=== PATIENT | male | born 1945 | race Caucasian/White ===

== ENCOUNTER 2017-01-17 09:08 | Emergency (ER) | payer BC ==
[~2017-01-17] VITALS: Ht 175.3 cm; Wt 102.6 kg
[~2017-01-17 09:08] MED LIST: ADVIN25050 INH; ATOR-22 PO; HYDR5SYP11 PO; IPRASOL4 INH; KETO2CRE14 TOP; OMEG-112 PO; OMEP20CA9 PO; TADA20TA PO; TAMS0.4C38 PO; TIOTCAP INH; levaquin PO
[2017-01-17 09:14] VITALS: TEMP 36.7; Ht 175.3 cm; Wt 102.6 kg
[2017-01-17 10:10] LABS: BASO % 0.2 %; BASO ABS # 0.03 K/uL (0-0.2); COMPLETE YES; EOS % 3.1 %; HEMATOCRIT 45.4 % (42-52); IG% 0.5 %; LYMPH % 23.9 %; LYMPH ABS # 3.14 K/uL (1.2-3.4); MEAN CELL VOLUME 85.7 fL (80-100); MEAN CORPUSCULAR HEMOGLOBIN 30.6 pg (25-34); MEAN CORPUSCULAR HGB CONC 35.7 g/dl (32-36); MEAN PLATELET VOLUME 9.8 fL (7.4-10.4); MONO % 9.4 %; NEUT % 62.9 %; PLATELET COUNT 206 K/uL (130-400); WHITE BLOOD COUNT 13.15 K/uL (4.8-10.8)
[2017-01-17 10:12] LABS: MANUAL MICROSCOPIC REQUIRED? NO; REVIEW REQ? NO; URINE APPEARANCE CLEAR (CLEAR); URINE BILIRUBIN NEG (NEG); URINE COLOR DK YELLOW; URINE EPITHELIAL CELL AUTO 0-5 /lpf (0-5); URINE NITRITE NEG (NEG); URINE SPECIFIC GRAVITY 1.018 (1.000-1.030); UROBILINOGEN NEG (NEG); ZZUR CULT IF INDIC CLEAN CATCH NO
[2017-01-17 10:28] LABS: ALT/SGPT 39 U/L (12-78); BLOOD UREA NITROGEN 17 mg/dl (7-18); CALCIUM 9.6 mg/dl (8.5-10.1); CARBON DIOXIDE 27 mmol/L (21-32); CHLORIDE 104 mmol/L (98-107); GLUCOSE 110 mg/dl (70-99); POTASSIUM 4.1 mmol/L (3.5-5.1); SODIUM 139 mmol/L (136-145)
[2017-01-17 10:33] LABS: ALKALINE PHOSPHATASE 64 U/L (45-117); AST/SGOT 19 U/L (15-37)
--- NOTE | 2017-01-17 10:34 | DIAGNOSTIC IMAGING REPORT ---
SINGLE VIEW CHEST CLINICAL HISTORY: Anxiety. Recent fall FINDINGS: An AP, portable, upright chest radiograph is compared to study dated 05/18/2015 and correlated with chest CT dated 01/30/2015. The examination is degraded by portable technique and patient rotation. The heart is mildly enlarged and there is atherosclerotic calcification of the thoracic aorta. The pulmonary vasculature is noncongested. Emphysema and chronic interstitial thickening is similar to previous. Left basilar airspace opacities likely represent atelectasis. No large pleural effusion or pneumothorax is seen. The skeletal structures are osteopenic. The bony thorax is grossly intact. IMPRESSION: 1. Cardiomegaly and emphysema. 2. Left basilar airspace opacities at the represent atelectasis. Clinical correlation will be required Electronically signed by: Washington Abebe M.D. 01/17/2017 10:33 AM Dictated Date/Time: 01/17/2017 10:31 AM
[2017-01-17] MEDS ORDERED: ATOR-24 PO (11:08)
[2017-01-17] MEDS ORDERED: CETI10TA84 PO (11:08)
[2017-01-17] MEDS ORDERED: SPRIN/30 INH (11:08)
[2017-01-17] MEDS ORDERED: NIFE30TA83 PO (11:08)
[2017-01-17] MEDS ORDERED: ROFL1TAB5 PO (11:08)
[2017-01-17] MEDS ORDERED: NXM/40 PO (11:08)
[2017-01-17] MEDS ORDERED: OPTIRAY 320 IV PRN (11:30)
--- NOTE | 2017-01-17 12:00 | DIAGNOSTIC IMAGING REPORT ---
CT ANGIOGRAM OF THE CHEST CLINICAL HISTORY: Atypical chest pain. COMPARISON STUDY: Chest x-ray dated 01/15/2017. Chest CT scans dated 01/30/2015 and 03/17/2007. TECHNIQUE: Following the IV administration of 107 cc of Optiray 320, CT angiogram of the chest was performed from the upper abdomen to the thoracic inlet utilizing the pulmonary embolus protocol. Images are reviewed in the axial, sagittal, and coronal planes. 3-D MIPS images are created and assessed. IV contrast was administered without complication. A dose lowering technique was utilized adhering to the principles of ALARA. CT DOSE: 464.96 mGy.cm FINDINGS: Thyroid: Imaged portions of the thyroid gland are normal in size and attenuation. Thoracic aorta: There is mild atherosclerotic calcification of the thoracic aorta, which is normal in caliber and demonstrates standard 3-vessel arch anatomy. No dissection is seen. Pulmonary vasculature: The pulmonary trunk is normal in caliber. There are no filling defects identified in main, lobar, or segmental pulmonary branches to suggest pulmonary embolus. Heart: The heart is enlarged and there is trace pericardial effusion. The coronary arteries are densely calcified. Lungs and pleural spaces: Emphysema is similar to previous. There is no airspace consolidation typical for pneumonia or pleural effusion. Atelectasis versus scarring is noted in the right middle lobe. There are scattered calcified granulomas. Mild mucous plugging is present in the left lower lobe airways. Mild diffuse peribronchial thickening suggests reactive airway disease. The trachea and central airways are clear. Mediastinum: There is no mediastinal lymphadenopathy. July: Clear. Axillae: There is no axillary lymphadenopathy. Upper abdomen: There is a tiny hiatal hernia. A 5.2 cm left renal cyst is partially imaged. There are numerous (greater than 10) hepatic cysts and too small to Hypodensities which measure up to 2.7 cm. These were also seen on prior studies. Skeletal structures: The skeletal structures are osteopenic. Degenerative change is seen throughout the thoracic spine. No lytic or blastic bony lesions are seen. IMPRESSION: 1. There is no evidence of pulmonary embolus in the main, lobar, or segmental pulmonary arteries. 2. Cardiomegaly and emphysema. 3. There is no airspace consolidation or pleural effusion. 4. Additional findings as above. Electronically signed by: Washington Abebe M.D. 01/17/2017 11:59 AM Dictated Date/Time: 01/17/2017 11:41 AM
[2017-01-17] MEDS ORDERED: AZITHROMYCIN 250 MG TAB PO STA (12:14)
[2017-01-17] MEDS ORDERED: DIPHTHERIA/TETANUS/PERTUSSIS 0.5 ML SYR/VIAL IM. ONE (12:15)
[2017-01-17] MEDS ORDERED: ZTHM250 PO (12:16)
[2017-01-17 12:20] VITALS: BP 126/99; PULSE 66; O2SAT 94
--- NOTE | 2017-01-17 15:29 | EMERGENCY ROOM VISIT NOTE ---
History Report prepared by Barbara: Lisa Marks Under the Supervision of: Dr. Kashif Katz D.O. First contact with patient: 09:19 Chief Complaint: ANXIETY Stated Complaint: ANXIETY FROM FALL YESTERDAY History of Present Illness The patient is a 71 year old male who presents to the Emergency Room with complaints of persistent anxiety that began yesterday. The patient states that he fell down a 9 inch step yesterday and states that since then he has been feeling anxious. He states that he has been short of breath since the fall. The patient reports that he has noticed right shoulder and right hip shoulder. He states that he is feeling fluttery inside today. The patient reports a history of asthma, COPD, and chronic bronchitis, noting that he is on multiple medications daily. 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 The patient states that this weekend he has a busy weekend, noting a reunion weekend. He states that he is typically very calm and cool, but states that he keeps feeling anxious. The patient denies any head injury or being on any blood thinners. Pt denies headache, change in vision, fevers, chest pain, nausea, vomiting, diarrhea, pain with urination, weakness in arms and legs, and melena. Source of History: patient Onset: yesterday Position: other (global) Quality: other (anxiety) Timing: other (persistent) Associated Symptoms: + SOB Note: Associated Symptoms: feeling fluttery inside. Review of Systems See HPI for pertinent positives & negatives. A total of 10 systems reviewed and were otherwise negative. Past Medical & Surgical Medical Problems: (1) Asthma (2) Bronchitis (3) Emphysema/COPD Surgical Problems: (1) History of colon resection Family History Cancer FH: asthma Heart disease Social History Smoking Status: Former Smoker Alcohol Use: occasionally Drug Use: none Marital Status: Housing Status: lives with family Occupation Status: employed Current/Historical Medications Scheduled Atorvastatin (Lipitor), 40 MG PO QPM Azithromycin (Azithromycin), 250 MG PO DAILY Cetirizine (Zyrtec), 10 MG PO DAILY Esomeprazole Magnesium (Nexium), 40 MG PO DAILY Fluticasone Prop/Salmeterol (Advair Diskus 250-50 Mcg/Dose), 1 PUFF INH BID Nifedipine Ext Rel (Procardia Xl Ext Rel), 30 MG PO QPM Roflumilast (Daliresp), 500 MCG PO DAILY Tadalafil (Cialis), 20 MG PO UD Tamsulosin Hcl (Flomax), 0.4 MG PO QPM Tiotropium [place] (Spiriva Handihaler), 1 CAP INH DAILY Allergies Coded Allergies: Amoxicillin (Verified Allergy, Intermediate, RASH, 01/14/15) Clavulanic Acid (Verified Allergy, Intermediate, RASH, 01/14/15) Moxifloxacin (Verified Allergy, Unknown, hives, TOLERATES LEVAQUIN, ) Sulfa Antibiotics (Verified Allergy, Unknown, ., 01/17/17) Physical Exam Vital Signs Date Time Temp Pulse Resp B/P (MAP) Pulse Ox O2 Delivery O2 Flow Rate FiO2 01/17/17 12:20 66 13 126/99 94 Room Air 01/17/17 11:11 66 20 175/78 93 Room Air 01/17/17 09:47 67 01/17/17 09:14 36.7 83 20 164/71 92 Room Air Physical Exam GENERAL: alert, well appearing, well nourished, no distress, non-toxic HEAD: normal cephalic, atraumatic EYE EXAM: normal conjunctiva, PERRL and EOM's grossly intact OROPHARYNX: no exudate, no erythema, lips, buccal mucosa, and tongue normal and mucous membranes are moist EARS: TMs clear b/l NECK: supple, no nuchal rigidity, no adenopathy, non-tender CHEST: stable to compression anteriorly and posteriorly LUNGS: clear to auscultation. Normal chest wall mechanics HEART: no murmurs, S1 normal and S2 normal ABDOMEN: abdomen soft, non-tender, normo-active bowel sounds, no masses, no rebound or guarding. PELVIS: stable to compression anteriorly and posteriorly BACK: Back is symmetrical on inspection and there is no deformity, no midline tenderness, no CVA tenderness. UPPER EXTREMITIES: full active and passive range of motion of all joints without tenderness to palpation LOWER EXTREMITIES: Abrasion noted over the right elbow, minimal tenderness on the posterior aspect of the right humerus. NEURO EXAM: Normal sensorium, cranial nerves II-XII grossly intact, normal speech, no gross weakness of arms, no gross weakness of legs. GCS: 15. Medical Decision & Procedures ER Provider Diagnostic Interpretation: Radiology results as stated below per my review and the radiologist's interpretation: SINGLE VIEW CHEST CLINICAL HISTORY: Anxiety. Recent fall FINDINGS: An AP, portable, upright chest radiograph is compared to study dated 05/18/2015 and correlated with chest CT dated 01/30/2015. The examination is degraded by portable technique and patient rotation. The heart is mildly enlarged and there is atherosclerotic calcification of the thoracic aorta. The pulmonary vasculature is noncongested. Emphysema and chronic interstitial thickening is similar to previous. Left basilar airspace opacities likely represent atelectasis. No large pleural effusion or pneumothorax is seen. The skeletal structures are osteopenic. The bony thorax is grossly intact. IMPRESSION: 1. Cardiomegaly and emphysema. 2. Left basilar airspace opacities at the represent atelectasis. Clinical correlation will be required Electronically signed by: Washington Abebe M.D. 01/17/2017 10:33 AM Dictated Date/Time: 01/17/2017 10:[address] ANGIOGRAM OF THE CHEST CLINICAL HISTORY: Atypical chest pain. COMPARISON STUDY: Chest x-ray dated 01/15/2017. Chest CT scans dated 01/30/2015 and 03/17/2007. TECHNIQUE: Following the IV administration of 107 cc of Optiray 320, CT angiogram of the chest was performed from the upper abdomen to the thoracic inlet utilizing the pulmonary embolus protocol. Images are reviewed in the axial, sagittal, and coronal planes. 3-D MIPS images are created and assessed. IV contrast was administered without complication. A dose lowering technique was utilized adhering to the principles of ALARA. CT DOSE: 464.96 mGy.cm FINDINGS: Thyroid: Imaged portions of the thyroid gland are normal in size and attenuation. Thoracic aorta: There is mild atherosclerotic calcification of the thoracic aorta, which is normal in caliber and demonstrates standard 3-vessel arch anatomy. No dissection is seen. Pulmonary vasculature: The pulmonary trunk is normal in caliber. There are no filling defects identified in main, lobar, or segmental pulmonary branches to suggest pulmonary embolus. Heart: The heart is enlarged and there is trace pericardial effusion. The coronary arteries are densely calcified. Lungs and pleural spaces: Emphysema is similar to previous. There is no airspace consolidation typical for pneumonia or pleural effusion. Atelectasis versus scarring is noted in the right middle lobe. There are scattered calcified granulomas. Mild mucous plugging is present in the left lower lobe airways. Mild diffuse peribronchial thickening suggests reactive airway disease. The trachea and central airways are clear. Mediastinum: There is no mediastinal lymphadenopathy. July: Clear. Axillae: There is no axillary lymphadenopathy. Upper abdomen: There is a tiny hiatal hernia. A 5.2 cm left renal cyst is partially imaged. There are numerous (greater than 10) hepatic cysts and too small to Hypodensities which measure up to 2.7 cm. These were also seen on prior studies. Skeletal structures: The skeletal structures are osteopenic. Degenerative change is seen throughout the thoracic spine. No lytic or blastic bony lesions are seen. IMPRESSION: 1. There is no evidence of pulmonary embolus in the main, lobar, or segmental pulmonary arteries. 2. Cardiomegaly and emphysema. 3. There is no airspace consolidation or pleural effusion. 4. Additional findings as above. Electronically signed by: Washington Abebe M.D. 01/17/2017 11:59 AM Dictated Date/Time: 01/17/2017 11:41 AM Laboratory Results 01/17/17 10:00 Red Blood Count 5.30, Mean Corpuscular Volume 85.7, Mean Corpuscular Hemoglobin 30.6, Mean Corpuscular Hemoglobin Concent 35.7, Mean Platelet Volume 9.8, Neutrophils (%) (Auto) 62.9, Lymphocytes (%) (Auto) 23.9, Monocytes (%) (Auto) 9.4, Eosinophils (%) (Auto) 3.1, Basophils (%) (Auto) 0.2, Neutrophils # (Auto) 8.28, Lymphocytes # (Auto) 3.14, Monocytes # (Auto) 1.23, Eosinophils # (Auto) 0.41, Basophils # (Auto) 0.03 01/17/17 10:00 Test 01/17/17 09:50 01/17/17 10:00 01/17/17 12:05 Urine Color DK YELLOW Urine Appearance CLEAR (CLEAR) Urine pH 6.0 (4.5-7.5) Urine Specific [place] 1.018 (1.000-1.030) Urine Protein NEG (NEG) Urine Glucose (UA) NEG (NEG) Urine Ketones NEG (NEG) Urine Occult Blood NEG (NEG) Urine Nitrite NEG (NEG) Urine Bilirubin NEG (NEG) Urine Urobilinogen NEG (NEG) Urine Leukocyte Esterase NEG (NEG) Urine WBC (Auto) 0 /hpf (0-5) Urine RBC (Auto) 0-4 /hpf (0-4) Urine Hyaline Casts (Auto) 0 /lpf (0-5) Urine Epithelial Cells (Auto) 0-5 /lpf (0-5) Urine Bacteria (Auto) NEG (NEG) White Blood Count 13.15 K/uL (4.8-10.8) Red Blood Count 5.30 M/uL (4.7-6.1) Hemoglobin 16.2 g/dL (14.0-18.0) Hematocrit 45.4 % (42-52) Mean Corpuscular Volume 85.7 fL (80-100) Mean Corpuscular Hemoglobin 30.6 pg (25-34) Mean Corpuscular Hemoglobin Concent 35.7 g/dl (32-36) Platelet Count 206 K/uL (130-400) Mean Platelet Volume 9.8 fL (7.4-10.4) Neutrophils (%) (Auto) 62.9 % Lymphocytes (%) (Auto) 23.9 % Monocytes (%) (Auto) 9.4 % Eosinophils (%) (Auto) 3.1 % Basophils (%) (Auto) 0.2 % Neutrophils # (Auto) 8.28 K/uL (1.4-6.5) Lymphocytes # (Auto) 3.14 K/uL (1.2-3.4) Monocytes # (Auto) 1.23 K/uL (0.11-0.59) Eosinophils # (Auto) 0.41 K/uL (0-0.5) Basophils # (Auto) 0.03 K/uL (0-0.2) RDW Standard Deviation 42.2 fL (36.4-46.3) RDW Coefficient of Variation 13.5 % (11.5-14.5) Immature Granulocyte % (Auto) 0.5 % Immature Granulocyte # (Auto) 0.06 K/uL (0.00-0.02) D-Dimer 590 ug/L FEU (0-500) Anion Gap 8.0 mmol/L (3-11) Est Creatinine Clear Calc Drug Dose 72.7 ml/min Estimated GFR () 77.9 Estimated GFR (Non- 67.2 BUN/Creatinine Ratio 15.0 (10-20) Calcium Level 9.6 mg/dl (8.5-10.1) Total Bilirubin 0.5 mg/dl (0.2-1) Direct Bilirubin 0.2 mg/dl (0-0.2) Aspartate Amino Transf (AST/SGOT) 19 U/L (15-37) Alanine Aminotransferase (ALT/SGPT) 39 U/L (12-78) Alkaline Phosphatase 64 U/L (45-117) Total Protein 8.1 gm/dl (6.4-8.2) Albumin 4.2 gm/dl (3.4-5.0) Lipase 163 U/L (73-393) Troponin I < 0.015 ng/ml (0-0.045) Laboratory results per my review. Medications Administered Medications (Trade) Dose Ordered Sig/Kinsey Route Start Time Stop Time Status Last Admin Dose Admin Diphtheria/ Pertussis/Tetanus Vacc (Adacel Inj) 0.5 ml ONCE ONCE IM. 01/17/17 12:15 01/17/17 12:16 DC 01/17/17 12:26 0.5 ML Azithromycin (Zithromax Tab) 500 mg NOW STAT PO 01/17/17 12:14 01/17/17 12:15 DC 01/17/17 12:25 500 MG ECG Indication: other (anxiety) Rate (beats per minute): 72 Rhythm: sinus rhythm Findings: 1st degree AV block, PVC, RBBB Comparison ECG Date: 01/14/15 Change: no significant change ED Course ED COURSE: Vital signs were reviewed and showed hypertension The patients medical record was reviewed The above diagnostic studies were performed and reviewed. ED treatments and interventions as stated above. 0921: The patient was evaluated in room B7. A complete history and physical examination was performed. 1113: I reevaluated the patient and his symptoms have resolved and he is feeling better. 1125: I reevaluated the patient and he is in need of a chest CT and further work up. 1212: Upon reevaluation, the patient is resting comfortably. I updated him on the findings of his chest CT. He has decided to go home and not wait for his troponin results. I discussed the risks and benefits with him at this time.I discussed my findings with the patient and he understands and agrees with the treatment plan. Based on the patients age, coexisting illnesses, exam and lab findings the decision to treat as an outpatient was made. The patient remained stable while under my care. The patient appeared well at the time of discharge. 1214: Ordered Zithromax Tab 500 mg PO, Adacel Inj 0.5 ml IM. Medical Decision Differential diagnoses include major intracranial, cervical, spinal, thoracic, abdominal, pelvic and neurologic injury. Fracture, contusion, sprain, strain, laceration, abrasions included as well. Patient is a 71-year-old male that presents the ER fluttering she has throughout his whole body. He notes he's been very anxious since he fell yesterday. He has scheduled a reunion for [employer] today. He notes he has multiple plans including the dizziness that is running. Patient complains of mild shoulder pain and right hip pain. He declined x-rays. CBC shows a mild leukocytosis of 13,000. BMP along with LFTs, bilirubin lipase unremarkable. Troponins are negative 2. EKG is unchanged. UA is negative. D-dimer was slightly elevated at 590. CT PE was performed and showed a mild bronchitis in the body of the CT for the lungs. Patient was placed on azithromycin. Symptoms completely resolved throughout his stay in the ER without intervention. Patient requested to leave prior to the results of his last troponin has had multiple things going on today. UA was negative. Do favor there is a large component of anxiety. He was given a bostrix shot. Patient was updated and discharged prior to the results of his troponin. Discussed with Pt concerning signs and symptoms to watch out for. Pt was instructed to follow up with their PCP and discussed with the patient their option to return to the ED at anytime for persistent or worsening symptoms. The appropriate anticipatory guidance and out-patient management, including indications for return to the emergency department, were explained at length to the patient and understood. Medication Reconcilliation Current Medication List: was personally reviewed by me Blood Pressure Screening Patient's blood pressure: Elevated blood pressure Blood pressure disposition: Elevated BP felt to be situational, Did not require urgent referral Impression Primary Impression: Bronchitis Additional Impression: Shoulder contusion Scribe Attestation The scribe's documentation has been prepared under my direction and personally reviewed by me in its entirety. I confirm that the note above accurately reflects all work, treatment, procedures, and medical decision making performed by me. Departure Information Dispostion Home / Self-Care Prescriptions Azithromycin (Azithromycin) 250 Mg Tab 250 MG PO DAILY for 4 Days Prov: Kashif Katz, DO 01/17/17 Referrals Bhavin Lopez M.D. (PCP) Forms HOME CARE DOCUMENTATION FORM, IMPORTANT VISIT INFORMATION Patient Instructions Bronchitis Acute, My [facility] Additional Instructions Please follow up with your primary care doctor or if you are a student, [facility] with in the next 24 hours. Any worsening of your symptoms, please return to the ED immediately. This includes any fevers greater than 100.4, worsening pain, chest pain, shortness breath, persistent nausea, vomiting, unable to eat or drink, or any other concerning signs or symptoms from your standpoint. Your boostrix was updated. Your CT of the chest shows bronchial thickening suggesting a possible bronchitis. Please take the antibiotic as prescribed. You will receive a phone call from us if you're troponin is elevated. Please keep your phone available for the next hour. You were found to have a blood pressure greater than 120 systolic over 90 diastolic. Due to the new Medicare guidelines, we are now recommending that you follow up with your primary care doctor in regards to this elevated blood pressure. Problem Qualifiers Additional Impression: Shoulder contusion Encounter type: initial encounter Laterality: right Qualified Codes: S40.011A - Contusion of right shoulder, initial encounter
== END 2017-01-17 12:38 | disposition home or self-care (01) ==
LOC: C.EDB 09:09
DX: J45.909 Unspecified asthma, uncomplicated (principal); S40.011A Contusion of right shoulder, initial encounter; W10.9XXA Fall (on) (from) unspecified stairs and steps, initial encounter; J44.9 Chronic obstructive pulmonary disease, unspecified; Z87.891 Personal history of nicotine dependence; Z23 Encounter for immunization; Z90.49 Acquired absence of other specified parts of digestive tract; Z82.5 Family history of asthma and other chronic lower respiratory diseases

== ENCOUNTER 2019-04-17 09:52 | Inpatient (IN) ==
[2019-04-17] MEDS ORDERED: methylPREDNISolone 125 MG/2 ML VIAL IV STA (10:17)
[2019-04-17] MEDS ORDERED: ALBUT/IPRATROP 3MG/0.5MG NEB 3 ML VIAL NEB ONE (10:17)
[2019-04-17 10:44] LABS: Base Excess VBG 3.9 mEq/L; Basophils # (auto) 0.02 K/uL (0-0.2); Basophils % (auto) 0.1 %; Eosinophils # (auto) 0.07 K/uL (0-0.5); Eosinophils % (auto) 0.3 %; HCO3 VBG 29 mmol/L; Hematocrit (blood only) 43.7 % (42-52); Hemoglobin 14.9 g/dL (14.0-18.0); Immature Granulocytes # (auto) 0.12 K/uL (0.00-0.02); Immature Granulocytes % (auto) 0.5 %; Lymphocytes # (auto) 2.46 K/uL (1.2-3.4); Lymphocytes % (auto) 10.3 %; Mean Corpuscular Hemoglobin 29.6 pg (25-34); Mean Corpuscular Hgb Conc 34.1 g/dL (32-36); Mean Corpuscular Volume 86.7 fL (80-100); Mean Platelet Volume 9.8 fL (7.4-10.4); Monocytes # (auto) 1.97 K/uL (0.11-0.59); Monocytes % (auto) 8.3 %; Neutrophils # (auto) 19.21 K/uL (1.4-6.5); Neutrophils % (auto) 80.5 %; Oxygen Saturation VBG < 60.0 %; PCO2 VBG 46 mmHg (38-50); PO2 VBG 29 mmHg; Platelet Count 182 K/uL (130-400); RDW Standard Deviation 43.9 fL (36.4-46.3); Red Blood Count 5.04 M/uL (4.7-6.1); White Blood Count 23.85 K/uL (4.8-10.8); pH VBG 7.42 (7.36-7.41)
[2019-04-17 11:00] LABS: BUN Creatinine Ratio 9.9 (10-20); Blood Urea Nitrogen 13 mg/dl (7-18); Calcium 9.2 mg/dl (8.5-10.1); Carbon Dioxide 29 mmol/L (21-32); Chloride 104 mmol/L (98-107); Creatinine Clr Calc Pharmacy 57.7 ml/min; Est GFR (Non-African American) 52.7; Glucose 115 mg/dl (70-99); Magnesium 1.9 mg/dl (1.8-2.4); Potassium 3.8 mmol/L (3.5-5.1); Sodium 137 mmol/L (136-145)
[2019-04-17 11:05] LABS: Troponin I < 0.015 ng/ml (0-0.045)
--- NOTE | 2019-04-17 11:34 | XRay Report ---
XR chest 1V portable CLINICAL HISTORY: 73 years-old Male presenting with Persistent cough. TECHNIQUE: Portable upright AP view of the chest was obtained. COMPARISON: 10/14/2018. FINDINGS: Atherosclerosis of the aortic arch. Cardiac silhouette borderline enlarged. Mildly coarsened lung mar kings. Irregular opacities at the lung bases. These are new from prior exam. There may be mild hyperi nflation. No large effusion or pneumothorax. Degenerative changes of the thoracic spine. Upper abdome n normal. IMPRESSION: 1. Bibasilar irregular infiltrates new from prior exam. These may represent atelectasis or aspiratio n. ACT 112: Negative or not required by law. Electronically signed by: Bhavin Fung M.D. 04/17/2019 11:33 AM
[2019-04-17] MEDS ORDERED: CEFEPIME 2,000 MG/20 ML VIAL IV STA (12:28)
[2019-04-17] MEDS ORDERED: SODIUM CHLORIDE 0.9% 1000ML 1,000 ML IV ONE ×2 (12:40)
--- NOTE | 2019-04-17 12:57 | Emergency Department Note ---
Entered by Sana Almodovar acting as a scribe for ED Provider Note Name: OSKAR ASENCIO Age: 73 Arrives Via: Walk-In Informant: Patient CC: Respiratory Problems HPI: [id number] arrives for evaluation of intermittent respiratory problems that began 3 weeks ago. The patient states that his oxygen has been dropping to the 70's when he exercises and that he has a history of COPD. The patient reports experiencing a cough and a slight fever but denies experiencing any chest or abdominal pain. The patient denies experiencing any melena, nausea/vomiting or loss of consciousness. The patient mentioned that he is on multiple lung medications including chronic azithromycin. ROS: See above HPI for pertinent positives & negatives. A total of 10 systems reviewed and were otherwise negative. Past Medical History:Hypertension, Hyperlipidemia, Asthma, COPD Past Surgical History:Colon resection Family History:See Below Social History:See Below Home Medications:See Below Allergies:Amoxicillin, Clavulanic acid, Moxifloxacin, Sulfa, Roflimilast Vitals:BP: 184/72 P: 72 R: 18 T: 37.4 O2 Sat: 90 on RA Physical Exam: GENERAL: Patient is uncomfortable appearing and in mild distress. EYES: No scleral icterus, unremarkable pupils. ENT: Mucous membranes moist, no nasal congestion. NECK: No masses appreciated, nomeningismus, trachea is midline. RESPIRATORY: Tachypneic. Dyspneic. Tight lung sounds throughout. Crackles right lower lobe. Wheezing throughout. No rhonchi. CARDIOVASCULAR: Regular rate and rhythm.No murmurs, rubs, gallops appreciated. GASTROINTESTINAL: Abdomen soft, non-tender, no peritonitis.Bowel sounds positive.No masses appreciated. BACK: No midline tenderness, no CVA tenderness EXTREMITIES: Normal motion all extremities, no cyanosis, mild edema left leg (patient states chronic) NEUROLOGIC: Alert and oriented, no acute motor or sensory deficits, no focal weakness, cranial nerves grossly intact. SKIN: No rash, no jaundice, no diaphoresis. ED Course: Prior Medical Record, Triage/Nursing Notes, Medications, Allergies reviewed by Me Vital Signs: reviewed and remarkable for no significant abnormalities Labs:Reviewed and remarkable for no significant abnormalities Interventions: Saline Lock, Duoneb x 1 hr, Solu-Medrol 125mg IV, Cefepime 2gm IV, NSS bolus 2 L IV Imaging: Radiology results as stated below per my review and the radiologist's interpretation: XR chest 1V portable CLINICAL HISTORY: 73 years-old Male presenting with Persistent cough. TECHNIQUE: Portable upright AP view of the chest was obtained. COMPARISON: 10/14/2018. FINDINGS: Atherosclerosis of the aortic arch. Cardiac silhouette borderline enlarged. Mildly coarsened lung markings. Irregular opacities at the lung bases. These are new from prior exam. There may be mild hyperinflation. No large effusion or pneumothorax. Degenerative changes of the thoracic spine. Upper abdomen normal. IMPRESSION: 1. Bibasilar irregular infiltrates new from prior exam. These may represent atelectasis or aspiration. ACT 112: Negative or not required by law. Electronically signed by: Bhavin Fung M.D. 04/17/2019 11:33 AM EKG:Per My Interpretation: Indication SHOB: NSR 66 bpm, qtc 463. RBBB. No Ectopy. No Ischemia. Compared to EKG 08/16/17, no significant changes Consults:1228: I spoke with Dr. Shoemaker- Hospitalist about the patient's case and she will accept the patient for further evaluation. Reassessments/Times: 1008: Past medical records reviewed. The patient was evaluated in room B07. A complete history and physical exam was performed. 1124: Breathing has improved. Oxygen 100% on nebulizer. 1240: The patient is feeling better. Lactic acid came back at 2.7. Further IV fluids were ordered. Blood pressure:Elevated - Referred to PCP - [place] to be Situational. Signed out to Hospitalist Disposition:Hospitalization Differentials: Differential diagnosis: Etiologies such as infections, reactive airway disease, COPD, pneumonia, pleural effusion, pulmonary edema, ARDS, pneumothorax, CHF, cardiac ischemia, cardiac tamponade, dysrhythmia, anemia, pulmonary embolism, musculoskeletal, gastrointestinal process, as well as others were entertained. Medical Decision Makin yr old male with severe COPD chronically on azithro and multiple breathing meds arrives for evaluation worsening shortness of breath. Becoming hypoxic as outpatient with exertion in to 70s. He admits fevers periodically. Worsening symptoms last few weeks, especially last few days. He has poor lungs on exam with crackles RLL. WBC 23. No fever here. Bilateral pneumonia, worse RLL consistent with exam. Sound modestly better with neb. With WBC and PNA cultures/lactate ordered followed by IV Cefepime. Cefepime as already on Azithro and no recent hospitalizations. Lactate returned elevated and in setting of infection fluids ordered for sepsis management though BP remained stable throughout. Patient comfortable and breathing stabilized at time of hospitalist evaluation. Impression: Bilateral lower lobe pneumonia COPD exacerbation Sepsis Critical Care Time: I have personally spent greater than 35 minutes of critical care time in the direct management of this patient. Bilateral pneumonia with sepsis and elevated WBC/Lactic acid. This was a life/limb threatening event. This includes time spent evaluating patient, direct bedside care, chart review, placing orders, interpretation of diagnostic studies, discussion with consultants, patient, and family members, as well as other required patient management activities. This 35 minutes is in excess of all separately billable procedures. The scribe's documentation has been prepared under my direction and personally reviewed by me in its entirety. I confirm that the note above accurately reflects all work, treatment, procedures, and medical decision making performed by me. Bentley Devine MD Impression & Plan Pneumonia of both lower lobes, COPD exacerbation, Sepsis Past Med/Surg History Medical History Asthma (Chronic) Bronchitis (Resolved) Bronchopneumonia (Acute) COPD with exacerbation (Chronic) Emphysema/COPD (Chronic) Hyperlipidemia (Chronic) Hypertension (Chronic) Hypoxemia (Acute) Pneumonia (Acute) Shoulder contusion (Acute) Surgical History History of colon resection (Resolved) Family History Other Family history non-contributory Social History Feels Safe at Home: Yes Smoking Status: Former smoker Results & Data Vital Signs Vital Signs - 24 hr 04/17/19 09:56 04/17/19 10:33 04/17/19 12:05 Temperature 37.4 C Temperature Source Oral Pulse Rate 72 Pulse Rate [Right Finger] 88 Pulse Rhythm [Right Finger] Regular Respiratory Rate 18 20 20 Respiratory Effort / Characteristics Non-Labored Spontaneous Non-Labored Spontaneous Respiratory Depth Normal Respiratory Pattern Regular Blood Pressure 184/72 H Blood Pressure Mean 109 Pulse Oximetry 90 99 91 Oxygen Delivery Method Room Air Room Air Room Air Sepsis Recent Fever Within 48 Hours Yes Sepsis New/Unexplained Change in Mental Status No Sepsis Action Taken by Nursing No Action Required Home Medications Current Medication List: was personally reviewed by me Laboratory Data Attestation: I reviewed the patient's lab results. Result diagrams: 04/17/19 10:25 04/17/19 10:25 Lab Results 04/17/19 04/17/19 04/17/19 Range/Units 10:25 10:25 10:25 WBC 23.85 H (4.8-10.8) K/uL RBC 5.04 (4.7-6.1) M/uL Hgb 14.9 (14.0-18.0) g/dL Hct 43.7 (42-52) % MCV 86.7 (80-100) fL MCH 29.6 (25-34) pg MCHC 34.1 (32-36) g/dL RDW Std Deviation 43.9 (36.4-46.3) fL RDW Coeff of Jim 14.0 (11.5-14.5) % Plt Count 182 (130-400) K/uL MPV 9.8 (7.4-10.4) fL Immature Gran % (Auto) 0.5 % Neut % (Auto) 80.5 % Lymph % (Auto) 10.3 % Bourbon % (Auto) 8.3 % Eos % (Auto) 0.3 % Baso % (Auto) 0.1 % Immature Gran # (Auto) 0.12 H (0.00-0.02) K/uL Neut # (Auto) 19.21 H (1.4-6.5) K/uL Lymph # (Auto) 2.46 (1.2-3.4) K/uL Bourbon # (Auto) 1.97 H (0.11-0.59) K/uL Eos # (Auto) 0.07 (0-0.5) K/uL Baso # (Auto) 0.02 (0-0.2) K/uL VBG pH 7.42 H (7.36-7.41) VBG pCO2 46 (38-50) mmHg VBG pO2 29 mmHg VBG HCO3 29 mmol/L VBG O2 Saturation < 60.0 % VBG Base Excess 3.9 mEq/L Barometric Pressure 744.9 mm/Hg Sodium 137 (136-145) mmol/L Potassium 3.8 (3.5-5.1) mmol/L Chloride 104 (98-107) mmol/L Carbon Dioxide 29 (21-32) mmol/L Anion Gap 4.0 (3-11) BUN 13 (7-18) mg/dl Creatinine 1.33 (0.6-1.4) mg/dl Est Cr Clr Drug Dosing 57.7 ml/min Est GFR ( Amer) 61.0 Est GFR (Non-Af Amer) 52.7 BUN/Creatinine Ratio 9.9 L (10-20) Glucose 115 H (70-99) mg/dl Lactate (0.4-2.0) mmol/L Calcium 9.2 (8.5-10.1) mg/dl Magnesium 1.9 (1.8-2.4) mg/dl Troponin I < 0.015 (0-0.045) ng/ml 04/17/19 Range/Units 12:00 WBC (4.8-10.8) K/uL RBC (4.7-6.1) M/uL Hgb (14.0-18.0) g/dL Hct (42-52) % MCV (80-100) fL MCH (25-34) pg MCHC (32-36) g/dL RDW Std Deviation (36.4-46.3) fL RDW Coeff of Jim (11.5-14.5) % Plt Count (130-400) K/uL MPV (7.4-10.4) fL Immature Gran % (Auto) % Neut % (Auto) % Lymph % (Auto) % Bourbon % (Auto) % Eos % (Auto) % Baso % (Auto) % Immature Gran # (Auto) (0.00-0.02) K/uL Neut # (Auto) (1.4-6.5) K/uL Lymph # (Auto) (1.2-3.4) K/uL Bourbon # (Auto) (0.11-0.59) K/uL Eos # (Auto) (0-0.5) K/uL Baso # (Auto) (0-0.2) K/uL VBG pH (7.36-7.41) VBG pCO2 (38-50) mmHg VBG pO2 mmHg VBG HCO3 mmol/L VBG O2 Saturation % VBG Base Excess mEq/L Barometric Pressure mm/Hg Sodium (136-145) mmol/L Potassium (3.5-5.1) mmol/L Chloride (98-107) mmol/L Carbon Dioxide (21-32) mmol/L Anion Gap (3-11) BUN (7-18) mg/dl Creatinine (0.6-1.4) mg/dl Est Cr Clr Drug Dosing ml/min Est GFR ( Amer) Est GFR (Non-Af Amer) BUN/Creatinine Ratio (10-20) Glucose (70-99) mg/dl Lactate 2.7 H* (0.4-2.0) mmol/L Calcium (8.5-10.1) mg/dl Magnesium (1.8-2.4) mg/dl Troponin I (0-0.045) ng/ml Administered Medications Discontinued Medications Albuterol (Duoneb) 12 ml NEB ONE ONE Stop: 04/17/19 10:18 Last Admin: 04/17/19 10:28 Dose: 12 ml Documented by: [id number] Methylprednisolone (Solumedrol) 125 mg IV NOW STA Stop: 04/17/19 10:18 Last Admin: 04/17/19 10:38 Dose: 125 mg Documented by: [id number] Blood Pressure Blood Pressure Findings: Elevated blood pressure Blood Pressure Disposition: further management by hospitalist Discharge Plan Visit Data Chief Complaint: Illness Stated Complaint: FEVER, CHRONIC BRONCHITIS, COLD ED Provider: Bentley Devine Discharge Problem: Pneumonia of both lower lobes, COPD exacerbation, Sepsis Forms Stand Alone Forms: [facility] Prescriptions Prescriptions: No Action (DME) CPAP Machine Misc See Dose Instructions .ROUTE .MEDSUPPLY Qty: 1 RF: 0 fluticasone propion-salmeterol [Advair Diskus] 250-50 mcg/dose blister with device 1 puffs INH BID Qty: 60 RF: 4 atorvastatin 20 mg tablet 20 mg PO QPM Qty: 90 RF: 0 Daliresp 500 mcg tablet 250 mcg PO QAM RF: 0 ipratropium-albuterol 0.5 mg-3 mg(2.5 mg base)/3 mL solution for nebulization 3 ml inhalation BID PRN (Reason: Shortness Of Breath Or Wheezing) Qty: 6 RF: 0 Spiriva with HandiHaler 18 mcg capsule, w/inhalation device 1 cap inhalation QAM Qty: 1 RF: 0 Zyrtec 10 mg capsule 10 mg PO QAM Qty: 30 RF: 0 azithromycin 250 mg tablet 250 mg PO QAM RF: 0 omeprazole 20 mg Capsule,Delayed Release(Dr/Ec) 20 mg PO QPM RF: 0 nifedipine 30 mg tablet extended release 30 mg PO QPM RF: 0 tamsulosin 0.4 mg capsule 0.4 mg PO QPM RF: 0 finasteride 5 mg tablet 5 mg PO QAM RF: 0 Discharge Problem: Pneumonia of both lower lobes Qualifiers: Pneumonia type: due to unspecified organism Qualified Code(s): J18.9 - Pneumo navin, unspecified organism Sepsis Qualifiers: Sepsis type: sepsis due to unspecified organism Sepsis acute organ dysfunction status: unspecified Qualified Code(s): A41.9 - Sepsis, unspecified organism The scribe's documentation has been prepared under my direction and personally reviewed by me in its entirety. I confirm that the note above accurately reflects all work, treatment, procedures, and medical decision making performed by me.
[2019-04-17] MEDS ORDERED: MAGNESIUM SULFATE / D5W 1 GM/100 ML BAG IV ONE (13:24)
--- NOTE | 2019-04-17 13:26 | History & Physical Report ---
Date of Service April 17, 2019 Assessment & Plan (1) Sepsis: Admit to PCU on telemetry Vital signs every 4 hours Duo nebs every 4 hours scheduled/every 2 hours as needed Continue home dose of azithromycin 250 mg p.o. every morning Started cefepime in the ER, continue 2 g every 12 hours. Blood cultures and sputum cultures pending Continue home inhalers continue troponin bromide every morning. Continue Roflumilast 250 MCG's p.o. every morning. Robitussin 10 mils every 6 hours as needed for cough. Solu-Medrol 125 mils IV given in the ER, will continue 30 mg IV 3 times daily for 2 days and then taper down. DVT prophylaxis: Lovenox 40 mg subcu daily Influenza A and B [id number] with the results Speech evaluation of swallowing for possible aspiration pneumonia. Trended down leukocytes and lactic acid. And asked if aspiration pneumonia setting at [facility] to cover for anaerobes. Full code Present on Admission?: Yes (2) Pneumonia of both lower lobes: As discussed above Present on Admission?: Yes (3) COPD exacerbation: As discussed above. Patient reports being seen by melter clerk at [facility] who also recommended cyclizine 10 mg p.o. every morning fluticasone 250 MCG's/salmeterol 50 MCG's 1 puff in inhalation twice daily. Patient said that he also has asthma and COPD. Present on Admission?: Yes (4) Hyperlipidemia: Lipid panel pending. Continue for the time being atorvastatin 80 mg p.o. every afternoon. Present on Admission?: Yes (5) Hypertension: Patient blood pressure was elevated in the emergency room. Hydralazine 10 mg p.o. 4 times daily as needed available if blood pressure is above 160s systolic and 90 diastolic. -Heart healthy diet with low-sodium. Continue nifedipine 30 mg p.o. every afternoon. Present on Admission?: Yes (6) BPH (benign prostatic hyperplasia): Continue home dose of finasteride 5 mg p.o. every morning. Continue tamsulosin 0.4 mg p.o. every afternoon Present on Admission?: Yes (7) GERD (gastroesophageal reflux disease): Continue omeprazole 20 mg p.o. every afternoon or equivalent. Present on Admission?: Yes History of Present Illness Chief Complaint: Shortness of breath and cough Primary Care Provider: Bhavin Lopez MD Patient is a 73 years old male with past medical history with COPD/asthma, hypertension, hyperlipidemia, emphysema, history of colon resection who came to the emergency room for evaluation of intermittent respiratory problems started 3 weeks ago. The patient states that his oxygen has been dropping to 70% when he exercises and that he has history of COPD/asthma. Patient reports experiencing a cough and slight fever but denies experiencing any chest or abdominal pain. Patient reports being chronically on azithromycin 1 p.o. daily for a month which was prescribed by his melter clerk at [facility]. Patient denies at the present time fever, chills, chest pain, abdominal pain, frequency, urgency, melena, hematuria, dysuria. Patient reports being very tired and having a hacking nonproductive cough. Labs are reviewed: WBC is 23.85, hemoglobin 14.9, hematocrit 43.7, platelets 182, VBG pH 7.42, PCO2 46 PO2 29, HCO3 29 O2 saturation less than 60, sodium 137, potassium 3.8, chloride 104, carbon dioxide 29, BUN 13, creatinine 1.33, GFR 52.7, lactate 2.7, calcium 9.2, magnesium 1.9, troponin 0.015. BNP pending, TSH pending, influenza AMB pending. Chest x-ray show bibasilar irregular infiltrates new from the prior exam. These may represent atelectasis or aspiration. Decision was made to admit patient to PCU on telemetry for further observation of possible aspiration pneumonia. Allergies Allergy/AdvReac Type Severity Reaction Status Date / Time amoxicillin Allergy Intermediate RASH Verified 04/17/19 12:02 clavulanic acid Allergy Intermediate RASH Verified 04/17/19 12:02 moxifloxacin Allergy Unknown hives, Verified 04/17/19 12:02 TOLERATES LEVAQUIN Sulfa (Sulfonamide Allergy Unknown . Verified 04/17/19 12:02 Antibiotics) roflumilast [From [facility]] Allergy Verified 04/17/19 12:02 Home Medications Home Medications Medication Instructions Recorded Confirmed Type CPAP Machine #1 ea 10/07/18 01/27/19 Rx atorvastatin 20 mg tablet 20 mg PO QPM #90 tab 01/27/19 04/17/19 History cetirizine 10 mg capsule 10 mg PO QAM #30 cap 01/27/19 04/17/19 History ipratropium-albuterol 0.5 mg-3 3 ml INHALATION BID PRN #6 ml 01/27/19 04/17/19 History mg(2.5 mg base)/3 mL nebulization soln roflumilast 500 mcg tablet 250 mcg PO QAM tab 01/27/19 04/17/19 History tiotropium bromide 18 mcg capsule 1 cap INHALATION QAM #1 puffs 01/27/19 04/17/19 History with inhalation device fluticasone 250 mcg-salmeterol 50 1 puffs INH BID #60 ea 02/25/19 04/17/19 Rx mcg/dose blistr powdr for inhalation azithromycin 250 mg PO QAM 04/17/19 04/17/19 History finasteride 5 mg PO QAM 04/17/19 04/17/19 History nifedipine 30 mg PO QPM 04/17/19 04/17/19 History omeprazole 20 mg PO QPM 04/17/19 04/17/19 History tamsulosin 0.4 mg PO QPM 04/17/19 04/17/19 History Past Med/Surg History Medical History Asthma (Chronic) Bronchitis (Resolved) Bronchopneumonia (Acute) COPD with exacerbation (Chronic) Emphysema/COPD (Chronic) Hyperlipidemia (Chronic) Hypertension (Chronic) Hypoxemia (Acute) Pneumonia (Acute) Shoulder contusion (Acute) Surgical History History of colon resection (Resolved) Family History Other Family history non-contributory Social History Feels Safe at Home: Yes Smoking Status: Former smoker Review of Systems Review of Systems: All systems reviewed & are unremarkable except as noted in HPI & below Physical Exam Constitutional: WD/WN, vitals as above well developed and + ill appearing Eyes: PERRL, conjunctivae normal, anicteric sclerae ENMT: external ear and nose normal, oropharynx normal Neck: trachea midline, no thyromegaly Respiratory: normal respiratory effort Auscultation: + crackles, + rales, + wheezes and + bronchovesicular breath sounds Dry cough Cardiovascular: RRR, no murmur, no edema Vessels: dorsalis pedis pulses present Gastrointestinal (Abdomen): normal bowel sounds, soft, nontender, no hepatosplenomegaly Musculoskeletal: no cyanosis or clubbing, extremities motor strength 5/5 Skin: no rashes, warm and dry Neurologic: patellar DTR's 2+ bilat, sensation intact Psychiatric: A+Ox3, euthymic affect Lymphatic: no cervical or axillary lymphadenopathy Results & Data Vital Signs (Past 12 Hours) Vital Signs Temp Pulse Pulse Resp BP BP Pulse Ox 04/17/19 13:06 88 20 162/88 H 89 L 04/17/19 12:05 88 20 91 04/17/19 10:33 20 99 04/17/19 09:56 37.4 C 72 18 184/72 H 90 Code Status & VTE Plan Code Status Full code VTE Prophylaxis Plan VTE Prophylaxis will be ordered: Yes PG Care Time/CCT Total # of Minutes Spent Total Time Spent with Patient: Total time spent is greater than 50% in coordination of care (as documented) at patient's floor/unit and/or counseling patient: (1) Pneumonia of both lower lobes Pneumonia type: due to unspecified organism Qualified Code(s): J18.9 - Pneumonia, unspecified organism (2) Sepsis Sepsis acute organ dysfunction status: unspecified Sepsis type: sepsis due to unspecified organism Qualified Code(s): A41.9 - Sepsis, unspecified organism
[2019-04-17] MEDS ORDERED: ALBUT/IPRATROP 3MG/0.5MG NEB 3 ML VIAL NEB PRN (14:30)
[2019-04-17] MEDS ORDERED: ACETAMINOPHEN 325 MG TAB PO PRN (14:30)
[2019-04-17] MEDS ORDERED: POLYETHYLENE (MIRALAX) 17 GM PACK PO PRN (14:30)
[2019-04-17] MEDS ORDERED: HydrALAZINE 10 MG TAB PO PRN (14:30)
[2019-04-17] MEDS ORDERED: SODIUM CHLORIDE 0.9% 1000ML 1,000 ML IV SCH (14:30)
[2019-04-17] MEDS ORDERED: ALUMINUM/MAGNESIUM SUSP 30 ML UDC PO PRN (14:30)
[2019-04-17] MEDS ORDERED: MAGNESIUM HYDROXIDE SUSP 30 ML UDC PO PRN (14:30)
[2019-04-17] MEDS ORDERED: GUAIFENESIN/DEXTROM SYRUP 200MG/20MG 10ML UDC PO PRN (14:30)
[2019-04-17 15:26] LABS: Influenza A virus by PCR Neg for Influ A (Neg); Influenza B virus by PCR Neg for Influ B (Neg)
[2019-04-17] MEDS: FLUTICASONE/SALMETEROL 250/50 (ADVAIR) 14 PUFF/1 INHALER INH SCH ×2 (16:49→19:26)
[2019-04-17] MEDS: FINASTERIDE 5 MG TAB PO SCH (16:50)
[2019-04-17] MEDS: AZITHROMYCIN 250 MG TAB PO SCH (16:50)
[2019-04-17] MEDS: ROFLUMILAST 500 MCG TAB PO SCH (16:50)
[2019-04-17] MEDS: TIOTROPIUM BROMIDE 5 PUFF/90 MCG INH INH SCH (16:50)
[2019-04-17] MEDS: methylPREDNISolone 30 MG in SYRINGE 0 ML IV SCH (17:29)
[2019-04-17] MEDS: ENOXAPARIN INJ 40 MG/0.4 ML SYR SQ SCH (17:30)
[2019-04-17] MEDS: NIFEdipine EXTENDED REL 30 MG TABCR PO SCH (21:17)
[2019-04-17] MEDS: ATORVASTATIN 20 MG TAB PO SCH (21:18)
[2019-04-17] MEDS: TAMSULOSIN HCL 0.4 MG CAP PO SCH (21:18)
[2019-04-17] MEDS: PANTOprazole 40 MG TAB PO SCH (21:18)
[2019-04-17] MEDS: CEFEPIME 2,000 MG in SYRINGE 7.5 ML IV SCH (21:20)
[2019-04-18] MEDS: methylPREDNISolone 30 MG in SYRINGE 0 ML IV SCH (02:35)
[2019-04-18 05:48] LABS: Hemoglobin 14.1 g/dL (14.0-18.0); Mean Corpuscular Hemoglobin 29.3 pg (25-34); Mean Corpuscular Hgb Conc 33.6 g/dL (32-36); Mean Corpuscular Volume 87.1 fL (80-100); Mean Platelet Volume 9.9 fL (7.4-10.4); Platelet Count 185 K/uL (130-400); RDW Coefficient of Variation 13.5 % (11.5-14.5); Red Blood Count 4.82 M/uL (4.7-6.1); White Blood Count 22.47 K/uL (4.8-10.8)
[2019-04-18 06:21] LABS: Basophils # (auto) 0.01 K/uL (0-0.2); Immature Granulocytes # (auto) 0.08 K/uL (0.00-0.02); Immature Granulocytes % (auto) 0.4 %; Lymphocytes # (auto) 1.51 K/uL (1.2-3.4); Lymphocytes % (auto) 6.7 %; Monocytes # (auto) 0.71 K/uL (0.11-0.59); Monocytes % (auto) 3.2 %; Neutrophils # (auto) 20.16 K/uL (1.4-6.5); Neutrophils % (auto) 89.7 %; RBC Morphology Unremarkable
[2019-04-18 06:25] LABS: BUN Creatinine Ratio 15.6 (10-20); Calcium 8.3 mg/dl (8.5-10.1); Creatinine Clr Calc Pharmacy 90.4 ml/min; Est GFR (African American) 99.7
[2019-04-18 06:37] LABS: Albumin Globulin Ratio 0.8 (0.9-2); Bilirubin,Total 0.5 mg/dl (0.2-1); Globulin 3.9 gm/dl (2.5-4.0); Thyroid Stimulating Hormone 0.297 uIu/ml (0.300-4.500); Total Protein 6.9 gm/dl (6.4-8.2)
[2019-04-18] MEDS: FLUTICASONE/SALMETEROL 250/50 (ADVAIR) 14 PUFF/1 INHALER INH SCH ×2 (08:11→21:31)
[2019-04-18] MEDS: ROFLUMILAST 500 MCG TAB PO SCH (08:13)
[2019-04-18] MEDS: FINASTERIDE 5 MG TAB PO SCH (08:14)
[2019-04-18] MEDS: TIOTROPIUM BROMIDE 5 PUFF/90 MCG INH INH SCH (08:14)
[2019-04-18] MEDS: CETIRIZINE HCL 10 MG TABLET PO SCH (08:15)
[2019-04-18] MEDS: AZITHROMYCIN 250 MG TAB PO SCH (08:15)
[2019-04-18] MEDS: CEFEPIME 2,000 MG in SYRINGE 7.5 ML IV SCH ×2 (08:20→17:08)
[2019-04-18] MEDS: methylPREDNISolone 40 MG in SYRINGE 0 ML IV SCH ×2 (10:16→17:02)
--- NOTE | 2019-04-18 10:49 | Hospitalist Progress Note ---
Date of Service April 18, 2019 Assessment & Plan (1) Sepsis: Admitted with bibasilar pneumonia on chest x-ray, leukocytosis, fever at home but not documented here, and elevated lactate. Flu swab negative, no growth in blood cultures so far Lactate did trend downward and then back up slightly Blood pressures are significantly elevated No evidence of severe sepsis Leukocytosis is slightly improved today down to 22 from 23.8 upon admission, but he is also now received corticosteroids -Improving with IV fluids, antibiotics, pulmonary toilet as below -Follow blood cultures -Continue antibiotics as below -Follow CBC, BMP (2) Pneumonia of both lower lobes: Patient presented with cough x3 weeks that worsened the 2 days prior to admission, productive of copious clear sputum With underlying COPD with acute exacerbation There is a question of aspiration pneumonia-seen by speech therapy today and was noted to aspirate while drinking and was thought to be due to ongoing talking at times while eating and drinking and being easily distracted while eating. Safe swallow studies were discussed/counseled by speech therapy Could also be community-acquired pneumonia and does have compromised lungs with his severe COPD Procalcitonin only minimally elevated at 0.05 -Is already on chronic daily azithromycin-continue this here-of note, QT on ECG is acceptable -Continue cefepime and increase to dosing to cover Pseudomonas/gram-negative pneumonia at 2000 mg IV every 8 hours -Follow blood cultures-no growth to date -Follow chest x-ray to resolution -No need to treat with anaerobic coverage as there is no evidence of empyema or lung abscess -Pulmonary toilet to be continued (3) COPD exacerbation: Patient with a history of COPD and asthma, noted to be severe as per but is not on chronic O2 at home. However, he does qualify for home O2 as he drops to 77% frequently with exertion on his treadmill. He declines O2 because he recovers quickly from his hypoxia with rest. Follows with pulmonary in [place] but does wish to transition care to pulmonology here at [facility] instead. With acute exacerbation here with wheezing and cough with increased production of sputum -Continuing cefepime and azithromycin as above for pneumonia -Continue IV steroids and increased dose to 40 mg IV every 8 hours-eventual taper to prednisone in the next day or so -Continue scheduled albuterol nebulizers -Continue Advair 1 puff twice daily -Continue Spiriva 1 puff daily -Supplemental O2 as needed to keep pulse ox greater than 88% -Consider two-step walking test although patient has declined O2 in the past -Continue Daliresp -Follow-up with pulmonology after discharge (4) Hyperlipidemia: Continue atorvastatin Lipid panel checked here on admission is excellent (5) Hypertension: Blood pressures are significantly elevated at times here, was given a as needed hydralazine dose last evening -Give IV hydralazine 10 mg every 6 hours as needed SBP greater than 180 or DBP greater than 110 -Continue nifedipine 30 mg p.o. daily at bedtime -Consider adding on a second blood pressure agent as review of outpatient chart shows that he frequently has elevated blood pressures-consider lisinopril or losartan -Heart healthy diet with low-sodium (6) BPH (benign prostatic hyperplasia): No acute issues Continue home dose of finasteride 5 mg p.o. every morning. Continue tamsulosin 0.4 mg p.o. every afternoon (7) GERD (gastroesophageal reflux disease): Continue omeprazole 20 mg p.o. every afternoon or equivalent. (8) Diabetes mellitus: Hemoglobin A1c was 6.6% in September 2018. Diabetes was not listed in his past medical history previously and he is not on medication at home Has some hyperglycemia now likely secondary to corticosteroids -Repeat hemoglobin A1c here is pending -Start q. before meals and at bedtime Accu-Cheks and supply supplemental NovoLog for now-consider adding Lantus -Should start on metformin upon discharge if willing -Needs follow-up with PCP -Changed to ADA diet -Would benefit from diabetic education (9) DYLAN on CPAP: -He has brought in his CPAP from home for nightly use (10) Abnormal TSH: TSH is mildly low at 0.297, free T4 was not drawn -Recommend repeat TFTs in 3 to 4 weeks when no longer acutely ill (11) Chronic respiratory failure with hypoxia: Patient reports his normal pulse ox is 88 to 92% at home but drops down to the 70s with exertion with quick recovery with cessation of exercise -He has declined supplemental O2 in the past -Consider two-step walking test prior to discharge if he is willing to accept supplemental oxygen for home use VBG here without evidence of CO2 retention with pH 7.42 and CO2 46 (12) DVT prophylaxis: SQ Lovenox Disposition-continued stay on PCU, following blood cultures and if negative at 48-hour lamonte in improved condition, can discharge to home tomorrow. Patient is fairly adamant that he will be out of the hospital on Friday. He also would like his former [employer] party, Dr. Zuleta, informed of his stay here-I will CC today's progress note to him Subjective Patient feeling better than when he came in. Cough is less severe. It is still quite productive and has been clear, no hemoptysis. He finally feels like he is able to get his sputum up and out though. Denies chest pain. Feels dyspneic with exertion and reports prior to admission he was barely able to walk 10 feet and normally he walks 30 minutes daily on a treadmill but has to stop every 7 to 8 minutes. He did have a fever the day prior to admission but the cough started about 3 weeks prior. Denies sore throat or rhinorrhea, denies headache or lightheadedness. No abdominal pain or nausea, no diarrhea constipation. No issues with his urine. He reports that when he walks on his treadmill, his oxygen levels are dropped down to 77%, but always quickly recover when he rests. He does also report that cold weather usually brings on his bronchitis. He generally has to take courses of prednisone about 2 or 3 times per year. He did take a 5-day burst of prednisone which completed about 2 weeks ago. Telemetry with normal sinus rhythm and PVCs with rates in the 60s to 90s Review of Systems Review of Systems: All systems reviewed & are unremarkable except as noted in HPI & below Physical Exam Constitutional: WD/WN, vitals as above Eyes: + anicteric sclerae; no conjunctival abnormality ENMT: external ear and nose normal, oropharynx normal (No thrush) Neck: trachea midline, no thyromegaly Respiratory: normal respiratory effort and + cough (Frequent, productive) Auscultation: + diminished lung sounds (Diminished throughout), + rhonchi (Bases bilaterally) and + wheezes (Diffusely) Cardiovascular: RRR, no murmur, no edema Chest (Breasts): Chest: normal inspection of chest Gastrointestinal (Abdomen): normal bowel sounds, soft, nontender, no hepatosplenomegaly Musculoskeletal: Extremities: + extremities abnormal to inspection (Left ankle with chronic edema), no cyanosis and no clubbing Skin: no rashes, warm and dry (Bayron complexion of the face) Neurologic: moves all extremities and awake; no focal motor deficits Psychiatric: A+Ox3, euthymic affect Lymphatic: no lymphedema Results & Data Vital Signs (Past 12 Hours) Vital Signs Temp Pulse Resp BP BP Pulse Ox 04/18/19 07:50 36.5 C 79 20 178/92 H 90 04/18/19 04:39 75 162/75 H 04/18/19 04:09 75 159/62 H 04/18/19 03:41 76 186/80 H 04/18/19 03:17 37.0 C 81 16 202/80 H 90 04/18/19 00:25 64 166/73 H 04/17/19 23:40 66 171/77 H 04/17/19 23:20 36.4 C L 74 16 181/81 H 90 Laboratory Results 04/18/19 04/18/19 04/18/19 Range/Units 05:21 05:21 05:21 WBC 22.47 H (4.8-10.8) K/uL RBC 4.82 (4.7-6.1) M/uL Hgb 14.1 (14.0-18.0) g/dL Hct 42.0 (42-52) % MCV 87.1 (80-100) fL MCH 29.3 (25-34) pg MCHC 33.6 (32-36) g/dL RDW Std Deviation 43.0 (36.4-46.3) fL RDW Coeff of Jim 13.5 (11.5-14.5) % Plt Count 185 (130-400) K/uL MPV 9.9 (7.4-10.4) fL Immature Gran % (Auto) 0.4 % Neut % (Auto) 89.7 % Lymph % (Auto) 6.7 % Bartholomew % (Auto) 3.2 % Eos % (Auto) 0.0 % Baso % (Auto) 0.0 % Immature Gran # (Auto) 0.08 H (0.00-0.02) K/uL Neut # (Auto) 20.16 H (1.4-6.5) K/uL Lymph # (Auto) 1.51 (1.2-3.4) K/uL Bartholomew # (Auto) 0.71 H (0.11-0.59) K/uL Eos # (Auto) 0.00 (0-0.5) K/uL Baso # (Auto) 0.01 (0-0.2) K/uL RBC Morphology Unremarkable Sodium 139 (136-145) mmol/L Potassium 4.0 (3.5-5.1) mmol/L Chloride 112 H (98-107) mmol/L Carbon Dioxide 24 (21-32) mmol/L Anion Gap 3.0 (3-11) BUN 13 (7-18) mg/dl Creatinine 0.86 D (0.6-1.4) mg/dl Est Cr Clr Drug Dosing 90.4 ml/min Est GFR ( Amer) 99.7 Est GFR (Non-Af Amer) 86.0 BUN/Creatinine Ratio 15.6 (10-20) Glucose 161 H (70-99) mg/dl Estimat Average Glucose Pending Hemoglobin A1c Pending Calcium 8.3 L (8.5-10.1) mg/dl Total Bilirubin 0.5 (0.2-1) mg/dl AST 14 L (15-37) U/L ALT 35 (12-78) U/L Alkaline Phosphatase 49 (45-117) U/L Total Protein 6.9 (6.4-8.2) gm/dl Albumin 3.0 L (3.4-5.0) gm/dl Globulin 3.9 (2.5-4.0) gm/dl Albumin/Globulin Ratio 0.8 L (0.9-2) Triglycerides 60 (0-150) mg/dl Cholesterol 114 (0-200) mg/dl LDL Cholesterol, Calc 40 mg/dl VLDL Cholesterol, Calc 12 mg/dl HDL Cholesterol 62 mg/dl Cholesterol/HDL Ratio 2 TSH 0.297 L (0.300-4.500) uIu/ml PG Care Time/CCT Total # of Minutes Spent Total Time Spent with Patient: Total time spent is greater than 50% in coordination of care (as documented) at patient's floor/unit and/or counseling patient: (1) Pneumonia of both lower lobes Pneumonia type: due to unspecified organism Qualified Code(s): J18.9 - Pneumonia, unspecified organism (2) Sepsis Sepsis acute organ dysfunction status: unspecified Sepsis type: sepsis due to unspecified organism Qualified Code(s): A41.9 - Sepsis, unspecified organism
[2019-04-18] MEDS: ALBUT/IPRATROP 3MG/0.5MG NEB 3 ML VIAL NEB SCH ×2 (12:57→19:13)
[2019-04-18] MEDS: ENOXAPARIN INJ 40 MG/0.4 ML SYR SQ SCH (17:01)
[2019-04-18] MEDS ORDERED: HydrALAZINE HCL 20 MG/ML VIAL IV PRN (19:54)
[2019-04-18] MEDS ORDERED: GLUCOSE 40% GEL 15 GM TUBE PO PRN (20:00)
[2019-04-18] MEDS ORDERED: GLUCAGON FOR INJ 1 MG VIAL SQ PRN (20:00)
[2019-04-18] MEDS ORDERED: DEXTROSE 50% 50 ML SYRINGE IV PRN (20:00)
[2019-04-18] MEDS ORDERED: CARBOHYDRATES FOR HYPOGLYCEMIA PO PRN (20:00)
[2019-04-18] MEDS ORDERED: GLUCOSE 10 TABS/TUBE PO PRN (20:00)
[2019-04-18] MEDS: TAMSULOSIN HCL 0.4 MG CAP PO SCH (21:31)
[2019-04-18] MEDS: ATORVASTATIN 20 MG TAB PO SCH (21:32)
[2019-04-18] MEDS: NIFEdipine EXTENDED REL 30 MG TABCR PO SCH (21:32)
[2019-04-18] MEDS: INSULIN ASPART 100 UNITS/ML 3 ML PEN SC SCH (21:34)
[2019-04-18] MEDS: PANTOprazole 40 MG TAB PO SCH (21:34)
[2019-04-19] MEDS: ALBUT/IPRATROP 3MG/0.5MG NEB 3 ML VIAL NEB SCH ×4 (01:17→18:59)
[2019-04-19] MEDS: CEFEPIME 2,000 MG in SYRINGE 7.5 ML IV SCH ×3 (02:25→17:14)
[2019-04-19] MEDS: methylPREDNISolone 40 MG in SYRINGE 0 ML IV SCH ×3 (02:25→17:14)
[2019-04-19 05:43] LABS: Hematocrit (blood only) 41.9 % (42-52); Hemoglobin 14.2 g/dL (14.0-18.0); Mean Corpuscular Hemoglobin 29.7 pg (25-34); Mean Corpuscular Hgb Conc 33.9 g/dL (32-36); Mean Corpuscular Volume 87.7 fL (80-100); Mean Platelet Volume 9.9 fL (7.4-10.4); Platelet Count 211 K/uL (130-400); RDW Coefficient of Variation 13.9 % (11.5-14.5); RDW Standard Deviation 44.6 fL (36.4-46.3); Red Blood Count 4.78 M/uL (4.7-6.1); White Blood Count 31.09 K/uL (4.8-10.8)
[2019-04-19 05:58] LABS: Basophils # (auto) 0.02 K/uL (0-0.2); Basophils % (auto) 0.1 %; Echinocytes 1+; Immature Granulocytes # (auto) 0.16 K/uL (0.00-0.02); Immature Granulocytes % (auto) 0.5 %; Lymphocytes # (auto) 1.68 K/uL (1.2-3.4); Lymphocytes % (auto) 5.4 %; Monocytes # (auto) 1.21 K/uL (0.11-0.59); Monocytes % (auto) 3.9 %; Neutrophils # (auto) 28.02 K/uL (1.4-6.5); Neutrophils % (auto) 90.1 %
[2019-04-19 06:04] LABS: Albumin Level 3.1 gm/dl (3.4-5.0); BUN Creatinine Ratio 18.5 (10-20); Bilirubin,Total 0.3 mg/dl (0.2-1); Calcium 8.6 mg/dl (8.5-10.1); Creatinine Clr Calc Pharmacy 82.7 ml/min; Est GFR (African American) 92.9; Est GFR (Non-African American) 80.1; Potassium 4.5 mmol/L (3.5-5.1)
[2019-04-19 06:06] LABS: Albumin Globulin Ratio 0.8 (0.9-2); Globulin 3.8 gm/dl (2.5-4.0); Total Protein 6.9 gm/dl (6.4-8.2)
[2019-04-19 07:17] LABS: Estimated Average Glucose 137 mg/dl; Hemoglobin A1C 6.4 % (4.5-5.6)
[2019-04-19] MEDS: INSULIN ASPART 100 UNITS/ML 3 ML PEN SC SCH ×4 (07:38→21:16)
[2019-04-19] MEDS: FLUTICASONE/SALMETEROL 250/50 (ADVAIR) 14 PUFF/1 INHALER INH SCH ×2 (07:42→21:16)
[2019-04-19] MEDS: AZITHROMYCIN 250 MG TAB PO SCH (07:42)
[2019-04-19] MEDS: ROFLUMILAST 500 MCG TAB PO SCH (07:43)
[2019-04-19] MEDS: FINASTERIDE 5 MG TAB PO SCH (07:44)
[2019-04-19] MEDS: TIOTROPIUM BROMIDE 5 PUFF/90 MCG INH INH SCH (07:44)
[2019-04-19] MEDS: CETIRIZINE HCL 10 MG TABLET PO SCH (07:44)
[2019-04-19 13:30] LABS: Hematocrit (blood only) 43.8 % (42-52); Mean Corpuscular Hemoglobin 29.7 pg (25-34); Mean Corpuscular Hgb Conc 34.2 g/dL (32-36); Mean Corpuscular Volume 86.7 fL (80-100); Mean Platelet Volume 10.2 fL (7.4-10.4); Platelet Count 215 K/uL (130-400); RDW Coefficient of Variation 14.1 % (11.5-14.5); RDW Standard Deviation 44.4 fL (36.4-46.3); Red Blood Count 5.05 M/uL (4.7-6.1); White Blood Count 30.73 K/uL (4.8-10.8)
[2019-04-19 13:40] LABS: Basophils # (auto) 0.01 K/uL (0-0.2); Immature Granulocytes # (auto) 0.22 K/uL (0.00-0.02); Immature Granulocytes % (auto) 0.7 %; Lymphocytes % (auto) 3.9 %; Monocytes # (auto) 1.37 K/uL (0.11-0.59); Monocytes % (auto) 4.5 %; Neutrophils # (auto) 27.93 K/uL (1.4-6.5); Neutrophils % (auto) 90.9 %
[2019-04-19 14:39] LABS: Appearance Urine Clear (Clear); Bacteria Urine Automated Negative (Negative); Bilirubin Urine Negative (Negative); Blood Urine Negative (Negative); Color Urine Yellow; Glucose Urine UA Negative (Negative); Ketones Urine Negative (Negative); Leukocyte Esterase Urine Negative (Negative); Nitrite Urine Negative (Negative); Protein Urine 1+ (Negative); RBC Urine Automated 0-4 /hpf (0-4); Specific Gravity Urine 1.019 (1.000-1.030); Urobilinogen Urine Negative (Negative); pH Urine 5.5 (4.5-7.5)
[2019-04-19] MEDS ORDERED: IOVERSOL 100ml IV PRN (15:24)
--- NOTE | 2019-04-19 15:40 | CT Scan Report ---
CT OF THE CHEST WITH IV CONTRAST CLINICAL HISTORY: Leukocytosis, lactic acidosis. COMPARISON STUDY: Chest CT January 17, 2017. Chest radiograph April 17, 2019. TECHNIQUE: Following IV administration of 94 mL of Optiray-320, helical axial images of the chest we re obtained. Sagittal and coronal reconstructions were viewed as well as maximal intensity projectio ns on an independent 3-D workstation. Automated exposure control was utilized for the study. A dose lowering technique was utilized adhering to the principles of ALARA. CT DOSE: 1775.02 mGy.cm FINDINGS: The heart is moderately enlarged. Extensive coronary artery calcification is present. Ther e is no pericardial effusion. A trace right pleural effusion is noted. There is no pneumothorax. Mild bilateral lower lobe and right middle lobe opacities favor atelectasis. There is no consolidation to suggest pneumonia. There are mild secretions within the right mainstem bronchus. Several calcified g ranulomas are noted. Subtle interstitial thickening is noted. No suspicious osseous lesions are noted . There are no enlarged thoracic lymph node. The abdomen and pelvis will be reported separately. No c entral pulmonary embolus is identified. There is no thoracic aortic dissection. IMPRESSION: 1. Trace right pleural effusion. No consolidation to suggest pneumonia. 2. Suspected mild pulmonary edema. 3. Moderate cardiomegaly. Extensive coronary artery calcification. ACT 112: Negative or not required by law. Electronically signed by: Herman Thompson M.D. 04/19/2019 3:39 PM
--- NOTE | 2019-04-19 15:46 | CT Scan Report ---
ABDOMEN AND PELVIS CT WITH IV CONTRAST HISTORY: Acute leukocytosis leukocytosis, lactic acidosis TECHNIQUE: Multiaxial CT images of the abdomen and pelvis were performed following the IV administrat ion of 94 cc of Optiray 320, A dose lowering technique was utilized adhering to the principles of AL MAYNOR. COMPARISON STUDY: Chest CT of same day FINDINGS: Trace right pleural effusion. Dependent subsegmental bibasilar consolidation. No pneumatosis or pneum operitoneum. The imaged inferior cardiac chambers are unremarkable. Trace pericardial effusion. Multi ple hepatic cysts are noted measuring up to 3.0 cm within the caudate lobe. The liver is otherwise un remarkable. Patency of the hepatic and portal veins. Spleen, pancreas and adrenal glands are unremark able. There is nonspecific pericholecystic inflammation with equivocal gallbladder wall thickening an d possible cholelithiasis. There is no choledocholithiasis or biliary ductal dilation. Mild nonspecific bilateral perinephric stranding. Vascular calcifications noted involving the kidneys bilaterally. Superimposed nephrolithiasis would be difficult to exclude. Lateral renal cysts includi ng exophytic 6.57 m cyst of the left kidney. There is a large cystic lesion of the retroperitoneum in ferior to the right kidney measuring up to 11.1 x 8.0 x 9.4 cm in transverse, AP and craniocaudal dim ensions. Partially decompressed bladder with mild wall thickening and perivesicular stranding. Prosta megaly with coarse central prostatic calcifications. Small fat filled bilateral inguinal hernias. Ext ensive mixed plaque of the abdominal aorta without aneurysm. No adenopathy. No bowel obstruction or bowel wall thickening. Postoperative changes of prior partial sigmoid colon r esection with colocolonic anastomosis. Colonic diverticulosis without acute diverticulitis. Normal ap pendix. Tiny fat filled periumbilical hernia. Mild nonspecific body wall edema. Degenerative changes of the spine, pelvis and hips. 12 mm lucent focus of the right iliac bone with probable bone island o f the left iliac wing, 7 mm. IMPRESSION: 1. Prostamegaly with urinary bladder wall thickening suggestive of chronic bladder outlet obstruction . Correlate with urinalysis to exclude cystitis. 2. Pericholecystic edema with equivocal gallbladder wall thickening and cholelithiasis. Findings coul d be correlated with right upper quadrant abdominal ultrasound, clinical exam and laboratory analysis to exclude acute cholecystitis. 3. Postoperative changes of prior partial sigmoid colon resection with colocolonic anastomosis. 4. No bowel obstruction or bowel wall thickening. 5. Colonic diverticulosis without acute diverticulitis. 6. Hepatic and renal cysts. 7. Trace right pleural effusion with mild dependent right basilar consolidation. 8. Additional findings as above. ACT 112: Negative or not required by law. The above report was generated using voice recognition software. It may contain grammatical, syntax o r spelling errors. Electronically signed by: Niles العلي M.D. 04/19/2019 3:45 PM
[2019-04-19] MEDS: ENOXAPARIN INJ 40 MG/0.4 ML SYR SQ SCH (15:51)
--- NOTE | 2019-04-19 16:14 | Hospitalist Progress Note ---
Date of Service April 19, 2019 Assessment & Plan (1) Sepsis: Admitted with bibasilar pneumonia on chest x-ray, leukocytosis, fever at home but not documented here, and elevated lactate. treated with Cefepime IV in addition to his Azithromcyin no fever, but WBC up to 30k with 90% PMN clinically patient feeling better but lactic acid still slightly high at 2.7 CT chest shows NO PNEUMONIA CT abdomen pelvis shows thickened bladder but UA is clean and PSA normal shows fluid around gall bladder, stones but LFT normal, no RUQ pain on exam and no pain after eating, no nausea will continue Cefepime for now, plan to change to Cipro/Flagyl tomorrow for 7-10 day course can be discharged tomorrow as long as he is stable will repeat CBC in the AM Flu swab negative, no growth in blood cultures (2) Pneumonia of both lower lobes: initially diagnosed with pneumonia based on CXR findings, in reality this was atelectasis no pneumonia on CT chest today stop Cefepime, no need for pneumonia treatment (3) COPD exacerbation: Patient with a history of COPD and asthma, noted to be severe as per but is not on chronic O2 at home. However, he does qualify for home O2 as he drops to 77% frequently with exertion on his treadmill. He declines O2 because he recovers quickly from his hypoxia with rest. Follows with pulmonary in [place], will plan for close follow up with Dr. Rios, he requests d/c summary be sent to Dr. Rios With acute exacerbation here with wheezing and cough with increased production of sputum -azithromycin 250mg daily - responded well to Solu Medrol, change to Prednisone 50mg daily tomorrow AM would taper slowly over next few two weeks, make sure he can follow up with Dr. Rios prior to finishing Prednisone taper -Continue scheduled albuterol nebulizers -Continue Advair 1 puff twice daily -Continue Spiriva 1 puff daily -Supplemental O2 as needed to keep pulse ox greater than 88% - patient on room air today, refused two step -Continue Daliresp (4) Hypertension: Blood pressures are significantly elevated at times here, was given a as needed hydralazine dose last evening -Give IV hydralazine 10 mg every 6 hours as needed SBP greater than 180 or DBP greater than 110 -Continue nifedipine 30 mg p.o. daily at bedtime - will start on Losartan 50mg tomorrow AM, follow pressures -Heart healthy diet with low-sodium (5) Hyperlipidemia: Continue atorvastatin Lipid panel checked here on admission is excellent (6) BPH (benign prostatic hyperplasia): No acute issues Continue home dose of finasteride 5 mg p.o. every morning. Continue tamsulosin 0.4 mg p.o. every afternoon PSA checked because states he has history of prostatitis PSA normal today, UA is also clean (7) GERD (gastroesophageal reflux disease): Continue omeprazole 20 mg p.o. every afternoon or equivalent. (8) Diabetes mellitus: Hemoglobin A1c was 6.6% in September 2018. Diabetes was not listed in his past medical history previously and he is not on medication at home Has some hyperglycemia now likely secondary to corticosteroids -Start q. before meals and at bedtime Accu-Cheks and supply supplemental NovoLog for now-consider adding Lantus -Needs follow-up with PCP -Changed to ADA diet -Would benefit from diabetic education (9) DYLAN on CPAP: -He has brought in his CPAP from home for nightly use (10) Abnormal TSH: TSH is mildly low at 0.297, free T4 was not drawn -Recommend repeat TFTs in 3 to 4 weeks when no longer acutely ill (11) Chronic respiratory failure with hypoxia: Patient reports his normal pulse ox is 88 to 92% at home but drops down to the 70s with exertion with quick recovery with cessation of exercise -He has declined supplemental O2 in the past VBG here without evidence of CO2 retention with pH 7.42 and CO2 46 (12) DVT prophylaxis: SQ Lovenox Disposition- despite lab abnormalities and severe COPD at baseline, patient feels quite well, so well that he may have been okay for discharge today plan for d/c tomorrow if he continues to feel well as above, would d/c home on Cipro/Flagyl 7-10 days (would have used Augmentin but he has an allergy) would hold Azithromycin while on Cipro as both can cause QT prolongation, but resume Azithromcyin as soon as he finishes Cipro Prednisone 50mg daily with slow taper over at least 2 weeks Losartan 50mg daily, new BP medication on discharge, will plans for follow up with Dr. Lopez in a week for BP check again, he does not feel like he would want/need home oxygen, he checks his saturations 6 times a day at home Subjective patient says he feels a lot better, breathing is stable he admits to having dyspnea on exertion but that is normal for him still with cough, productive intermittently of some clear sputum no hemoptysis, no dyspnea at rest, no chest pain discussed past few months, has been experiencing more dyspnea that he used to he was on Deliresp, prescribed by florist helper at [place], did really well up until 6 months ago, felt like it stopped working he was placed on Zithromax 250mg daily to combat inflammation, prevent ex acerbation was doing well up until about a month ago, had URI symptoms, increased cough and dyspnea took Prednisone 40mg x 5 days, had some relief but then go worse and after a week of not feeling well came to hospital discussed lab abnormalities, WBC up to 31k with 90% neutrophils, certainly possible that it is due to steroids lactic acid still mildly elevated at 2.7, unclear reason procalcitonin normal, UA without signs of infection he agreed to get CT chest, abd/pelvis to look for abscess, some underlaying source of infection no pneumonia seen on CT chest, trace right pleural effusion CT abd/pelvis shows some fluid around gall bladder, equivocal wall thickening and stones patient has absolutely no abdominal pain, never gets RUQ pain after eating, no nausea so no signs of cholecystitis no pain on exam, LFT completely normal he would like to go home but he agrees to stay one more night to repeat labs in the AM Review of Systems Review of Systems: All systems reviewed & are unremarkable except as noted in HPI & below Constitutional: no fever, no chills, no sweats, no fatigue and no weakness Respiratory: + cough, + dyspnea, + dyspnea on exertion and + sputum production; no hemoptysis Cardiovascular: + dyspnea on exertion; no chest pain Gastrointestinal: no abdominal pain, no nausea, no vomiting, no constipation and no diarrhea/loose stools Genitourinary: + urinary hesitancy; no dysuria, no difficulty urinating, no urinary frequency and no urinary incontinence Physical Exam Constitutional: WD/WN, vitals as above Eyes: PERRL, conjunctivae normal, anicteric sclerae ENMT: external ear and nose normal, oropharynx normal Neck: trachea midline, no thyromegaly Respiratory: normal respiratory effort and + cough; no respiratory distress Auscultation: lungs clear to auscultation bilaterally and + diminished lung sounds (diffusely); no crackles, no rales and no wheezes Cardiovascular: RRR, no murmur, no edema Gastrointestinal (Abdomen): normal bowel sounds, soft, nontender, no hepatosplenomegaly Musculoskeletal: no cyanosis or clubbing, extremities motor strength 5/5 Skin: no rashes, warm and dry Neurologic: patellar DTR's 2+ bilat, sensation intact and PERRL, EOMI, accommodation nl, no face palsy, no dysarthria Psychiatric: A+Ox3, euthymic affect Lymphatic: no cervical or axillary lymphadenopathy Results & Data Vital Signs (Past 12 Hours) Vital Signs Temp Pulse Pulse Resp BP BP Pulse Ox 04/19/19 15:52 36.9 C 70 18 186/82 H 93 04/19/19 15:08 89 04/19/19 13:35 92 H 20 92 04/19/19 11:26 36.7 C 71 18 171/73 H 176/72 H 92 04/19/19 08:00 79 04/19/19 07:01 36.3 C L 75 95 H 179/73 H 97 04/19/19 06:58 76 16 93 04/19/19 06:00 79 185/83 H 04/19/19 05:15 81 201/86 H 04/19/19 04:27 36.7 C 78 16 189/93 H 92 Laboratory Results Laboratory Results - last 24 hr 04/18/19 04/18/19 04/19/19 05:21 20:59 05:16 WBC 31.09 H* RBC 4.78 Hgb 14.2 Hct 41.9 L MCV 87.7 MCH 29.7 MCHC 33.9 RDW Std Deviation 44.6 RDW Coeff of Jim 13.9 Plt Count 211 MPV 9.9 Immature Gran % (Auto) 0.5 Neut % (Auto) 90.1 Lymph % (Auto) 5.4 Carter % (Auto) 3.9 Eos % (Auto) 0.0 Baso % (Auto) 0.1 Immature Gran # (Auto) 0.16 H Neut # (Auto) 28.02 H Lymph # (Auto) 1.68 Carter # (Auto) 1.21 H Eos # (Auto) 0.00 Baso # (Auto) 0.02 Echinocytes 1+ Sodium Potassium Chloride Carbon Dioxide Anion Gap BUN Creatinine Est Cr Clr Drug Dosing Est GFR ( Amer) Est GFR (Non-Af Amer) BUN/Creatinine Ratio Glucose POC Glucose 213 H Estimat Average Glucose 137 Hemoglobin A1c 6.4 H Lactate Calcium Total Bilirubin AST ALT Alkaline Phosphatase Total Protein Albumin Globulin Albumin/Globulin Ratio Prostate Specific Ag Procalcitonin Urine Color Urine Appearance Urine pH Ur Specific [place] Urine Protein Urine Glucose (UA) Urine Ketones Urine Blood Urine Nitrite Urine Bilirubin Urine Urobilinogen Ur Leukocyte Esterase Urine WBC (Auto) Urine RBC (Auto) U Hyaline Cast (Auto) U Epithel Cells (Auto) Urine Bacteria (Auto) 04/19/19 04/19/19 04/19/19 05:16 07:25 11:07 WBC RBC Hgb Hct MCV MCH MCHC RDW Std Deviation RDW Coeff of Jim Plt Count MPV Immature Gran % (Auto) Neut % (Auto) Lymph % (Auto) Carter % (Auto) Eos % (Auto) Baso % (Auto) Immature Gran # (Auto) Neut # (Auto) Lymph # (Auto) Carter # (Auto) Eos # (Auto) Baso # (Auto) Echinocytes Sodium 142 Potassium 4.5 Chloride 113 H Carbon Dioxide 24 Anion Gap 5.0 BUN 17 Creatinine 0.94 Est Cr Clr Drug Dosing 82.7 Est GFR ( Amer) 92.9 Est GFR (Non-Af Amer) 80.1 BUN/Creatinine Ratio 18.5 Glucose 149 H POC Glucose 158 H 175 H Estimat Average Glucose Hemoglobin A1c Lactate Calcium 8.6 Total Bilirubin 0.3 AST 13 L ALT 38 Alkaline Phosphatase 52 Total Protein 6.9 Albumin 3.1 L Globulin 3.8 Albumin/Globulin Ratio 0.8 L Prostate Specific Ag Procalcitonin Urine Color Urine Appearance Urine pH Ur Specific [place] Urine Protein Urine Glucose (UA) Urine Ketones Urine Blood Urine Nitrite Urine Bilirubin Urine Urobilinogen Ur Leukocyte Esterase Urine WBC (Auto) Urine RBC (Auto) U Hyaline Cast (Auto) U Epithel Cells (Auto) Urine Bacteria (Auto) 04/19/19 04/19/19 04/19/19 13:10 13:10 13:10 WBC 30.73 H* RBC 5.05 Hgb 15.0 Hct 43.8 MCV 86.7 MCH 29.7 MCHC 34.2 RDW Std Deviation 44.4 RDW Coeff of Jim 14.1 Plt Count 215 MPV 10.2 Immature Gran % (Auto) 0.7 Neut % (Auto) 90.9 Lymph % (Auto) 3.9 Carter % (Auto) 4.5 Eos % (Auto) 0.0 Baso % (Auto) 0.0 Immature Gran # (Auto) 0.22 H Neut # (Auto) 27.93 H Lymph # (Auto) 1.20 Carter # (Auto) 1.37 H Eos # (Auto) 0.00 Baso # (Auto) 0.01 Echinocytes Sodium Potassium Chloride Carbon Dioxide Anion Gap BUN Creatinine Est Cr Clr Drug Dosing Est GFR ( Amer) Est GFR (Non-Af Amer) BUN/Creatinine Ratio Glucose POC Glucose Estimat Average Glucose Hemoglobin A1c Lactate 2.7 H* Calcium Total Bilirubin AST ALT Alkaline Phosphatase Total Protein Albumin Globulin Albumin/Globulin Ratio Prostate Specific Ag 2.490 Procalcitonin Urine Color Urine Appearance Urine pH Ur Specific [place] Urine Protein Urine Glucose (UA) Urine Ketones Urine Blood Urine Nitrite Urine Bilirubin Urine Urobilinogen Ur Leukocyte Esterase Urine WBC (Auto) Urine RBC (Auto) U Hyaline Cast (Auto) U Epithel Cells (Auto) Urine Bacteria (Auto) 04/19/19 04/19/19 04/19/19 13:10 14:26 16:08 WBC RBC Hgb Hct MCV MCH MCHC RDW Std Deviation RDW Coeff of Jim Plt Count MPV Immature Gran % (Auto) Neut % (Auto) Lymph % (Auto) Carter % (Auto) Eos % (Auto) Baso % (Auto) Immature Gran # (Auto) Neut # (Auto) Lymph # (Auto) Carter # (Auto) Eos # (Auto) Baso # (Auto) Echinocytes Sodium Potassium Chloride Carbon Dioxide Anion Gap BUN Creatinine Est Cr Clr Drug Dosing Est GFR ( Amer) Est GFR (Non-Af Amer) BUN/Creatinine Ratio Glucose POC Glucose 139 H Estimat Average Glucose Hemoglobin A1c Lactate Calcium Total Bilirubin AST ALT Alkaline Phosphatase Total Protein Albumin Globulin Albumin/Globulin Ratio Prostate Specific Ag Procalcitonin 0.06 Urine Color Yellow Urine Appearance Clear Urine pH 5.5 Ur Specific [place] 1.019 Urine Protein 1+ H Urine Glucose (UA) Negative Urine Ketones Negative Urine Blood Negative Urine Nitrite Negative Urine Bilirubin Negative Urine Urobilinogen Negative Ur Leukocyte Esterase Negative Urine WBC (Auto) 1-5 Urine RBC (Auto) 0-4 U Hyaline Cast (Auto) 1-5 U Epithel Cells (Auto) 5-10 H Urine Bacteria (Auto) Negative Diagnostic Findings CT chest IMPRESSION: 1. Trace right pleural effusion. No consolidation to suggest pneumonia. 2. Suspected mild pulmonary edema. 3. Moderate cardiomegaly. Extensive coronary artery calcification. CT abdomen pelvis IMPRESSION: 1. Prostamegaly with urinary bladder wall thickening suggestive of chronic bladder outlet obstruction. Correlate with urinalysis to exclude cystitis. 2. Pericholecystic edema with equivocal gallbladder wall thickening and cholelithiasis. Findings could be correlated with right upper quadrant abdominal ultrasound, clinical exam and laboratory analysis to exclude acute cholecystitis. 3. Postoperative changes of prior partial sigmoid colon resection with colocolonic anastomosis. 4. No bowel obstruction or bowel wall thickening. 5. Colonic diverticulosis without acute diverticulitis. 6. Hepatic and renal cysts. 7. Trace right pleural effusion with mild dependent right basilar consolidation. 8. Additional findings as above. Medications Administered Current Inpatient Medications Acetaminophen (Tylenol) 650 mg PO Q4H PRN PRN Reason: Pain or Fever Stop: 05/17/19 14:29 Al Hydrox/Mg Hydrox/Simethicone (Maalox) 15 ml PO Q4H PRN PRN Reason: Dyspepsia Stop: 05/17/19 14:29 Albuterol (Duoneb) 3 ml NEB Q6R [facility] Stop: 05/18/19 12:59 Last Admin: 04/19/19 13:35 Dose: 3 ml Documented by: Atorvastatin Calcium (Lipitor) 20 mg PO QPM [facility] Stop: 05/17/19 20:59 Last Admin: 04/18/19 21:32 Dose: 20 mg Documented by: Azithromycin (Zithromax) 250 mg PO QAM [facility] Stop: 05/17/19 14:29 Last Admin: 04/19/19 07:42 Dose: 250 mg Documented by: Cetirizine HCl (Zyrtec) 10 mg PO QAM [facility] Stop: 05/18/19 08:59 Last Admin: 04/19/19 07:44 Dose: 10 mg Documented by: Dextrose (Dextrose 50%) 25 - 50 ml IV UD PRN; Protocol PRN Reason: Hypoglycemia Protocol Stop: 05/18/19 19:59 Enoxaparin Sodium (Lovenox) 40 mg SQ Q24H [facility] Stop: 05/17/19 15:59 Last Admin: 04/19/19 15:51 Dose: 40 mg Documented by: Finasteride (Proscar) 5 mg PO QAM [facility] Stop: 05/17/19 14:29 Last Admin: 04/19/19 07:44 Dose: 5 mg Documented by: Glucagon (Glucagen) 1 mg SQ UD PRN; Protocol PRN Reason: Hypoglycemia Protocol Stop: 05/18/19 19:59 Glucose (Dex4 Glucose) 4 - 8 tabs PO UD PRN; Protocol PRN Reason: Hypoglycemia Protocol Stop: 05/18/19 19:59 Glucose (Glucose 40%) 15 - 30 gm PO UD PRN; Protocol PRN Reason: Hypoglycemia Protocol Stop: 05/18/19 19:59 Guaifenesin/Dextromethorphan (Robitussin Cough-Chest Dm) 10 ml PO Q6H PRN PRN Reason: Cough Stop: 05/17/19 14:29 Hydralazine HCl (Hydralazine Hcl) 10 mg IV Q6 PRN PRN Reason: SBP>180 or DBP>110 Stop: 05/18/19 19:53 Last Admin: 04/19/19 05:26 Dose: 10 mg Documented by: Methylprednisolone 40 mg/ (Syringe) 0.64 mls @ 1.5 mls/min IV Q8H [facility] Stop: 05/17/19 17:59 Last Admin: 04/19/19 09:53 Dose: 1.5 mls/min Documented by: Cefepime HCl 2,000 mg/ Syringe 20 mls @ 5.5 mls/min IV Q8H [facility]; Protocol Stop: 04/25/19 16:59 Last Admin: 04/19/19 07:48 Dose: 5.5 mls/min Documented by: Insulin Aspart (Novolog Flexpen) 0 units SC ACHS [facility] Stop: 05/18/19 20:59 Last Admin: 04/19/19 11:55 Dose: 3 units Documented by: Ioversol (Optiray 320 100ml) 94 ml IV ONCE PRN PRN Reason: Interaction Checking Stop: 04/23/19 15:23 Last Admin: 04/19/19 15:24 Dose: 94 ml Documented by: Magnesium Hydroxide (Milk Of Magnesia) 30 ml PO Q12H PRN PRN Reason: Constipation Stop: 05/17/19 14:29 Miscellaneous (Carbohydrates For Hypoglycemia) 15 - 30 gm PO UD PRN PRN Reason: Hypoglycemia Protocol Stop: 05/18/19 19:59 Nifedipine (Procardia Xl) 30 mg PO QPM [facility] Stop: 05/17/19 20:59 Last Admin: 04/18/19 21:32 Dose: 30 mg Documented by: Pantoprazole Sodium (Protonix) 40 mg PO QPM [facility]EE Stop: 05/17/19 20:59 Last Admin: 04/18/19 21:34 Dose: 40 mg Documented by: Polyethylene Glycol (Miralax Powder Packet) 17 gm PO DAILY PRN PRN Reason: Constipation Stop: 05/17/19 14:29 Roflumilast (Daliresp) 250 mcg PO QAM [facility] Stop: 05/17/19 14:29 Last Admin: 04/19/19 07:43 Dose: 250 mcg Documented by: Fluticasone/Salmeterol (Advair Diskus 250/50) 1 puffs INH BID [facility] Stop: 05/17/19 14:29 Last Admin: 04/19/19 07:42 Dose: 1 puffs Documented by: Tamsulosin HCl (Flomax) 0.4 mg PO QPM [facility] Stop: 05/17/19 20:59 Last Admin: 04/18/19 21:31 Dose: 0.4 mg Documented by: Tiotropium [place] (Spiriva) 1 puffs INH QAM [facility]EE Stop: 05/17/19 14:29 Last Admin: 04/19/19 07:44 Dose: 1 puffs Documented by: PG Care Time/CCT Total # of Minutes Spent Total Time Spent: 70 Total Time Spent with Patient: Total time spent is greater than 50% in coordination of care (as documented) at patient's floor/unit and/or counseling patient: (1) Pneumonia of both lower lobes Pneumonia type: due to unspecified organism Qualified Code(s): J18.9 - Pneumonia, unspecified organism (2) Sepsis Sepsis acute organ dysfunction status: unspecified Sepsis type: sepsis due to unspecified organism Qualified Code(s): A41.9 - Sepsis, unspecified organism
[2019-04-19] MEDS ORDERED: dilTIAZem HCl 5 MG/ML 5 ML VIAL IV STA ×2 (20:26→21:13)
[2019-04-19] MEDS ORDERED: HEPARIN SODIUM/DEXTROSE 25,000 UNITS/500 ML BAG IV SCH (21:15)
[2019-04-19] MEDS: ATORVASTATIN 20 MG TAB PO SCH (21:17)
[2019-04-19] MEDS: PANTOprazole 40 MG TAB PO SCH (21:17)
[2019-04-19] MEDS: TAMSULOSIN HCL 0.4 MG CAP PO SCH (21:17)
--- NOTE | 2019-04-19 21:31 | Progress Note ---
Date of Service April 19, 2019 Received phone call that the patient was in A. fib with RVR with rates in the 120s. BP 212/99, SpO2 94% on room air. In brief review of his record, patient was admitted for pneumonia and sepsis. Also noted to have a COPD exacerbation. No noted history of A. fib. Spoke with patient at bedside. He says that he is asymptomatic (specifically no chest pain or shortness of breath), notes that his most recent CT chest was better, and denies any known history of A. fib. Also spoke with telemetry. They note that he is presently in A. fib with rates in the low 130s. Vitals reviewed. Patient appears very comfortable and is easily conversant. Positive S1-S2 irregularly irregular and tachycardic. Mildly diminished lung sounds throughout without any wheezing or crackles. No paul edema bilaterally. EKG at 2002 notes A. fib with RVR and a right bundle branch block with a rate of 126. Assessment/plan: New onset A. fib with RVR. Hemodynamically stable, hypertensive. Does not look dry on exam or by this AMs labs. K okay. Will check Mg. - Initial treatment with diltiazem 10 mg IV push was reportedly successful for only a couple of minutes. - Will try a second round of diltiazem 15 mg IV push. If unsuccessful in converting, will start on a diltiazem drip. - [id number] score of THREE. Stopped his previous Lovenox. Started on a heparin drip. - Will consult cardiology. Of note, when mentioning this to the patient, he had a lengthy discussion that he prefers to see his own personal physicians but wou ld be willing to receive advice from an inpatient loom changeover operator, preferably Dr. Delvalle (as recommended by his friend at bedside). Jones Bowles, PGY3 Overnight call Results & Data Vital Signs (Past 12 Hours) Vital Signs Temp Pulse Pulse Resp BP BP Pulse Ox 04/19/19 20:40 106 H 18 166/78 H 92 04/19/19 20:30 126 H 18 208/100 H 92 04/19/19 20:08 37.1 C 126 H 20 212/99 H 94 04/19/19 19:00 71 18 92 04/19/19 15:52 36.9 C 70 18 186/82 H 93 04/19/19 15:08 89 12/23/19 13:35 92 H 20 92 04/19/19 11:26 36.7 C 71 18 171/73 H 176/72 H 92
[2019-04-19 21:50] LABS: INR 1.1 (0.9-1.1); Partial Thromboplastin Time 25.8 Seconds (21.0-31.0); Prothrombin Time 10.9 Seconds (9.0-12.0)
[2019-04-19] MEDS: Heparin IV Standard *NO* Bolus IV SCH ×2 (21:52→21:58)
[2019-04-19] MEDS: dilTIAZem HCL 125 MG in DEXTROSE 5% 100 ML IV SCH (22:28)
[2019-04-19] MEDS: HEPARIN SODIUM/DEXTROSE 25,000 UNITS/500 ML BAG IV SCH (23:12)
[2019-04-20] MEDS: Heparin IV Standard *NO* Bolus IV SCH ×2 (00:18→01:13)
[2019-04-20] MEDS: ALBUT/IPRATROP 3MG/0.5MG NEB 3 ML VIAL NEB SCH ×4 (01:01→19:30)
[2019-04-20 05:35] LABS: Hemoglobin 14.5 g/dL (14.0-18.0); Mean Corpuscular Hemoglobin 29.7 pg (25-34); Mean Corpuscular Hgb Conc 33.7 g/dL (32-36); Mean Corpuscular Volume 87.9 fL (80-100); Mean Platelet Volume 10.4 fL (7.4-10.4); Platelet Count 238 K/uL (130-400); RDW Coefficient of Variation 14.2 % (11.5-14.5); RDW Standard Deviation 46.1 fL (36.4-46.3); Red Blood Count 4.89 M/uL (4.7-6.1); White Blood Count 27.68 K/uL (4.8-10.8)
[2019-04-20 05:57] LABS: Partial Thromboplastin Ratio 1.8
[2019-04-20 06:12] LABS: Albumin Level 3.1 gm/dl (3.4-5.0); BUN Creatinine Ratio 21.7 (10-20); Calcium 8.6 mg/dl (8.5-10.1); Creatinine Clr Calc Pharmacy 89.3 ml/min; Est GFR (African American) 99.2; Est GFR (Non-African American) 85.6; Potassium 3.8 mmol/L (3.5-5.1)
[2019-04-20 06:16] LABS: Albumin Globulin Ratio 0.8 (0.9-2); Bilirubin,Total 0.5 mg/dl (0.2-1); Total Protein 7.1 gm/dl (6.4-8.2)
[2019-04-20 06:23] LABS: Basophils # (auto) 0.01 K/uL (0-0.2); Immature Granulocytes # (auto) 0.27 K/uL (0.00-0.02); Lymphocytes # (auto) 1.99 K/uL (1.2-3.4); Lymphocytes % (auto) 7.2 %; Monocytes # (auto) 1.78 K/uL (0.11-0.59); Monocytes % (auto) 6.4 %; Neutrophils # (auto) 23.63 K/uL (1.4-6.5); Neutrophils % (auto) 85.4 %; RBC Morphology Unremarkable
[2019-04-20] MEDS: FINASTERIDE 5 MG TAB PO SCH (07:56)
[2019-04-20] MEDS: ROFLUMILAST 500 MCG TAB PO SCH (07:56)
[2019-04-20] MEDS: CIPROFLOXACIN 500 MG TAB PO SCH ×2 (07:57→21:06)
[2019-04-20] MEDS: AZITHROMYCIN 250 MG TAB PO SCH (07:57)
[2019-04-20] MEDS: CETIRIZINE HCL 10 MG TABLET PO SCH (07:57)
[2019-04-20] MEDS: metroNIDAZOLE 500 MG TAB PO SCH ×3 (07:57→21:06)
[2019-04-20] MEDS: predniSONE 50 MG TAB PO SCH (07:58)
[2019-04-20] MEDS: TIOTROPIUM BROMIDE 5 PUFF/90 MCG INH INH SCH (07:58)
[2019-04-20] MEDS: LOSARTAN POTASSIUM 50 MG TAB PO SCH (07:58)
[2019-04-20] MEDS: FLUTICASONE/SALMETEROL 250/50 (ADVAIR) 14 PUFF/1 INHALER INH SCH ×2 (07:59→21:05)
[2019-04-20] MEDS: dilTIAZem HCL 125 MG in DEXTROSE 5% 100 ML IV SCH ×3 (08:05→22:54)
[2019-04-20] MEDS: INSULIN ASPART 100 UNITS/ML 3 ML PEN SC SCH ×4 (08:15→21:10)
[2019-04-20] MEDS ORDERED: METOPROLOL TARTRATE 25 MG TAB PO SCH (13:15)
[2019-04-20] MEDS: dilTIAZem HCL 30 MG TAB PO SCH ×3 (13:44→23:55)
[2019-04-20] MEDS: HEPARIN SODIUM/DEXTROSE 25,000 UNITS/500 ML BAG IV SCH (14:47)
--- NOTE | 2019-04-20 16:35 | Cardiology Consultation ---
Date of Consultation April 20, 2019 Assessment & Plan (1) Hypertension: (2) Hyperlipidemia: (3) Atrial fibrillation with RVR: (4) Coronary artery calcification: ASSESSMENT/PLAN: 1. AFib with RVR: He is completely asymptomatic. We discussed the diagnosis in detail. We discussed several treatment strategy such as rate control, rhythm control, cardioversion, and ablation. He stated that if he requires cardioversion, he prefers to have it done at [facility]. We discussed rate control and he was satisfied as he is completely asymptomatic. Diltiazem 30 mg p.o. q.[address] Xiong had talked with Dr. Rios, his monitor technician, and informs me that he was okay with beta-jun. Recommended metoprolol 25 mg twice daily. Wean diltiazem drip off as able. This may be paroxysmal atrial fibrillation, but if he does not convert in remains rate controlled, rate control strategy is a reasonable approach. Continue anticoagulation for stroke risk reduction. He is currently on heparin drip. Consider Eliquis on discharge. Stroke risk was discussed with him and he was agreeable to maintain anticoagulation therapy. 2. Hypertension: Blood pressure has been elevated.Continue to titrate oral diltiazem and beta-jun. Would discontinue nifedipine on discharge now that he is on nifedipine. Optimize blood pressure control as appropriate. 3. Dyslipidemia: Recommend high-intensity statin therapy given coronary calcifications. 4. Coronary calcifications: He is asymptomatic. No angina, despite elevated heart rates and hypertension. Risk factor modification. 5. Disposition: I will be away from the hospital tomorrow. Plan of care has been discussed with Dr. Xiong. Dr. Medellin was made aware of presentation and treatment as he will be the covering branding specialist tomorrow. Please do not hesitate to call him for any questions or concerns. Once he is adequately rate controlled on oral medications, can be discharged home from a cardiac perspective when his other medical issues are acceptable for discharge. Recommend follow-up in 1-2 weeks. Cardiology office will contact him with time/date of appointment if 1 is not scheduled prior to discharge by the nurse navigator. Thank you for allowing me to participate in the care of your patient. Please call for any other questions or concerns. Sincerely, Seth Shabazz M.D. History of Present Illness Reason for Consultation: Afib with RVR Requesting Physician: Dr. Bowles Attending Physician: Shane Xiong History of Present Illness Mr. Mauricio is a very pleasant 73-year-old gentleman with a history significant for COPD, hypertension, dyslipidemia, and sleep apnea on CPAP QHS who was admitted on 04/17/2019 with concern of sepsis and COPD exacerbation. He was found to have leukocytosis with a white blood cell count as high as 31.09, which started trending downward today. He was also found to have elevated lactate as high as 3.9. He has been on antibiotics for concern of pneumonia however CT scan of the chest on 04/19/2019 reported no consolidation to suggest pneumonia. Extensive coronary artery calcifications were reported. Cardiology was consulted due to the development of atrial fibrillation with rapid ventricular response on 04/19/2019 at 7:51 p.m.. He was completely asymptomatic. He was placed on a diltiazem drip by the hospitalist service. He was also placed on heparin drip. He remained asymptomatic throughout. He states that his breathing has improved since being here but is not yet back to baseline. He still notices a hoarseness in his voice. He has dyspnea with exertion but is currently denying shortness of breath at rest. He has chronic left ankle swelling following an injury years ago and believes that his edema is actually improved while here, while voiding sodium. He denies chest pain, palpitations, syncope, near syncope, stroke or stroke-like symptoms. He denies melena, hematochezia, or hematuria. He denies other bleeding. He follows with pulmonology at [facility], Dr. Rios. Review of systems: As above. Review of systems otherwise negative/unremarkable. Family history: Mother had [place] in her 60s. Social history: He quit smoking >30 years ago. Occasional alcohol. No drugs. He is and lives at home with his . They have 2 sons and 4 granddaughters. 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 The [employer] business has been in his family for 117 years. 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 Allergies Allergy/AdvReac Type Severity Reaction Status Date / Time amoxicillin Allergy Intermediate RASH Verified 04/17/19 12:02 clavulanic acid Allergy Intermediate RASH Verified 04/17/19 12:02 moxifloxacin Allergy Unknown hives, Verified 04/17/19 12:02 TOLERATES LEVAQUIN Sulfa (Sulfonamide Allergy Unknown . Verified 04/17/19 12:02 Antibiotics) [facility] Allergy Verified 04/17/19 12:02 Home Medications Home Medications Medication Instructions Recorded Confirmed Type CPAP Machine #1 ea 10/07/18 01/27/19 Rx atorvastatin 20 mg tablet 20 mg PO QPM #90 tab 01/27/19 04/17/19 History cetirizine 10 mg capsule 10 mg PO QAM #30 cap 01/27/19 04/17/19 History ipratropium-albuterol 0.5 mg-3 3 ml INHALATION BID PRN #6 ml 01/27/19 04/17/19 History mg(2.5 mg base)/3 mL nebulization soln roflumilast 500 mcg tablet 250 mcg PO QAM tab 01/27/19 04/17/19 History tiotropium bromide 18 mcg capsule 1 cap INHALATION QAM #1 puffs 01/27/19 04/17/19 History with inhalation device fluticasone 250 mcg-salmeterol 50 1 puffs INH BID #60 ea 02/25/19 04/17/19 Rx mcg/dose blistr powdr for inhalation azithromycin 250 mg PO QAM 04/17/19 04/17/19 History finasteride 5 mg PO QAM 04/17/19 04/17/19 History nifedipine 30 mg PO QPM 04/17/19 04/17/19 History omeprazole 20 mg PO QPM 04/17/19 04/17/19 History tamsulosin 0.4 mg PO QPM 04/17/19 04/17/19 History Patient History Medical History Abnormal TSH Asthma (Chronic) Bronchitis (Resolved) Bronchopneumonia (Acute) Chronic respiratory failure with hypoxia COPD with exacerbation (Chronic) Diabetes mellitus Emphysema/COPD (Chronic) Hyperlipidemia (Chronic) Hypertension (Chronic) Hypoxemia (Acute) DYLAN on CPAP Pneumonia (Acute) Shoulder contusion (Acute) Surgical History History of colon resection (Resolved) Family History Other Family history non-contributory Social History Beliefs That Will Affect Care: None Current Living Situation: Spouse Feels Safe at Home: Yes Smoking Status: Former smoker Physical Exam Physical Exam: Gen.: No acute distress. Alert and oriented. HEENT: Anicteric sclera. Neck: No JVD. No bruits. Normal carotid upstrokes bilaterally. Cardiac: PMI was nonpalpable. No ventricular heave. Irregularly irregular with reasonable heart rate. Normal S1-S2. No murmurs, rubs, or gallops. Pulmonary: Decreased breath sounds throughout, but otherwise clear. Abdomen: Soft, nontender, nondistended, with normoactive bowel sounds. No bruits noted. Extremities: 2+ radial pulses bilaterally. 2+ posterior tibialis pulses bilaterally. No significant pitting edema or cyanosis. Psychiatric: Affect appears appropriate. Results & Data Vital Signs (Past 12 Hours) Vital Signs Temp Pulse Pulse Resp BP Pulse Ox 04/20/19 15:43 36.7 C 78 20 159/76 H 90 04/20/19 13:15 99 H 16 91 04/20/19 11:30 37.2 C 86 18 148/78 H 96 04/20/19 07:11 36.6 C 104 H 20 165/86 H 92 04/20/19 07:08 100 H 18 90 Diagnostic Findings Telemetry personally reviewed: Sinus rhythm until 195 on 04/19/2019 at which time atrial fibrillation with rapid ventricular response occurred. He remains in atrial fibrillation. CT chest 04/19/2019: Report reviewed as noted above. ECGs personally reviewed: ECG 04/17/2019: Sinus rhythm 66 bpm. RBBB. ECG 04/19/2019 at 8:03 p.m.: AFib with RVR 126 bpm. RBBB. ECG 04/19/2019 at 9:43 p.m.: AFib with RVR 125 bpm. RBBB. Echo 04/20/2019: Normal LV size and systolic function. No definite wall motion abnormalities. Moderate LVH. EF 65-70%. Mild RV dilation with normal systolic function. Mild biatrial dilation. No significant valvular abnormalities. Medications Administered Current Inpatient Medications Acetaminophen (Tylenol) 650 mg PO Q4H PRN PRN Reason: Pain or Fever Stop: 05/17/19 14:29 Al Hydrox/Mg Hydrox/Simethicone (Maalox) 15 ml PO Q4H PRN PRN Reason: Dyspepsia Stop: 05/17/19 14:29 Albuterol (Duoneb) 3 ml NEB Q6R [facility] Stop: 05/18/19 12:59 Last Admin: 04/20/19 13:15 Dose: 3 ml Documented by: Atorvastatin Calcium (Lipitor) 20 mg PO QPM [facility] Stop: 05/17/19 20:59 Last Admin: 04/19/19 21:17 Dose: 20 mg Documented by: Azithromycin (Zithromax) 250 mg PO QAM [facility] Stop: 05/17/19 14:29 Last Admin: 04/20/19 07:57 Dose: 250 mg Documented by: [facility]tec) [facility] Stop: 05/18/19 08:59 Last Admin: 04/20/19 07:57 Dose: 10 mg Documented by: Ciprofloxacin (Cipro) 500 mg PO BID [facility] Stop: 04/30/19 08:59 Last Admin: 04/20/19 07:57 Dose: 500 mg Documented by: Dextrose (Dextrose 50%) 25 - 50 ml IV UD PRN; Protocol PRN Reason: Hypoglycemia Protocol Stop: 05/18/19 19:59 Diltiazem HCl (Cardizem) 30 mg PO Q6H [facility] Stop: 05/20/19 11:59 Last Admin: 04/20/19 13:44 Dose: 30 mg Documented by: Finasteride (Proscar) [facility] Stop: 05/17/19 14:29 Last Admin: 04/20/19 07:56 Dose: 5 mg Documented by: Glucagon (Glucagen) 1 mg SQ UD PRN; Protocol PRN Reason: Hypoglycemia Protocol Stop: 05/18/19 19:59 Glucose (Dex4 Glucose) 4 - 8 tabs PO UD PRN; Protocol PRN Reason: Hypoglycemia Protocol Stop: 05/18/19 19:59 Glucose (Glucose 40%) 15 - 30 gm PO UD PRN; Protocol PRN Reason: Hypoglycemia Protocol Stop: 05/18/19 19:59 Guaifenesin/Dextromethorphan (Robitussin Cough-Chest Dm) 10 ml PO Q6H PRN PRN Reason: Cough Stop: 05/17/19 14:29 Hydralazine HCl (Hydralazine Hcl) 10 mg IV Q6 PRN PRN Reason: SBP>180 or DBP>110 Stop: 05/18/19 19:53 Last Admin: 04/19/19 05:26 Dose: 10 mg Documented by: Heparin Sodium/Dextrose (Heparin Sodium/Dextrose) 25,000 units in 500 mls @ 30 mls/hr IV .[id number] [facility]; Protocol Stop: 05/19/19 21:44 Last Titration: 04/20/19 15:08 Dose: 1,500 units/hr, 30 mls/hr Documented by: Diltiazem HCl 125 mg/ Dextrose 125 mls @ 5 mls/hr IV .Q24H [facility]; Protocol Stop: 05/19/19 21:59 Last Admin: 04/20/19 16:10 Dose: 5 mg/hr, 5 mls/hr Documented by: Insulin Aspart (Novolog Flexpen) 0 units SC ACHS [facility] Stop: 05/18/19 20:59 Last Admin: 04/20/19 12:39 Dose: 3 units Documented by: Ioversol (Optiray 320 100ml) 94 ml IV ONCE PRN PRN Reason: Interaction Checking Stop: 04/23/19 15:23 Last Admin: 04/19/19 15:24 Dose: 94 ml Documented by: Losartan Potassium (Cozaar) 50 mg PO QAM [facility] Stop: 05/20/19 08:59 Last Admin: 04/20/19 07:58 Dose: 50 mg Documented by: Magnesium Hydroxide (Milk Of Magnesia) 30 ml PO Q12H PRN PRN Reason: Constipation Stop: 05/17/19 14:29 Metoprolol Tartrate (Lopressor) 25 mg PO BID [facility] Stop: 05/20/19 20:59 Metronidazole (Flagyl) 500 mg PO TID [facility] Stop: 04/30/19 08:59 Last Admin: 04/20/19 15:10 Dose: 500 mg Documented by: Miscellaneous (Carbohydrates For Hypoglycemia) 15 - 30 gm PO UD PRN PRN Reason: Hypoglycemia Protocol Stop: 05/18/19 19:59 Nifedipine (Procardia Xl) 30 mg PO QPM [facility] Stop: 05/17/19 20:59 Last Admin: 04/18/19 21:32 Dose: 30 mg Documented by: Pantoprazole Sodium (Protonix) 40 mg PO QPM [facility] Stop: 05/17/19 20:59 Last Admin: 04/19/19 21:17 Dose: 40 mg Documented by: Polyethylene Glycol (Miralax Powder Packet) 17 gm PO DAILY PRN PRN Reason: Constipation Stop: 05/17/19 14:29 Prednisone (Prednisone) 50 mg PO QAM [facility] Stop: 05/20/19 08:59 Last Admin: 04/20/19 07:58 Dose: 50 mg Documented by: Roflumilast (Daliresp) 250 mcg PO QAM [facility] Stop: 05/17/19 14:29 Last Admin: 04/20/19 07:56 Dose: 250 mcg Documented by: Fluticasone/Salmeterol (Advair Diskus 250/50) 1 puffs INH BID [facility] Stop: 05/17/19 14:29 Last Admin: 04/20/19 07:59 Dose: 1 puffs Documented by: Tamsulosin HCl (Flomax) 0.4 mg PO QPM [facility] Stop: 05/17/19 20:59 Last Admin: 04/19/19 21:17 Dose: 0.4 mg Documented by: Tiotropium Fortescue (Spiriva) 1 puffs INH QAM [facility] Stop: 05/17/19 14:29 Last Admin: 04/20/19 07:58 Dose: 1 puffs Documented by: PG Care Time/CCT Total # of Minutes Spent Total Time Spent with Patient: Total time spent is greater than 50% in health unit coordinator rdination of care (as documented) at patient's floor/unit and/or counseling patient:
[2019-04-20] MEDS: ATORVASTATIN 20 MG TAB PO SCH (21:07)
[2019-04-20] MEDS: TAMSULOSIN HCL 0.4 MG CAP PO SCH (21:07)
[2019-04-20] MEDS: METOPROLOL TARTRATE 25 MG TAB PO SCH (21:08)
[2019-04-20] MEDS: PANTOprazole 40 MG TAB PO SCH (21:09)
[2019-04-20] MEDS: APIXABAN 5 MG TABLET PO SCH (21:19)
--- NOTE | 2019-04-20 23:44 | Hospitalist Progress Note ---
Date of Service April 20, 2019 Assessment & Plan (1) Sepsis: Admitted with bibasilar pneumonia on chest x-ray, leukocytosis, fever at home but not documented here, and elevated lactate. treated with Cefepime IV in addition to his Azithromcyin no fever, but WBC up to 30k with 90% PMN Has trended down Lactic acid is elevated but may be due to albuterol CT chest shows NO PNEUMONIA Likely viral. will continue to monitor. CT abdomen pelvis shows thickened bladder but UA is clean and PSA normal shows fluid around gall bladder, stones but LFT normal, no RUQ pain on exam and no pain after eating, no nausea will continue Cefepime for now, plan to change to Cipro/Flagyl tomorrow for 7-10 day course Discharged withheld due to A. fib RVR. Flu swab negative, no growth in blood cultures (2) Atrial fibrillation with RVR: Placed on heparin. Start on Eliquis in the evening. Placed on cardizem drip and will add metoprolol as well. will montor his HR. Holding nifedipine. (3) Pneumonia of both lower lobes: initially diagnosed with pneumonia based on CXR findings, in reality this was atelectasis no pneumonia on CT chest today stop Cefepime, no need for pneumonia treatment (4) COPD exacerbation: Patient with a history of COPD and asthma, noted to be severe as per but is not on chronic O2 at home. However, he does qualify for home O2 as he drops to 77% frequently with exertion on his treadmill. He declines O2 because he recovers quickly from his hypoxia with rest. Follows with pulmonary in [place], will plan for close follow up with Dr. iRos, he requests d/c summary be sent to Dr. Rios With acute exacerbation here with wheezing and cough with increased production of sputum -azithromycin 250mg daily - responded well to Solu Medrol, change to Prednisone 50mg daily tomorrow AM would taper slowly over next few two weeks, make sure he can follow up with Dr. Rios prior to finishing Prednisone taper -Continue scheduled albuterol nebulizers -Continue Advair 1 puff twice daily -Continue Spiriva 1 puff daily -Supplemental O2 as needed to keep pulse ox greater than 88% - patient on room air today, refused two step -Continue Daliresp (5) Hypertension: Blood pressures are significantly elevated at times here, was given a as needed hydralazine dose last evening -Give IV hydralazine 10 mg every 6 hours as needed SBP greater than 180 or DBP greater than 110 -Continue nifedipine 30 mg p.o. daily at bedtime - will start on Losartan 50mg tomorrow AM, follow pressures -Heart healthy diet with low-sodium (6) Hyperlipidemia: Continue atorvastatin Lipid panel checked here on admission is excellent (7) BPH (benign prostatic hyperplasia): No acute issues Continue home dose of finasteride 5 mg p.o. every morning. Continue tamsulosin 0.4 mg p.o. every afternoon PSA checked because states he has history of prostatitis PSA normal today, UA is also clean (8) GERD (gastroesophageal reflux disease): Continue omeprazole 20 mg p.o. every afternoon or equivalent. (9) Diabetes mellitus: Hemoglobin A1c was 6.6% in September 2018. Diabetes was not listed in his past medical history previously and he is not on medication at home Has some hyperglycemia now likely secondary to corticosteroids -Start q. before meals and at bedtime Accu-Cheks and supply supplemental NovoLog for now-consider adding Lantus -Needs follow-up with PCP -Changed to ADA diet -Would benefit from diabetic education (10) DYLAN on CPAP: -He has brought in his CPAP from home for nightly use (11) Abnormal TSH: TSH is mildly low at 0.297, free T4 was not drawn -Recommend repeat TFTs in 3 to 4 weeks when no longer acutely ill (12) Chronic respiratory failure with hypoxia: Patient reports his normal pulse ox is 88 to 92% at home but drops down to the 70s with exertion with quick recovery with cessation of exercise -He has declined supplemental O2 in the past VBG here without evidence of CO2 retention with pH 7.42 and CO2 46 (13) DVT prophylaxis: SQ Lovenox Disposition- despite lab abnormalities and severe COPD at baseline, patient feels quite well, so well that he may have been okay for discharge today as above, would d/c home on Cipro/Flagyl 7-10 days (would have used Augmentin but he has an allergy) would hold Azithromycin while on Cipro as both can cause QT prolongation, but resume Azithromcyin as soon as he finishes Cipro Prednisone 50mg daily with slow taper over at least 2 weeks Losartan 50mg daily, new BP medication on discharge, will plans for follow up with Dr. Lopez in a week for BP check again, he does not feel like he would want/need home oxygen, he checks his saturations 6 times a day at home Subjective 73 yo male states he feels better. He has no sensation of palpitations. He reports that he is breathing better as well. His is in the room and states she wants me to discuss case with his search analyst. Review of Systems Review of Systems: All systems reviewed & are unremarkable except as noted in HPI & below Physical Exam Physical Exam: Constitutional: WD/WN, vitals as above Eyes: PERRL, conjunctivae normal, anicteric sclerae ENMT: external ear and nose normal, oropharynx normal Neck: trachea midline, no thyromegaly Respiratory: normal respiratory effort and + cough; no respiratory distress Auscultation: lungs clear to auscultation bilaterally and + diminished lung sounds (diffusely); no crackles, no rales and no wheezes Cardiovascular: RRR, no murmur, no edema Gastrointestinal (Abdomen): normal bowel sounds, soft, nontender, no hepatosplenomegaly Musculoskeletal: no cyanosis or clubbing, extremities motor strength 5/5 Skin: no rashes, warm and dry Neurologic: patellar DTR's 2+ bilat, sensation intact and PERRL, EOMI, accommodation nl, no face palsy, no dysarthria Psychiatric: A+Ox3, euthymic affect Lymphatic: no cervical or axillary lymphadenopathy Results & Data Vital Signs (Past 12 Hours) Vital Signs Temp Pulse Pulse Resp BP Pulse Ox 04/20/19 19:34 36.8 C 77 18 138/77 93 04/20/19 15:43 36.7 C 78 20 159/76 H 90 04/20/19 13:15 99 H 16 91 PG Care Time/CCT Total # of Minutes Spent Total Time Spent with Patient: Total time spent is greater than 50% in coordination of care (as documented) at patient's floor/unit and/or counseling patient: (1) Pneumonia of both lower lobes Pneumonia type: due to unspecified organism Qualified Code(s): J18.9 - Pneumonia, unspecified organism (2) Sepsis Sepsis acute organ dysfunction status: unspecified Sepsis type: sepsis due to unspecified organism Qualified Code(s): A41.9 - Sepsis, unspecified organism
[2019-04-21] MEDS: ALBUT/IPRATROP 3MG/0.5MG NEB 3 ML VIAL NEB SCH ×3 (01:04→13:07)
[2019-04-21] MEDS: dilTIAZem HCL 30 MG TAB PO SCH (06:03)
[2019-04-21 06:09] LABS: Partial Thromboplastin Time 26.3 Seconds (21.0-31.0)
[2019-04-21] MEDS: FINASTERIDE 5 MG TAB PO SCH (07:50)
[2019-04-21] MEDS: LOSARTAN POTASSIUM 50 MG TAB PO SCH (07:50)
[2019-04-21] MEDS: ROFLUMILAST 500 MCG TAB PO SCH (07:50)
[2019-04-21] MEDS: CIPROFLOXACIN 500 MG TAB PO SCH (07:50)
[2019-04-21] MEDS: FLUTICASONE/SALMETEROL 250/50 (ADVAIR) 14 PUFF/1 INHALER INH SCH (07:51)
[2019-04-21] MEDS: metroNIDAZOLE 500 MG TAB PO SCH (07:51)
[2019-04-21] MEDS: predniSONE 50 MG TAB PO SCH (07:51)
[2019-04-21] MEDS: TIOTROPIUM BROMIDE 5 PUFF/90 MCG INH INH SCH (07:52)
[2019-04-21] MEDS: CETIRIZINE HCL 10 MG TABLET PO SCH (07:52)
[2019-04-21] MEDS: AZITHROMYCIN 250 MG TAB PO SCH (07:53)
[2019-04-21] MEDS: METOPROLOL TARTRATE 25 MG TAB PO SCH (08:29)
[2019-04-21] MEDS: APIXABAN 5 MG TABLET PO SCH (08:29)
[2019-04-21] MEDS: INSULIN ASPART 100 UNITS/ML 3 ML PEN SC SCH (08:54)
[2019-04-21 09:43] LABS: BUN Creatinine Ratio 21.9 (10-20); Calcium 8.4 mg/dl (8.5-10.1); Creatinine Clr Calc Pharmacy 80.5 ml/min; Est GFR (African American) 90.5; Est GFR (Non-African American) 78.1; Potassium 3.5 mmol/L (3.5-5.1)
[2019-04-21 09:44] LABS: Basophils # (auto) 0.01 K/uL (0-0.2); Basophils % (auto) 0.1 %; Eosinophils # (auto) 0.01 K/uL (0-0.5); Eosinophils % (auto) 0.1 %; Hematocrit (blood only) 43.7 % (42-52); Hemoglobin 14.7 g/dL (14.0-18.0); Immature Granulocytes # (auto) 0.28 K/uL (0.00-0.02); Immature Granulocytes % (auto) 1.5 %; Lymphocytes # (auto) 2.82 K/uL (1.2-3.4); Lymphocytes % (auto) 15.3 %; Mean Corpuscular Hemoglobin 29.3 pg (25-34); Mean Corpuscular Hgb Conc 33.6 g/dL (32-36); Mean Corpuscular Volume 87.2 fL (80-100); Monocytes # (auto) 1.78 K/uL (0.11-0.59); Monocytes % (auto) 9.7 %; Neutrophils # (auto) 13.48 K/uL (1.4-6.5); Neutrophils % (auto) 73.3 %; Platelet Count 221 K/uL (130-400); RDW Standard Deviation 44.6 fL (36.4-46.3); Red Blood Count 5.01 M/uL (4.7-6.1); White Blood Count 18.38 K/uL (4.8-10.8)
[2019-04-21] MEDS ORDERED: CIPROFLOXACIN 500 MG TAB PO SCH (11:30)
[2019-04-21] MEDS ORDERED: metroNIDAZOLE 500 MG TAB PO SCH (11:30)
[2019-04-21] MEDS ORDERED: APIXABAN 5 MG TABLET PO SCH (11:30)
[2019-04-21] MEDS ORDERED: dilTIAZem ER 180 MG CAPCR PO SCH ×2 (11:30)
--- NOTE | 2019-04-21 12:44 | Cardiology Progress Note ---
Date of Service April 21, 2019 Subjective He is feeling better this morning. He still has a productive cough. He denies any lightheadedness or dizziness. He is short of breath just walking from the bed to the bathroom which is new for him the question is this related to his underlying lung disease or his atrial fibrillation. He denies any chest tightness or chest pressure. He does have some trivial lower extremity edema of the left leg which is chronic due to her previous injury. He denies any bleeding or bruising dark stools or black stools. Denies any fevers chills or sweats. He is feeling better this morning. Results & Data Vital Signs (Past 12 Hours) Vital Signs Temp Pulse Pulse Resp BP BP Pulse Ox 04/21/19 11:21 36.6 C 79 87 18 179/83 H 167/83 H 92 04/21/19 07:29 87 18 92 04/21/19 07:21 36.6 C 87 19 179/83 H 90 04/21/19 04:01 36.4 C L 88 18 167/83 H 90 04/21/19 01:04 108 H 16 90 he is awake alert oriented x3 he is in no acute distress HEENT: 2+ carotid upstrokes tones or carotid bruits jugular is pressure appeared normal sclerae anicteric Lungs globally decreased breath sounds no rales rhonchi or wheezing the breath sounds are more decreased in the bases Heart irregular rate and rhythm no appreciable murmurs rubs or gallops Abdomen: Soft nontender distended positive bowel sounds Extremities no clubbing or cyanosis trace edema of the left leg with js icosities no edema of the right leg Psychiatric his affect appeared appropriate 1. AFib with RVR: As was discussed with Michael and his in detail. If he truly is asymptomatic we would continue with a rate control strategy. We did increase his diltiazem to 180 mg daily and he will remain on metoprolol 25 mg twice daily. He is on apixaban 5 mg twice daily I discussed the risks and benefits of anticoagulation with him in detail. They had a number of questions with regards anticoagulation and this was answered as well. I discussed and will be important when he recovers from this infection to determine his ability to walk on the treadmill like he was doing before he got sick. if he notices increasing dyspnea while on the treadmill after his lungs have completely healed then one would need to sitting consider cardioversion and spiritism of sinus rhythm to see if it improves his dyspnea. The problem is he likely will need antiarrhythmic therapy to maintain sinus rhythm long-term 2. Hypertension: Blood pressure has been elevated.increase his diltiazem today. He is on Toprol as well angiotensin receptor jun therapy although losartan is a good drug is not a effective antihypertensive and he may better be better suited with valsartan. 3. Dyslipidemia: Recommend high-intensity statin therapy given coronary calcifications. 4. Coronary calcifications: He is asymptomatic. No angina, despite elevated heart rates and hypertension. Risk factor modification. 5. Obstructive sleep apnea extremely compliant with his CPAP. There is no mention of of whether he has pulmonary hypertension on his echocardiogram. The tricuspid regurgitant jet seem to be an adequate to assess this. If he has progressive dyspnea this would also be concerned that he has pulmonary hype rtension related to his significant COPD. All this was discussed with the hospitalist service as well
--- NOTE | 2019-04-25 22:17 | Discharge Summary ---
Date of Service April 21, 2019 Admission HPI Per Admitting Provider Patient is a 73 years old male with past medical history with COPD/asthma, hypertension, hyperlipidemia, emphysema, history of colon resection who came to the emergency room for evaluation of intermittent respiratory problems started 3 weeks ago. The patient states that his oxygen has been dropping to 70% when he exercises and that he has history of COPD/asthma. Patient reports experiencing a cough and slight fever but denies experiencing any chest or abdominal pain. Patient reports being chronically on azithromycin 1 p.o. daily for a month which was prescribed by his rn bariatric at [facility]. Patient denies at the present time fever, chills, chest pain, abdominal pain, frequency, urgency, melena, hematuria, dysuria. Patient reports being very tired and having a hacking nonproductive cough. Labs are reviewed: WBC is 23.85, hemoglobin 14.9, hematocrit 43.7, platelets 182, VBG pH 7.42, PCO2 46 PO2 29, HCO3 29 O2 saturation less than 60, sodium 137, potassium 3.8, chloride 104, carbon dioxide 29, BUN 13, creatinine 1.33, GFR 52.7, lactate 2.7, calcium 9.2, magnesium 1.9, troponin 0.015. BNP pending, TSH pending, influenza AMB pending. Chest x-ray show bibasilar irregular infiltrates new from the prior exam. These may represent atelectasis or aspiration. Decision was made to admit patient to PCU on telemetry for further observation of possible aspiration pneumonia. Principal Diagnosis Atrial fib RVR/ COPD exacerbation Discharge Exam Constitutional: WD/WN, vitals as above Eyes: PERRL, conjunctivae normal, anicteric sclerae ENMT: external ear and nose normal, oropharynx normal Neck: trachea midline, no thyromegaly Respiratory: normal respiratory effort and + cough; no respiratory distress Auscultation: lungs clear to auscultation bilaterally; no crackles, no rales and no wheezes Cardiovascular: RRR, no murmur, no edema Gastrointestinal (Abdomen): normal bowel sounds, soft, nontender, no hepatosplenomegaly Musculoskeletal: no cyanosis or clubbing, extremities motor strength 5/5 Skin: no rashes, warm and dry Neurologic: patellar DTR's 2+ bilat, sensation intact and PERRL, EOMI, accommodation nl, no face palsy, no dysarthria Psychiatric: A+Ox3, euthymic affect Lymphatic: no cervical or axillary lymphadenopathy Discharge Data Allergies Allergy/AdvReac Type Severity Reaction Status Date / Time amoxicillin Allergy Intermediate RASH Verified 04/17/19 12:02 clavulanic acid Allergy Intermediate RASH Verified 04/17/19 12:02 moxifloxacin Allergy Unknown hives, Verified 04/17/19 12:02 TOLERATES LEVAQUIN Sulfa (Sulfonamide Allergy Unknown . Verified 04/17/19 12:02 Antibiotics) roflumilast [From Daliresp] Allergy Verified 04/17/19 12:02 Consultations 04/17/19 11:54 ED Decision to Admit Stat 04/19/19 21:27 Consult Cardiology Routine Ordered Studies 04/19/19 14:44 CT abd pelvis IV con only Urgent CT chest w con Urgent Hospital Course (1) Sepsis: Admitted with bibasilar pneumonia on chest x-ray, leukocytosis, fever at home but not documented here, and elevated lactate. treated with Cefepime IV in addition to his Azithromcyin no fever, but WBC up to 30k with 90% PMN Has trended down Lactic acid is elevated but may be due to albuterol CT chest shows NO PNEUMONIA Likely viral. will continue to monitor. CT abdomen pelvis shows thickened bladder but UA is clean and PSA normal shows fluid around gall bladder, stones but LFT normal, no RUQ pain on exam and no pain after eating, no nausea was treated on Cefepime, plan to change to Cipro/Flagyl tomorrow for 7-10 day course Flu swab negative, no growth in blood cultures (2) Atrial fibrillation with RVR: Placed on heparin drip initially. Start on Eliquis in the evening prior to discharge.. Placed on cardizem drip and then transitioned to cardizem and metoprolol. will montor his HR. Holding nifedipine. (3) Pneumonia of both lower lobes: initially diagnosed with pneumonia based on CXR findings, in reality this was atelectasis no pneumonia on CT chest today will continue antibiotics for short course (4) COPD exacerbation: Patient with a history of COPD and asthma, noted to be severe as per but is not on chronic O2 at home. However, he does qualify for home O2 as he drops to 77% frequently with exertion on his treadmill. He declines O2 because he recovers quickly from his hypoxia with rest. Follows with pulmonary in [place], will plan for close follow up with Dr. Mendez ramirez, he requests d/c summary be sent to Dr. Rios With acute exacerbation here with wheezing and cough with increased production of sputum -azithromycin 250mg daily - responded well to Solu Medrol, change to Prednisone and taper at home -Continue scheduled albuterol nebulizers -Continue Advair 1 puff twice daily -Continue Spiriva 1 puff daily -Supplemental O2 as needed to keep pulse ox greater than 88% - patient on room air today, refused two step -Continue Daliresp (5) Hypertension: Blood pressures are significantly elevated at times here, was given a as needed hydralazine dose last evening -Give IV hydralazine 10 mg every 6 hours as needed SBP greater than 180 or DBP greater than 110 -Continue nifedipine 30 mg p.o. daily at bedtime - switched to valsartan, follow pressures as outpatient -Heart healthy diet with low-sodium (6) Hyperlipidemia: Continue atorvastatin Lipid panel checked here on admission is excellent (7) BPH (benign prostatic hyperplasia): No acute issues Continue home dose of finasteride 5 mg p.o. every morning. Continue tamsulosin 0.4 mg p.o. every afternoon PSA checked because states he has history of prostatitis PSA normal today, UA is also clean (8) GERD (gastroesophageal reflux disease): Continue omeprazole 20 mg p.o. every afternoon or equivalent. (9) Diabetes mellitus: Hemoglobin A1c was 6.6% in September 2018. Diabetes was not listed in his past medical history previously and he is not on medication at home Has some hyperglycemia now likely secondary to corticosteroids -Start q. before meals and at bedtime Accu-Cheks and supply supplemental NovoLog for now-consider adding Lantus -Needs follow-up with PCP -Changed to ADA diet -Would benefit from diabetic education (10) DYLAN on CPAP: -He has brought in his CPAP from home for nightly use (11) Abnormal TSH: TSH is mildly low at 0.297, free T4 was not drawn -Recommend repeat TFTs in 3 to 4 weeks when no longer acutely ill (12) Chronic respiratory failure with hypoxia: Patient reports his normal pulse ox is 88 to 92% at home but drops down to the 70s with exertion with quick recovery with cessation of exercise -He has declined supplemental O2 in the past VBG here without evidence of CO2 retention with pH 7.42 and CO2 46 (13) DVT prophylaxis: SQ Lovenox Total Time Total Time Spent Total Time Spent (In Minutes): 60 Total Time Includes: Examination of the Patient, Discharge Planning and Medication Reconciliation Discharge Plan Discharge Items Patient Disposition: Home - Self-Care Reason For Visit: SEPSIS, BILATERAL PNA, ACUT COPD EXA Discharge Diagnosis: Acute COPD Exacerbation/ hypertension/ Atrial fibrillation Activity: Resume your previous activity Non-emergency contact: Primary Care Provider Call non-emergency contact if: you have any medication questions Follow-up/Referrals: Bhavin Lopez MD [Primary Care Provider] - 04/26/19 2:30 pm (Please, follow up at Dr. Bhavin Lopez's office with his associate, Marta Cole PA-C, on FridayApril 26 at 2:30 pm. *If you need to change this appointment, call the office at [phone].) Diet: Carb Consistent or DM2 and Heart Healthy Addtl Attending Provider Instructions: Restart azithromycin on 04/24. You have been hospitalized for an acute medical problem which appeared to be a viral infection. During your stay at [facility], we have made an effort to correct the problem that brought you to the hospital while keeping you as comfortable as possible. You also developed atrial fibrillation which likely came from uncontrolled blood pressure as you had dilated atrial chambers and left ventricular hypertrophy (thicker muscle of left chamber of heart). Medications were used to bring your condition under control and your discharge instructions will include directions for any medications you should take after leaving the hospital. Please make sure you see your Primary Care Provider as part of your follow up plan. Pending Studies at Discharge: No Stand-Alone Forms: My [facility], Smoking Cessation Medications and DC Order Prescriptions: New metronidazole 500 mg Tablet 500 mg PO TID Qty: 5 RF: 0 ciprofloxacin HCl 500 mg Tablet 500 mg PO BID Qty: 3 RF: 0 Eliquis 5 mg Tablet 5 mg PO BID Qty: 60 RF: 0 diltiazem HCl 180 mg capsule,extended release 24hr 180 mg PO DAILY Qty: 30 RF: 0 metoprolol succinate 50 mg tablet extended release 24 hr 50 mg PO QPM Qty: 30 RF: 0 valsartan 80 mg tablet 80 mg PO DAILY Qty: 30 RF: 0 valsartan 160 mg tablet 160 mg PO DAILY Qty: 30 RF: 0 prednisone 10 mg tablet 10 mg PO UD Qty: 20 RF: 0 Continued fluticasone propion-salmeterol [Advair Diskus] 250-50 mcg/dose blister with device 1 puffs INH BID Qty: 60 RF: 4 atorvastatin 20 mg tablet 20 mg PO QPM Qty: 90 RF: 0 roflumilast 500 mcg tablet 250 mcg PO QAM RF: 0 ipratropium-albuterol 0.5 mg-3 mg(2.5 mg base)/3 mL solution for nebulization 3 ml inhalation BID PRN (Reason: Shortness Of Breath Or Wheezing) Qty: 6 RF: 0 cetirizine 10 mg capsule 10 mg PO QAM Qty: 30 RF: 0 azithromycin 250 mg tablet 250 mg PO QAM RF: 0 omeprazole 20 mg Capsule,Delayed Release(Dr/Ec) 20 mg PO QPM RF: 0 tamsulosin 0.4 mg capsule 0.4 mg PO QPM RF: 0 finasteride 5 mg tablet 5 mg PO QAM RF: 0 Discontinued nifedipine 30 mg tablet extended release 30 mg PO QPM RF: 0 No Action (DME) CPAP Machine Misc See Dose Instructions .ROUTE .MEDSUPPLY Qty: 1 RF: 0 tiotropium bromide 18 mcg capsule, w/inhalation device 1 cap inhalation QAM Qty: 180 RF: 0 Discharge Orders: Discharge Order (Routine); Ordered 04/21/19 Ordered By: Shane Xiong Admission Data Admit Date/Time: 04/17/19 13:13 Attending Provider: Shane Xiong Admit Provider: Cristhian Shoemaker Primary Care Provider: Bhavin Lopez Other Providers: Cristhian Shoemaker ; Dale Stewart Other Interventions: Discharge Summary Assessment (RN) Last Done: 04/21/19 11:21 DC Date/Time DO NOT enter until pt leaves facility: 04/21/19 13:41
== END 2019-04-21 13:41 | disposition home or self-care (01) | DRG 871 ==
LOC: ED 09:52 → 2S 13:13 → SUATTDRO 13:13 → 2S 13:56

== ENCOUNTER 2023-08-30 19:09 | Inpatient (IN) ==
[2023-08-30 20:14] LABS: Albumin Globulin Ratio 1.4 (0.9-2); Albumin Level 4.1 gm/dl (3.4-5.0); BUN Creatinine Ratio 14.4 (10-20); Bilirubin,Total 0.7 mg/dl (0.2-1.0); Calcium 8.9 mg/dl (8.6-10.3); Creatinine Clr Calc Pharmacy 45.4 ml/min; Est GFR (African American) 49.7 ml/min; Est GFR (Non-African American) 42.9 ml/min; Potassium 4.5 mmol/L (3.5-5.1); Total Protein 7.1 gm/dl (6.0-8.3)
[2023-08-30 20:21] LABS: Troponin I High Sensitivity 14.7 pg/ml (0-20)
[2023-08-30] MEDS: methylPREDNISolone 125 MG/2 ML VIAL IV STA (20:35)
[2023-08-30] MEDS: ALBUT/IPRATROP 3MG/0.5MG NEB 3 ML VIAL INH STA (20:36)
[2023-08-30] MEDS: ACETAMINOPHEN 500 MG TAB PO STA (20:36)
[2023-08-30 20:39] LABS: Basophils # (auto) 0.05 K/uL (0.00-0.20); Basophils % (auto) 0.2 %; Eosinophils # (auto) 0.02 K/uL (0.00-0.50); Eosinophils % (auto) 0.1 %; Hematocrit (blood only) 40.6 % (42.0-52.0); Hemoglobin 13.4 g/dl (14.0-18.0); Immature Granulocytes # (auto) 0.22 K/uL (0.01-0.20); Immature Granulocytes % (auto) 1.1 %; Lymphocytes # (auto) 1.16 K/uL (1.20-3.40); Lymphocytes % (auto) 5.7 %; Mean Corpuscular Hemoglobin 29.3 pg (25.0-34.0); Mean Corpuscular Volume 88.8 fL (80.0-100.0); Mean Platelet Volume 10.3 fL (9.4-12.4); Monocytes # (auto) 1.09 K/uL (0.11-0.59); Monocytes % (auto) 5.4 %; Neutrophils # (auto) 17.81 K/uL (1.40-6.50); Neutrophils % (auto) 87.5 %; Platelet Count 204 K/uL (130-400); RDW Coefficient of Variation 12.9 % (11.5-14.5); RDW Standard Deviation 42.3 fL (36.4-46.3); Red Blood Count 4.57 M/uL (4.70-6.10); White Blood Count 20.35 K/ul (4.8-10.8)
[2023-08-30 21:04] LABS: Adenovirus PCR Not Detected (NotDetected); Bordetella parapertussis PCR Not Detected (NotDetected); Bordetella pertussis PCR Not Detected (NotDetected); Chlamydia pneumoniae PCR Not Detected (NotDetected); Coronavirus 229E PCR Not Detected (NotDetected); Coronavirus CoV-2 (COVID19)PCR Not Detected (NotDetected); Coronavirus HKU1 PCR Not Detected (NotDetected); Coronavirus NL63 PCR Not Detected (NotDetected); Coronavirus OC43PCR Not Detected (NotDetected); Human Metapneumovirus PCR Not Detected (NotDetected); Influenza A PCR Not Detected (NotDetected); Influenza B PCR Not Detected (NotDetected); Mycoplasma pneumoniae PCR Not Detected (NotDetected); Parainfluenza Virus 1 PCR Not Detected (NotDetected); Parainfluenza Virus 2 PCR Not Detected (NotDetected); Parainfluenza Virus 3 PCR Not Detected (NotDetected); Parainfluenza Virus 4 PCR Not Detected (NotDetected); Respiratory Syncytial VirusPCR Not Detected (NotDetected); Rhinovirus/Enterovirus PCR Not Detected (NotDetected)
[2023-08-30] MEDS: OPTIRAY 320 125ml IV ONE (21:20)
--- NOTE | 2023-08-30 21:33 | Emergency Department Note ---
Impression & Plan Hypoxia, Fever, Leukocytosis, Pneumonia, COPD exacerbation ED Provider Note NAME: OSKAR ASENCIO AGE: 78 SEX: Male INFORMANT: Patient ED PROVIDER(S): Manpreet Sosa MD CHIEF COMPLAINT: Shortness of breath PLAN: Disposition: Admitted Outpatient prescription management: none Referral: None MEDICAL DECISION MAKING: Patient presented due to acute shortness of breath and was hypoxic for EMS. He did respond well to nebulizer treatment. Blood work was obtained. Patient has a white blood cell count of 20,000. Chest x-ray was concerning for right lower lobe infiltrate. Bio fire testing was negative. Patient has a history of COPD and asthma. He was given a DuoNeb and Solu-Medrol. He also received Tylenol for low-grade fever. He was continued on supplemental oxygen. Patient was given doxycycline and cefepime for antibiotic coverage. Lactate, ECG, cardiac troponin and BNP did not reveal any acute findings. CT of the chest done and looks consistent with a right middle and lower lobe infiltrate as well as peribronchial cuffing. No PE. Patient is doing well on nasal cannula oxygen. He notes he is feeling 100% better than prior to EMS arrival. Discussed further management in the hospital and patient was in agreement. Consultation was made with Dr. Geovany Resendiz of the [facility] service. Patient was evaluated in the ER for further management. Care/management discussed with: manager of it Level of care consideration(s): After review of the information above and other included data, I feel the patient requires escalation of care to admission Triage Nursing notes: reviewed and agree them. Vital Signs: reviewed and remarkable for hypoxia which was resolved with supplemental oxygen Additional History obtained from: Patient's . She denies any close sick contacts. Chronic Medical/Social Conditions affecting care: Asthma, COPD Prior/ Outside/ External records reviewed: none Differential Diagnosis: Reactive airway disease, pneumonia, pneumothorax, COPD, CHF, infections, cardiac ischemia, pulmonary embolism, musculoskeletal, gastrointestinal, as well as other pathologies. Diagnostics, independently interpreted by me: ECG: Twelve-lead ECG reveals sinus tachycardia at 103 bpm with a first-degree block. Right bundle branch block present. No ST elevation when compared to 23 October 2021 PVCs are no longer present. Similar morphology noted in the QRS complexes. Cardiac Monitoring: Cardiac monitoring ordered by me: The patient was placed on continuous cardiac monitoring and observed. It revealed a sinus rhythm at 70 bpm. Medical decision rules: none Imaging studies: Chest x-ray concerning for right lower lobe infiltrate. I refer you to the EMR for further details. HPI: 78 year old Male arrives for evaluation of shortness of breath. This started last night and is noted to have acutely worsened this afternoon. The patient also notes the following associated symptoms, cough, feeling feverish. The patient has been using inhalers for relieving factors. Current pain is rated as 0/10. Patient became more dyspneic and short of breath. EMS was summoned. Patient was found to have a pulse oximetry of 75%. He was given a nebulizer treatment which he noted helped significantly. Denies any sick contacts. Pt denies LOC, headache, diaphoresis, visual changes, neck pain, chest pain, nausea, vomiting, abdominal pain, back pain, melena, hematochezia, urinary symptoms, leg swelling, numbness, weakness, lymphadenopathy, rash, or other complaints. PAST MEDICAL HISTORY: See Below, asthma, COPD, A-fib PAST SURGICAL HISTORY: See Below, SOCIAL HISTORY: See Below, HOME MEDICATIONS: See Below ALLERGIES: See Below VITALS: See Below PHYSICAL EXAMINATION: GENERAL: Awake, alert, mildly dyspneic-appearing, in no distress HENT: Normocephalic, atraumatic. Oropharynx unremarkable. EYES: Normal conjunctiva. Sclera non-icteric. NECK: Inspection normal. Non-tender. Supple. No nuchal rigidity. FROM. No masses. RESPIRATORY: Diminished bilaterally. Rhonchi noted in the bases. Mildly increased chronic venous respiratory effort. CARDIAC: Normal rate. Normal rhythm. No murmurs. No rubs. Extremities warm and well perfused. Pulses equal. No JVD. GI: Soft, non-distended. No tenderness to palpation. No rebound or guarding. No masses. RECTAL: Deferred. MUSCULOSKELETAL: Atraumatic. Chest examination reveals no tenderness. The back is symmetrical on inspection without obvious abnormality. There is no CVA tenderness to palpation. No joint edema. LOWER EXTREMITIES: Calves are equal size bilaterally and non-tender. No edema. No discoloration. NEURO: Normal sensorium. No sensory or motor deficits noted. SKIN: No rash or jaundice noted. PROCEDURES: none CRITICAL CARE: I have personally spent 30 minutes of critical care time in the direct management of this patient. This includes bedside care, interpretation of diagnostic studies, and testing, discussion with consultants, patient, and family members, and other required patient management activities. These minutes are in excess of all separately billable procedures. OBSERVATION NOTE: none Past Med/Surg History Medical History History of diverticulitis History of cardioversion Iron deficiency anemia CKD (chronic kidney disease), stage III Chronic anticoagulation Paroxysmal atrial fibrillation Colon polyps Atrial fibrillation with RVR DYLAN on CPAP Diabetes mellitus GERD (gastroesophageal reflux disease) BPH (benign prostatic hyperplasia) Hypertension Hyperlipidemia Pneumonia Emphysema/COPD Asthma Surgical History History of cataract surgery History of esophagogastroduodenoscopy (EGD) History of colonoscopy History of colon resection Family History Father Emphysema of lung Colon cancer Colorectal cancer Grandfather (Paternal) Colon cancer Colorectal cancer Mother Myocardial infarction Grandmother (Maternal) Myocardial infarction Other Cancer Family history non-contributory Heart disease Hypertension Denies family history of Ovarian cancer Prostate cancer Breast cancer Social History Smoking Status: Former smoker Tobacco Type: Cigarettes Age Started Using Tobacco: 20; Age Quit Using Tobacco: 42; packs per day: 1; Second Hand Exposure: No; Do You Dip or Chew Tobacco: No; Hx Alcohol Use: Yes Alcohol type: wine and hard liquor Alcohol Intake Frequency: 2-4 x/Month Hx Substance Use: No Preferred Language: Japanese Communication Ability: Effective Visual Impairment: Limited Hearing Ability: Normal Sales Activity Manager Required: No Beliefs That Will Affect Care: None marital status: Current Living Situation: Spouse current occupational status: employed How many Children do You have: 2 Feels Safe at Home: Yes Childhood Exposure to Second-Hand Smoke: Yes Diet: regular caffeine: Yes during the past year weight has: decreased > 10 lbs Dental Care, Regularly: Yes Physical Activity Frequency: 3-4 Times per Week Seatbelt Use: always Sunscreen Use: No Do you think of yourself as: straight/heterosexual Assistive Devices: CPAP and Glasses Allergies Allergies Allergy/AdvReac Type Severity Reaction Status Date / Time amoxicillin Allergy Intermediate RASH Verified 07/30/23 15:24 clavulanic acid Allergy Intermediate RASH Verified 07/30/23 15:24 moxifloxacin Allergy Unknown hives, Verified 07/30/23 15:24 TOLERATES LEVAQUIN Sulfa (Sulfonamide Allergy Unknown . Verified 07/30/23 15:24 Antibiotics) Home Meds Home Medications Medication Instructions Recorded Confirmed spironolactone 25 mg tablet 12.5 mg PO QAM 09/27/19 08/30/23 loratadine 10 mg tablet (Claritin) 10 mg PO QPM 04/05/21 07/30/23 dronedarone 400 mg tablet (Multaq) 400 mg PO BID 10/04/21 08/30/23 calcium carbonate (Tums) 300 mg PO BID PRN Heartburn 03/19/22 08/30/23 ferrous sulfate 325 mg (65 mg 325 mg PO HS 03/19/22 07/30/23 iron) tablet prednisone 20 mg tablet 40 mg PO DAILY PRN copd 10/08/22 07/30/23 exacerbation roflumilast 500 mcg tablet 500 mcg PO DAILY 10/08/22 08/30/23 (Daliresp) tadalafil 5 mg tablet 5 mg PO DAILY 01/13/23 08/30/23 furosemide 20 mg tablet (Lasix) 20 mg PO PRN 07/30/23 07/30/23 atorvastatin 20 mg tablet 20 mg PO QPM 08/30/23 08/30/23 fluticasone 250 mcg-salmeterol 50 1 ea inhalation BID 08/30/23 08/30/23 mcg/dose blistr powdr for inhalation (Wixela Inhub) ipratropium 0.5 mg-albuterol 3 mg 3 ml inhalation QID PRN Shortness 08/30/23 08/30/23 (2.5 mg base)/3 mL nebulization Of Breath Or Wheezing soln sacubitril 24 mg-valsartan 26 mg 1 tab PO BID 08/30/23 08/30/23 tablet (Entresto) tiotropium bromide 18 mcg capsule 1 cap inhalation DAILY 08/30/23 08/30/23 with inhalation device (Spiriva with HandiHaler) valsartan 80 mg tablet 80 mg PO DAILY 08/30/23 08/30/23 Previous Rx's Medication Instructions Recorded apixaban 5 mg tablet (Eliquis) 5 mg PO BID #60 tabs 05/22/19 CPAP Supplies #1 ea 10/11/19 tamsulosin 0.4 mg capsule 0.4 mg PO QPM #90 caps 11/20/20 finasteride 5 mg tablet 5 mg PO QAM #90 tabs 04/03/21 Results & Data (ED) Vital Signs Vital Signs - 24 hr 08/30/23 19:21 08/30/23 19:21 08/30/23 20:10 Temperature 37.3 C 38 C H Temperature Source Oral Oral Pulse Rate 105 H Pulse Rate [Right Finger] Respiratory Rate 20 Respiratory Effort / Characteristics Non-Labored Spontaneous Respiratory Depth Normal Respiratory Pattern Regular Blood Pressure 149/75 H Blood Pressure [Right Arm] Blood Pressure Mean 99 Blood Pressure Mean [Right Arm] Pulse Oximetry 88 L 88 L Oxygen Delivery Method Room Air Room Air Nasal Cannula Oxygen Flow Rate 0 Sepsis Recent Fever Within 48 Hours Yes Sepsis New/Unexplained Change in Mental Status No Sepsis Action Taken by Nursing No Action Required Oxygen Flow Rate - Titration 4 Pulse Oximetry Post Tiitration 93 08/30/23 21:00 Temperature Temperature Source Pulse Rate Pulse Rate [Right Finger] 80 Respiratory Rate 20 Respiratory Effort / Characteristics Non-Labored Spontaneous Respiratory Depth Normal Respiratory Pattern Regular Blood Pressure Blood Pressure [Right Arm] 148/69 H Blood Pressure Mean Blood Pressure Mean [Right Arm] 95 Pulse Oximetry 92 Oxygen Delivery Method Nasal Cannula Oxygen Flow Rate 5 Sepsis Recent Fever Within 48 Hours Sepsis New/Unexplained Change in Mental Status Sepsis Action Taken by Nursing Oxygen Flow Rate - Titration Pulse Oximetry Post Tiitration Laboratory Data 08/30/23 19:22 08/30/23 19:22 Lab Results 08/30/23 08/30/23 08/30/23 Range/Units 19:20 19:22 20:52 WBC 20.35 H (4.8-10.8) K/ul RBC 4.57 L (4.70-6.10) M/uL Hgb 13.4 L (14.0-18.0) g/dl Hct 40.6 L (42.0-52.0) % MCV 88.8 (80.0-100.0) fL MCH 29.3 (25.0-34.0) pg MCHC 33.0 (32.0-36.0) g/dL RDW Std Deviation 42.3 (36.4-46.3) fL RDW Coeff of Jim 12.9 (11.5-14.5) % Plt Count 204 (130-400) K/uL MPV 10.3 (9.4-12.4) fL Immature Gran % (Auto) 1.1 % Neut % (Auto) 87.5 % Lymph % (Auto) 5.7 % [place] % (Auto) 5.4 % Eos % (Auto) 0.1 % Baso % (Auto) 0.2 % Neut # (Auto) 17.81 H (1.40-6.50) K/uL Lymph # (Auto) 1.16 L (1.20-3.40) K/uL [place] # (Auto) 1.09 H (0.11-0.59) K/uL Eos # (Auto) 0.02 (0.00-0.50) K/uL Baso # (Auto) 0.05 (0.00-0.20) K/uL Immature Gran # (Auto) 0.22 H (0.01-0.20) K/uL Sodium 135 L (136-145) mmol/L Potassium 4.5 (3.5-5.1) mmol/L Chloride 103 (98-107) mmol/L Carbon Dioxide 22 (21-32) mmol/L Anion Gap 10 (3-11) BUN 22 (6-23) mg/dl Creatinine 1.53 H (0.6-1.4) mg/dl Est Cr Clr Drug Dosing 45.4 ml/min Est GFR ( Amer) 49.7 ml/min Est GFR (Non-Af Amer) 42.9 ml/min BUN/Creatinine Ratio 14.4 (10-20) Glucose 124 H (70-99(Fasting)) mg/dl Lactate 1.1 (0.4-2.0) mmol/L Calcium 8.9 (8.6-10.3) mg/dl Total Bilirubin 0.7 (0.2-1.0) mg/dl AST 10 L (13-39) U/L ALT 11 (7-52) U/L Alkaline Phosphatase 48 (34-104) U/L Troponin I High Sens 14.7 (0-20) pg/ml B-Natriuretic Peptide 88 (0-100) pg/ml Total Protein 7.1 (6.0-8.3) gm/dl Albumin 4.1 (3.4-5.0) gm/dl Globulin 3.0 (2.5-4.0) gm/dl Albumin/Globulin Ratio 1.4 (0.9-2) Procalcitonin 0.12 (0-0.5) ng/ml Adenovirus (PCR) Not Detected (NotDetected) B. pertussis DNA (PCR) Not Detected (NotDetected) B.parapertussis DNA PCR Not Detected (NotDetected) C. pneumoniae DNA (PCR) Not Detected (NotDetected) Coronavirus OC43 (PCR) Not Detected (NotDetected) Coronavirus HKU1 (PCR) Not Detected (NotDetected) Coronavirus 229E (PCR) Not Detected (NotDetected) SARS-CoV-2 (PCR) Not Detected (NotDetected) Coronavirus NL63 (PCR) Not Detected (NotDetected) Human Metapneumovir PCR Not Detected (NotDetected) Influenza Type A (PCR) Not Detected (NotDetected) Influenza Type B (PCR) Not Detected (NotDetected) M. pneumoniae (PCR) Not Detected (NotDetected) Parainfluenza 1 (PCR) Not Detected (NotDetected) Parainfluenza 2 (PCR) Not Detected (NotDetected) Parainfluenza 3 (PCR) Not Detected (NotDetected) Parainfluenza 4 (PCR) Not Detected (NotDetected) RSV (PCR) Not Detected (NotDetected) Entero/Rhino (PCR) Not Detected (NotDetected) Administered Medications Discontinued Medications Acetaminophen (Acetaminophen 500 Mg Tab) 1,000 mg PO NOW STA Stop: 08/30/23 20:07 Last Admin: 08/30/23 20:36 Dose: 1,000 mg Documented By: STEPHEN Albuterol (Albut/Ipratrop 3mg/0.5mg Neb 3 Ml Vial) 3 ml INH NOW STA Stop: 08/30/23 19:56 Last Admin: 08/30/23 20:36 Dose: 3 ml Documented By: STEPHEN Cefepime HCl (Maxipime) 2,000 mg in 20 mls @ 5 mls/min IV NOW STA; Protocol Stop: 08/30/23 21:02 Last Admin: 08/30/23 21:52 Dose: 5 mls/min Documented By: STEPHEN Sodium Chloride (Nss) 500 mls @ 999 mls/hr IV .Q31M ONE Stop: 08/30/23 21:30 Last Admin: 08/30/23 21:52 Dose: 999 mls/hr Documented By: STEPHEN Ioversol (Optiray 320 125ml) 119 ml IV ONCE ONE Stop: 08/30/23 21:20 Last Admin: 08/30/23 21:20 Dose: 119 ml Documented By: VIOLA Methylprednisolone (Methylprednisolone 125 Mg/2 Ml Vial) 125 mg IV NOW STA Stop: 08/30/23 20:12 Last Admin: 08/30/23 20:35 Dose: 125 mg Documented By: STEPHEN Imaging Data Radiologist's Impression: Chest CTA 08/30/23 20:58 Exam(s): CTA CHEST IV Amt: 119 ml opti 320 EXAM: CT Angiography Chest With Intravenous Contrast CLINICAL HISTORY: Reason for exam: SOB, hypoxia. TECHNIQUE: Axial computed tomographic angiography images of the chest with intravenous contrast. CTDI is 24.46 mGy and DLP is 820.46 mGy-cm. Automated exposure control was utilized for the study. A dose lowering technique was utilized adhering to the principles of ALARA. MIP reconstructed images were created and reviewed. COMPARISON: No relevant prior studies available. FINDINGS: Pulmonary arteries: Unremarkable. No acute pulmonary embolism. Aorta: No acute findings. No thoracic aortic aneurysm. Lungs: Dependent airspace consolidations involving the lower lobes and RIGHT middle lobe, concerning for multilobar pneumonia. Aspiration not excluded. Pleural space: Unremarkable. No significant effusion. No pneumothorax. Heart: Unremarkable. No cardiomegaly. No significant pericardial effusion. No evidence of RV dysfunction. Bones/joints: No acute fracture. No dislocation. Soft tissues: Unremarkable. Lymph nodes: Unremarkable. No enlarged lymph nodes. IMPRESSION: 1. No acute pulmonary embolism. 2. Dependent airspace consolidations involving the lower lobes and RIGHT middle lobe, concerning for multilobar pneumonia. Aspiration not excluded. Electronically signed by: Giovany Aburto MD 08/30/23 21:34 PM Discharge Plan Visit Data Chief Complaint: Shortness of Breath/Dyspnea Stated Complaint: SOB ED Provider: Manpreet Sosa Discharge Problem: Hypoxia, Fever, Leukocytosis, Pneumonia, COPD exacerbation Forms Stand Alone Forms: My [facility] Prescriptions Prescriptions: No Action Eliquis 5 mg tablet 5 mg PO BID Qty: 60 5RF (DME) CPAP Supplies Misc See Rx Instructions .ROUTE .MEDSUPPLY Qty: 1 0RF Rx Instructions: CPAP SUPPLIES: FULL FACE MASK/NASAL MASK, REPLACEMENT CUSHION, DISPOSABLE/NON-DISPOSABLE FILTERS, TUBING, HEADGEAR, WATER CHAMBER; DX: G47.33; LENGTH OF NEED: 99YEARS tamsulosin 0.4 mg capsule 0.4 mg PO QPM Qty: 90 3RF finasteride 5 mg tablet 5 mg PO QAM Qty: 90 3RF tadalafil 5 mg tablet 5 mg PO DAILY spironolactone 25 mg tablet 12.5 mg PO QAM Multaq 400 mg tablet 400 mg PO BID Rx Instructions: must administer with a meal/food roflumilast [Daliresp] 500 mcg tablet 500 mcg PO DAILY prednisone 20 mg tablet 40 mg PO DAILY PRN (Reason: copd exacerbation) loratadine [Claritin] 10 mg tablet 10 mg PO QPM furosemide [Lasix] 20 mg tablet 20 mg PO PRN ferrous sulfate 325 mg (65 mg iron) Tablet 325 mg PO HS Tums 300 mg (750 mg) Tablet,Chewable 300 mg PO BID PRN (Reason: Heartburn) valsartan 80 mg tablet 80 mg PO DAILY Entresto 24-26 mg tablet 1 tab PO BID tiotropium bromide [Spiriva with HandiHaler] 18 mcg capsule, w/inhalation device 1 cap inhalation DAILY fluticasone propion-salmeterol [Wixela Inhub] 250-50 mcg/dose blister with device 1 ea inhalation BID atorvastatin 20 mg tablet 20 mg PO QPM ipratropium-albuterol 0.5 mg-3 mg(2.5 mg base)/3 mL solution for nebulization 3 ml inhalation QID PRN (Reason: Shortness Of Breath Or Wheezing) Referrals Referrals: Prem Byrd DO [Primary Care Provider] -
--- NOTE | 2023-08-30 21:48 | History & Physical Report ---
Date of Service August 30, 2023 Assessment & Plan (1) Pneumonia: Plan: -Patient with leukocytosis of 20. X-ray and CT consistent with right middle and lower lobe infiltrates. -Patient started on doxycycline, DuoNebs, and some Medrol in the ED. -MRSA swab ordered. -Will put on LR at 125 and DC after 1 L. -Patient is a allergic to amoxicillin and folic acid having a rash. -Will switch doxycycline to cefepime. Will try to cover for aspiration pneumonia as well. -Also started on Zithromax. -Continue with Solu-Medrol 40 mg every 6 hours. -Given incentive spirometry and flutter valve. -Currently requiring 5 L nasal cannula, wean as appropriate. -Blood cultures pending. (2) COPD exacerbation: Plan: -Will continue home inhalers. -Scheduled DuoNebs. -Solu-Medrol 40 mg every 6 hours. -Antibiotics as above. (3) Atrial fibrillation: Plan: -Continue Eliquis 5 mg twice daily. -Will continue to monitor on telemetry. (4) BPH (benign prostatic hyperplasia): Plan: -Continue tamsulosin. (5) GERD (gastroesophageal reflux disease): Plan: -Continue home medications. (6) CKD (chronic kidney disease), stage III: Plan: -Creatinine of 1.53 on admission. Which is around his baseline. (7) Iron deficiency anemia: Plan: -Received iron infusion on Friday. -Will hold off on any further iron treatments at this time. (8) DYLAN on CPAP: Plan: -Continue CPAP at night. (9) Hyperlipidemia: Plan: -Continue home medications. (10) Hypertension: Plan: -Continue home medications. Plan Fluids: LR at 125 mL an hour, stop after 1 L. Reassess in the a.m. Nutrition: Heart healthy Code status: Full code DVT ppx: Eliquis Dispo: Telemetry History of Present Illness Chief Complaint: Pneumonia Primary Care Provider: Prem Byrd DO Patient is a 78-year-old male with history of COPD, asthma, hypertension, iron deficiency anemia, BPH, GERD, atrial fibrillation on Eliquis, CKD stage III, and prediabetes who presents to the hospital with shortness of breath and hypoxia. The shortness of breath started last night and worsened throughout the day. Patient also states that he has been feeling feverish and had a temperature of 101. He also states that he has had a cough. Patient has been using his as needed inhalers which did not really help. He is on a CPAP at home denies any chest pain, abdominal pain, nausea or vomiting. He also denies any headache or no extremity edema. Patient did receive a iron infusion at [facility] on Friday. In the ED: Received doxycycline, DuoNeb, and Solu-Medrol. He was put on nasal cannula and his hypoxia improved. Patient does not require any oxygen at home. BMP was negative. X-ray and CT consistent with right middle and lower lobe infiltrates. No pulmonary embolism. CBC showed a white count of 20. CMP grossly benign, did show a creatinine of 1.53, which is around his baseline. UA benign. Allergies Allergy/AdvReac Type Severity Reaction Status Date / Time amoxicillin Allergy Intermediate RASH Verified 07/30/23 15:24 clavulanic acid Allergy Intermediate RASH Verified 07/30/23 15:24 moxifloxacin Allergy Unknown hives, Verified 07/30/23 15:24 TOLERATES LEVAQUIN Sulfa (Sulfonamide Allergy Unknown . Verified 07/30/23 15:24 Antibiotics) Home Medications Medication Instructions Recorded Confirmed Type CPAP Supplies #1 ea 10/11/19 08/30/23 Rx dronedarone 400 mg tablet (Multaq) 400 mg PO AMHS 10/04/21 08/30/23 History calcium carbonate (Tums) 300 mg PO BID PRN Heartburn 03/19/22 08/30/23 History roflumilast 500 mcg tablet 500 mcg PO QAM 10/08/22 08/30/23 History (Daliresp) tadalafil 5 mg tablet 5 mg PO QAM 01/13/23 08/30/23 History apixaban 5 mg tablet (Eliquis) 5 mg PO AMHS 08/30/23 08/30/23 History atorvastatin 20 mg tablet 20 mg PO HS 08/30/23 08/30/23 History cetirizine 10 mg tablet 10 mg PO QAM 08/30/23 08/30/23 History finasteride 5 mg tablet 5 mg PO QAM 08/30/23 08/30/23 History fluticasone 250 mcg-salmeterol 50 1 inh inhalation AMHS 08/30/23 08/30/23 History mcg/dose blistr powdr for inhalation (Wixela Inhub) ipratropium 0.5 mg-albuterol 3 mg 3 ml inhalation QID PRN Shortness 08/30/23 08/30/23 History (2.5 mg base)/3 mL nebulization Of Breath Or Wheezing soln sacubitril 24 mg-valsartan 26 mg 1 tab PO AMHS 08/30/23 08/30/23 History tablet (Entresto) spironolactone 25 mg tablet 12.5 mg PO QAM 08/30/23 08/30/23 History tamsulosin 0.4 mg capsule 0.4 mg PO HS 08/30/23 08/30/23 History tiotropium bromide 18 mcg capsule 1 cap inhalation QAM 08/30/23 08/30/23 History with inhalation device (Spiriva with HandiHaler) Past Med/Surg History Medical History History of diverticulitis History of cardioversion Iron deficiency anemia CKD (chronic kidney disease), stage III Chronic anticoagulation Paroxysmal atrial fibrillation Colon polyps Atrial fibrillation with RVR DYLAN on CPAP Diabetes mellitus GERD (gastroesophageal reflux disease) BPH (benign prostatic hyperplasia) Hypertension Hyperlipidemia Pneumonia Emphysema/COPD Asthma Surgical History History of cataract surgery History of esophagogastroduodenoscopy (EGD) History of colonoscopy History of colon resection Family History Father Emphysema of lung Colon cancer Colorectal cancer Grandfather (Paternal) Colon cancer Colorectal cancer Mother Myocardial infarction Grandmother (Maternal) Myocardial infarction Other Cancer Family history non-contributory Heart disease Hypertension Denies family history of Ovarian cancer Prostate cancer Breast cancer Social History Smoking Status: Former smoker Tobacco Type: Cigarettes Age Started Using Tobacco: 20; Age Quit Using Tobacco: 42; packs per day: 1; Second Hand Exposure: No; Do You Dip or Chew Tobacco: No; Tobacco Cessation Education Requested by Patient: No Hx Alcohol Use: Yes Alcohol type: beer Alcohol Intake Frequency: 2-4 x/Month Hx Substance Use: No Preferred Language: Chilean Communication Ability: Effective Visual Impairment: Limited Hearing Ability: Normal Facialist Required: No Beliefs That Will Affect Care: None marital status: Current Living Situation: Spouse current occupational status: employed How many Children do You have: 2 Other Information That Helps Us Care for You: No Feels Safe at Home: Yes Safety Concerns: Feels Safe At This Time Childhood Exposure to Second-Hand Smoke: Yes Diet: regular caffeine: Yes during the past year weight has: decreased > 10 lbs Dental Care, Regularly: Yes Physical Activity Frequency: 3-4 Times per Week Seatbelt Use: always Sunscreen Use: No Do you think of yourself as: straight/heterosexual Assistive Devices: CPAP Review of Systems Review of Systems: All systems reviewed & are unremarkable except as noted in Subjective Physical Exam Physical Exam: Constitutional: well-appearing, no acute distress HEENT: NCAT, no conjunctival injection CV: regular rhythm, no murmur appreciated, extremities well-perfused, no LE edema Resp: Diminished bilaterally. Rhonchi noted in the bases. Mildly increased chronic venous respiratory effort. GI: soft, nondistended, nontender, BS normoactive MSK: no gross deformities appreciated Skin: warm, dry, no rash appreciated Neuro: alert, oriented, no focal neurologic deficit appreciated Results & Data Results & Data Vital Signs (Past 12 Hours) Vital Signs Temp Pulse Pulse Resp BP BP Pulse Ox 08/30/23 21:00 80 20 148/69 H 92 08/30/23 20:10 38 C H 08/30/23 19:21 88 L 08/30/23 19:21 37.3 C 105 H 20 149/75 H 88 L O2 Del Method O2 Flow Rate 08/30/23 21:00 Nasal Cannula 5 08/30/23 20:10 08/30/23 19:21 Room Air, Nasal Cannula 0 08/30/23 19:21 Room Air Supervising Physician Co-Signing Physician Notes Attending addendum: I have physically seen this patient, have supervised the medical residents activities, and agree with the H&P unless as otherwise noted. Assessment and Plan: Pneumonia/COPD exacerbation- From the ED received the following: Solu-Medrol 125 mg IV, Duoneb, doxycycline 100 mg IV and NSS 500 mill bolus with maintenance 125 MLS per hour Solu-Medrol 40 mg IV every 6 hours Cefepime 2 g IV every 12 hours, for potential aspiration Azithromycin 500 mg IV daily Duonebs every 4 hours while awake and every 2 hours when necessary. Guaifenesin extended release 1200 mg p.o. twice daily Nasal cannula oxygen titrate to keep pulse ox around 92% Continue home Roflumilast and Spiriva Atrial fibrillation- Continue dronedarone, Eliquis, Entresto, spironolactone BPH with LUTS- Continue tamsulosin, finasteride and tadalafil CKD stage III a- Creatinine 1.53 on admission, in the lower end of his usual range Follow serially Remaining orders and notations as noted
[2023-08-30] MEDS: SODIUM CHLORIDE 0.9% 500 ML IV ONE (21:52)
[2023-08-30] MEDS: CEFEPIME 2,000 MG/20 ML VIAL IV STA (21:52)
[2023-08-30] MEDS: DOXYCYCLINE HYCLATE 100 MG in DEXTROSE 5% MINI-B 100 ML IV STA (22:16)
[2023-08-30] MEDS: SODIUM CHLORIDE 0.9% 1,000 ML IV SCH (22:36)
[2023-08-31] MEDS ORDERED: ACETAMINOPHEN 325 MG TAB PO PRN (00:23)
[2023-08-31] MEDS ORDERED: ONDANSETRON INJ 2 MG/ML 2 ML VIAL IV PRN (00:23)
[2023-08-31 00:48] LABS: Appearance Urine Clear (Clear); Bacteria Urine Automated None Seen (None Seen); Bilirubin Urine Negative (Negative); Blood Urine Negative (Negative); Cast Urine Automated 0-2 /lpf (0-2); Color Urine Yellow; Epithelial Cell Urine Auto 0-2 /hpf (0-2); Glucose Urine UA Negative (Negative); Ketones Urine Negative (Negative); Leukocyte Esterase Urine Negative (Negative); Nitrite Urine Negative (Negative); Protein Urine Trace (Negative); RBC Urine Automated 0-2 /hpf (0-2); Specific Gravity Urine > 1.045 (1.000-1.030); Urobilinogen Urine Negative (Negative); WBC Urine Automated 0-5 /hpf (0-5); pH Urine 5.5 (4.5-7.5)
[2023-08-31] MEDS: ALBUT/IPRATROP 3MG/0.5MG NEB 3 ML VIAL INH SCH (00:53)
[2023-08-31] MEDS: LACTATED RINGER'S 1,000 ML IV SCH (01:33)
[2023-08-31] MEDS: methylPREDNISolone 40 MG in SYRINGE 0 ML IV SCH (02:10)
[2023-08-31] MEDS: AZITHROMYCIN 500 MG in DEXTROSE 5% 250 ML IV SCH (05:04)
[2023-08-31 06:29] LABS: Hematocrit (blood only) 41.1 % (42.0-52.0); Hemoglobin 13.7 g/dl (14.0-18.0); Mean Corpuscular Hemoglobin 29.7 pg (25.0-34.0); Mean Corpuscular Hgb Conc 33.3 g/dL (32.0-36.0); Mean Platelet Volume 10.1 fL (9.4-12.4); Platelet Count 201 K/uL (130-400); Red Blood Count 4.62 M/uL (4.70-6.10)
[2023-08-31 06:44] LABS: BUN Creatinine Ratio 13.9 (10-20); Calcium 8.4 mg/dl (8.6-10.3); Creatinine Clr Calc Pharmacy 41.2 ml/min; Est GFR (African American) 45.1 ml/min; Est GFR (Non-African American) 38.9 ml/min; Phosphorus 3.9 mg/dl (2.5-4.9); Potassium 4.5 mmol/L (3.5-5.1)
--- NOTE | 2023-08-31 07:52 | XRay Report ---
XR chest 1V portable HISTORY: Dyspnea COMPARISON: Chest 10/23/2021. FINDINGS: Patchy bibasilar densities have progressed. The upper lung zones are clear. Emphysema. No p leural effusions. No pneumothorax. IMPRESSION: Patchy bibasilar densities have progressed. This may represent a pneumonia. ACT 112: Negative or not required by law. Electronically signed by: Yg Segovia M.D. 08/31/2023 7:51 AM
[2023-08-31] MEDS: DRONEDARONE HCL 400 MG TAB PO SCH (08:15)
[2023-08-31] MEDS: APIXABAN 5 MG TABLET PO SCH ×2 (08:18→20:42)
[2023-08-31] MEDS: UMECLIDINIUM BROMIDE 62.5MCG/BLISTER 7 PUFFS/INHALER INH SCH (08:19)
[2023-08-31] MEDS: FLUTICASONE/VILANTEROL 200/25MCG 14 PUFFS/INHALER INH SCH (08:20)
[2023-08-31] MEDS: FINASTERIDE 5 MG TAB PO SCH (08:21)
[2023-08-31] MEDS: SPIRONOLACTONE 12.5 MG TAB PO SCH (08:22)
[2023-08-31] MEDS: VALSARTAN/SACUBITRIL 26/24MG TAB PO SCH (08:22)
[2023-08-31] MEDS: ROFLUMILAST 500 MCG TAB PO SCH (08:22)
[2023-08-31] MEDS: CEFEPIME 2,000 MG in SYRINGE 0 ML IV SCH (08:25)
[2023-08-31] MEDS ORDERED: VALSARTAN 80 MG TAB PO SCH (09:00)
[2023-08-31] MEDS ORDERED: CARBOHYDRATES FOR HYPOGLYCEMIA PO PRN (10:10)
[2023-08-31] MEDS ORDERED: GLUCOSE 10 TAB/TUBE PO PRN (10:10)
[2023-08-31] MEDS ORDERED: GLUCAGON FOR INJ 1 MG VIAL SQ PRN (10:10)
[2023-08-31] MEDS ORDERED: GLUCOSE 40% GEL 15 GM TUBE PO PRN (10:10)
[2023-08-31] MEDS ORDERED: DEXTROSE 50% 50 ML SYRINGE IV PRN (10:10)
[2023-08-31] MEDS: INSULIN ASPART PER UNIT CHARGE SC SCH ×2 (12:36→23:27)
--- NOTE | 2023-08-31 12:46 | Hospitalist Progress Note ---
Date of Service August 31, 2023 Assessment & Plan (1) Pneumonia: Plan: Community-acquired right middle lobe/right lower lobe pneumonia Clinically progressing on cefepime/azithromycin. MRSA nare negative Will narrow to Rocephin/azithromycin. If continuing to progress can discharge on cefdinir/azithromycin to complete a 7-day course of antibiotics Leukocytosis is uptrending however this is in the setting of 4 times daily steroids. Clinically improving and with lowering oxygen requirements Steroids switched from 4 times daily to prednisone daily, target short burst if doing well. No wheezing at time of assessment (2) COPD exacerbation: Plan: -Will continue home inhalers. -Scheduled DuoNebs. -Steroids narrowed as noted No wheezing, patient feels well at bedside visit 5/ (3) Atrial fibrillation: Plan: -Continue Eliquis 5 mg twice daily. -Will continue to monitor on telemetry. (4) BPH (benign prostatic hyperplasia): Plan: -Continue tamsulosin. (5) GERD (gastroesophageal reflux disease): Plan: -Continue home medications. (6) CKD (chronic kidney disease), stage III: Plan: Baseline of around 1.451.8, remains at baseline (7) Iron deficiency anemia: Plan: -Received iron infusion on Friday. -Will hold off on any further iron treatments at this time. (8) DYLAN on CPAP: Plan: -Continue CPAP at night. (9) Hyperlipidemia: Plan: -Continue home medications. (10) Hypertension: Plan: -Continue home medications. Plan Nutrition: Heart healthy Code status: Full code DVT ppx: Eliquis Dispo: Patient with no cardiac complaints or concerns, normal troponin, normal BNP and with no acute arrhythmias clinically progressing with minimal oxygen requirement. Will downgrade to medical/surgical Discharge planning: Pending oxygen wean, steroids narrowed from 4 times daily IV to oral daily and oxygen continuing to wean, possible progression to home as early as 08/31. If persistent oxygen requirement may require two-step prior; however patient is rapidly progressing and will hopefully not need this Admission and Anticipated Discharge Date Admission Date: August 30, 2023 Subjective Seen at the bedside. Feels "great ". He reports that he feels much better than he did when coming in although notes he is still on some oxygen and has no home oxygen requirement. Denies fever, chills, sweats overnight. No chest pain or chest pressure. No lightheadedness dizziness. He has an intermittent cough but this is not productive and has not produced any sputum; if he does he will try to catch some of the cup for culture. He did eat breakfast without concerns. Physical Exam Physical Exam: General: A&Ox3. NAD. Cooperative. HEENT: Atraumatic, normocephalic. Pulm: CTAB A&P. -wheezes, -rales, -rhonchi. Symmetrical chest rise. No increased work of breathing. No respiratory distress. Cardiac: RRR, -mrg. Radial pulses intact and symmetrical. Abdominal: Nontender, nondistended, soft. BS present. Results & Data Results & Data Vital Signs (Past 12 Hours) Vital Signs Temp Pulse Pulse Resp BP Pulse Ox O2 Del Method 08/31/23 11:44 66 08/31/23 11:16 36.7 C 67 20 137/73 94 Nasal Cannula 08/31/23 07:53 36.6 C 70 18 141/72 H 94 Nasal Cannula 08/31/23 07:44 Nasal Cannula 08/31/23 07:24 68 16 98 Nasal Cannula 08/31/23 02:45 36.6 C 59 L 19 147/68 H 97 Nasal Cannula 08/31/23 00:53 18 92 Nasal Cannula O2 Flow Rate 08/31/23 11:44 08/31/23 11:16 08/31/23 07:53 08/31/23 07:44 1 08/31/23 07:24 5 08/31/23 02:45 08/31/23 00:53 5 PG Care Time/CCT Total # of Minutes Spent Total Time Spent with Patient: Total time spent is greater than 50% in coordination of care (as documented) at patient's floor/unit and/or counseling patient: Coding Level of Care Code 51377 SUB INP/OBS CARE 3/50MIN Diagnoses Pneumonia J18.9 COPD exacerbation J44.1 Atrial fibrillation I48.91 BPH (benign prostatic hyperplasia) N40.0 GERD (gastroesophageal reflux disease) K21.9 CKD (chronic kidney disease), stage III N18.30 Iron deficiency anemia D50.9 DYLAN on CPAP G47.33; Z99.89 Hyperlipidemia E78.5 Hypertension I10
[2023-08-31] MEDS ORDERED: PHARMACY GLYCEMIC MGMT CONSULT PRN (12:49)
[2023-08-31] MEDS ORDERED: ALBUT/IPRATROP 3MG/0.5MG NEB 3 ML VIAL INH PRN (18:59)
[2023-08-31] MEDS ORDERED: NON-FORMULARY MEDICATION (Cpap Supplies misc) SCH (18:59)
--- NOTE | 2023-08-31 19:37 | Billing Data ---
Date of Service August 31, 2023 Coding Level of Care Code 35510 INT INP/OBS CARE
[2023-08-31] MEDS: TAMSULOSIN HCL 0.4 MG CAP PO SCH (20:40)
[2023-08-31] MEDS: ATORVASTATIN 20 MG TAB PO SCH (20:41)
[2023-08-31] MEDS: cefTRIAXone SODIUM 2,000 MG/50 ML BAG IV SCH (20:42)
[2023-08-31] MEDS ORDERED: TAMSULOSIN HCL 0.4 MG CAP PO SCH (21:00)
[2023-08-31] MEDS: CALCIUM CARBONATE 500 MG CHEWABLE TAB PO PRN (21:17)
--- NOTE | 2023-08-31 22:47 | Electrocardiogram Report ---
Test Reason : Blood Pressure : / mmHG Vent. Rate : 103 BPM Atrial Rate : 103 BPM P-R Int : 224 ms QRS Dur : 114 ms QT Int : 348 ms P-R-T Axes : 096 055 044 degrees QTc Int : 455 ms Sinus tachycardia with 1st degree A-V block Low voltage QRS Right bundle branch block Abnormal ECG When compared with ECG of 23-OCT-2021 09:41, Premature ventricular complexes are no longer Present Vent. rate has increased BY 38 BPM Confirmed by Tony Cook ([id number]) on 08/31/2023 10:46:45 PM Referred By: uQincy Rios Confirmed By:Tony Cook
[2023-08-31] MEDS: MELATONIN 3 MG TAB PO PRN (23:21)
[2023-09-01] MEDS: MELATONIN 3 MG TAB PO ONE (02:02)
--- OUTSIDE RECORDS SUMMARY | 2023-09-01 03:25 | External Medical Summary | Summary of Care ---
Author Name Unknown Organization [facility] Address [address] [place] [address] Phone [phone] Care Team Providers Care Tank Truck Driver Name Role Phone Rochelle Prem LUIS Primary Care Provider [phone] Reason for Visit * Reason Onset Date Comments Advice 08/30/2023 Encounter Details Date Type Department Care Team (Late st Contact Info) Description 08/30/2023 Telephone Hematology/Oncology, [facility] [address] [place] [address] Services, Scheduling [address] [place] [address] Advice Allergies Active Allergy Reactions Criticality Noted Date Comments Amoxicillin-Pot Clavulanate 08/24/19 Other reaction(s): Hives, Itching, SOB Dust 08/23/2021 Moxifloxacin 08/23/2021 Other reaction(s): Hives, Itching, SOB Sulfa Antibiotics 02/20/2012 "unknown" documented as of this encounter (statuses as of 08/30/2023) Medications Medication Sig Dispensed Refills Start Date End Date Status FLOMAX 0.4 MG PO CAPS Take by mouth . 0 Active METAMUCIL CLEAR & NATURAL PO POWD daily 0 Active ADVAIR DISKUS 250-50 MCG/DOSE IN AEPB twice a daily 0 Activ e atorvaSTATin (LIPITOR) 20 MG Tablet Take 20 mg by mouth daily. 0 Active roflumilast (DALIRESP) 500 MCG Tablet Take 250 mcg by mouth daily. 0 Active albuterol-ipratropium (DUONEB) 2.5-0.5 MG/3ML nebulizer solution Inhale 3 mL via nebulizer 2 times a day as needed for Wheezing. 0 Active Cetirizine HCl (ZYRTEC ALLERGY) 10 MG Capsule Take 10 mg by mouth daily. 0 Active finasteride (PROSCAR) 5 MG Tablet 0 07/12/2018 Active Sildenafil Citrate 100 MG Tablet TAKE 1 TABLET (100 MG PER DOSE) BY MOUTH DAILY NEEDED FOR ERECTILE DYSFUNCTION. 10 07/12/2018 Active tiotropium bromide (SPIRIVA HANDIHALER) 18 MCG inhalation Capsule INHALE CONTENTS OF 1 CAPSULE BY MOUTH DAILY 0 12/09/2017 Active Apixaban 5 MG Oral Tablet (Eliquis) Take 5 mg by mouth 2 times a day. 0 Active Valsartan 160 MG Oral Tablet (Diovan) Take 80 mg by mouth daily. 0 Active Levocetirizine Dihydrochloride 5 MG Oral Tablet Take by mouth 5 mg every evening . 0 Active Fluticasone-Salmeterol 250-50 MCG/DOSE Inhalation Aerosol Powder Breath Activated (Wixela Inhub) Inhale 1 Puff by mouth 2 times a day. 0 Active Spironolactone 25 MG Oral Tablet (Aldactone) Take 25 mg by mouth daily. 0 Active Multivitamin Adult Oral Tablet Take by mouth daily. 0 Active Furosemide 20 MG Oral Tablet (Lasix) Take 20 mg by mouth 2 times a day. 0 Active Feosol 200 (65 Fe) MG Oral Tablet (Ferrous Sulfate Dried)Indications:in am Take by mouth. Indications: in am 0 Active Vitamin D3 10 MCG (400 UNIT) Oral Tablet (Cholecalciferol)Indica tions:in am Take 400 Units by mouth daily. Indications: in am 0 Active CPAP every night at bedtime. 0 Active Loratadine 10 MG Oral Tablet (Claritin) Take by mouth 10 mg in the morning. 0 Active Entresto 24-26 MG Oral Tablet (sacubitril-valsartan 24-26 mg per tab) Take 1 Tablet by mouth in the morning and 1 Tablet before bedtime. 0 Active Dronedarone HCl 400 MG Oral Tablet (Multaq) Take 1 Tablet by mouth 2 times a day with morning and evening meals. 0 Active documented as of this encounter (statuses as of 08/30/2023) Active Problems Problem Noted Date Diagnosed Date Other iron deficiency anemias 08/21/2023 documented as of this encounter (statuses as of 08/30/2023) Immunizations Name Administration Dates Next Due COVID-19 mRNA, LNP-s, No Pre serve, 2-Dose Series (Moderna) 12/27/2020,07/04/2020,05/31/2020 documented as of this encounter Social History Tobacco Use Types Packs/Day Years Used Date Smoking Tobacco: Former Cigarettes Q uit: 07/22/1986 Smokeless Tobacco: Never Alcohol Use Standard Drinks/Week Comments Not Currently 0 (1 standard drink = 0.6 oz pur e alcohol) occassional Sex and Gender Information Value Date Recorded Sex Assigned at Not on file Gender Identity Not on file Sexual Orientation Not on file Job Start Date Occupation Industry Not on file Not on file Not on file documented as of this encounter Miscellaneous Notes * Telephone Encounter - Cassi Lutz OSA - 08/30/2023 10:38 AM EDT Michael Sheridan Had infusion yesterday patient now has a low grade fever and body feels likerun over by mac truck plus can hardly stay awake he is inquiring if this is normal [place] text was sent to the professional nursing tutor doc to call patient at [phone]. Maybe check on patient on Friday as well. documented in this encounter Plan of Treatment Upcoming Encounters Date Type Department Care Team (Late st Contact Info) Description 09/04/2023 10:30 AM EDT Telemedicine Hematology/Oncology, [facility] [address] [address] Cristian Lund MD [address] [id number] Scheduled Procedures Name Priority Associated Diagnoses Date/Ti me COLONOSCOPY FLEXIBLE PROXIMA L DIAGNOSTIC Recall History of colonic polyps Health Maintenance Due Date Last Done Comments Depression Screening 1957 Hepatitis C Screening 08/11/1963 DTaP,Tdap,and Td Vaccines (1 - Tdap) 1964 Zoster Vaccines (2 of 3) 10/16/2015 08/21/2015 Pneumococcal Vaccine: 65+ Years (2 of 2 - PCV) 01/15/2016 01/14/2015 Colonoscopy 07/25/2022 07/25/2020, 06/28, 12/08/2018, Additional history exists COVID-19 Vaccine ( - season) 2022 12/27/2020, 07/04/2020, 05/31/2020 RETIRED - COLONOSCOPY-ANNUAL AGES 18-100 Discontinued 07/25/2020, 07/25/2020, 12/08/2018, Additional history exists RETIRED - COLONOSCOPY-EVERY 2 YRS AGES 18-100 Discontinued 07/25/2020, 07/25/2020, 12/08/2018, Additional history exists Influenza Vaccine (FLU shot) Completed 02/11/2023, 01/17/2020, 02/19/2005 GARDASIL-HPV IMMUNIZATION SERIES Aged Out No longer eligible based on patient's age to complete this topic Hepatitis B Aged Out No longer eligi ble based on patient's age to complete this topic MENINGOCOCCAL (MENACTRA/MENVEO) Aged Out No longer eligible based on patient's age to complete this topic documented as of this encounter Medical Devices Implanted Type Area Hauling Contractor Device Identifier Shelf Expiration Date Model / Serial / Lot Clip Quick 2.8mm 230cm - [id number] Implanted:Qty: 1 on 07/25/2020 by Kalpesh Mcdaniels MD at END[facility] [employer] 06/25/2022 [id number] / [id number] documented as of this encounter Care Teams Tank Truck Driver Relationship Specialty Start Date End Date Prem Byrd DO [address] [place] [address] PCP - General Family Medicine 08/20/23 documented as of this encounter
--- OUTSIDE RECORDS SUMMARY | 2023-09-01 03:25 | External Medical Summary | Summary of Care ---
Author Name Unknown Organization [facility] Address [address] [place] [address] Phone [phone] Care Team Providers Care Drink Box Mechanic Name Role Phone Prem Byrd DO Primary Care Provider [phone] Reason for Visit * Episode Based Medications (Routine) - Authorized Specialty Diagnoses / Procedures Referred By Contac t Referred To Contact Diagnoses Other iron deficiency anemias Procedures IA INJ. FE DERISOMALTOSE 10 MG Cristian Lund MD [address] [place] [address] Anc Hem/Onc [facility] [address] [facility] SHELIAPALERMOKATHERINE [place] [address] Referral ID Status Reason Start Date Expiration Date V isits Requested Visits Authorized [id number] Authorized 08/27/2023 04/27/2099 [id number] Encounter Details Date Type Department Care Team (Latest Contact Info) Description 08/29/2023 8:30 AM EDT Hem/Onc Treatment Hematology/[facility], [facility] [address] [facility], Chair1 Hem Onc [address] [facility] [place] [address] Other iron deficiency anemias* Allergies Active Allergy Reactions Criticality Noted Date Comments Amoxicillin-Pot Clavulanate 08/24/19 22 Other reaction(s): Hives, Itching, SOB Dust 08/23/2021 Moxifloxacin 08/23/2021 Other reaction(s): Hives, Itching, SOB Sulfa Antibiotics 02/20/2012 "unknown" documented as of this encounter (statuses as of 08/29/2023) Medications Medication Sig Dispensed Refills Start Date [...] as of this encounter (statuses as of 08/29/2023) Active Problems Problem Noted Date Diagnosed Date Other iron deficiency anemias 08/21/2023 documented as of this encounter (statuses as of 08/29/2023) Immunizations Name Administration Dates Next Due COVID-19 [...] on file documented as of this encounter Last Filed Vital Signs Vital Sign Reading Time Taken Comments Blood Pressure 124/64 08/29/2023 8:39 AM EDT Pulse 73 08/29/2023 8:39 AM EDT Temperature 36.7 C (98.1 F) 08/29/2023 8:39 AM ED T Respiratory Rate 18 08/29/2023 8:39 AM EDT Oxygen Saturation - - Inhaled Oxygen Concentration - - Weight 87.8 kg (193 lb 8 oz) 08/29/2023 8:39 AM EDT Height - - Body Mass Index 28.99 08/23/2021 8:38 AM EDT documented in this encounter Plan of Treatment Upcoming Encounters Date Type Department Care Team (Late st Contact Info) Description 09/04/2023 10:30 AM EDT Telemedicine Hematology/Oncology, [facility] [address] [place] [address] Cristian Lund MD 400 [facility] SHELIAKATHERINE BYRNE [phone] Scheduled Procedures Name Priority Associated Diagnoses Date/Ti [...] 06/28, 12/08/2018, Additional history exists COVID-19 Vaccine (2022- season) 2022 12/27/2020, 07/04/2020, 05/31/2020 RETIRED - [...] this encounter Medical Devices Implanted Type Area Van Driver Device Identifier Shelf Expiration Date Model / Serial / Lot Clip Quick 2.8mm 230cm - [id number] Implanted:Qty: 1 on 07/25/2020 by Kalpesh Mcdaniels MD at ENDOSCOPY [facility] 06/25/2022 [id number] documented as of this encounter Visit Diagnoses Diagnosis Other iron deficiency anemias- Primary documented in this encounter Administered Medications Active Administered Medications - up to 3 most recent administrations Medication Order MAR Action Action Date Dose Rate Site diphenhydrAMINE (Benadryl) inj 50 mg 50 mg, IV Push, ONCE PRN Other, Hypersensitivity Reaction, Starting on Fri08/29/23 at 0840, Until 08/30/23 at 0839, For 24 hours EPINEPHrine 1 MG/ML inj 0.3 mg 0.3 mg, Intramuscular, ONCE PRN Other, Hypersensitivity Reaction or Anaphylaxis, Starting on Fri08/29/23 at 0840, Until 08/30/23 at 0839, For 24 hours hEParin 100 UNIT/ML Lock Flush inj 500 Units 500 Units (5 mL), IV Lock, PRN Other, IV Flush, Starting on Fri08/29/23 at 0840, Until 08/30/23 at 0839, For 24 hours, Do not flush if lock, PICC, or central line not in place; IV infusing or unable to flush. Hydrocortisone Sod Suc (PF) (Solu-Cortef) inj 100 mg 100 mg, IV Push, ONCE PRN Other, Hypersensitivity Reaction, Starting on Fri08/29/23 at 0840, Until 08/30/23 at 0839, For 24 hours NSS infusion Intravenous, at 50 mL/hr, PRN, Starting on Fri08/29/23 at 0945, Until Discontinued, Maintenance line Start Infusion 08/29/2023 8:47 AM EDT 50 mL/hr oxygen GAS Inhalation, OXYGEN, First dose on Fri08/29/23 at 0915, Until Discontinued, Device/Managed by: Low Flow Device, Goal SPO2 (%): 91-95, Starting Device: Nasal Cannula, Initial Flow Rate (LPM): 2, Lowest Support: Nasal Cannula: Flow 0-6 LPM. Titrate up/down by 1 LPM., Higher Support: Non-Rebreather (NRB) Mask: Minimum of 10 LPM. Titrate to maintain bag inflation., Titration Interval: Q2 minutes and as needed., Notify Provider: For sudden DECREASE in resting SPO2 to less than 85% and when escalating delivery device., Wean patient off Oxygen when the oxygen saturation is greater than or equal to 93% sodium chloride 0.9 % flush central line 10 mL 10 mL, IV Push, PRN Other, IV Flush, Starting on Fri08/29/23 at 0840, Until 08/30/23 at 0839, For 24 hours, Do not flush if lock, PICC, or central line not in place; IV infusing or unable to flush. Inactive Administered Medications - up to 3 most recent administrations Medication Order MAR Action Action Date Dose Rate Site Ferric derisomaltose (Monoferric) 1,000 mg in NSS 250 mL ivpb 1,000 mg, IV Piggyback, ONCE, 1 dose, On Fri08/29/23 at 0915, Administer over 30 Minutes, DOSING GUIDELINES: For patient weight LESS THAN 50 kg: Dose 20 mg/kg For patient weight 50 Kg or greater: Dose 1000 mg +++ IVC for Monday 08/28 +++ Start Infusion 08/29/2023 8:52 AM EDT 1,000 mg 570 mL/hr documented in this encounter Care Teams Drink Box Mechanic Relationship Specialty Start Date End Date Prem Byrd DO [address] [place] [address] PCP - General Family Medicine 08/20/23 documented as of this encounter
--- OUTSIDE RECORDS SUMMARY | 2023-09-01 03:25 | External Medical Summary | Summary of Care ---
Author Name Unknown Organization [facility] Address [address] [place] [address] Phone [phone] Care Team Providers Care Planting Machine Crewman Name Role Phone Rochelle Prem LUIS Primary Care Provider [phone] Reason for Visit * Reason Onset Date Comments Scheduling 08/21/2023 Monoferric Encounter Details Date Type Department Care Team (Late st Contact Info) Description 08/21/2023 Telephone Hematology/Oncology Treatment, [facility] [address] [place] [address] Cristian Lund MD [address] [place] [address] Scheduling (Monoferric) Allergies Active Allergy Reactions Criticality Noted Date Comments Amoxicillin-Pot Clavulanate 08/24/19 Other reaction(s): Hives, Itching, SOB Dust 08/23/2021 Moxifloxacin 08/23/2021 Other reaction(s): Hives, Itching, SOB Sulfa Antibiotics 02/20/2012 "unknown" documented as of this encounter (statuses as of 08/27/2023) Medications Medication Sig Dispensed Refills Start Date [...] as of this encounter (statuses as of 08/27/2023) Active Problems Problem Noted Date Diagnosed Date Other iron deficiency anemias 08/21/2023 documented as of this encounter (statuses as of 08/27/2023) Immunizations Name Administration Dates Next Due COVID-19 mRNA, LNP-s, No Pre serve, 2-Dose Series (Moderna) 12/27/2020,07/04/2020,05/31/2020 Seasonal Influenza, Split, I IV3, With Preserve, Inj 02/19/2005 documented as of this encounter Social History [...] encounter Miscellaneous Notes * Telephone Encounter - Margie German OSA - 08/27/2023 2:10 PM EDT Pt aware of date, time, & location. 08/28 * Telephone Encounter - Griselda Crow LPN - 08/27/2023 12:33 PM EDT Auth is back * Telephone Encounter - Griselda Crow LPN - 08/21/2023 3:57 PM EDT Spoke to Michael and relayed below msg * Telephone Encounter - Mildred Noe RN - 08/21/2023 3:45 PM EDT Attempted to call patient to make him aware. Reached the planograph operator Carrol. Carrol was provided with our number for Michael to call back to discuss a message from Dr. uLnd. * Telephone Encounter - Mildred Noe RN - 08/21/2023 3:42 PM EDT Cristian Lund MD [facility] Hem/Onc Nurse Pool/Class Folks: Have ordered mono ferric 1000 mg IV. Diagnosis: Iron deficiency, other. Please tell patient his iron stores are low and this will get him back in the pink. Keep telephone followup. Thanks, * Telephone Encounter - Mildred Noe RN - 08/21/2023 3:35 PM EDT [place] built for monoferric. Routed to provider for signature. Waiting for auth. Once auth is back, please reach out to schedule - Monoferric [address] Lund documented in this encounter Plan of Treatment Upcoming Encounters Date Type Department Care Team (Late st Contact Info) Description 08/29/2023 8:30 AM EDT Hem/Onc Treatment Hematology/Oncology [address], [address] [address] [facility], Chair1 Hem Onc [address] [place], [place] [address]K[place]ERINE [place] [address] 09/04/2023 10:30 AM EDT Telemedicine Hematology/Oncology, [address] [address] Cristian Lund MD [address] [place] [address] Scheduled Procedures Name Priority Associated Diagnoses Date/Ti [...] this encounter Medical Devices Implanted Type Area Paper Cup Machine Operator Device Identifier Shelf Expiration Date Model / Serial / Lot Clip Quick 2.8mm 230cm - [id number] Implanted:Qty: 1 on 07/25/2020 by Kalpesh Mcdaniels MD at ENDOSCOPY [facility] [employer] 06/25/2022 [id number] / [id number] documented as of this encounter Care Teams Planting Machine Crewman Relationship Specialty Start Date End Date Prem Byrd DO [address] [facility] [place] [address] PCP - General Family Medicine 08/20/23 documented as of this encounter
--- OUTSIDE RECORDS SUMMARY | 2023-09-01 03:26 | External Medical Summary ---
Author Name Unknown Address Unknown Organization : Laboratory Report Ordering Provider Test Date Status MOI AHYWOOD 08/21/2023 09:10:26 Final Observation Date Value Abnormality Reference (Units ) Status ERYTHROPOIETIN (EPO) 08/21/2023 09:10:26 10.0 2.6-18.5 (mIU/mL) Final
Test Performed at:
[facility] [facility]
[address] [facility] [facility]
[place] [address]
Yg Arnett M.D., Ph.D.,Director of Laboratories Performing Location
--- OUTSIDE RECORDS SUMMARY | 2023-09-01 03:26 | External Medical Summary ---
Author Name Unknown Address Unknown Organization K01:[facility] - [address] [place] [address] Laboratory Report Ordering Provider Test Date Status MOI HAYWOOD 08/21/2023 09:10:26 Final Observation Date Value Abnormality Reference (Units ) Status Vitamin B12 08/21/2023 09:10:26 033 384-6035 (pg/mL) Final Performing Location [facility] - [address] [place] [address]
--- OUTSIDE RECORDS SUMMARY | 2023-09-01 03:26 | External Medical Summary ---
Author Name Unknown Address Unknown Organization K1F:LABORATORY [facility] - [address] [place] [address] Laboratory Report Ordering Provider Test Date Status MOI HAYWOOD 08/21/2023 09:10:26 Final Observation Date Value Abnormality Reference (Units ) Status Retic, % (auto) 08/21/2023 09:10:26 1.26 0.80-1.90 (%) Final Reticulocytes, Absolute 08/21/2023 09:10:26 58.1 31.3-100.1 (K/uL) Final Reticulocyte fraction, immature 08/21/2023 09:10:26 14.8 2.5-20.6 (%) Final Reticulocyte HGB 08/21/2023 09:10:26 31.9 29.7-37.4 (pg) Final Performing Location LAB[facility]ATORY [facility] - [address] [place] [address]
--- OUTSIDE RECORDS SUMMARY | 2023-09-01 03:26 | External Medical Summary ---
Author Name Unknown Address Unknown Organization K1F:[facility]ORY [facility] - [address] [place] [address] Laboratory Report Ordering Provider Test Date Status MOI HAYWOOD 08/21/2023 09:10:26 Final Observation Date Value Abnormality Reference (Units ) Status BUN 08/21/2023 09:10:26 24 Above high normal 6-20 (mg/dL) Final Creatinine 08/21/2023 09:10:26 1.7 Above high normal 0.6-1.2 (mg/dL) Final Glomerular filtration rate/1.73 sq M.predicted [Volume Rate/Area] in Serum, Plasma or Blood by Creatinine-based formula (CKD-EPI) 08/21/2023 09:10:26 42 Below low normal >=60 (mL/min) Final eGFR is calculated based on the CKD-EPI 2020 equation Sodium 08/21/2023 09:10:26 143 135-146 (m mol/L) Final Potassium 08/21/2023 09:10:26 5.1 3.5-5.1 (m mol/L) Final Cl 08/21/2023 09:10:26 105 98-107 (mm ol/L) Final CO2 08/21/2023 09:10:26 24 22-32 (mmo l/L) Final Anion gap 08/21/2023 09:10:26 14 7-15 (mmol /L) Final Glucose 08/21/2023 09:10:26 104 70-120 (mg /dL) Final Albumin 08/21/2023 09:10:26 4.3 3.8-5.0 (g /dL) Final AST (Aspartate aminotransferase) 08/21/2023 09:10:26 16 10-50 (U/L) Final Alk Phos 08/21/2023 09:10:26 55 35-130 (U/ L) Final Bilirubin, Total 08/21/2023 09:10:26 0.4 <=1 .2 (mg/dL) Final Calcium 08/21/2023 09:10:26 9.5 8.4-10.2 ( mg/dL) Final Protein 08/21/2023 09:10:26 6.7 6.0-8.3 (g /dL) Final ALT (Alanine aminotransferase) 08/21/2023 09:10:26 19 10-50 (U/L) Final Performing Location LABORATORY [facility] - [facility] [place] [address]
--- OUTSIDE RECORDS SUMMARY | 2023-09-01 03:26 | External Medical Summary | Summary of Care ---
Author Name Unknown Organization [facility] Address [address] [place] [address] Phone [phone] Care Team Providers Care Security Site Supervisor Name Role Phone Rochelle Prem LUIS Primary Care Provider [phone] Reason for Visit * Reason Onset Date Comments Scheduling 08/21/2023 Monoferric Encounter Details Date Type Department Care Team (Late st Contact Info) Description 08/21/2023 Telephone Hematology/Oncology Treatment, [facility] [address] [place] [address] Cristian Lund MD [address] [place] [address] Scheduling (Monoferric) Allergies Active Allergy Reactions Criticality Noted Date Comments Amoxicillin-Pot Clavulanate 08/24/19 Other reaction(s): Hives, Itching, SOB Dust 08/23/2021 Moxifloxacin 08/23/2021 Other reaction(s): Hives, Itching, SOB Sulfa Antibiotics 02/20/2012 "unknown" documented as of this encounter (statuses as of 08/21/2023) Medications Medication Sig Dispensed Refills Start Date [...] as of this encounter (statuses as of 08/21/2023) Active Problems Problem Noted Date Diagnosed Date Other iron deficiency anemias 08/21/2023 documented as of this encounter (statuses as of 08/21/2023) Immunizations Name Administration Dates Next Due COVID-19 [...] encounter Miscellaneous Notes * Telephone Encounter - Mildred Noe RN - 08/21/2023 3:45 PM EDT Attempted to call patient to make him aware. Reached the school nurse Carrol. Carrol was provided with our number for Michael to call back to discuss a message from Dr. Lund. * Telephone Encounter - Mildred Noe RN - 08/21/2023 3:42 PM EDT Cristian Lund MD [facility] Hem/Onc Nurse Pool/Class Folks: Have ordered mono ferric 1000 mg IV. Diagnosis: Iron deficiency, other. Please tell patient his iron stores are low and this will get him back in the pink. Keep telephone followup. Thanks, * Telephone Encounter - Mildred Noe RN - 08/21/2023 3:35 PM EDT [place] built for monoferric. Routed to provider for signature. Waiting for auth. Once auth is back, please reach out to schedule - Monoferric [address] Lund documented in this encounter Plan of Treatment Upcoming Encounters Date Type Department Care Team (Late st Contact Info) Description 09/04/2023 10:30 AM EDT Telemedicine Hematology/Oncology, [facility] [address] [place] [address] Cristian Lund MD [address] [place] [address] Scheduled Procedures Name Priority Associated Diagnoses Date/Ti me COLONOSCOPY FLEXIBLE PROXIMA L DIAGNOSTIC Recall History of colonic polyps Health Maintenance Due Date Last Done Comments Depression Screening 1957 Hepatitis C Screening 08/11/1963 DTaP,Tdap,and Td Vaccines (1 - Tdap) 1964 Zoster Vaccines (2 of 3) 10/16/2015 08/21/2015 Pneumococcal Vaccine: 65+ Years (2 of 2 - PCV) 01/15/2016 01/14/2015 COLONOSCOPY-EVERY 2 YRS AGES 18-100 07/25/2022 07/25/2020, 07/25/2020, 12/08/2018, Additional history exists COVID-19 Vaccine (4 - 2022- season) 2022 12/27/2020, 07/04/2020, 05/31/2020 COLONOSCOPY-ANNUAL AGES 18-100 Discontinued 07/25/2020, 07/25/2020, 12/08/2018, [...] this encounter Medical Devices Implanted Type Area Scrub Nurse Device Identifier Shelf Expiration Date Model / Serial / Lot Clip Quick 2.8mm 230cm - [id number] Implanted:Qty: 1 on 07/25/2020 by Kalpesh Mcdaniels MD at ENDOSCOPY [facility] [employer] 06/25/2022 [id number]-[id number] / / [id number] documented as of this encounter Care Teams Security Site Supervisor Relationship Specialty Start Date End Date Prem Byrd DO [address] [facility] [place] [address] PCP - General Family Medicine 08/20/23 documented as of this encounter
--- OUTSIDE RECORDS SUMMARY | 2023-09-01 03:26 | External Medical Summary | Summary of Care ---
Author Name Unknown Organization [facility] Address [address] [place] [address] Phone [phone] Care Team Providers Care Senior Fire Protection Engineer Name Role Phone Rochelle, Prem LUIS Primary Care Provider [phone] Reason for Visit * Reason Comments Outpatient Testing Encounter Details Date Type Department Care Team (Late st Contact Info) Description 08/21/2023 9:10 AM EDT Laboratory Laboratory, [facility] [address] [place] [address] [facility], Lab [address] [place] [address] Microcytic anemia; Benign prostatic hyperplasia with lower urinary tract symptoms, symptom details unspecified; Cold intolerance Allergies Active Allergy Reactions Criticality Noted Date [...] encounter (statuses as of 08/21/2023) Active Problems No known active problems documented as of this encounter (statuses as [...] on file documented as of this encounter Plan of Treatment Upcoming Encounters Date Type Department Care Team (Late st Contact Info) Description 09/04/2023 10:30 AM EDT Telemedicine Hematology/Oncology, [address] [place] [address] Cristian Lund MD [address] [facility] [place] [id number] Pending Results Name Type Priority Associated Diagnoses Date /Time COMPREHENSIVE METABOLIC PANEL Lab STAT Microcytic anemia 08/21/2023 9:10 AM EDT HAPTOGLOBIN Lab STAT Microcytic anemia 08/21/2023 9:10 AM EDT HEMOGLOBINOPATHY EVALUATION Lab STAT Microcytic anemia 08/21/2023 9:10 AM EDT DIRECT ANGELA Lab STAT Microcytic anemia 08/21/2023 9:10 AM EDT LD Lab STAT Microcytic anemia 08/21/2023 9:10 AM EDT IRON SCREEN, INCLUDING TIBC Lab STAT Microcytic anemia 08/21/2023 9:10 AM EDT FERRITIN Lab STAT Microcytic anemia 08/21/2023 9:10 AM EDT ERYTHROPOIETIN (EPO) Lab STAT Microcytic anemia 08/21/2023 9:10 AM EDT VITAMIN B12 Lab STAT Microcytic anemia 08/21/2023 9:10 AM EDT FOLIC ACID Lab STAT Microcytic anemia 08/21/2023 9:10 AM EDT SERUM PROTEIN ELECTROPHORESIS REFLEX PROFILE Lab STAT Microcytic anemia 08/21/2023 9:10 AM EDT ANTINUCLEAR ANTIBODY (SHAHEED) EIA SCREEN WITH REFLEX AB QUANT Lab STAT Microcytic anemia 08/21/2023 9:10 AM EDT SOLUBLE TRANSFERRIN RECEPTOR Lab STAT Microcytic anemia 08/21/2023 9:10 AM EDT PSA Lab STAT Benign prostatic hyperplasia with lower urinary tract symptoms, symptom details unspecified 08/21/2023 9:10 AM EDT TSH Lab Routine Cold intolerance 08/21/2023 9:10 AM EDT ANTINUCLEAR ANTIBODY (SHAHEED) SCREEN, MIKO Lab STAT Microcytic anemia 08/21/2023 9:10 AM EDT Scheduled Procedures Name Priority Associated Diagnoses Date/Ti [...] 07/25/2020, 12/08/2018, Additional history exists COVID-19 Vaccine ( season) 2022 12/27/2020, 07/04/2020, 05/31/2020 COLONOSCOPY-ANNUAL AGES [...] this encounter Medical Devices Implanted Type Area Lead Simulation Modeling Engineer Device Identifier Shelf Expiration Date Model / Serial / Lot Clip Quick 2.8mm 230cm - [id number] Implanted:Qty: 1 on 07/25/2020 by Kalpesh Mcdaniels MD at ENDOSCOPY [facility] [employer] 06/25/2022 [id number]-202UR.A / / [id number] documented as of this encounter Procedures Procedure Name Priority Date/Time Associated Diagnosis Comments DIFFERENTIAL, AUTOMATED STAT 08/21/2023 9:10 AM EDT Microcytic anemia RETICULOCYTE PANEL STAT 08/21/2023 9: 10 AM EDT Microcytic anemia CBC STAT 08/21/2023 9:10 AM EDT Microcytic anemia CBC STAT 08/21/2023 9:10 AM EDT Microcytic anemia documented in this encounter Results * (ABNORMAL) DIFFERENTIAL, AUTOMATED (08/21/2023 9:10 AM EDT) WBC 11.02(H) 4.00 - 10.80 K/uL 08/21/2023 9:29 AM EDT LABORATORY [facility] Neutrophils % 61.2 40.0 - 75.0 % 08/21/2023 9:29 AM EDT LAB[facility]ORY [facility] Lymphocytes % 25.4 18.0 - 42.0 % 08/21/2023 9:29 AM EDT LAB[facility]ORY [facility] Monocytes % 8.9 1.0 - 11.0 % 08/21/2023 9:29 AM EDT LAB[facility] Eosinophils % 3.5 0.0 - 6.0 % 08/21/2023 9:29 AM EDT LAB[facility] Basophils % 0.5 0.0 - 2.0 % 08/21/2023 9:29 AM EDT LAB[facility]ATORY [facility] Immature Granulocytes % 0.5 0.0 - 2.0 % 08/21/2023 9:29 AM EDT LAB[facility]ATORY [facility] Absolute Neutrophils 6.73 1.80 - 7.70 K/uL 08/21/2023 9:29 AM EDT LAB[facility]ATORY [facility] Absolute Lymphocytes 2.80 1.00 - 4.80 K/ul 08/21/2023 9:29 AM EDT LABORATORY GL Absolute Monocytes 0.98 0.00 - 1.10 K/uL 08/21/2023 9:29 AM EDT LABORATORY GL Absolute Eosinophils 0.39 0.00 - 0.70 K/uL 08/21/2023 9:29 AM EDT LABORATORY GL Absolute Basophils 0.06 0.00 - 0.20 K/uL 08/21/2023 9:29 AM EDT LABORATORY GL Absolute Immature Granulocytes 0.06 0.00 - 0.20 K/uL 08/21/2023 9:29 AM EDT LABORATORY GL Blood Venous blood specimen / Unknown Venipuncture / Unknown 08/21/2023 9:10 AM EDT 08/21/2023 9:14 AM EDT Cristian Lund MD LAB BLOOD ORD ERABLES Performing Organization Address City/State/[facility] Co de Phone Number LABORATORY [address] [address] * (ABNORMAL) CBC (08/21/2023 9:10 AM EDT) WBC 11.02(H) 4.00 - 10.80 K/uL 08/21/2023 9:29 AM EDT LABORATORY GL RBC 4.61 4.50 - 5.25 M/uL 08/21/2023 9:29 AM EDT LABORATORY [facility] HGB 13.8(L) 14.0 - 16.8 g/dL 08/21/2023 9:29 AM EDT LABORATORY GL HCT 41.8 40.0 - 48.4 % 08/21/2023 9:29 AM EDT LABORATORY GL MCV 90.7 82.0 - 99.5 fL 08/21/2023 9:29 AM EDT LABORATORY GL MCH 29.9 27.0 - 34.0 pg 08/21/2023 9:29 AM EDT LABORATORY GL MCHC 33.0 32.0 - 36.0 g/dL 08/21/2023 9:29 AM EDT LABORATORY [facility] RDW 13.1 11.5 - 15.5 % 08/21/2023 9:29 AM EDT LABORATORY [facility] PLT 203 140 - 400 K/uL 08/21/2023 9:29 AM EDT LABORATORY [facility] MPV 9.6 6.6 - 11.1 fL 08/21/2023 9:29 AM EDT LABORATORY [facility] nRBCs 0 <=0 /100 WBCs 08/21/2023 9:29 AM EDT LABORATORY [facility] Blood Venous blood specimen / Unknown Venipuncture / Unknown 08/21/2023 9:10 AM EDT 08/21/2023 9:14 AM EDT Cristian Lund MD LAB BLOOD ORD ERABLES Performing Organization Address City/[facility] Co de Phone Number LABORATORY [address] [address] * RETICULOCYTE PANEL (08/21/2023 9:10 AM EDT) Reticulocyte Percent 1.26 0.80 - 1.90 % 08/21/2023 9:29 AM EDT LABORATORY [facility] Absolute Reticulocyte 58.1 31.3 - 100.1 K/uL 08/21/2023 9:29 AM EDT LABORATORY [facility] Immature Reticuloctye Fraction 14.8 2.5 - 20.6 % 08/21/2023 9:29 AM EDT LABORATORY [facility] Reticulocyte Hemoglobin 31.9 29.7 - 37.4 pg 08/21/2023 9:29 AM EDT LABORATORY [facility] Blood Venous blood specimen / Unknown Venipuncture / Unknown 08/21/2023 9:10 AM EDT 08/21/2023 9:14 AM EDT Cristian Lund MD LAB BLOOD ORD ERABLES Performing Organization Address City/[facility]/ZIP Co de Phone Number LABORATORY [address] [address] documented in this encounter Visit Diagnoses Diagnosis Microcytic anemia Iron deficiency anemia, unspecified Benign prostatic hyperplasia with lower urinary tract symptoms, symptom details unspecified Cold intolerance Other general symptoms documented in this encounter Care Teams Senior Fire Protection Engineer Relationship Specialty Start Date End Date Prem Byrd DO [address] [facility] [place] [address] PCP - General Family Medicine 08/20/23 documented as of this encounter
--- OUTSIDE RECORDS SUMMARY | 2023-09-01 03:26 | External Medical Summary ---
Author Name Unknown Address Unknown Organization K01:LABORATORY [facility] - [address] [place] [address] Laboratory Report Ordering Provider Test Date Status MOI HAYWOOD 08/21/2023 09:10:26 Final Observation Date Value Abnormality Reference (Units ) Status TSH 08/21/2023 09:10:26 1.83 0.27-4.20 (uIU/mL) Final Performing Location LABORATORY C - [address] [place] [address]
--- OUTSIDE RECORDS SUMMARY | 2023-09-01 03:26 | External Medical Summary ---
Author Name Unknown Address Unknown Organization [id number]:LABORATORY [facility] - [address] [place] [address] Laboratory Report Ordering Provider Test Date Status MOI HAYWOOD 08/22/2023 11:10:35 Final Observation Date Value Abnormality Reference (Units ) Status Occult Blood (EIA) 08/22/2023 11:10:35 Negative N egative Final Performing Location LABORATORY [facility] - [address] [place] [address]
--- OUTSIDE RECORDS SUMMARY | 2023-09-01 03:26 | External Medical Summary ---
Author Name Unknown Address Unknown Organization K01:LABORATORY [place] [address] [facility] [address] Laboratory Report Ordering Provider Test Date Status MOI HAYWOOD 08/21/2023 09:10:26 Final Observation Date Value Abnormality Reference (Units) Status PARAPROTEIN NORMAL/ABNORMAL 08/21/2023 09:10:26 Normal Normal Final Protein 08/21/2023 09:10:26 6.8 6.0-8.3 (g/dL) Final Albumin/Protein.total [Pure mass fraction] in Serum or Plasma by Electrophoresis 08/21/2023 09:10:26 3.62 3.30-4.40 (g/dL) Final Alpha 1 globulin/Protein.tota l [Pure mass fraction] in Serum or Plasma by Electrophoresis 08/21/2023 09:10:26 0.27 0.10-0.30 (g/dL) Final Alpha 2 globulin/Protein.tota l [Pure mass fraction] in Serum or Plasma by Electrophoresis 08/21/2023 09:10:26 0.99 0.60-1.00 (g/dL) Final Beta globulin/Protein.tota l [Pure mass fraction] in Serum or Plasma by Electrophoresis 08/21/2023 09:10:26 1.04 0.80-1.30 (g/dL) Final Gamma globulin/Protein.tota l [Pure mass fraction] in Serum or Plasma by Electrophoresis 08/21/2023 09:10:26 0.88 0.70-1.70 (g/dL) Final Protein Fractions [Interpretation] in Serum or Plasma by Electrophoresis Narrative 08/21/2023 09:10:26 Normal serum protein electrophoretic pattern. Final Performing Location LABORATORY [facility] - [address] [facility] [address]
--- OUTSIDE RECORDS SUMMARY | 2023-09-01 03:26 | External Medical Summary ---
Author Name Unknown Address Unknown Organization K1F:LABORATORY [facility] - [address] [place] [address] Laboratory Report Ordering Provider Test Date Status MOI HAYWOOD 08/21/2023 09:10:26 Final Observation Date Value Abnormality Reference (Units ) Status WBC, Total 08/21/2023 09:10:26 11.02 Above high normal 4.00-10.80 (K/uL) Final RBC 08/21/2023 09:10:26 4.61 4.50-5.25 (M/uL) Final Hemoglobin 08/21/2023 09:10:26 13.8 Below low normal 14.0-16.8 (g/dL) Final HCT 08/21/2023 09:10:26 41.8 40.0-48.4 (%) Final MCV 08/21/2023 09:10:26 90.7 82.0-99.5 (fL) Final MCH 08/21/2023 09:10:26 29.9 27.0-34.0 (pg) Final MCHC 08/21/2023 09:10:26 33.0 32.0-36.0 (g/dL) Final RDW 08/21/2023 09:10:26 13.1 11.5-15.5 (%) Final Platelets 08/21/2023 09:10:26 203 140-400 (K/uL) Final MPV 08/21/2023 09:10:26 9.6 6.6-11.1 (fL) Final Nucleated erythrocytes/100 leukocytes [Ratio] in Blood by Automated count 08/21/2023 09:10:26 0 <=0 (/100 WBCs) Final Performing Location LABORATORY [facility] - [address] [place] [address]
--- OUTSIDE RECORDS SUMMARY | 2023-09-01 03:26 | External Medical Summary | Summary of Care ---
Author Name Unknown Organization [facility] Address [address] [place] [address] Phone [phone] Care Team Providers Care Machine Hose Cutter Name Role Phone Rochelle Prem LUIS Primary Care Provider [phone] Reason for Visit * Reason Onset Date Comments Test Results 08/26/2023 [facility] patient Encounter Details Date Type Department Care Team (Late st Contact Info) Description 08/26/2023 Telephone Hematology/Oncology, [address] [address] Services, Scheduling [address] [place] [address] Test Results ([facility] patient) Allergies Active Allergy Reactions Criticality Noted Date Comments Amoxicillin-Pot Clavulanate 08/24/19 Other reaction(s): Hives, Itching, SOB Dust 08/23/2021 Moxifloxacin 08/23/2021 Other reaction(s): Hives, Itching, SOB Sulfa Antibiotics 02/20/2012 "unknown" documented as of this encounter (statuses as of 08/26/2023) Medications Medication Sig Dispensed Refills Start Date [...] as of this encounter (statuses as of 08/26/2023) Active Problems Problem Noted Date Diagnosed Date Other iron deficiency anemias 08/21/2023 documented as of this encounter (statuses as of 08/26/2023) Immunizations Name Administration Dates Next Due COVID-19 [...] Telephone Encounter - Mildred Noe RN - 08/26/2023 2:18 PM EDT Patient has an appointment with Dr. Lund scheduled on 09/03 where these labs will be discussed. * Telephone Encounter - Cheyanne Eden OSA - 08/26/2023 2:13 PM EDT Who is Requesting Test Results: Patient Primary Care Provider : Prem Byrd DO Tests Results Requested : all labs from and 08/22/2023 Date of Test : and 08/22/2023 Location of Test: [facility] Lab Ordering Provider: Cristian Lund MD Patient has been made aware that the turnaround time for test results are typically as follows: Laboratory results = within 2-3 days ([facility]), 3-5 days ([facility], ie. [facility]) Urine Cultures = within 2-3 days depending on growth within the culture Pathology results (biopsy results/PAP) = 1-2 weeks Radiology results = about 1 week Cologuard results = within 2 weeks from the shipment date COVID testing = about 24 hours documented in this encounter Plan of Treatment Upcoming Encounters Date Type Department Care Team (Late st Contact Info) Description 09/04/2023 10:30 AM EDT Telemedicine Hematology/Oncology, [facility] [address] [place] [address] Cristian Lund MD [address] [place] [address] Scheduled Procedures Name Priority Associated [...] this encounter Medical Devices Implanted Type Area Gin Inspector Device Identifier Shelf Expiration Date Model / Serial / Lot Clip Quick 2.8mm 230cm - [id number] Implanted:Qty: 1 on 07/25/2020 by Kalpesh Mcdaniels MD at ENDOSCOPY [facility] [employer] 06/25/2022 HX-202UR.A / / [id number] documented as of this encounter Care Teams Machine Hose Cutter Relationship Specialty Start Date End Date Prem Byrd DO [address] [place] [address] PCP - General Family Medicine 08/20/23 documented as of this encounter
--- OUTSIDE RECORDS SUMMARY | 2023-09-01 03:26 | External Medical Summary | Summary of Care ---
Author Name Unknown Organization [facility] Address [address] [place] [address] Phone [phone] Care Team Providers Care Supervisor Production Managing Name Role Phone Rochelle Prem LUIS Primary Care Provider [phone] Reason for Visit * Reason Onset Date Comments Scheduling 08/21/2023 [facility] Encounter Details Date Type Department Care Team (Late st Contact Info) Description 08/21/2023 Telephone Hematology/Oncology Treatment, [facility] [address] [place] [address] Cristian Lund MD [address] [place] [address] Scheduling ([facility]) Allergies Active Allergy [...] encounter Miscellaneous Notes * Telephone Encounter - Griselda Crow LPN - 08/21/2023 3:57 PM EDT Spoke to Michael and relayed below msg * Telephone Encounter - Mildred Noe RN - 08/21/2023 3:45 PM EDT Attempted to call patient to make him aware. Reached the group insurance special agent Carrol. Carrol was provided with our number for Michael to call back to discuss a message from Dr. Lund. * Telephone Encounter - Mildred Noe RN - 08/21/2023 3:42 PM EDT Cristian Lund MD [facility] Hem/Onc Nurse Pool/Class Folks: Have ordered mono ferric 1000 mg IV. Diagnosis: Iron deficiency, other. Please tell patient his iron stores are low and this will get him back in the pink. Keep telephone followup. Thanks, * Telephone Encounter - Mildred Noe RN - 08/21/2023 3:35 PM EDT Cross built for monoferric. Routed to provider for signature. Waiting for auth. Once auth is back, please reach out to schedule - Monoferric [address] Lund documented in this encounter Plan of Treatment Upcoming Encounters Date Type Department Care Team (Late st Contact Info) Description 09/04/2023 10:30 AM EDT Telemedicine Hematology/Oncology, [address] [address] Cristian Lund MD [address] [place] [address] Scheduled Procedures Name Priority Associated Diagnoses [...] Additional history exists COVID-19 Vaccine ( - 2022- season) 2022 12/27/2020, 07/04/2020, 05/31/2020 [...] this encounter Medical Devices Implanted Type Area Continuous Crusher Operator Device Identifier Shelf Expiration Date Model / Serial / Lot Clip Quick 2.8mm 230cm - [id number] Implanted:Qty: 1 on 07/25/2020 by Kalpesh Mcdaniels MD at ENDOSCOPY [facility] [employer] 06/25/2022 HX-202UR.A / / [id number] documented as of this encounter Care Teams Supervisor Production Managing Relationship Specialty Start Date End Date Prem Byrd DO [address] [place] [address] PCP - General Family Medicine 08/20/23 documented as of this encounter
--- OUTSIDE RECORDS SUMMARY | 2023-09-01 03:26 | External Medical Summary ---
Author Name Unknown Address Unknown Organization : Laboratory Report Ordering Provider Test Date Status MOI HAYWOOD 08/21/2023 09:10:26 Final Observation Date Value Abnormality Reference (Units ) Status Transferrin receptor.soluble [Mass/volume] in Serum or Plasma 08/21/2023 09:10:26 1.34 0.76-1.76 (mg/L) Final Test performed by [facility]
[address],
[place] [address]

Mechanical System Technician: Anisha Kim MD,PHD,HARRIET
[facility],
[facility],
[address] [place], [place]
Yg Arnett M.D., Ph.D., Director of Laboratories
, MIR[place] [id number] Performing Location
--- OUTSIDE RECORDS SUMMARY | 2023-09-01 03:26 | External Medical Summary ---
Author Name Unknown Address Unknown Organization K1F:LABORATORY [facility] - [address] [place] [address] Laboratory Report Ordering Provider Test Date Status MOI HAYWOOD 08/21/2023 09:10:26 Final Observation Date Value Abnormality Reference (Units ) Status DIRECT ANGELA 08/21/2023 09:10:26 Negative Final Performing Location LABORATORY [facility] - [address] [place] [address]
--- OUTSIDE RECORDS SUMMARY | 2023-09-01 03:26 | External Medical Summary ---
Author Name Unknown Address Unknown Organization K01:LABORATORY [facility] - [address] [place] [address] Laboratory Report Ordering Provider Test Date Status MOI HAYWOOD 08/21/2023 09:10:26 Final Observation Date Value Abnormality Reference (Units ) Status Folic Acid 08/21/2023 09:10:26 10.8 >4.5 (ng/ mL) Final Performing Location LABORATORY [facility] - [address] [place] [address]
--- OUTSIDE RECORDS SUMMARY | 2023-09-01 03:26 | External Medical Summary ---
Author Name Unknown Address Unknown Organization K01:LABORATORY [facility] - [address] [place] [address] Laboratory Report Ordering Provider Test Date Status CHASTITYALLANNOAM 08/21/2023 09:10:26 Final Observation Date Value Abnormality Reference (Units ) Status Ferritin 08/21/2023 09:10:26 41 30-400 (ng /mL) Final Performing Location LABORATORY [facility] - [address] [place] [address]
--- OUTSIDE RECORDS SUMMARY | 2023-09-01 03:26 | External Medical Summary | Summary of Care ---
Author Name Unknown Organization [facility] Address [address] [place] [address] Phone [phone] Care Team Providers Care Coding Compliance Auditor Name Role Phone RochellePrem natarajan Primary Care Provider [phone] Reason for Visit * Reason Comments Outpatient Testing Encounter Details Date Type Department Care Team (Late st Contact Info) Description 08/22/2023 11:20 AM EDT Laboratory Laboratory, [facility] [address] [place] [address] [facility], Lab [address] [place] [address] Microcytic anemia Allergies Active Allergy Reactions Criticality Noted Date Comments Amoxicillin-Pot Clavulanate 08/24/19 Other reaction(s): Hives, Itching, SOB Dust 08/23/2021 Moxifloxacin 08/23/2021 Other reaction(s): Hives, Itching, SOB Sulfa Antibiotics 02/20/2012 "unknown" documented as of this encounter (statuses as of 08/22/2023) Medications Medication Sig Dispensed Refills Start Date [...] as of this encounter (statuses as of 08/22/2023) Active Problems Problem Noted Date Diagnosed Date Other iron deficiency anemias 08/21/2023 documented as of this encounter (statuses as of 08/22/2023) Immunizations Name Administration Dates Next Due COVID-19 [...] Description 09/04/2023 10:30 AM EDT Telemedicine Hematology/Oncology, [facility] [address] [place] [address] Cristian Lund MD [address] [facility] [place] [id number] Pending Results Name Type Priority Associated Diagnoses Date /Time FECAL OCCULT BLOOD, EIA Lab STAT Microcytic anemia 08/22/2023 11:10 AM EDT Scheduled Procedures Name Priority Associated [...] this encounter Medical Devices Implanted Type Area Pegger Device Identifier Shelf Expiration Date Model / Serial / Lot Clip Quick 2.8mm 230cm - [id number] Implanted:Qty: 1 on 07/25/2020 by Kalpesh Mcdaniels MD at ENDOSCOPY [facility] [employer] 06/25/2022 HX-202UR.A / / [id number] documented as of this encounter Visit Diagnoses Diagnosis Microcytic anemia Iron deficiency anemia, unspecified documented in this encounter Care Teams Coding Compliance Auditor Relationship Specialty Start Date End Date Prem Byrd DO [address] [place] [address] PCP - General Family Medicine 08/20/23 documented as of this encounter
--- OUTSIDE RECORDS SUMMARY | 2023-09-01 03:26 | External Medical Summary ---
Author Name Unknown Address Unknown Organization : Laboratory Report Ordering Provider Test Date Status MOI HAYWOOD 08/21/2023 09:10:26 Final Observation Date Value Abnormality Reference (Units ) Status RBC 08/21/2023 09:10:26 4.68 4.20-5.80 (Mill/uL) Final Hemoglobin 08/21/2023 09:10:26 13.5 13.2-17.1 (g/dL) Final HCT 08/21/2023 09:10:26 42.6 38.5-50.0 (%) Final MCV 08/21/2023 09:10:26 91.0 80.0-100.0 (fL) Final MCH 08/21/2023 09:10:26 28.8 27.0-33.0 (pg) Final RDW 08/21/2023 09:10:26 12.8 11.0-15.0 (%) Final Hemoglobin A/Hemoglobin.total in Blood 08/21/2023 09:10:26 97.6 >96.0 (%) Final Hemoglobin F/Hemoglobin.total in Blood 08/21/2023 09:10:26 0.0 <2.0 (%) Final Hemoglobin A2/Hemoglobin.total in Blood 08/21/2023 09:10:26 2.4 2.2-3.2 (%) Final Hemoglobin S screen (Sickle-cell) 08/21/2023 09:10:26 DNR Final HEMOGLOBIN C 08/21/2023 09:10:26 DNR Final Hemoglobin E 08/21/2023 09:10:26 DNR Final OTHER HEMOGLOBIN 1 08/21/2023 09:10:26 DNR Final OTHER HEMOGLOBIN 2 08/21/2023 09:10:26 DNR Final Hemoglobin pattern [Interpretation] in Blood 08/21/2023 09:10:26 SEE BELOW Final NORMAL PATTERN
There is a normal pattern of hemoglobins and
normal levels of Hb A2 and Hb F are present.
No variant hemoglobins are observed. This is
consistent with A/A phenotype.
If iron deficiency coexists with a mild/silent beta
thalassemia trait Hb A2 may be in the normal range.
Rare variant hemoglobins have no separation from
hemoglobin A by capillary zone electrophoresis (CZE) or
high-performance liquid chromatography (HPLC).
If clinically indicated, Thalassemia and
Hemoglobinopathy Comprehensive ([place] [address]) should be
considered.

Test Performed at:
[facility]
[address] [facility]
[place] [address]
Yg Arnett M.D., Ph.D.,Director of Laboratories Performing Location
--- OUTSIDE RECORDS SUMMARY | 2023-09-01 03:26 | External Medical Summary ---
Author Name Unknown Address Unknown Organization K01:LABORATORY [facility] - [address] [place] [address] Laboratory Report Ordering Provider Test Date Status CHASTITYALLANNOAM 08/21/2023 09:10:26 Final Observation Date Value Abnormality Reference (Units ) Status Haptoglobin 08/21/2023 09:10:26 245 Above high normal 30-200 (mg/dL) Final Performing Location LABORATORY [facility] - [address] [place] [address]
--- OUTSIDE RECORDS SUMMARY | 2023-09-01 03:26 | External Medical Summary ---
Author Name Unknown Address Unknown Organization K01:LABORATORY [address] [facility] [address] Laboratory Report Ordering Provider Test Date Status MOI HAYWOOD 08/21/2023 09:10:26 Final Observation Date Value Abnormality Reference (Units ) Status Nuclear IgG Ab [Ratio] in Serum by Immunoassay 08/21/2023 09:10:26 Negative Negative Final DNA double strand Ab [Presence] in Serum 08/21/2023 09:10:26 Negative Negative Final DOUBLE STRANDED DNA VALUE - [facility] 08/21/2023 09:10:26 1.8 <20 (IU/mL) Final Extractable nuclear Ab [Presence] in Serum 08/21/2023 09:10:26 Negative Negative Final Nuclear IgG Ab [Ratio] in Serum by Immunoassay 08/21/2023 09:10:26 0.1 <0.7 (Ratio) Final Screening is based on detect ion of the following antibodies: dsDNA, U1-CHIN STRAP MAKER (RNP70, A, C), SS-A/Ro, SS-B / La, Shyala-1, Scl-70, Centromere B proteins and Sm proteins. In conjunction with clinical findings, this can aid in the diagnosis of systemic lupus erythematosous (SLE), mixed connective tissue disease (MCTD), Sjogren's syndrome, scleroderma and polymyositis/dermatomyositis.
However, a negative result does not rule out systemic rheumatic or other autoimmune disease. If clinically suspected, further evaluation and testing may be necessary. Please consult with Rheumatology Department.
Methodology: Fluorescent Enzyme Immunoassay. Performing Location LABORATORY [place] [address] [facility] [address]
--- OUTSIDE RECORDS SUMMARY | 2023-09-01 03:26 | External Medical Summary ---
Author Name Unknown Address Unknown Organization [id number]:[facility] [address] [place] [address] Laboratory Report Ordering Provider Test Date Status MOI HAYWOOD 08/21/2023 09:10:26 Final Observation Date Value Abnormality Reference (Units ) Status SYNC LEUKOCYTES IN BLOOD BY AUTOMATED COUNT 08/21/2023 09:10:26 11.02 Above high normal 4.00-10.80 (K/uL) Final Segs 08/21/2023 09:10:26 61.2 40.0-75.0 (%) Final Lymphs % 08/21/2023 09:10:26 25.4 18.0-42.0 (%) Final Monos 08/21/2023 09:10:26 8.9 1.0-11.0 (%) Final Eosinophils 08/21/2023 09:10:26 3.5 0.0-6.0 (%) Final Basos 08/21/2023 09:10:26 0.5 0.0-2.0 (%) Final Immature Granulocyte, Percent 08/21/2023 09:10:26 0.5 0.0-2.0 (%) Final Absolute Segs 08/21/2023 09:10:26 6.73 1.80-7.70 (K/uL) Final Lymphs, absolute 08/21/2023 09:10:26 2.80 1.00-4.80 (K/ul) Final Monos, Abs 08/21/2023 09:10:26 0.98 0.00-1.10 (K/uL) Final Eos, Abs 08/21/2023 09:10:26 0.39 0.00-0.70 (K/uL) Final Basos, Abs 08/21/2023 09:10:26 0.06 0.00-0.20 (K/uL) Final Immature Granulocytes, Number 08/21/2023 09:10:26 0.06 0.00-0.20 (K/uL) Final Performing Location LABORATORY [facility] - [facility] [address] [place] [address]
--- OUTSIDE RECORDS SUMMARY | 2023-09-01 03:26 | External Medical Summary | Summary of Care ---
Author Name Unknown Organization [facility] Address [address] [place] [address] Phone [phone] Care Team Providers Care Control Panel Assembler Name Role Phone Rochelle Prem LUIS Primary Care Provider [phone] Reason for Visit * Reason Onset Date Comments Scheduling 08/21/2023 Monoferric Encounter Details Date Type Department Care Team (Late st Contact Info) Description 08/21/2023 Telephone Hematology/Oncology Treatment, [facility] [address] [place] [address] Cristian Lund MD [address] [place] [address] Scheduling (Monoferric) Allergies Active Allergy [...] patient to make him aware. Reached the awning maker and installer Carrol. Carrol was provided with our number for Michael to call back to discuss a message from Dr. Lund. * Telephone Encounter - Mildred Noe RN - 08/21/2023 3:42 PM EDT Cristian Lund MD [facility] Hem/Onc Nurse Pool/Class Folks: Have ordered mono ferric 1000 mg IV. Diagnosis: Iron deficiency, other. Please tell patient his iron stores are low and this will get him back in the pink. Keep telephone followup. Thanks, Dr. Noriega * Telephone Encounter - Mildred Noe RN - 08/21/2023 3:35 PM EDT [place] built for monoferric. Routed to provider for signature. Waiting for auth. Once auth is back, please reach out to schedule - Monoferric [address] Lund documented in this encounter Plan of Treatment Upcoming Encounters Date Type Department Care Team (Late st Contact Info) Description 09/04/2023 10:30 AM EDT Telemedicine Hematology/Oncology, [address] [address] Cristian Lund MD [address] [place] [address] Scheduled Procedures Name Priority Associated Diagnoses Date/Ti me COLONOSCOPY FLEXIBLE PROXIMA L DIAGNOSTIC Recall History of colonic polyps Health Maintenance Due Date Last Done Comments Depression Screening 1957 Hepatitis C Screening 08/11/1963 DTaP,Tdap,and Td Vaccines (1 - Tdap) 1964 Zoster Vaccines (2 of 3) 10/16/2015 08/21/2015 Pneumococcal Vaccine: 65+ Years (2 of 2 - PCV) 01/15/2016 01/14/2015 Colonoscopy 07/25/2022 07/25/2020, /, 12/08/2018, Additional history exists COVID-19 Vaccine (4 - 2022-24 season) 2022 12/27/2020, 07/04/2020, 05/31/2020 RETIRED - [...] this encounter Medical Devices Implanted Type Area Beeswax Bleacher Device Identifier Shelf Expiration Date Model / Serial / Lot Clip Quick 2.8mm 230cm - [id number] Implanted:Qty: 1 on 07/25/2020 by Kalpesh Mcdaniels MD at ENDOSCOPY [employer] 06/25/2022 [id number] / [id number] documented as of this encounter Care Teams Control Panel Assembler Relationship Specialty Start Date End Date Prem Byrd DO [address] [place] [address] PCP - General Family Medicine 08/20/23 documented as of this encounter
--- OUTSIDE RECORDS SUMMARY | 2023-09-01 03:26 | External Medical Summary ---
Author Name Unknown Address Unknown Organization K01:[facility] [place] [address] [place] [address] Laboratory Report Ordering Provider Test Date Status CHASTITYMOI 08/21/2023 09:10:26 Final Observation Date Value Abnormality Reference (Units ) Status PSA 08/21/2023 09:10:26 2.02 <4.10 (ng/ mL) Final Performing Location LABORATORY [facility] - [address] [place] [address]
--- OUTSIDE RECORDS SUMMARY | 2023-09-01 03:26 | External Medical Summary | Summary of Care ---
Author Name Unknown Organization [facility] Address [address] [place] [address] Phone [phone] Care Team Providers Care Emt Intermediate Name Role Phone Rochelle Prem LUIS Primary Care Provider [phone] Reason for Visit * Reason Onset Date Comments Scheduling 08/21/2023 Monoferric Encounter Details Date Type Department Care Team (Late st Contact Info) Description 08/21/2023 Telephone Hematology/Oncology Treatment, [facility] [address] [place] [address] Cristian Lund MD [address] [place] [address] Scheduling (Monoferric) Allergies Active Allergy [...] patient to make him aware. Reached the supervisor cab Carrol. Carrol was provided with our number for Michael to call back to discuss a message from Dr. Lund. * Telephone Encounter - Mildred Noe RN - 08/21/2023 3:42 PM EDT Cristian Lund MD P [facility] Hem/Onc Nurse Pool/Class Folks: Have ordered mono ferric 1000 mg IV. Diagnosis: Iron deficiency, other. Please tell patient his iron stores are low and this will get him back in the pink. Keep telephone followup. Thanks, * Telephone Encounter - Mildred Noe RN - 08/21/2023 3:35 PM EDT [place] built for monoferric. Routed to provider for signature. Waiting for auth. Once auth is back, please reach out to schedule - Monoferric [address] Lund documented in this encounter Plan of Treatment Upcoming Encounters Date Type Department Care Team (Late st Contact Info) Description 09/04/2023 10:30 AM EDT Telemedicine Hematology/Oncology, [facility] [address] [place] [address] Cristian Lund MD [address] [place] [address] Scheduled Procedures Name Priority Associated [...] this encounter Medical Devices Implanted Type Area Exhibits Manager Device Identifier Shelf Expiration Date Model / Serial / Lot Clip Quick 2.8mm 230cm - [id number] Implanted:Qty: 1 on 07/25/2020 by Kalpesh Mcdaniels MD at ENDOSCOPY [facility] [employer] 06/25/2022 [id number] / [id number] documented as of this encounter Care Teams Emt Intermediate Relationship Specialty Start Date End Date Prem Byrd DO [address] [facility] [place] [address] PCP - General Family Medicine 08/20/23 documented as of this encounter
--- OUTSIDE RECORDS SUMMARY | 2023-09-01 03:26 | External Medical Summary | Summary of Care ---
Author Name Unknown Organization [facility] Address [address] [place] [address] Phone [phone] Care Team Providers Care Gang Sawyer Name Role Phone Prem Byrd DO Primary Care Provider [phone] Reason for Visit * Reason Comments NEW PATIENT * Evaluate & Treat - Unlimited Visits (Within 3 days (urgent)) - Pending Review Specialty Diagnoses / Procedures Referred By Contac t Referred To Contact Hematology/Oncology / Hematology Oncology Diagnoses Iron deficiency anemia, unspecified Prem Byrd DO [address] [place] [address] Referral ID Status Reason Start Date Expiration Date Visits Requested Visits Authorized [id number] Pending Review Specialty Services Required 08/05/[phone] Encounter Details Date Type Department Care Team (Late st Contact Info) Description 08/20/2023 1:30 PM EDT Office Visit Hematology/Oncology, [facility] [address] [place] [address] Cristian [facility] [address] [facility] [address] Microcytic anemia*; Benign prostatic hyperplasia with lower urinary tract [...] Cigarettes Q uit: 07/22/1986 Smokeless Tobacco: Never Tobacco Cessation:Counseling Given: Not Answered Alcohol Use Standard Drinks/Week Comments Not Currently [...] Sign Reading Time Taken Comments Blood Pressure 127/72 08/20/2023 1:21 PM EDT Pulse 62 08/20/2023 1:21 PM EDT Temperature 36.3 C (97.3 F) 08/20/2023 1:21 PM ED T Respiratory Rate - - Oxygen Saturation 97% 08/20/2023 1:21 PM EDT Inhaled Oxygen Concentration - - Weight 90.9 kg (200 lb 6.4 oz) 08/20/2023 1:21 P M EDT Height - - Body Mass Index 30.02 08/23/2021 8:38 AM EDT documented in this encounter Progress Notes * Cristian Lund MD - 08/20/2023 1:30 PM EDT Outpatient Consult Note Data Source: Patient, Epic record. 08/19/2023 3:54 PM Michael Mauricio [id number] 78 year old MD Quincy Morton MD Patient Encounter: HEMATOLOGY/ONCOLOGY, [facility] Exam room 6 Reason for consult: Microcytic anemia HPI: 78-year-old white male referred for evaluation and management of microcytic anemia. Patient complains of being cold all the time. He has been taking iron supplements twice a day for the last 2 years with the original ferritin level of 7 according to his . He does not crave ice and does have black stools but no hematochezia, hematuria, epistaxis, hemoptysis, or dark-colored urine. Appetite is good with no weight loss, abdominal pain, nausea, vomiting, diarrhea, constipation, lower extremity swelling or redness, PND, orthopnea, or palpitations. Patient has occasional urinaryhesitancy without hematuria or nocturia. He denies fever, night sweats, and does not check his bloodSugar at home. He is on chronic Eliquis for chronic atrial fibrillation and uses CPAP regularly marked improvement in his wakefulness during the day. His last colonoscopy was 2 years ago with plans to repeat next year. Patient is a former smoker 37 pack years and does drink alcohol on a somewhat regular basis. 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 Past Medical History: Diagnosis Date Benign neoplasm of colon 03/26/12 adenomatous polyps, recall 2 yrs Family history of malignant neoplasm of gastrointestinal tract Current Outpatient Medications Medication Sig Dispense Refill Entresto 24-26 MG Oral Tablet (sacubitril-valsartan 24-26 mg per tab) Take 1 Tablet by mouth in themorning and 1 Tablet before bedtime. Dronedarone HCl 400 MG Oral Tablet (Multaq) Take 1 Tablet by mouth 2 times a day with morning and evening meals. FLOMAX 0.4 MG PO CAPS Take by mouth . METAMUCIL CLEAR & NATURAL PO POWD daily ADVAIR DISKUS 250-50 MCG/DOSE IN AEPB twice a daily atorvaSTATin (LIPITOR) 20 MG Tablet Take 20 mg by mouth daily. roflumilast (DALIRESP) 500 MCG Tablet Take 250 mcg by mouth daily. albuterol-ipratropium (DUONEB) 2.5-0.5 MG/3ML nebulizer solution Inhale 3 mL via nebulizer 2 times a day as needed for Wheezing. Cetirizine HCl (ZYRTEC ALLERGY) 10 MG Capsule Take 10 mg by mouth daily. finasteride (PROSCAR) 5 MG Tablet Sildenafil Citrate 100 MG Tablet TAKE 1 TABLET (100 MG PER DOSE) BY MOUTH DAILY NEEDED FOR ERECTILE DYSFUNCTION. 10 tiotropium bromide (SPIRIVA HANDIHALER) 18 MCG inhalation Capsule INHALE CONTENTS OF 1 CAPSULE BY MOUTH DAILY Apixaban 5 MG Oral Tablet (Eliquis) Take 5 mg by mouth 2 times a day. Valsartan 160 MG Oral Tablet (Diovan) Take 80 mg by mouth daily. Levocetirizine Dihydrochloride 5 MG Oral Tablet Take by mouth 5 mg every evening . (Patient not taking: Reported on 10/24/2021 ) Fluticasone-Salmeterol 250-50 MCG/DOSE Inhalation Aerosol Powder Breath Activated (Wixela Inhub) Inhale 1 Puff by mouth 2 times a day. Spironolactone 25 MG Oral Tablet (Aldactone) Take 25 mg by mouth daily. Multivitamin Adult Oral Tablet Take by mouth daily. Furosemide 20 MG Oral Tablet (Lasix) Take 20 mg by mouth 2 times a day. Feosol 200 (65 Fe) MG Oral Tablet (Ferrous Sulfate Dried) Take by mouth. Indications: in am Vitamin D3 10 MCG (400 UNIT) Oral Tablet (Cholecalciferol) Take 400 Units by mouth daily. Indications: in am CPAP every night at bedtime. Loratadine 10 MG Oral Tablet (Claritin) Take by mouth 10 mg in the morning. No current facility-administered medications for this visit. Social History Socioeconomic History Marital status: Spouse name: Not on file Number of children: Not on file Years of education: Not on file Highest education level: Not on file Occupational History Not on file Tobacco Use Smoking status: Former Current packs/day: 0.00 Types: Cigarettes Quit date: 07/22/1986 Years since quittin.1 Smokeless tobacco: Never Vaping Use Vaping Use: Never used Substance and Sexual Activity Alcohol use: Not Currently Comment: occassional Drug use: No Sexual activity: Not on file Other Topics Concern Not on file Social History Narrative Not on file Social Determinants of Health Financial Resource Strain: Not on file Food Insecurity: Not on file Transportation Needs: Not on file Physical Activity: Not on file Stress: Not on file Social Connections: Not on file Intimate Partner Violence: Not on file Housing Stability: Not on file Family History Problem Relation Age of Onset Colon cancer Father Colon polyps Sister Colon cancer Aunt (Unspecified) Colon cancer Grandfather (Paternal) REVIEW OF SYSTEMS: General: No Fever, chills, night sweats, or weight loss. HEENT: No change in visual acuity, blurred or double vision. No epistaxis, facial pain, nasal discharge or change in hearing. Denies dysphagia, no muscosal ulceration, or sores noted. Cardiovascular: No chest pain, PATTON, or palpitations chronic atrial fibrillation. Respiratory: No regular cough or shortness of Gastrointestinal: No abdominal pain, nausea, vomiting, diarrhea, rectal pain or bleeding Genitourinary: Denies Hematuria or dysuria. No urinary hesitancy or nocturia. Musculoskeletal: No bone pain Skin: No skin rash or lesions noted Neurologic: No numbness, weakness, neuropathic pain or change in cognitive function Psychiatric: No vegetative signs of depression Endocrine: No symptoms of hypothyroidism or hyperglycemia Hematologic: No bleeding or lymph nodes noted. Occasional ecchymoses but no history of thromboses. As mentioned above, all other systems were reviewed in full and are unremarkable. Review of patient's allergies indicates: Allergen Reactions Amoxicillin-Pot Clavulanate Other reaction(s): Hives, Itching, SOB Dust Moxifloxacin Other reaction(s): Hives, Itching, SOB Sulfa Antibiotics "unknown" PHYSICAL EXAMINATION: General Appearance: Healthy appearing patient in no acute distress, alert and oriented x3 BP 127/72 (BP Site: Right Arm, BP Position: Sitting, BP Cuff Size: Regular) | Pulse 62 | Temp 36.3 C (97.3 F) (Tympanic) | Wt 90.9 kg (200 lb 6.4 oz) | SpO2 97% | BMI 30.02 kg/m | BSA 2.1 m Vitals were reviewed. HEENT: No oral or pharyngeal masses, ulceration or thrush noted, no sinus tenderness. Neck is supple with no thyromegaly or JVD noted. Lymph Nodes: No lymphadenopathy noted in the occipital, pre and post auricular, cervical, supra andinfraclavicular, axillary, epitrochlear, inguinal, and popliteal region. Breasts: Bilateral gynecomastia. Lungs/Thorax: Clear to auscultation, no accessory muscles of respiration being used. Heart: Regular rate and rhythm, normal S1, S2, no appreciable murmurs, rubs, gallops Abdomen: Soft, nontender, bowel sounds present, no appreciable hepatosplenomegaly, no palpable masses Extremities: Good pulses bilaterally, no peripheral edema, cyanosis, or clubbing. Homans sign negative.. Skin: Normal skin tone with no rash, petechiae, ecchymosis noted. Musculoskeletal: No pain on palpation over bony prominence, no edema, no evidence of gout, no jointor bony deformity Neurologic: No focal sensory or motor deficits. LABS: Latest Reference Range & Units 08/21/23 09:10 Direct Kevyn Negative DIRECT KEVYN Rpt Sodium 135 - 146 mmol/L 143 Potassium 3.5 - 5.1 mmol/L 5.1 Chloride 98 - 107 mmol/L 105 CO2 22 - 32 mmol/L 24 BUN 6 - 20 mg/dL 24 (H) Creatinine 0.6 - 1.2 mg/dL 1.7 (H) Estimated Glomerular Filtration Rate >=60 mL/min 42 (L) Anion Gap 7 - 15 mmol/L 14 Glucose 70 - 120 mg/dL 104 Calcium 8.4 - 10.2 mg/dL 9.5 Protein 6.0 - 8.3 g/dL 6.7 Folic Acid >4.5 ng/mL 10.8 LD <=250 U/L 157 TSH 0.27 - 4.20 uIU/mL 1.83 CBC Rpt ! WBC 4.00 - 10.80 K/uL 11.02 (H) RBC 4.50 - 5.25 M/uL 4.61 HGB 14.0 - 16.8 g/dL 13.8 (L) HCT 40.0 - 48.4 % 41.8 MCV 82.0 - 99.5 fL 90.7 MCH 27.0 - 34.0 pg 29.9 MCHC 32.0 - 36.0 g/dL 33.0 RDW 11.5 - 15.5 % 13.1 PLT 140 - 400 K/uL 203 MPV 6.6 - 11.1 fL 9.6 CBC WITH WBC DIFFERENTIAL Rpt ! Absolute Neutrophils 1.80 - 7.70 K/uL 6.73 Absolute Lymphocytes 1.00 - 4.80 K/ul 2.80 Absolute Monocytes 0.00 - 1.10 K/uL 0.98 Absolute Eosinophils 0.00 - 0.70 K/uL 0.39 Absolute Basophils 0.00 - 0.20 K/uL 0.06 IRON SCREEN, INCLUDING TIBC Rpt Ferritin 30 - 400 ng/mL 41 Vitamin B12 232 - 1,245 pg/mL 463 Immature Reticuloctye Fraction 2.5 - 20.6 % 14.8 Reticulocyte Hemoglobin 29.7 - 37.4 pg 31.9 Absolute Reticulocyte 31.3 - 100.1 K/uL 58.1 Reticulocyte Percent 0.80 - 1.90 % 1.26 SOLUBLE TRANSFERRIN RECEPTOR Rpt HEMOGLOBINOPATHY EVALUATION Rpt Albumin 3.8 - 5.0 g/dL 4.3 AST 10 - 50 U/L 16 ALT 10 - 50 U/L 19 Alkaline Phosphatase 35 - 130 U/L 55 Bilirubin, Total <=1.2 mg/dL 0.4 PSA <4.10 ng/mL 2.02 SERUM PROTEIN ELECTROPHORESIS REFLEX PROFILE Rpt Last hemoglobin at [facility] on 07/31/2023 was 12.8. IMAGING: No pertinent recent imaging. PATHOLOGY: (AGE): 1945 (75) Billing #: [id number] MRN (Client MRN): [id number] Order #: [id number] Client Information Specimen Information Location: OP Collected Date: 04/17/2021 04/17/2021 . Electronically Signed Out: Dread Thomas MD - [facility] A: Duodenal biopsy: Duodenal mucosa with no pathologic diagnosis B: Stomach, biopsy: Mild chronic gastritis and reactive gastropathy. C: Esophagus, biopsy: Squamous-columnar mucosa with slight chronic inflammation. Negative for intestinal metaplasia or dysplasia Name: MICHAEL MAURICIO (AGE): 1945 (74) Billing #: [id number] MRN (Client MRN): [id number] Order #: [id number] Client Information Specimen Information Location: [facility] Collected Date: 07/25/2020 07/25/2020 A. Colon, ascending, polypectomy: Tubular adenoma ASSESSMENT: 1. 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 2. Chronic kidney disease stage IIIA, 3. Paroxysmal atrial fibrillation on chronic anticoagulation. 4. Chronic obstructive pulmonary disease. 5. Obstructive sleep apnea syndrome, on CPAP. 6. Hypertension. 7. Benign prostatic hypertrophy. 8. Diabetes mellitus, type 2, non-insulin requiring. 9. History of colon polyps 10. Bilateral renal cysts PLAN: 1. Await SPEP, SHAHEED, hemoglobin electrophoresis, erythropoietin level soluble transferrin receptor 2. Barrow ferric 1000 mg IV 3. Telephone followup on 09/04/2023 I appreciate the opportunity of sharing in his care. The above was dictated using voice recognition software. Errors may have inadvertently been overlooked after review. I spent a total of 40-54 minutes (exact time 45 mins) on the date of service in preparation, delivery, and documentation of the care provided to Michael Mauricio excluding any time spent in the performance of separately billed services. Cristian Lund MD documented in this encounter Plan of Treatment Upcoming Encounters Date Type Department Care Team (Late st Contact Info) Description 09/04/2023 10:30 AM EDT Telemedicine Hematology/Oncology, [address] [address] Cristian Lund MD [address] [place] [id number] Pending Results Name Type Priority Associated Diagnoses Date /Time HAPTOGLOBIN Lab STAT Microcytic anemia 08/21/2023 9:10 AM EDT HEMOGLOBINOPATHY EVALUATION Lab STAT Microcytic anemia 08/21/2023 9:10 AM EDT ERYTHROPOIETIN (EPO) Lab STAT Microcytic anemia 08/21/2023 9:10 AM EDT SERUM PROTEIN ELECTROPHORESI S REFLEX PROFILE Lab STAT Microcytic anemia 08/21/2023 9:10 AM EDT ANTINUCLEAR ANTIBODY (SHAHEED) EIA SCREEN WITH REFLEX AB QUANT Lab STAT Microcytic anemia 08/21/2023 9:10 AM EDT SOLUBLE TRANSFERRIN RECEPTOR Lab STAT Microcytic anemia 08/21/2023 9:10 AM EDT Scheduled Orders Name Type Priority Associated Diagnoses Orde r Schedule HAPTOGLOBIN Lab STAT Microcytic anemia Expected: 08/20/2023, Expires: 08/18/2024 HEMOGLOBINOPATHY EVALUATION Lab STAT Microcytic anemia Expected: 08/20/2023, Expires: 08/18/2024 ERYTHROPOIETIN (EPO) Lab STAT Microcytic anemia Expected: 08/20/2023, Expires: 08/18/2024 SERUM PROTEIN ELECTROPHORESI S REFLEX PROFILE Lab STAT Microcytic anemia Expected: 08/20/2023, Expires: 08/18/2024 ANTINUCLEAR ANTIBODY (SHAHEED) EIA SCREEN WITH REFLEX AB QUANT Lab STAT Microcytic anemia Expected: 08/20/2023, Expires: 08/18/2024 SOLUBLE TRANSFERRIN RECEPTOR Lab STAT Microcytic anemia Expected: 08/20/2023, Expires: 08/18/2024 FECAL OCCULT BLOOD, EIA Lab STAT Microcytic anemia Expected: 08/20/2023, Expires: 08/18/2024 Scheduled Procedures Name Priority Associated Diagnoses Date/Ti [...] 07/25/2020, 12/08/2018, Additional history exists COVID-19 Vaccine (2022- season) 2022 12/27/2020, 07/04/2020, 05/31/2020 COLONOSCOPY-ANNUAL AGES [...] this encounter Medical Devices Implanted Type Area [employer] Fire [employer] Man Device Identifier Shelf Expiration Date Model / Serial / Lot Clip Quick 2.8mm 230cm - [id number] Implanted:Qty: 1 on 07/25/2020 by Kalpesh Mcdaniels MD at ENDOSCOPY [facility] 06/25/2022 [id number] / [id number] documented as of this encounter Results * TSH (08/21/2023 9:10 AM EDT) Pathologist [facility] TSH 1.83 0.27 - 4.20 uIU/mL 08/21/2023 3:16 PM EDT LABORATORY [facility] Blood Venous blood specimen / Unknown Venipuncture / Unknown 08/21/2023 9:10 AM EDT 08/21/2023 9:14 AM EDT Cristian Lund MD LAB BLOOD ORD ERABLES LABORATORY [facility] [address] [place] [address] * PSA (08/21/2023 9:10 AM EDT) Pathologist [facility] PSA 2.02 <4.10 ng/mL 08/21/2023 2:45 PM EDT LAB[facility]ATORY [facility] Blood Venous blood specimen / Unknown Venipuncture / Unknown 08/21/2023 9:10 AM EDT 08/21/2023 9:14 AM EDT Cristian Lund MD LAB BLOOD ORD ERABLES LABORATORY [facility] [address] [place] [address] * FOLIC ACID (08/21/2023 9:10 AM EDT) Pathologist [facility] Folic Acid 10.8 >4.5 ng/mL 08/21/2023 3:16 PM EDT LAB[facility]ATORY [facility] Blood Venous blood specimen / Unknown Venipuncture / Unknown 08/21/2023 9:10 AM EDT 08/21/2023 9:14 AM EDT Cristian Lund MD LAB BLOOD ORD ERABLES Performing Organization Address [facility] Co de Phone Number LABORATORY [facility] [address] [place] [address] * VITAMIN B12 (08/21/2023 9:10 AM EDT) Vitamin B12 463 232 - 1,245 pg/mL 08/21/2023 3:16 PM EDT LAB[facility]ATORY [facility] Blood Venous blood specimen / Unknown Venipuncture / Unknown 08/21/2023 9:10 AM EDT 08/21/2023 9:14 AM EDT Cristian Lund MD LAB BLOOD ORD ERABLES Performing Organization Address [facility] Co de Phone Number LABORATORY [facility] [address] [place] [address] * FERRITIN (08/21/2023 9:10 AM EDT) Pathologist [facility] Ferritin 41 30 - 400 ng/mL 08/21/2023 3:03 PM EDT LABORATORY [facility] Blood Venous blood specimen / Unknown Venipuncture / Unknown 08/21/2023 9:10 AM EDT 08/21/2023 9:14 AM EDT Cristian Lund MD LAB BLOOD ORD ERABLES Performing Organization Address City/[facility] Co de Phone Number LABORATORY [facility] [address] [place] [address] * IRON SCREEN, INCLUDING TIBC (08/21/2023 9:10 AM EDT) Iron 61 45 - 176 ug/dL 08/21/2023 3:40 PM EDT LAB[facility]ATORY [facility] Iron Binding Capacity 306 250 - 425 ug/dL 08/21/2023 3:40 PM EDT LAB[facility]ATORY [facility] Transferrin Saturation Percent 20 15 - 55 % 08/21/2023 3:40 PM EDT LABORATORY [facility] Blood Venous blood specimen / Unknown Venipuncture / Unknown 08/21/2023 9:10 AM EDT 08/21/2023 9:14 AM EDT Cristian Lund MD LAB BLOOD ORD ERABLES LABORATORY [facility] [address] [place] [address] * LD (08/21/2023 9:10 AM EDT) LD 157 <=250 U/L 08/21/2023 9:4 5 AM EDT LABORATORY [facility] Blood Venous blood specimen / Unknown Venipuncture / Unknown 08/21/2023 9:10 AM EDT 08/21/2023 9:14 AM EDT Cristian Lund MD LAB BLOOD ORD ERABLES Performing Organization Address City/[facility]/ZIP Co de Phone Number LABORATORY [address] [address] * DIRECT KEVYN (08/21/2023 9:10 AM EDT) Direct Kevyn Negative 08/21/2023 10:16 AM EDT LABORATORY [facility] BLOOD BANK Blood Venous blood specimen / Unknown Venipuncture / Unknown 08/21/2023 9:10 AM EDT 08/21/2023 9:14 AM EDT Cristian Lund MD LAB BLOOD BAN K TEST ORDERABLES Performing Organization Address [facility] Co de Phone Number LABORATORY [facility] BLOOD BANK [address] [place], [place] [id number] * RETICULOCYTE PANEL (08/21/2023 9:10 AM EDT) Reticulocyte Percent 1.26 0.80 - 1.90 % 08/21/2023 9:29 AM EDT LABORATORY [facility] Absolute Reticulocyte 58.1 31.3 - 100.1 K/uL 08/21/2023 9:29 AM EDT LABORATORY [facility] Immature Reticuloctye Fraction 14.8 2.5 - 20.6 % 08/21/2023 9:29 AM EDT LABORATORY GL Reticulocyte Hemoglobin 31.9 29.7 - 37.4 pg 08/21/2023 9:29 AM EDT LABORATORY [facility] Blood Venous blood specimen / Unknown Venipuncture / Unknown 08/21/2023 9:10 AM EDT 08/21/2023 9:14 AM EDT Cristian Lund MD LAB BLOOD ORD ERABLES LABORATORY [address] [address] * (ABNORMAL) COMPREHENSIVE METABOLIC PANEL (08/21/2023 9:10 AM EDT) BUN 24(H) 6 - 20 mg/dL 08/21/2023 9:45 AM EDT LABORATORY [facility] Creatinine 1.7(H) 0.6 - 1.2 mg/dL 08/21/2023 9:45 AM EDT LABORATORY [facility] Estimated Glomerular Filtration Rate 42(L) >=60 mL/min 08/21/2023 9:45 AM EDT LABORATORY [facility] Comment:eGFR is calculated b ased on the CKD-EPI 2020 equation Sodium 143 135 - 146 mmol/L 08/21/2023 9:45 AM EDT LAB[facility]ATORY [facility] Potassium 5.1 3.5 - 5.1 mmol/L 08/21/2023 9:45 AM EDT LAB[facility]ATORY [facility] Chloride 105 98 - 107 mmol/L 08/21/2023 9:45 AM EDT LAB[facility]ATORY [facility] CO2 24 22 - 32 mmol/L 08/21/2023 9:45 AM EDT LAB[facility]ORY [facility] Anion Gap 14 7 - 15 mmol/L 08/21/2023 9:45 AM EDT LAB[facility]ATORY [facility] Glucose 104 70 - 120 mg/dL 08/21/2023 9:45 AM EDT LAB[facility]ATORY [facility] Albumin 4.3 3.8 - 5.0 g/dL 08/21/2023 9:45 AM EDT LAB[facility]ATORY [facility] AST 16 10 - 50 U/L 08/21/2023 9:45 AM EDT LABORATORY [facility] Alkaline Phosphatase 55 35 - 130 U/L 08/21/2023 9:45 AM EDT LAB[facility]ATORY [facility] Bilirubin, Total 0.4 <=1.2 mg/dL 08/21/2023 9:45 AM EDT LAB[facility]ATORY [facility] Calcium 9.5 8.4 - 10.2 mg/dL 08/21/2023 9:45 AM EDT LAB[facility]ATORY [facility] Protein 6.7 6.0 - 8.3 g/dL 08/21/2023 9:45 AM EDT LAB[facility]ATORY [facility] ALT 19 10 - 50 U/L 08/21/2023 9:45 AM EDT LAB[facility]ATORY [facility] Blood Venous blood specimen / Unknown Venipuncture / Unknown 08/21/2023 9:10 AM EDT 08/21/2023 9:14 AM EDT Cristian Lund MD LAB BLOOD ORD ERABLES LABORATORY [facility] [address] [place] [address] documented in this encounter Visit Diagnoses Diagnosis Microcytic anemia- Primary Iron deficiency anemia, unspecified Benign prostatic hyperplasia with lower urinary tract symptoms, symptom details unspecified Cold intolerance Other general symptoms documented in this encounter Care Teams Gang Sawyer Relationship Specialty [place] [address] [place] [address], [place] [address] PCP - General Family Medicine 08/20/23 documented as of this encounter
--- OUTSIDE RECORDS SUMMARY | 2023-09-01 03:26 | External Medical Summary ---
Author Name Unknown Address Unknown Organization K01:LABORATORY [facility] [address] [place] [address] Laboratory Report Ordering Provider Test Date Status MOI HAYWOOD 08/21/2023 09:10:26 Final Observation Date Value Abnormality Reference (Units ) Status Iron 08/21/2023 09:10:26 61 45-176 (ug /dL) Final Iron-binding capacity 08/21/2023 09:10:26 306 250-425 (ug/dL) Final Transferrin Sat % 08/21/2023 09:10:26 20 15 -55 (%) Final Performing Location LABORATORY C - [address] [place] [address]
--- OUTSIDE RECORDS SUMMARY | 2023-09-01 03:26 | External Medical Summary | Continuity of Care Document ---
Author Name Unknown Organization [facility] [address] Address [address] [place], [place] [id number] Care Team Providers Care Tack Cutter Name Role Phone Prem Byrd Primary Care Physician [phone] Encounter [facility] [id number] Date(s): 08/12/23 - 08/12/23 [facility] [address], [address] [place] [address] [phone] Encounter Diagnosis SOB (shortness of breath)(Discharge Diagnosis) - 08/12/23 CKD (chronic kidney disease) stage IIIb(Discharge Diagnosis) - 08/12/23 Hypertension(Discharge Diagnosis) - 08/12/23 PAF (paroxysmal atrial fibrillation)(Discharge Diagnosis) - 08/12/23 Paroxysmal atrial fibrillation(Final) - Essential (primary) hypertension(Final) - Shortness of breath(Final) - Chronic kidney disease, stage 3b(Final) - Diastolic CHF(Discharge Diagnosis) - 08/12/23 Discharge Disposition: Home or Self Care Attending Physician: DO [place] Jason D Allergies, Adverse Reactions, Alerts Substance Reaction Severity Status sulfa drugs Itching SOB Hives Active mixed grass pollens allergen extract cou gh sob Active Augmentin SOB Itching Hives Active Avelox SOB Itching Hives Active Dust Active Assessment and Plan Extracted from: Title:Cardiology Office Visit Note Author:DO [place] Jason D Date:08/12/23 1.PAF (paroxysmal atrial f ibrillation) 2.Hypertension 3.SOB (shortness of breath) 4.CKD (chronic kidney disease) stage IIIb Everything seems stable until the end of the visit when he said that he is getting more short of breath. Likely his dyspnea is multifactorial related to his underlying lung disease but also related to diastolic dysfunction. He has not had recurrent atrial fibrillation that we are aware of that should be causing worsening heart failure symptoms. I recommended a BNP. If that is elevated and I suspect it will be elevated then I would consider stopping his valsartan and switching over to low-dose Entresto. We know that Entresto has allowed for significant improvement in patient's dyspnea along with leading to an underlying diuresis without worsening renal dysfunction. If he were to switch him to Entresto will need a BMP in about 10 days. I given gave him a coupon card for 30 days free. He remains on anticoagulation to reduce his risk of cardioembolic events. He is having dark stools likely from Iron. He does get an endoscopy every 2 years given his history of colon polyps and a family history of colon cancer in both his father and his grandfather. His hematology visit will be important. Nephrology did not feel that his anemia was related to his renal disease. I see him back in 4 months time. Medications albuterol CFC free 90 mcg/inh MDI Start: 03/15/22 14:42:00 EST, 2 puff, inhaled, qid, Disp# 1 each, Refills: 6, PRN: as needed for wheezing, [id number] Start Date: 03/15/22 Status: Ordered atorvastatin 20 mg oral tablet Start: 07/14/15 9:33:00 EDT, 1 tab, PO, qhs Start Date: 07/14/15 Status: Ordered Claritin 10 mg oral tablet Start: 12/18/22 13:47:00 EDT, 1 tab, PO, Daily, PRN: as needed for allergy symptoms Start Date: 12/18/22 Status: Ordered DuoNeb 0.5 mg-2.5 mg/3 mL inhalation solution Start: 02/04/23 16:47:00 EDT, 3 mL, inhaled, qid, Disp# 180 mL, Refills: 11, PRN: as needed for shortness of breath or wheezing, Pharmacy: [facility] #[id number] Start Date: 02/04/23 Status: Ordered Eliquis 5 mg oral tablet Start: 08/13/23 10:27:00 EDT, 1 tab, PO, bid, Disp# 180 tab, Refills: 3, Pharmacy: [id number] Start Date: 08/13/23 Status: Ordered Entresto 24 mg-26 mg oral tablet Start: 08/13/23 9:48:00 EDT, 1 tab, PO, bid, Disp# 180 tab, Refills: 3, [id number] Start Date: 08/13/23 Status: Ordered Feosol Start: 07/25/21 15:02:00 EDT, 1 tab, PO, Daily Start Date: 07/25/21 Status: Ordered finasteride 5 mg oral tablet Start: 02/03/20 11:15:00 EDT, 1 tab, PO, Daily Start Date: 02/03/20 Status: Ordered furosemide 20 mg oral tablet See Instructions, Disp# 36 tab, Refills: 4, TAKE 1 TABLET BY MOUTH NEEDED FOR SWELLING/WT GAIN, Pharmacy: [id number] Start Date: 11/20/20 Status: Ordered inhaler spacer Start: 03/15/22 14:42:00 EST, See Instructions, Disp# 1 each, use with inhaler, [id number] Start Date: 03/15/22 Status: Ordered Multaq 400 mg oral tablet Start: 08/12/23 15:34:00 EDT, 1 tab, PO, bid, Disp# 180 tab, Refills: 3, [id number] Start Date: 08/12/23 Status: Ordered Roflumilast 500 mcg oral tablet Start: 05/02/23 13:55:00 EST, 1 tab, PO, Daily, Disp# 90 tab, Refills: 3, Pharmacy: [id number] Start Date: 05/02/23 Status: Ordered sodium chloride 3% for nebulization Start: 07/28/22 14:51:00 EDT, 3 mL, NEB, bid, Disp# 180 mL, Refills: 3, Pharmacy: [id number] Start Date: 07/28/22 Status: Ordered Spiriva 18 mcg inhalation capsule Start: 05/19/18 10:03:51 EST, See Instructions, Disp# 90, INHALE CONTENTS OF 1 CAPSULE BY MOUTH DAILY, Brand Medically Necessary, [id number] Start Date: 05/19/18 Status: Ordered spironolactone 25 mg oral tablet Start: 07/21/23 9:19:00 EDT, See Instructions, Disp# 90 tab, Refills: 3, TAKE 1/2 TABLET BY MOUTH EVERY DAY, Pharmacy: [facility] #[id number] Start Date: 07/21/23 Status: Ordered tadalafil 5 mg oral tablet TAKE 1 TABLET BY MOUTH EVERY DAY Start Date: 12/18/22 Status: Ordered tamsulosin 0.4 mg oral capsule Start: 07/14/15 9:33:00 EDT, 1 cap, PO, qPM Start Date: 07/14/15 Status: Ordered Wixela Inhub 250 mcg-50 mcg inhalation powder Start: 01/04/20 9:30:00 EDT, 1 puff, inhaled, bid Start Date: 01/04/20 Status: Ordered ZyrTEC Start: 12/04/15 11:24:00, 10 mg =, PO, Daily Start Date: 12/04/15 Status: Ordered Mental Status 08/12/23 Barriers to Learning one year Vision imp airment, Other: Eye glasses Mandatory Health Literacy Documentation Yes Health Literacy Communication Barriers N ever Primary Language Wolof Problem List Condition Confirmation Course Effective Dates Status H ealth Status Informant Anemia Confirmed Active Asthma Confirmed Active Changing skin lesion Confirmed Active CKD (chronic kidney disease) stage IIIb Confirmed Active Diastolic CHF Confirmed Active SOB (shortness of breath) Confirmed Active Onychodystrophy Confirmed Active Rash Confirmed Active Heartburn Confirmed Active Hypertension Confirmed Active Inflamed seborrheic keratosis Confirmed Active Lentigo Confirmed Active Notalgia paresthetica Confirmed Active Onychomycosis Confirmed Active PAF (paroxysmal atrial fibrillation) Confirmed Active COPD type A Confirmed Active Seborrheic keratoses Confirmed Active Sleep apnea Confirmed Active Weight disorder Confirmed Active Wheezing Confirmed Active Diagnosis Diagnosis Type Effective Dates Health Status Clinical Service Informant PAF (paroxysmal atrial fibrillation) Discharge Diagnosis 08/12/23 Diastolic CHF Discharge Diagnosis 08/12/23 Hypertension Discharge Diagnosis 08/12/23 SOB (shortness of breath) Discharge Diagnosis 08/12/23 CKD (chronic kidney disease) stage IIIb Discharge Diagnosis 08/12/23 Procedures Procedure Date Related Diagnosis Body Site Status Shave biopsy of skin 1 12/18/22 Co mpleted Shave biopsy and cauterization of skin 11/14/21 Completed Shave biopsy and cauterization of skin 01/04/20 Completed Defibrillator 09/17/19 Completed CXR - Chest X-ray 07/14/15 Complet ed PFT - Pulmonary function tests 07/14/15 Completed Resection 2 10/21/04 Completed 1with ED&C 2Colon Results Laboratory List Name Date NT-Pro BNP 08/12/23 Most recent to oldest [Reference Range]: 1 BNP, NT-Pro [<450 pg/mL] 239 pg/mL (08/12/23 4:03 PM) Vital Signs Most recent to oldest [Reference Range]: 1 Patient Weight 88 kg (08/12/23 3:18 PM) Temperature [36.5-37.9 DegC] 37.1 DegC (08/12/23 3:18 PM) Heart Rate 70 bpm (08/12/23 3:18 PM) Respiratory Rate 20 br/min (08/12/23 3:18 PM) Blood Pressure 102/62mmHg (08/12/23 3:18 PM) Cuff Pulse Pressure 40 mmHg (08/12/23 3:18 PM) BP Location # 1 Left Arm, Manual (08/12/23 3:18 PM) Social History Social History Type Response Smoking Status Never smoked cigaret ant Sex Male Cardiology Outpatient Note * DO [place] Jason D: PERFORM Event Display: Cardiology Outpt Note Authored Date: [id number] Primary Care Provider DO Byrd Thomas Chief Complaint Routine follow-up History of Present Illness He notes that his shortness of breath is worse in the winter. As we discussed further if he notedthat he really has not any progressive shortness of breath. Feels like he notes that he is more short of breath. He can climb a flight of stairs with milddyspnea. He notes on the fourth hole there is an up in the down and on the he is short of breath. As we are about it and the visit he then said to me "by the way I am really short of breath with activity". He has no chest pain or chest pressure. He is unaware of any palpitations or fluttering. He hasan AliveCor monitor which showed PVCs but no A-fib. His blood pressure seems reasonably well-controlled. He has not used his diuretics. He does notuse his inhaler prior to activity. He does have dark stools but is on iron. He will be seeing hematology for hemoglobin in the 12's which she notes is stable. There is a very positive family history of premature colon cancer. He gets endoscopy on a regular basis noting he is due in the end of the summer. Has had no falls or syncopal episodes. He does have a little bit of pedal edema on the left.His abdomen is not more distended. His weight is relatively stable Review of Systems PAST MEDICAL HISTORY: 1. Paroxysmal atrial fibrillation (symptomatic with worsening right-sided heart failure and shortness of breath) with a CHADS2-VASc score of 3, that being his age, hypertension, and heart failure, status post cardioversion x 4 with the use of ibutilide 08/2019. 2. Chronic anticoagulation with apixaban. 3. Hypertension. 4. Hyperlipidemia. 5. History of coronary calcifications. 6. Obstructive sleep apnea extremely compliant with CPAP. 7. Severe COPD with associated air trapping based on his spirometry. 8. GERD. 9. BPH. 10. Echocardiogram 03/27/21 with normal LV size and function with an EF in the range of 60-65% with type 2 diastolic dysfunction; dilated right ventricle with normal RV function; moderate pulmonaryhypertension with a mean PA pressure of 33 mmHg. 11. Chronic kidney disease with baseline creatinine of 1.6-1.8. Physical Exam Vitals & Measurements T:37.1C HR:70(Monitored) RR:20 BP:102/62 SpO2:95% WT:88kg WT:88.000kg(Dosing) PHYSICAL EXAMINATION: He is awake, alert, oriented x3. He looks his stated age. HEENT: 2+ carotid upstrokes, no evidence of carotid bruits. Jugular venous pressure did not appear elevated. Sclerae was anicteric. His hearing is normal. Lungs: Markedly decreased breath sounds throughout; inspiratory wheezing Heart: Regular rate and rhythm with ectopy, no appreciable murmurs, rubs or gallops.Extremities: No clubbing, cyanosis, left pedal edema. Psychiatric: His affect appeared appropriate. Assessment/Plan 1.PAF (paroxysmal atrial fibrillation) 2.Hypertension 3.SOB (shortness of breath) 4.CKD (chronic kidney disease) stage IIIb Everything seems stable until the end of the visit when he said that he is getting more short of breath. Likely his dyspnea is multifactorial related to his underlying lung disease but also relatedto diastolic dysfunction. He has not had recurrent atrial fibrillation that we are aware of that should be causing worsening heart failure symptoms. I recommended a BNP. If that is elevated and I suspect it will be elevated then I would consider stopping his valsartan and switching over to low-dose Entresto. We know that Entresto has allowed for significant improvement in patient's dyspnea along with leading to an underlying diuresis without worsening renal dysfunction. If he were to switch him to Entresto will need a BMP in about 10 days. I given gave him a coupon card for 30 days free. He remains on anticoagulation to reduce his risk of cardioembolic events. He is having dark stools likely from Iron. He does get an endoscopy every 2 years given his history of colon polyps and a family history of colon cancer in both his father and his grandfather. His hematology visit will be important. Nephrology did not feel that his anemia was related to his renal disease. I see him back in 4 months time. Problem List/Past Medical History Ongoing Anemia Asthma Changing skin lesion CKD (chronic kidney disease) stage IIIb COPD type A Heartburn Hypertension Inflamed seborrheic keratosis Lentigo Notalgia paresthetica Onychodystrophy Onychomycosis PAF (paroxysmal atrial fibrillation) Rash Seborrheic keratoses Sleep apnea SOB (shortness of breath) Weight disorder Wheezing Historical Tinea pedis Procedure/Surgical History Shave biopsy of skin| Service Date: 12/18/2022Shave biopsy and cauterization of skin| ServiceDate: 11/14/2021have biopsy and cauterization of skin| Service Date: 01/04/2020Defibrillator| Service Date: 09/17/2019PFT - Pulmonary function tests| Service Date: 07/14/2015CXR - Chest X-ray| Service Date: 07/14/2015Resection| Service Date: 10/21/2004 Medications albuterol(albuterol CFC free 90 mcg/inh MDI), 2 puff, inhaled, qid, PRN, 6 refills albuterol-ipratropium(DuoNeb 0.5 mg-2.5 mg/3 mL inhalation solution), 3 mL, inhaled, qid, PRN, 11 refills apixaban(Eliquis 5 mg oral tablet), See Instructions atorvastatin(atorvastatin 20 mg oral tablet), 20 mg= 1 tab, PO, qhs cetirizine(ZyrTEC), 10 mg, PO, Daily dronedarone(Multaq 400 mg oral tablet), 400 mg= 1 tab, PO, bid, 3 refills ferrous sulfate(Feosol), 1 tab, PO, Daily finasteride(finasteride 5 mg oral tablet), 5 mg= 1 tab, PO, Daily fluticasone-salmeterol(Wixela Inhub 250 mcg-50 mcg inhalation powder), 1 puff, inhaled, bid furosemide(furosemide 20 mg oral tablet), See Instructions inhalation accessory(inhaler spacer), See Instructions loratadine(Claritin 10 mg oral tablet), 10 mg= 1 tab, PO, Daily, PRN roflumilast(Roflumilast 500 mcg oral tablet), 1 tab, PO, Daily sodium chloride(sodium chloride 3% for nebulization), 0.09 g= 3 mL, NEB, bid, 3 refills spironolactone(spironolactone 25 mg oral tablet), See Instructions, 3 refills tadalafil(tadalafil 5 mg oral tablet) tamSULOsin(tamsulosin 0.4 mg oral capsule), 0.4 mg= 1 cap, PO, qPM tiotropium(Spiriva 18 mcg inhalation capsule), See Instructions valsartan(valsartan 80 mg oral tablet), See Instructions, 3 refills Allergies AugmentinSOB, Itching, Hives AveloxSOB, Itching, Hives Dust mixed grass pollens allergen extractcough, sob sulfa drugsItching, SOB, Hives Social History Smoking Status Never smoked cigarettes Alcohol - Low Risk Use:Current Type:Beer, Wine, Liquor Frequency:1-2 times per month Home/Environment - No Risk Substance Abuse - Denies Substance Abuse Tobacco - Denies Tobacco Use Electronic Signature on File CC: Prem Byrd DO [facility] [address] [facility] [id number] * Electronically Reviewed/Signed by: Nestor Medellin DO Author Signature Dt/Tm:08/12/2023 04:17 PM [employer] preparer [facility] [place] [place] [address] JDF Patient Care team information Care Team Personnel Name: MD Gabriel, Quincy Sepulveda Position: Physician - Pulmonary Med Member Role: Lifetime Relationship Address: Address: [address] [place] [address] [address] [place] [address] Name: DO Byrd Thomas Position: Referring Member Role: Primary Care Provider Address: Address: [facility] [address] [place] [address] [place] Care Team Related Persons Name: TIANA ASENCIO Address: home [address], [place] [phone]
--- OUTSIDE RECORDS SUMMARY | 2023-09-01 03:26 | External Medical Summary ---
Author Name Unknown Address Unknown Organization [facility] [address] [place] [address] Laboratory Report Ordering Provider Test Date Status MOI HAYWOOD 08/21/2023 09:10:26 Final Observation Date Value Abnormality Reference (Units ) Status [facility] 08/21/2023 09:10:26 157 <=250 (U/L ) Final Performing Location [facility] [address] [place] [id number]
--- OUTSIDE RECORDS SUMMARY | 2023-09-01 03:27 | External Medical Summary | Summary of Care ---
Author Name Unknown Organization [facility] Address [address] [place] [address] Phone [phone] Care Team Providers Care High Climber Name Role Phone Bhavin Lopez MD Primary Care Provider Reason for Referral * Evaluate & Treat - Unlimited Visits (Within 3 days (urgent)) - Pending Review Specialty Diagnoses / Procedures Referred By Michael t Referred To Contact Hematology/Oncology / Hematology Oncology Diagnoses Iron deficiency anemia, unspecified Prem Byrd DO [address] [place] [address] Referral ID Status Reason Start Date Expiration Date Visits Requested Visits Authorized [id number] Pending Review Specialty Services Required 08/05/[phone] Question Answer Referral Priority Within 3 days (urgent) Where should this appointment be scheduled? [facility] Reason for Referral Anemia Comments Notes posted. Encounter Details Date Type Department Care Team (Late st Contact Info) Description 08/05/2023 Orders Only Access [address] Ext *DO NOT REMOVE THIS DEPARTMENT* [facility] [id number] Request, External Referral Iron deficiency anemia, unspecified* Allergies Active Allergy Reactions Criticality Noted Date Comments Amoxicillin-Pot Clavulanate 08/24/19 22 Other reaction(s): Hives, Itching, SOB Dust 08/23/2021 Moxifloxacin 08/23/2021 Other reaction(s): Hives, Itching, SOB Sulfa Antibiotics 02/20/2012 "unknown" documented as of this encounter (statuses as of 08/05/2023) Medications Medication Sig Dispensed Refills Start Date [...] 10 mg in the morning. 0 Active documented as of this encounter (statuses as of 08/05/2023) Active Problems No known active problems documented as of this encounter (statuses as of 08/05/2023) Immunizations Name Administration Dates Next Due COVID-19 [...] as of this encounter Miscellaneous Notes * Addendum Note - Leida Rodriguez OSA - 08/05/2023 3:07 PM EDTAddended by: LEIDA RODRIGUEZ on: 08/05/2023 03:07 PM Modules accepted: Orders documented in this encounter Plan of Treatment Scheduled Procedures Name Priority Associated Diagnoses Date/Ti me COLONOSCOPY FLEXIBLE PROXIMA L DIAGNOSTIC Recall History of colonic polyps Scheduled Referrals Name Type Priority Associated Diagnoses Orde r Schedule HEMATOLOGY/ONCOLOGY REFERRAL OP Referral Within 3 days (urgent) Iron deficiency anemia, unspecified Ordered: 08/05/2023 Health Maintenance Due Date Last Done Comments Depression Screening 1957 Hepatitis C Screening 08/11/1963 DTaP,Tdap,and Td Vaccines (1 - Tdap) 1964 Zoster Vaccines (1 of 2) 08/11/1995 Pneumococcal Vaccine: 65+ Years (1 of 1 - PCV) 2010 COLONOSCOPY-EVERY 2 YRS AGES 18-100 07/25/2022 07/25/2020, 07/25/2020, 12/08/2018, Additional history exists COVID-19 Vaccine ( - 2022- season) 2022 12/27/2020, 07/04/2020, 05/31/2020 Influenza Vaccine (FLU shot) (Season Ended) 2023 02/19/2005 COLONOSCOPY-ANNUAL AGES 18-100 Discontinued 07/25/2020, 07/25/2020, 12/08/2018, Additional history exists GARDASIL-HPV IMMUNIZATION SERIES Aged Out No longer eligible based on patient's age to complete this topic Hepatitis B Aged Out No longer eligi ble based on patient's age to complete this topic MENINGOCOCCAL (MENACTRA/MENVEO) Aged Out No longer eligible based on patient's age to complete this topic documented as of this encounter Medical Devices Implanted Type Area Numerical Tool Programmer Device Identifier Shelf Expiration Date Model / Serial / Lot Clip Quick 2.8mm 230cm - [id number] Implanted:Qty: 1 on 07/25/2020 by Kalpesh Mcdaniels MD at ENDOSCOPY [facility] [employer] 06/25/2022 [id number] / [id number] documented as of this encounter Visit Diagnoses Diagnosis Iron deficiency anemia, unspecified- Primary documented in this encounter Care Teams High Climber Relationship Specialty Start Date End Date Bhavin Lopez MD PCP - General Internal Medicine 07/13/14 documented as of this encounter
--- OUTSIDE RECORDS SUMMARY | 2023-09-01 03:27 | External Medical Summary | Summary of Care ---
Author Name Unknown Organization [facility] Address [address] [place] [address] Phone [phone] Care Team Providers Care Process Validation Engineer Name Role Phone Bhavin Lopez MD Primary Care Provider Reason for Referral * Evaluate & Treat - Unlimited Visits (Within 10 days (routine)) - Pending Review Specialty Diagnoses / Procedures Referred By Michael t Referred To Contact Hematology/Oncology / Hematology Oncology Diagnoses Iron deficiency anemia, unspecified Prem Byrd DO [address] [place] [address] Referral ID Status Reason Start Date Expiration Date Visits Requested Visits Authorized [id number] Pending Review Specialty Services Required 08/05/[phone] Question Answer Referral Priority Within 10 days (routine) Where should this appointment be scheduled? [facility] Reason for Referral Anemia Comments Notes posted. Encounter Details Date Type Department Care Team (Late st Contact Info) Description 08/05/2023 Orders Only Access [address] Ext *DO NOT REMOVE THIS DEPARTMENT* [...] as of this encounter Plan of Treatment Scheduled Procedures Name Priority Associated Diagnoses Date/Ti me COLONOSCOPY FLEXIBLE PROXIMA L DIAGNOSTIC Recall History of colonic polyps Scheduled Referrals Name Type Priority Associated Diagnoses Orde r Schedule HEMATOLOGY/ONCOLOGY REFERRAL OP Referral Within 10 days (routine) Iron deficiency anemia, unspecified Ordered: 08/05/2023 Health [...] this encounter Medical Devices Implanted Type Area [employer] Sergeant Device Identifier Shelf Expiration Date Model / Serial / Lot Clip Quick 2.8mm 230cm - [id number] Implanted:Qty: 1 on 07/25/2020 by Kalpesh Mcdaniels MD at ENDOSCOPY [facility] [employer] 06/25/2022 [id number] documented as of this encounter Visit Diagnoses Diagnosis Iron deficiency anemia, unspecified- Primary documented in this encounter Care Teams Process Validation Engineer Relationship Specialty Start Date End Date Bhavin Lopez MD PCP - General Internal Medicine 07/13/14 documented as of this encounter
--- OUTSIDE RECORDS SUMMARY | 2023-09-01 03:27 | External Medical Summary | Summary of Care ---
Author Name Unknown Organization [facility] Address [address] [place] [address] Phone [phone] Care Team Providers Care Mitochondrial Disorders Counselor Name Role Phone Bhavin Lopez MD Primary Care Provider Reason for Referral * Evaluate & Treat - Unlimited Visits (Within 10 days (routine)) - Pending Review Specialty Diagnoses / Procedures Referred By Michael t Referred To Contact Hematology/Oncology / Hematology Oncology Diagnoses Iron deficiency anemia, unspecified Prem Byrd DO [address] [place] [address] Referral ID Status Reason Start Date Expiration Date Visits Requested Visits Authorized [id number] Pending Review Specialty Services Required 08/05/[phone] Question Answer Referral Priority Within 10 days (routine) Where should this appointment be scheduled? [facility] Reason for Referral Anemia Comments Notes posted. Encounter Details Date Type Department Care Team (Late st Contact Info) Description 08/05/2023 Orders Only Access [address] Ext *DO NOT REMOVE THIS DEPARTMENT* [...] this encounter Medical Devices Implanted Type Area Dough Cutter Device Identifier Shelf Expiration Date Model / Serial / Lot Clip Quick 2.8mm 230cm - [id number] Implanted:Qty: 1 on 07/25/2020 by Kalpesh Mcdaniels MD at [facility] [employer] 06/25/2022 [id number] documented as of this encounter Visit Diagnoses Diagnosis Iron deficiency anemia, unspecified- Primary documented in this encounter Care Teams Mitochondrial Disorders Counselor Relationship Specialty Start Date End Date Bhavin Lopez MD PCP - General Internal Medicine 07/13/14 documented as of this encounter
[2023-09-01 07:59] LABS: Hematocrit (blood only) 35.8 % (42.0-52.0); Hemoglobin 11.8 g/dl (14.0-18.0); Mean Corpuscular Hemoglobin 28.6 pg (25.0-34.0); Mean Corpuscular Volume 86.9 fL (80.0-100.0); Mean Platelet Volume 10.3 fL (9.4-12.4); Platelet Count 206 K/uL (130-400); RDW Coefficient of Variation 13.1 % (11.5-14.5); RDW Standard Deviation 41.1 fL (36.4-46.3); Red Blood Count 4.12 M/uL (4.70-6.10); White Blood Count 27.42 K/ul (4.8-10.8)
[2023-09-01 08:19] LABS: BUN Creatinine Ratio 20.8 (10-20); Calcium 8.5 mg/dl (8.6-10.3); Creatinine Clr Calc Pharmacy 47.6 ml/min; Est GFR (African American) 53.5 ml/min; Est GFR (Non-African American) 46.2 ml/min; Potassium 4.4 mmol/L (3.5-5.1)
[2023-09-01] MEDS: CETIRIZINE HCL 10 MG TABLET PO SCH (08:30)
[2023-09-01] MEDS: FINASTERIDE 5 MG TAB PO SCH (08:31)
[2023-09-01] MEDS: FLUTICASONE/VILANTEROL 100/25MCG 14 PUFFS/INHALER INH SCH (08:32)
[2023-09-01] MEDS: SPIRONOLACTONE 12.5 MG TAB PO SCH (08:33)
[2023-09-01] MEDS: predniSONE 50 MG TAB PO SCH (08:34)
--- NOTE | 2023-09-01 11:15 | Discharge Summary ---
Date of Service September 01, 2023 Admission HPI Per Admitting Provider Patient is a 78-year-old male with history of COPD, asthma, hypertension, iron deficiency anemia, BPH, GERD, atrial fibrillation on Eliquis, CKD stage III, and prediabetes who presents to the hospital with shortness of breath and hypoxia. The shortness of breath started last night and worsened throughout the day. Patient also states that he has been feeling feverish and had a temperature of 101. He also states that he has had a cough. Patient has been using his as needed inhalers which did not really help. He is on a CPAP at home denies any chest pain, abdominal pain, nausea or vomiting. He also denies any headache or no extremity edema. Patient did receive a iron infusion at [facility] on Friday. In the ED: Received doxycycline, DuoNeb, and Solu-Medrol. He was put on nasal cannula and his hypoxia improved. Patient does not require any oxygen at home. BMP was negative. X-ray and CT consistent with right middle and lower lobe infiltrates. No pulmonary embolism. CBC showed a white count of 20. CMP grossly benign, did show a creatinine of 1.53, which is around his baseline. UA benign. Principal Diagnosis Community-acquired multi lobar pneumonia Discharge Exam General: A&Ox3. NAD. Cooperative. HEENT: Atraumatic, normocephalic. Pulm: Diminished but grossly clear. Symmetrical chest rise. No increased work of breathing. No respiratory distress. On RA. Cardiac: RRR, -mrg. Radial pulses intact and symmetrical. Abdominal: Nontender, nondistended, soft. BS present. Discharge Data Allergies Allergy/AdvReac Type Severity Reaction Status Date / Time amoxicillin Allergy Intermediate RASH Verified 07/30/23 15:24 clavulanic acid Allergy Intermediate RASH Verified 07/30/23 15:24 moxifloxacin Allergy Unknown hives, Verified 07/30/23 15:24 TOLERATES LEVAQUIN Sulfa (Sulfonamide Allergy Unknown . Verified 07/30/23 15:24 Antibiotics) Consultations 08/30/23 21:35 ED Decision to Admit Stat Ordered Studies 08/30/23 20:58 CT angio chest PE protocol Stat Hospital Course (1) Pneumonia: To do as outpatient: Completed a course of cefdinir/doxycycline. Doxycycline adjunct therapy was given due to multifocal pneumonia and to add atypical coverage Complete 3 additional days of prednisone 40 mg to complete a short steroid burst. Patient was clinically improved and not wheezing at time of discharge. Routine follow-up with PCP Michael was admitted for community-acquired pneumonia requiring antibiotics and steroids. CTA showed no evidence of PE, did show dependent consolidations of the lower lobes and right middle lobe concerning for multilobar pneumonia. He had a leukocytosis. This up trended in the setting of 4 times daily steroid use, but patient clinically progressed and improved. He was treated with cefdinir/azithromycin initially, and narrowed to Rocephin/doxycycline. He was initially requiring supplemental oxygen, following cefdinir/doxycycline treatment and IV steroids he clinically improved and was weaned back to room air. He was discharged to complete a course of antibiotics with 6 additional days of cefdinir twice daily, and 4 more days of doxycycline. Patient was on 4 times daily steroids at time of admission, these were weaned to daily the next day and he was not wheezing on exam. Patient was discharged with 3 additional days of prednisone 40 mg to complete a short burst not requiring taper. Michael felt well and had no additional questions or concerns at time of bedside and was comfortable with discharge home. (2) COPD exacerbation: Home inhalers were continued, improved. Suspect due to pneumonia (3) Atrial fibrillation: -Continue Eliquis 5 mg twice daily. (4) BPH (benign prostatic hyperplasia): -Continue tamsulosin. (5) GERD (gastroesophageal reflux disease): -Continue home medications. (6) CKD (chronic kidney disease), stage III: Renal function remained at baseline during admission (7) Iron deficiency anemia: -Received iron infusion on Friday. -Will hold off on any further iron treatments as inpatient (8) DYLAN on CPAP: -Continue CPAP at night. (9) Hyperlipidemia: -Continue home medications. (10) Hypertension: -Continue home medications. Total Time Total Time Spent Total Time Spent (In Minutes): Time spend day of discharge 40 minutes including direct patient care, documentation, review of labs and images, and coordination of care. Discharge Plan Discharge Items Patient Disposition: Home - Self-Care Reason For Visit: PNEUMONIA Discharge Diagnosis: PNA Activity: Resume your previous activity Non-emergency contact: Primary Care Provider Call non-emergency contact if: you have any medication questions Follow-up/Referrals: Prem Byrd DO [Primary Care Provider] - 05/13/24 11:30 am Diet: Regular Addtl Attending Provider Instructions: You were seen in the hospital for community-acquired pneumonia. Initially required oxygen and antibiotics, you were slowly weaned off of oxygen and were breathing well on room air at time of discharge. You have been prescribed a course of antibiotics. Please take cefdinir 300 mg by mouth twice daily for 6 more days to complete 1 week of treatment, and doxycycline 100 mg by mouth twice daily for 4 more days to complete a course of treatment. Please take these antibiotics with food. Doxycycline may make your skin unusually sensitive to the sun, and a normal sunburn can be much worse. Please avoid prolonged direct contact to sunlight while on doxycycline. This pill can also cause irritation to the throat or stomach if the pill gets stuck, please make sure to take doxycycline with a full glass of water. You improved on IV steroids. You are initially treated with IV steroids 4 times a day, these were decreased to oral prednisone once daily. Please take prednisone 40 mg by mouth once daily for 3 additional days, then you may stop taking prednisone You should be seen by your primary care doctor for reevaluation within approxi mately 1 week.Your baseline kidney numbers appear to be between approximately 1.451.8 over the last few years, your kidney function was 1.66 within your normal baseline prior to discharge If you develop any new or worsening symptoms including fever, chills, sweats, chest pain, chest pressure, difficulty breathing, uncontrolled nausea/vomiting, rash, wheezing, passing out or nearly passing out, bleeding, black/bloody bowel movements, or other new or concerning symptoms please call your primary care physician, or call 911 for re-evaluation in the emergency department if you are very concerned. Pending Studies at Discharge: No Stand-Alone Forms: [facility], Sm[facility] Cessation Medications and DC Order Prescriptions: New cefdinir 300 mg capsule 300 mg PO BID 6 Days Qty: 12 0RF doxycycline hyclate 100 mg capsule 100 mg PO BID 4 Days Qty: 8 0RF prednisone 20 mg tablet 40 mg PO DAILY 3 Days Qty: 6 0RF Continued (DME) CPAP Supplies Misc See Rx Instructions .ROUTE .MEDSUPPLY Qty: 1 0RF Rx Instructions: CPAP SUPPLIES: FULL FACE MASK/NASAL MASK, REPLACEMENT CUSHION, DISPOSABLE/NON-DISPOSABLE FILTERS, TUBING, HEADGEAR, WATER CHAMBER; DX: G47.33; LENGTH OF NEED: 99YEARS tadalafil 5 mg tablet 5 mg PO QAM Multaq 400 mg tablet 400 mg PO [facility] Rx Instructions: must administer with a meal/food roflumilast [Daliresp] 500 mcg tablet 500 mcg PO QAM Tums 300 mg (750 mg) Tablet,Chewable 300 mg PO BID PRN (Reason: Heartburn) Entresto 24-26 mg tablet 1 tab PO [facility] Rx Instructions: take with food tiotropium bromide [Spiriva with HandiHaler] 18 mcg capsule, w/inhalation device 1 cap inhalation QAM atorvastatin 20 mg tablet 20 mg PO HS ipratropium-albuterol 0.5 mg-3 mg(2.5 mg base)/3 mL solution for nebulization 3 ml inhalation QID PRN (Reason: Shortness Of Breath Or Wheezing) Eliquis 5 mg tablet 5 mg PO [facility] Rx Instructions: take with food tamsulosin 0.4 mg capsule 0.4 mg PO HS cetirizine 10 mg Tablet 10 mg PO QAM spironolactone 25 mg Tablet 12.5 mg PO QAM finasteride 5 mg tablet 5 mg PO QAM fluticasone propion-salmeterol [Wixela Inhub] 250-50 mcg/dose blister with device 1 inh INHALATION [facility] Discharge Orders: Discharge Order (Routine); Ordered 09/01/23 Ordered By: Bhavin Barcenas/Other Patient Handouts: Chest and Lung Problems, Asthma and COPD Admission Data Admit Date/Time: 08/30/23 22:20 Attending Provider: Bhavin Bell Admit Provider: Washington Fernandez Primary Care Provider: Prem Byrd Other Providers: Geovany Resendiz Other Interventions: Discharge Summary Assessment (RN) Last Done: 09/01/23 10:24 Coding Level of Care Code 61640 INP/OBS DISCH >30 MIN Diagnoses Pneumonia J18.9 COPD exacerbation J44.1 Atrial fibrillation I48.91 BPH (benign prostatic hyperplasia) N40.0 GERD (gastroesophageal reflux disease) K21.9 CKD (chronic kidney disease), stage III N18.30 Iron deficiency anemia D50.9 DYLAN on CPAP G47.33; Z99.89 Hyperlipidemia E78.5 Hypertension I10
== END 2023-09-01 10:52 | disposition home or self-care (01) | DRG 194 ==
LOC: ED 19:09 → SUATTDRO 22:20 → 2S 22:20

== ENCOUNTER 2024-01-09 05:49 | Observation (INO) ==
[2024-01-09] MEDS: ALBUT/IPRATROP 3MG/0.5MG NEB 3 ML VIAL NEB STA ×2 (06:24→08:40)
--- NOTE | 2024-01-09 06:31 | Emergency Department Note ---
Impression & Plan Acute hypoxemic respiratory failure, COVID-19, COPD exacerbation ED Provider Note NAME: OSKAR ASENCIO AGE: 78 SEX: M : 1945 ARRIVES VIA: Walk-In INFORMANT: Patient, ED PROVIDER(S): Cesar Krishnamurthy MD CHIEF COMPLAINT: Shortness of breath MEDICAL DECISION MAKING: Patient presented due to concern for shortness of breath. IV was established and blood work was obtained. The patient has a normal white count hemoglobin 11.9 with a normal platelet count. Patient's kidney function is unremarkable. VBG pCO2 of 36 with a normal VBG pH is 7.4. Creatinine 1.71. This is around the patient's baseline. LFTs unremarkable with negative troponin. BioFire is positive for COVID-19. The patient is requiring supplemental oxygen and did already receive IV methylprednisolone. I did convey the findings to the patient. Chest x-ray does not show evidence of consolidative pneumonia. I did speak the on-call hospitalist service and Dr. Read our and the patient was admitted to the medicine service. Critical Care: I have personally spent 37 minutes of critical care time in direct management of this patient. This includes bedside care, interpretation of diagnostic studies, and testing, discussion with consultants, patient, and family members, and other require inpatient management activities. This 37 minutes is in excess of all separately billable procedures. Discussion w/ other healthcare providers: Dr. Read our inpatient medicine service Prior /Outside records reviewed: I reviewed part of her primary care visit from September 29, [address] ZUNIGA. Patient was seen for COPD exacerbation at that time. Patient was placed on Doxy and prednisone. Patient with a known history of A-fib chronic anticoagulation CKD GERD BPH hypertension hyperlipidemia. Differential diagnosis: Reactive airway disease, pneumonia, pneumothorax, COPD, CHF, ACS, pulmonary embolism, musculoskeletal, GERD as well as other pathologies were considered. Diagnostics, as interpreted by me: ECG: Sinus with first-degree AV block, rate of 76, prolonged [place], wide QRS right bundle branch block pattern. No obvious ST elevations.EKG looks grossly unchanged from comparison completed August 30, 2023 Cardiac monitoring: An order was placed for continuous cardiac monitoring. The monitor shows a rate of 77 with sinus rhythm. Patient was placed on pulse oximetry Medical decision rules: None Imaging studies: I informally interpreted the patient's Chest x-ray shows chronic changes grossly unchanged from prior chest x-ray from August 30, 2023 with formal report to follow. HPI: Patient presents due to concern for worsening shortness of breath and reportedly woke up very short of breath this morning. Patient is accompanied by his . The patient has been having expectorating clear sputum. Known history of COPD last smoking about 40 years ago. Patient's believes that he was last on steroids several weeks ago. Patient denies any chest pains. Patient currently does not feel short of breath but did receive a breathing treatment prior to my evaluation. Patient did have a COVID 19 vaccination completed yesterday. The patient was also concerned that he might have residual symptoms from an iron infusion. The patient states that he had one about 5 weeks ago and is still having symptoms. Patient denies any leg swelling or calf pain. Patient is compliant with his medications. The patient did noticed have a fever of 100.5 at home did not take anything for fever. Patient denies any orthopnea. Patient may have some mild PATTON. PAST MEDICAL HISTORY: See Below PAST SURGICAL HISTORY: See Below SOCIAL HISTORY: See Below HOME MEDICATIONS: See Below ALLERGIES: See Below VITALS: See Below PHYSICAL EXAMINATION: GENERAL: NAD, non-toxic. Nasal cannula in place. EYE EXAM: Normal conjunctiva. PERRL, no anisocoria and EOM's grossly intact w/o pain. OROPHARYNX: Moist mucus membranes, grossly normal dentition. NECK: Trachea midline, no stridor. LUNGS: Adventitious breath sounds the right chest no obvious wheezing. Normal chest wall mechanics. HEART: NSR, no MRG. ABDOMEN: Abdomen soft, non-tender, no masses, no rebound or guarding. BACK: No CVA TTP. SKIN: No rashes and no bruising. UPPER EXTREMITIES: Upper extremities are grossly normal. LOWER EXTREMITIES: Grossly normal, no edema. NEURO EXAM: A&O x3, cranial nerves II-XII grossly intact, normal speech, moves all 4 extremities. Past Med/Surg History Problem List (Updated 01/09/24 @ 13:37 by Cesar Krishnamurthy MD) COPD exacerbation (Acute) COVID-19 (Acute) Acute hypoxemic respiratory failure (Acute) COPD exacerbation (Acute) Pneumonia (Acute) Leukocytosis (Acute) Fever (Acute) Hypoxia (Acute) Bronchitis (Chronic) Bronchopneumonia (Chronic) Abnormal TSH (Chronic) Coronary artery calcification (Chronic) Chronic anticoagulation (Chronic) Atrial fibrillation (Chronic) Tubular adenoma Renal insufficiency Anemia Pruritus Lower urinary tract symptoms (LUTS) Urinary retention Epistaxis Cystic kidney disease Coronary artery calcification seen on CAT scan Encounter for pre-operative examination BPH (benign prostatic hyperplasia) (Chronic) GERD (gastroesophageal reflux disease) (Chronic) tums prn CKD (chronic kidney disease), stage III Iron deficiency anemia Chronic anticoagulation Paroxysmal atrial fibrillation no current issues Emphysema/COPD (Chronic) DYLAN on CPAP (Chronic) Asthma (Chronic) well controlled with inhalers. Hyperlipidemia (Chronic) Hypertension (Chronic) Medical History History of diverticulitis History of cardioversion successful in 2019. Colon polyps Atrial fibrillation with RVR Diabetes mellitus pt denies. Pneumonia x2. no recent issues Surgical History History of cataract surgery bilateral History of esophagogastroduodenoscopy (EGD) History of colonoscopy 07/25/20 - repeat 3 years in 2023 History of colon resection Family History Father Emphysema of lung Colon cancer Colorectal cancer Grandfather (Paternal) Colon cancer Colorectal cancer Mother Myocardial infarction Grandmother (Maternal) Myocardial infarction Other Cancer Family history non-contributory Heart disease Hypertension Denies family history of Ovarian cancer Prostate cancer Breast cancer Social History Smoking Status: Former smoker Tobacco Type: Cigarettes Age Started Using Tobacco: 20; Age Quit Using Tobacco: 42; packs per day: 1; Second Hand Exposure: No; Do You Dip or Chew Tobacco: No; Hx Alcohol Use: Yes Alcohol type: beer Alcohol Intake Frequency: 2-4 x/Month Hx Substance Use: No Preferred Language: Mongolian Communication Ability: Effective Visual Impairment: Limited Hearing Ability: Normal Head Pumper Required: No Beliefs That Will Affect Care: None marital status: Current Living Situation: Spouse current occupational status: employed How many Children do You have: 2 Other Information That Helps Us Care for You: No Feels Safe at Home: Yes Safety Concerns: Feels Safe At This Time Childhood Exposure to Second-Hand Smoke: Yes Diet: regular caffeine: Yes during the past year weight has: decreased > 10 lbs Dental Care, Regularly: Yes Physical Activity Frequency: 3-4 Times per Week Seatbelt Use: always Sunscreen Use: No Do you think of yourself as: straight/heterosexual Assistive Devices: CPAP Allergies Allergies Allergy/AdvReac Type Severity Reaction Status Date / Time amoxicillin Allergy Intermediate RASH Verified 09/29/23 13:57 clavulanic acid Allergy Intermediate RASH Verified 09/29/23 13:57 moxifloxacin Allergy Unknown hives, Verified 09/29/23 13:57 TOLERATES LEVAQUIN Sulfa (Sulfonamide Allergy Unknown . Verified 09/29/23 13:57 Antibiotics) Home Meds Home Medications Medication Instructions Recorded Confirmed dronedarone 400 mg tablet (Multaq) 400 mg PO [facility] 10/04/21 01/09/24 calcium carbonate (Tums) 300 mg PO BID PRN Heartburn 03/19/22 01/09/24 roflumilast 500 mcg tablet 500 mcg PO [facility] 10/08/22 01/09/24 (Daliresp) tadalafil 5 mg tablet 5 mg PO [facility] 01/13/23 01/09/24 apixaban 5 mg tablet (Eliquis) 5 mg PO [facility] 08/30/23 01/09/24 atorvastatin 20 mg tablet 20 mg PO 08/30/23 01/09/24 cetirizine 10 mg tablet 10 mg PO [facility] 08/30/23 01/09/24 finasteride 5 mg tablet 5 mg PO [facility] 08/30/23 01/09/24 fluticasone 250 mcg-salmeterol 50 1 inh inhalation [facility] 08/30/23 01/09/24 mcg/dose blistr powdr for inhalation (Wixela Inhub) ipratropium 0.5 mg-albuterol 3 mg 3 ml inhalation QID PRN Shortness 08/30/23 01/09/24 (2.5 mg base)/3 mL nebulization Of Breath Or Wheezing soln sacubitril 24 mg-valsartan 26 mg 1 tab PO [facility] 08/30/23 01/09/24 tablet (Entresto) spironolactone 25 mg tablet 12.5 mg PO [facility] 08/30/23 01/09/24 tamsulosin 0.4 mg capsule 0.4 mg PO 08/30/23 01/09/24 tiotropium bromide 18 mcg capsule 1 cap inhalation QAM 08/30/23 01/09/24 with inhalation device (Spiriva with HandiHaler) albuterol sulfate 90 mcg/actuation 2 puff inhalation QID PRN Wheezing 01/09/24 01/09/24 aerosol inhaler loratadine 10 mg tablet (Claritin) 10 mg PO PM 01/09/24 01/09/24 omeprazole 40 mg capsule,delayed 40 mg PO BID 01/09/24 01/09/24 release Previous Rx's Medication Instructions Recorded prednisone 20 mg tablet 20 mg PO DAILY PRN copd 09/29/23 exacerbation 5 days #10 tabs CPAP Machine #1 ea 12/08/23 CPAP Supplies #1 ea 12/08/23 Results & Data (ED) Vital Signs Vital Signs - 24 hr 01/09/24 05:55 01/09/24 06:08 01/09/24 06:30 Temperature 36.9 C Temperature Source Skin Pulse Rate 80 80 Pulse Rate [Apical] Respiratory Rate 18 Respiratory Effort / Characteristics Non-Labored Spontaneous Respiratory Depth Normal Respiratory Pattern Blood Pressure 132/61 Blood Pressure [Right Arm] Blood Pressure Mean 84 Blood Pressure Mean [Right Arm] Blood Pressure Position [Right Arm] Pulse Oximetry 88 L Oxygen Delivery Method Room Air Room Air Oxygen Flow Rate Sepsis Recent Fever Within 48 Hours Yes Sepsis New/Unexplained Change in Mental Status No Sepsis Action Taken by Nursing No Action Required Oxygen Flow Rate - Titration 97 01/09/24 06:30 01/09/24 06:30 01/09/24 06:45 Temperature 38.1 C H Temperature Source Oral Pulse Rate Pulse Rate [Apical] 70 Respiratory Rate 18 Respiratory Effort / Characteristics Non-Labored Spontaneous Respiratory Depth Normal Respiratory Pattern Regular Blood Pressure Blood Pressure [Right Arm] 135/62 Blood Pressure Mean Blood Pressure Mean [Right Arm] 86 Blood Pressure Position [Right Arm] Sitting Pulse Oximetry 97 97 88 L Oxygen Delivery Method Room Air Room Air Room Air Oxygen Flow Rate Sepsis Recent Fever Within 48 Hours Sepsis New/Unexplained Change in Mental Status Sepsis Action Taken by Nursing Oxygen Flow Rate - Titration 01/09/24 06:45 Temperature Temperature Source Pulse Rate Pulse Rate [Apical] Respiratory Rate Respiratory Effort / Characteristics Respiratory Depth Respiratory Pattern Blood Pressure Blood Pressure [Right Arm] Blood Pressure Mean Blood Pressure Mean [Right Arm] Blood Pressure Position [Right Arm] Pulse Oximetry 92 Oxygen Delivery Method Nasal Cannula Oxygen Flow Rate 2 Sepsis Recent Fever Within 48 Hours Sepsis New/Unexplained Change in Mental Status Sepsis Action Taken by Nursing Oxygen Flow Rate - Titration Home Medications Current Medication List: was personally reviewed by me Laboratory Data Attestation: I reviewed the patient's lab results. 01/09/24 06:25 01/09/24 06:25 Lab Results 01/09/24 01/09/24 Range/Units 06:25 07:29 WBC 8.99 (4.8-10.8) K/ul RBC 4.04 L (4.70-6.10) M/uL Hgb 11.9 L (14.0-18.0) g/dl Hct 36.4 L (42.0-52.0) % MCV 90.1 (80.0-100.0) fL MCH 29.5 (25.0-34.0) pg MCHC 32.7 (32.0-36.0) g/dL RDW Std Deviation 41.8 (36.4-46.3) fL RDW Coeff of Jmi 12.7 (11.5-14.5) % Plt Count 230 (130-400) K/uL MPV 9.6 (9.4-12.4) fL Immature Gran % (Auto) 0.3 % Neut % (Auto) 72.0 % Lymph % (Auto) 13.1 % [place] % (Auto) 10.5 % Eos % (Auto) 3.7 % Baso % (Auto) 0.4 % Neut # (Auto) 6.47 (1.40-6.50) K/uL Lymph # (Auto) 1.18 L (1.20-3.40) K/uL [place] # (Auto) 0.94 H (0.11-0.59) K/uL Eos # (Auto) 0.33 (0.00-0.50) K/uL Baso # (Auto) 0.04 (0.00-0.20) K/uL Immature Gran # (Auto) 0.03 (0.01-0.20) K/uL VBG pH 7.42 H (7.36-7.41) VBG pCO2 36 L (38-50) mmHg VBG pO2 65 mmHg VBG HCO3 23 mmol/L VBG O2 Saturation 94.6 % VBG Base Excess -0.8 mEq/L Sodium 136 (136-145) mmol/L Potassium 4.3 (3.5-5.1) mmol/L Chloride 103 (98-107) mmol/L Carbon Dioxide 26 (21-32) mmol/L Anion Gap 7 (3-11) BUN 22 (6-23) mg/dl Creatinine 1.71 H (0.6-1.4) mg/dl Est Cr Clr Drug Dosing 35.6 ml/min Est GFR ( Amer) 43.5 ml/min Est GFR (Non-Af Amer) 37.5 ml/min BUN/Creatinine Ratio 12.9 (10-20) Glucose 92 (70-99(Fasting)) mg/dl Lactate 0.8 (0.4-2.0) mmol/L Calcium 9.0 (8.6-10.3) mg/dl Magnesium 1.9 (1.7-2.4) mg/dl Total Bilirubin 0.6 (0.2-1.0) mg/dl Direct Bilirubin 0.2 (0-0.2) mg/dl AST 13 (13-39) U/L ALT 15 (7-52) U/L Alkaline Phosphatase 41 (34-104) U/L Troponin I High Sens 8.2 (0-20) pg/ml Total Protein 6.6 (6.0-8.3) gm/dl Albumin 4.1 (3.4-5.0) gm/dl Procalcitonin 0.07 (0-0.5) ng/ml Adenovirus (PCR) Not Detected (NotDetected) B. pertussis DNA (PCR) Not Detected (NotDetected) B.parapertussis DNA PCR Not Detected (NotDetected) C. pneumoniae DNA (PCR) Not Detected (NotDetected) Coronavirus OC43 (PCR) Not Detected (NotDetected) Coronavirus HKU1 (PCR) Not Detected (NotDetected) Coronavirus 229E (PCR) Not Detected (NotDetected) SARS-CoV-2 (PCR) DETECTED A (NotDetected) Coronavirus NL63 (PCR) Not Detected (NotDetected) Human Metapneumovir PCR Not Detected (NotDetected) Influenza Type A (PCR) Not Detected (NotDetected) Influenza Type B (PCR) Not Detected (NotDetected) M. pneumoniae (PCR) Not Detected (NotDetected) Parainfluenza 1 (PCR) Not Detected (NotDetected) Parainfluenza 2 (PCR) Not Detected (NotDetected) Parainfluenza 3 (PCR) Not Detected (NotDetected) Parainfluenza 4 (PCR) Not Detected (NotDetected) RSV (PCR) Not Detected (NotDetected) Entero/Rhino (PCR) Not Detected (NotDetected) Administered Medications Apixaban (Apixaban 5 Mg Tablet) 5 mg PO [facility] Stop: 02/08/24 10:40 Last Admin: 01/09/24 11:36 Dose: 5 mg Documented By: JOSE MANUEL Cetirizine HCl (Cetirizine Hcl 10 Mg Tablet) [address] [facility] Stop: 02/08/24 10:40 Last Admin: 01/09/24 11:08 Dose: 10 mg Documented By: JOSE MANUEL Doxycycline Hyclate (Doxycycline Hyclate 100 Mg Cap) 100 mg PO BID [facility] Stop: 01/16/24 10:59 Last Admin: 01/09/24 11:40 Dose: 100 mg Documented By: JOSE MANUEL Dronedarone (Dronedarone Hcl 400 Mg Tab) 400 mg PO BIDM [facility] Stop: 02/08/24 10:40 Last Admin: 01/09/24 11:37 Dose: 400 mg Documented By: JOSE MANUEL Finasteride (Finasteride 5 Mg Tab) [address] [facility] Stop: 02/08/24 10:40 Last Admin: 01/09/24 11:37 Dose: 5 mg Documented By: JOSE MANUEL Roflumilast (Roflumilast 500 Mcg Tab) [address] [facility] Stop: 02/08/24 10:40 Last Admin: 01/09/24 11:38 Dose: 500 mcg Documented By: JOSE MANUEL Sacubitril/Valsartan (Valsartan/Sacubitril 26/24mg Tab) 1 tab PO [facility] Stop: 02/08/24 10:40 Last Admin: 01/09/24 12:54 Dose: 1 tab Documented By: SUSIE Spironolactone (Spironolactone 12.5 Mg Tab) 12.[address] [facility] Stop: 02/08/24 10:40 Last Admin: 01/09/24 11:38 Dose: 12.5 mg Documented By: JOSE MANUEL Discontinued Medications Albuterol (Albut/Ipratrop 3mg/0.5mg Neb 3 Ml Vial) 3 ml NEB NOW STA; Protocol Stop: 01/09/24 06:04 Last Admin: 01/09/24 06:24 Dose: 3 ml Documented By: BRIAN Albuterol (Albut/Ipratrop 3mg/0.5mg Neb 3 Ml Vial) 3 ml NEB NOW STA; Protocol Stop: 01/09/24 08:20 Last Admin: 01/09/24 08:40 Dose: 3 ml Documented By: Acetaminophen (Ofirmev) 1,000 mg in 100 mls @ 400 mls/hr IV NOW STA Stop: 01/09/24 06:57 Last Infusion: 01/09/24 08:39 Dose: Infused Documented By: Admin: 01/09/24 06:49 Dose: 400 mls/hr Documented By: BRIAN Methylprednisolone (Methylprednisolone 125 Mg/2 Ml Vial) 125 mg IV NOW STA Stop: 01/09/24 06:44 Last Admin: 01/09/24 06:48 Dose: 125 mg Documented By: BRIAN Imaging Data Radiologist's Impression: Chest X-Ray 01/09/24 06:00 XR chest 1V portable CLINICAL HISTORY: Sepsis TECHNIQUE: Single frontal radiograph of the chest was obtained. Comparison: Comparison is made to chest radiograph of 08/30/2023 FINDINGS: No lines and tubes are seen. Cardiomegaly is noted. The aortic arch is calcified. The lungs are clear. No evidence of pleural effusion or pneumothorax. IMPRESSION: No acute abnormalities and in particular no radiographic evidence of pneumonia. ACT 112: Negative or not required by law. Electronically signed by: Hector Tracy M.D. 01/09/2024 8:02 AM Discharge Plan Visit Data Chief Complaint: Respiratory Problems Stated Complaint: HARD TO BREATHE,ASTHMA,COUGH ED Provider: Cesar Krishnamurthy Discharge Problem: Acute hypoxemic respiratory failure, COVID-19, COPD exacerbation Discharge Instructions Interventions: ED Discharge Assessment Last Done: 01/09/24 10:40
[2024-01-09 06:45] LABS: Basophils # (auto) 0.04 K/uL (0.00-0.20); Basophils % (auto) 0.4 %; Eosinophils # (auto) 0.33 K/uL (0.00-0.50); Eosinophils % (auto) 3.7 %; Hematocrit (blood only) 36.4 % (42.0-52.0); Hemoglobin 11.9 g/dl (14.0-18.0); Immature Granulocytes # (auto) 0.03 K/uL (0.01-0.20); Immature Granulocytes % (auto) 0.3 %; Lymphocytes # (auto) 1.18 K/uL (1.20-3.40); Lymphocytes % (auto) 13.1 %; Mean Corpuscular Hemoglobin 29.5 pg (25.0-34.0); Mean Corpuscular Hgb Conc 32.7 g/dL (32.0-36.0); Mean Corpuscular Volume 90.1 fL (80.0-100.0); Mean Platelet Volume 9.6 fL (9.4-12.4); Monocytes # (auto) 0.94 K/uL (0.11-0.59); Monocytes % (auto) 10.5 %; Neutrophils # (auto) 6.47 K/uL (1.40-6.50); Platelet Count 230 K/uL (130-400); RDW Coefficient of Variation 12.7 % (11.5-14.5); RDW Standard Deviation 41.8 fL (36.4-46.3); Red Blood Count 4.04 M/uL (4.70-6.10); White Blood Count 8.99 K/ul (4.8-10.8)
[2024-01-09] MEDS: methylPREDNISolone 125 MG/2 ML VIAL IV STA (06:48)
[2024-01-09] MEDS: ACETAMINOPHEN 1,000 MG/100 ML VIAL IV STA (06:49)
[2024-01-09 07:02] LABS: Albumin Level 4.1 gm/dl (3.4-5.0); BUN Creatinine Ratio 12.9 (10-20); Bilirubin Direct 0.2 mg/dl (0-0.2); Bilirubin,Total 0.6 mg/dl (0.2-1.0); Creatinine Clr Calc Pharmacy 35.6 ml/min; Est GFR (African American) 43.5 ml/min; Est GFR (Non-African American) 37.5 ml/min; Magnesium 1.9 mg/dl (1.7-2.4); Potassium 4.3 mmol/L (3.5-5.1); Total Protein 6.6 gm/dl (6.0-8.3)
[2024-01-09 07:07] LABS: Troponin I High Sensitivity 8.2 pg/ml (0-20)
[2024-01-09 07:41] LABS: Base Excess VBG -0.8 mEq/L; HCO3 VBG 23 mmol/L; Oxygen Saturation VBG 94.6 %; PCO2 VBG 36 mmHg (38-50); PO2 VBG 65 mmHg; pH VBG 7.42 (7.36-7.41)
[2024-01-09 07:45] LABS: Adenovirus PCR Not Detected (NotDetected); Bordetella parapertussis PCR Not Detected (NotDetected); Bordetella pertussis PCR Not Detected (NotDetected); Chlamydia pneumoniae PCR Not Detected (NotDetected); Coronavirus 229E PCR Not Detected (NotDetected); Coronavirus CoV-2 (COVID19)PCR DETECTED (NotDetected); Coronavirus HKU1 PCR Not Detected (NotDetected); Coronavirus NL63 PCR Not Detected (NotDetected); Coronavirus OC43PCR Not Detected (NotDetected); Human Metapneumovirus PCR Not Detected (NotDetected); Influenza A PCR Not Detected (NotDetected); Influenza B PCR Not Detected (NotDetected); Mycoplasma pneumoniae PCR Not Detected (NotDetected); Parainfluenza Virus 1 PCR Not Detected (NotDetected); Parainfluenza Virus 2 PCR Not Detected (NotDetected); Parainfluenza Virus 3 PCR Not Detected (NotDetected); Parainfluenza Virus 4 PCR Not Detected (NotDetected); Respiratory Syncytial VirusPCR Not Detected (NotDetected); Rhinovirus/Enterovirus PCR Not Detected (NotDetected)
--- NOTE | 2024-01-09 08:03 | XRay Report ---
XR chest 1V portable CLINICAL HISTORY: Sepsis TECHNIQUE: Single frontal radiograph of the chest was obtained. Comparison: Comparison is made to chest radiograph of 08/30/2023 FINDINGS: No lines and tubes are seen. Cardiomegaly is noted. The aortic arch is calcified. The lungs are clear . No evidence of pleural effusion or pneumothorax. IMPRESSION: No acute abnormalities and in particular no radiographic evidence of pneumonia. ACT 112: Negative or not required by law. Electronically signed by: Hector Tracy M.D. 01/09/2024 8:02 AM
[2024-01-09] MEDS ORDERED: ONDANSETRON INJ 2 MG/ML 2 ML VIAL IV PRN (10:41)
[2024-01-09] MEDS ORDERED: POLYETHYLENE (MIRALAX) 17 GM PACK PO PRN (10:41)
[2024-01-09] MEDS ORDERED: MELATONIN 3 MG TAB PO PRN (10:41)
[2024-01-09] MEDS ORDERED: ALBUT/IPRATROP 3MG/0.5MG NEB 3 ML VIAL INH PRN (10:41)
[2024-01-09] MEDS ORDERED: ACETAMINOPHEN 325 MG TAB PO PRN (10:41)
[2024-01-09] MEDS ORDERED: MAGNESIUM HYDROXIDE SUSP 30 ML UDC PO PRN (10:41)
[2024-01-09] MEDS ORDERED: ALUMINUM/MAGNESIUM SUSP 30 ML UDC PO PRN (10:41)
[2024-01-09] MEDS ORDERED: CALCIUM CARBONATE 500 MG CHEWABLE TAB PO PRN (10:45)
[2024-01-09] MEDS: CETIRIZINE HCL 10 MG TABLET PO SCH (11:08)
[2024-01-09 11:10] VITALS: TEMP 98.2
[2024-01-09] MEDS: APIXABAN 5 MG TABLET PO SCH (11:36)
[2024-01-09] MEDS: FINASTERIDE 5 MG TAB PO SCH (11:37)
[2024-01-09] MEDS: DRONEDARONE HCL 400 MG TAB PO SCH (11:37)
[2024-01-09] MEDS: ROFLUMILAST 500 MCG TAB PO SCH (11:38)
[2024-01-09] MEDS: SPIRONOLACTONE 12.5 MG TAB PO SCH (11:38)
[2024-01-09] MEDS: DOXYCYCLINE HYCLATE 100 MG CAP PO SCH (11:40)
[2024-01-09 12:01] VITALS: BP 133/69; PULSE 64; RESP 20; O2SAT 95
[2024-01-09] MEDS: VALSARTAN/SACUBITRIL 26/24MG TAB PO SCH (12:54)
--- NOTE | 2024-01-09 13:56 | Electrocardiogram Report ---
Test Reason : Blood Pressure : */* mmHG Vent. Rate : 76 BPM Atrial Rate : 76 BPM P-R Int : 226 ms QRS Dur : 160 ms QT Int : 426 ms P-R-T Axes : 75 58 19 degrees QTcB Int : 479 ms Sinus rhythm with 1st degree A-V block Right bundle branch block Abnormal ECG When compared with ECG of 30-Aug-2023 19:17, Right bundle branch block is now Present Confirmed by Dale Stewart ([id number]) on 01/09/2024 1:55:33 PM Referred By: Confirmed By: Dale Stewart
--- NOTE | 2024-01-09 14:08 | History & Physical Report ---
Date of Service January 09, 2024 Assessment & Plan (1) COPD exacerbation: (2) COVID-19: (3) Iron deficiency anemia: Plan Michael is a 78-year-old male with a past medical history of COPD with exacerbations, pneumonia, DYLAN, anemia, and afib who was admitted to the ED this morning for chief concern of shortness of breath, fever, and cough. #Shortness of breath -Admitted for SOB with past history of COPD exacerbations -VBG pCO2 36,VBG pH 7.4 -LFTs unremarkable with negative troponin. -Patient received supplemental oxygen and IV methylprednisolone. -Patient was 90 O2 sat on room air on 01/08 afternoon. 90 is typically patient's baseline -Prescribed dexamethasone 5-day taper. Continue using nebulizer as needed #Chronic cough -Chronic cough for 5 weeks without resolution -Chest x-ray does not show evidence of consolidative pneumonia. #COVID -No recent known contacts. Received the COVID vaccine yesterday -[employer] positive for COVID-19 on 01/08 #CKD - baseline creatinine 1.4-1.9 as per last nephrology note 09/2023 - Creatinine 1.71 on admission #Anemia -Endoscopy and colonosopy last Friday, diagnosed with esophagitis. -RBC 4.04, Hgb 11.9 on admission Admission and Anticipated Discharge Date Admission Date: 01/09/24 Anticipated date of discharge: 01/09/24 History of Present Illness Chief Complaint: COPD exacerbation with active COVID-19 infection Primary Care Provider: Prem Byrd DO 78 year old male with a history of COPD, AFIB, anemia, came to the ED after experiencing SOB this morning. Pt has a fever since yesterday (100.5 F measured at home) and a 5 week worsening persistent cough. His chest feels constantly congested. Cough is dry with an occasional clear/colon sputum. Experiences some dizziness when coughing. No hemopysis, chest pain or tightness, no palpitations. Has generalized weakness and fatigue. No chills, night sweats, or unintentional weight loss. Denies nausea/vomiting/constipation/melena/ or diarrhea. No changes in urinary habits, no hematuria, no pain during urination. Patient is accompanied by his , Francisca SOB: Pt woke up this morning with SOB. Has had COPD exacerbations in the past, but has never felt this poorly. Symptoms improved after nebulizer treatment in the ED. CRYSTAL Received the COVID vaccine yesterday and is currently covid positive as of today. Never had constitutional reaction to previous COVID vaccines. No sick contacts. Chronic Bronchitis/Cough: He noted the cough had started shortly after his last iron infusion 5 weeks ago. Was treated with prednisone and doxyciline which gave some relief to the cough, but not complete. Pt noted that he felt poorly after another iron infusion in July, and was diagnosed with pneumonia/COPD exacerbation shortly after. Anemia: Endoscopy and colonosopy last Friday, diagnosed with esophagitis. - Dr. Mcbride at [facility]. Slight sore throat since procedure. Afib: Has not been in AFIB in [address] Med[place]in. Allergies Allergy/AdvReac Type Severity Reaction Status Date / Time amoxicillin Allergy Intermediate RASH Verified 09/29/23 13:57 clavulanic acid Allergy Intermediate RASH Verified 09/29/23 13:57 moxifloxacin Allergy Unknown hives, Verified 09/29/23 13:57 TOLERATES LEVAQUIN Sulfa (Sulfonamide Allergy Unknown . Verified 09/29/23 13:57 Antibiotics) Home Medications Medication Instructions Recorded Confirmed Type dronedarone 400 mg tablet (Multaq) 400 mg PO AMHS 10/04/21 01/09/24 History calcium carbonate (Tums) 300 mg PO BID PRN Heartburn 03/19/22 01/09/24 History roflumilast 500 mcg tablet 500 mcg PO QAM 10/08/22 01/09/24 History (Daliresp) tadalafil 5 mg tablet 5 mg PO QAM 01/13/23 01/09/24 History apixaban 5 mg tablet (Eliquis) 5 mg PO AMHS 08/30/23 01/09/24 History atorvastatin 20 mg tablet 20 mg PO HS 08/30/23 01/09/24 History cetirizine 10 mg tablet 10 mg PO QAM 08/30/23 01/09/24 History finasteride 5 mg tablet 5 mg PO QAM 08/30/23 01/09/24 History fluticasone 250 mcg-salmeterol 50 1 inh inhalation AMHS 08/30/23 01/09/24 History mcg/dose blistr powdr for inhalation (Wixela Inhub) sacubitril 24 mg-valsartan 26 mg 1 tab PO AMHS 08/30/23 01/09/24 History tablet (Entresto) spironolactone 25 mg tablet 12.5 mg PO QAM 08/30/23 01/09/24 History tamsulosin 0.4 mg capsule 0.4 mg PO HS 08/30/23 01/09/24 History tiotropium bromide 18 mcg capsule 1 cap inhalation QAM 08/30/23 01/09/24 History with inhalation device (Spiriva with HandiHaler) CPAP Machine #1 ea 12/08/23 Rx CPAP Supplies #1 ea 12/08/23 Rx albuterol sulfate 90 mcg/actuation 2 puff inhalation QID PRN Wheezing 01/09/24 Rx aerosol inhaler #1 inhaler dexamethasone 2 mg tablet 2 mg PO DAILY #20 tabs 01/09/24 Rx doxycycline hyclate 100 mg capsule 100 mg PO BID #14 caps 01/09/24 Rx ipratropium 0.5 mg-albuterol 3 mg 3 ml inhalation QID PRN Shortness 01/09/24 01/09/24 Rx (2.5 mg base)/3 mL nebulization Of Breath Or Wheezing #120 amps soln loratadine 10 mg tablet (Claritin) 10 mg PO PM 01/09/24 01/09/24 History omeprazole 40 mg capsule,delayed 40 mg PO BID 01/09/24 01/09/24 History release Past Med/Surg History Problem List (Updated 01/10/24 @ 23:24 by Chelle Anderson) CKD (chronic kidney disease) (Acute) COPD exacerbation (Acute) COVID-19 (Acute) Acute hypoxemic respiratory failure (Acute) COPD exacerbation (Acute) Pneumonia (Acute) Leukocytosis (Acute) Fever (Acute) Hypoxia (Acute) Bronchitis (Chronic) Bronchopneumonia (Chronic) Abnormal TSH (Chronic) Coronary artery calcification (Chronic) Chronic anticoagulation (Chronic) Atrial fibrillation (Chronic) Tubular adenoma Renal insufficiency Anemia Pruritus Lower urinary tract symptoms (LUTS) Urinary retention Epistaxis Cystic kidney disease Coronary artery calcification seen on CAT scan Encounter for pre-operative examination BPH (benign prostatic hyperplasia) (Chronic) GERD (gastroesophageal reflux disease) (Chronic) tums prn CKD (chronic kidney disease), stage III Iron deficiency anemia Chronic anticoagulation Paroxysmal atrial fibrillation no current issues Emphysema/COPD (Chronic) DYLAN on CPAP (Chronic) Asthma (Chronic) well controlled with inhalers. Hyperlipidemia (Chronic) Hypertension (Chronic) Medical History History of diverticulitis History of cardioversion successful in 2019. Colon polyps Atrial fibrillation with RVR Diabetes mellitus pt denies. Pneumonia x2. no recent issues Surgical History History of cataract surgery bilateral History of esophagogastroduodenoscopy (EGD) History of colonoscopy 07/25/20 - repeat 3 years in 2023 History of colon resection Family History Father Emphysema of lung Colon cancer Colorectal cancer Grandfather (Paternal) Colon cancer Colorectal cancer Mother Myocardial infarction Grandmother (Maternal) Myocardial infarction Other Cancer Family history non-contributory Heart disease Hypertension Denies family history of Ovarian cancer Prostate cancer Breast cancer Social History Smoking Status: Former smoker Tobacco Type: Cigarettes Age Started Using Tobacco: 20; Age Quit Using Tobacco: 42; packs per day: 1; Second Hand Exposure: No; Do You Dip or Chew Tobacco: No; Hx Alcohol Use: Yes Alcohol type: beer Alcohol Intake Frequency: 2-4 x/Month Hx Substance Use: No Preferred Language: Bengali Communication Ability: Effective Visual Impairment: Limited Hearing Ability: Normal [employer] Required: No Beliefs That Will Affect Care: None marital status: Current Living Situation: Spouse current occupational status: employed How many Children do You have: 2 Other Information That Helps Us Care for You: No Feels Safe at Home: Yes Safety Concerns: Feels Safe At This Time Childhood Exposure to Second-Hand Smoke: Yes Diet: regular caffeine: Yes during the past year weight has: decreased > 10 lbs Dental Care, Regularly: Yes Physical Activity Frequency: 3-4 Times per Week Seatbelt Use: always Sunscreen Use: No Do you think of yourself as: straight/heterosexual Assistive Devices: CPAP Review of Systems Review of Systems: Constitutional: +fever, + weakness, no chills, night sweats, or weight loss HEENT: slight headache, no changes in vision, double vision changes in hearing, rhinorrhea, Resp: as per HPI Cardio: no chest pain/tightness, no palpitations, no sychope/presyncope GI: no abdominal pain, no diarrhea, no constipation, no nasseau, vommitting, no meleana : no hematuria, no pain when urinating Physical Exam Constitutional: WD/WN, vitals as above Eyes: PERRLA, EOM ENMT: external ear and nose normal, oropharynx normal Neck: trachea midline, no thyromegaly Respiratory: Diminished lung sounds, accessory muscle use, breath sounds symmetrical Cardiovascular: RRR, no edema, radial pulses present bilaterally Gastrointestinal (Abdomen): normal bowel sounds, soft, nontender, no hepatosplenomegaly Musculoskeletal: no cyanosis or clubbing, extremities motor strength 5/5 Skin: no visible rashes, warm and dry Psychiatric: A+Ox3, euthymic affect Results & Data Results & Data Vital Signs (Past 12 Hours) Vital Signs Temp Pulse Pulse Resp BP BP Pulse Ox 01/09/24 06:45 92 01/09/24 06:45 88 L 01/09/24 06:30 97 01/09/24 06:30 38.1 C H 70 18 135/62 97 01/09/24 06:30 01/09/24 06:08 80 01/09/24 05:55 36.9 C 80 18 132/61 88 L O2 Del Method O2 Flow Rate 01/09/24 06:45 Nasal Cannula 2 01/09/24 06:45 Room Air 01/09/24 06:30 Room Air 01/09/24 06:30 Room Air 01/09/24 06:30 Room Air 01/09/24 06:08 01/09/24 05:55 Room Air Code Status & VTE Plan VTE Prophylaxis Plan VTE Prophylaxis will be ordered: Yes Supervising Physician Co-Signing Physician Notes I personally examined the patient and verified all louise p Otherwise as above.oints of history and exam, discussed case, and agree with decision making with Nadya Anderson and Jim FAY Over the course of the day he started feeling considerably better. Far less dyspnea. Ongoing cough but no shortness of breath. Noted that he normally runs about 88-95 on his pulse oxtypically lower in the morning and then higher as the day goes on. He had no dyspnea on exertion getting up and out of bed to the bathroom. He feels like he is probably able to go home. Vitals noted, in general he is awake and alert oriented pleasant no distress. HEENT normocephalic atraumatic mucous membranes moist. Lungs are diminished throughout but no rales rhonchi or wheezes moderate air entry good effort. No conversational dyspnea. I have him walk and he is 91% on room air prior to walking, and 90% on room air after walking. He walks briskly with no dyspnea a steady gait. No accessory muscle use. Chest x-ray/labs/diagnostics noted. COPD exacerbation due to COVIDfortunately improved quite quickly. He would very much like to go home. We had an extensive discussionand given his dyspnea improving throughout the day and staying very steadily improvedit appears safe to get him home today. We discussed red flags for returning to the hospitalbut doubt these will happen. Discussed utilization of Paxlovid given that he is essentially on day 1 of symptomatic illness, but we discussed given that he has had COVID multiple times before, has had multiple vaccinations, and also given that Paxlovid has multiple interactions with many of his cardiac medicationswe both agreed that it made more sense to not treat given the benefit would be questionable at best and the risk of drug interactions would be high/the risk of stopping some of his regular medications to avoid the interactions would be quite high. Discussed corticosteroidshe hates how he feels on steroids, but we also discussed that not being on steroids very much is likely part of why he seems to be having ongoing exacerbations that are not quite getting back to baseline this year. We discussed that while generally really corticosteroids are corticosteroids, sometimes people feel better and less side effects on a different corticosteroid than what they are used to being onopenly discussing this may simply be a placebo benefit, but given that the anti-inflammatory effect of the corticosteroids would be comparable regardless, it would be certainly reasonable to try dexamethasone instead of prednisone. In that respecthome on dexamethasone taper, albuterol as needed, doxycycline (Zithromax not utilized due to his cardiac rhythm issues). Continue regular inhalers, return to the hospital with any worsening.
--- NOTE | 2024-01-09 15:06 | Discharge Summary ---
Date of Service January 09, 2024 Admission HPI Per Admitting Provider 78 year old male with a history of COPD, AFIB, DYLAN, anemia, came to the ED after experiencing SOB this morning. Pt has a fever since yesterday (100.5 F measured at home) and a 5 week worsening persistent cough. His chest feels constantly congested. Cough is dry with an occasional clear/colon sputum. Experiences some dizziness when coughing. No hemoptysis, chest pain or tightness, no palpitations. Has some generalized weakness and fatigue. No chills, night sweats, or unintentional weight loss. Denies nausea/vomiting/constipation/melena or diarrhea. No changes in urinary habits, no hematuria, no pain during urination. Patient stopped smoking 40 years ago. Patient is accompanied by his , Francisca SOB: Pt woke up this morning with SOB. Has had COPD exacerbations in the past, but has never felt this poorly. Symptoms improved after nebulizer breathing treatment in the ED. COVID Received the COVID vaccine yesterday. [employer] confirmed positive covid test today. Never had constitutional reaction to previous COVID vaccines. No sick contacts. Chronic Cough: He noted the cough had started shortly after his last iron infusion 5 weeks ago. Was treated with prednisone and doxycycline which gave some relief to the cough, but not complete. Pt noted that he felt poorly after another iron infusion in July, and was diagnosed with pneumonia/COPD exacerbation shortly after. Anemia: Endoscopy and colonosopy last Friday, diagnosed with esophagitis. Followed by Dr. Mcbride at [facility]. Slight sore throat since procedure. Afib: Has not been in AFIB in [address] Medellin. Admission Exam Per Admitting Provider N/A Principal Diagnosis COPD Exacerbation and active COVID Infection. Discharge Exam Constitutional WD/WN, vitals as above ENMT external ear and nose normal, oropharynx normal Neck trachea midline, no thyromegaly Gastrointestinal (Abdomen) normal bowel sounds, soft, nontender, no hepatosplenomegaly Musculoskeletal no cyanosis or clubbing, extremities motor strength 5/5 Psychiatric A+Ox3, euthymic affect Discharge Data Allergies Allergy/AdvReac Type Severity Reaction Status Date / Time amoxicillin Allergy Intermediate RASH Verified 09/29/23 13:57 clavulanic acid Allergy Intermediate RASH Verified 09/29/23 13:57 moxifloxacin Allergy Unknown hives, Verified 09/29/23 13:57 TOLERATES LEVAQUIN Sulfa (Sulfonamide Allergy Unknown . Verified 09/29/23 13:57 Antibiotics) Consultations 01/09/24 08:19 ED Decision to Admit Stat Hospital Course (1) COPD exacerbation: (2) COVID-19: (3) CKD (chronic kidney disease), stage III: Geni Rodriguez is a 78-year-old male with a past medical history of COPD with exacerbations, pneumonia, DYLAN, anemia, and afib who was admitted to the ED this morning for chief concern of shortness of breath, fever, and cough. #Shortness of breath -Admitted for SOB with past history of COPD exacerbations -VBG pCO2 36,VBG pH 7.4 -LFTs unremarkable with negative troponin. -Patient received supplemental oxygen and IV methylprednisolone. -Patient was 90 O2 sat on room air on 01/08 afternoon. 90 is typically patient's baseline -Prescribed dexamethasone 5-day taper. Continue using nebulizer as needed #Chronic cough -Chronic cough for 5 weeks without resolution -Chest x-ray does not show evidence of consolidative pneumonia. #COVID -No recent known contacts. Received the COVID vaccine yesterday -[employer] positive for COVID-19 on 01/08 #CKD - baseline creatinine 1.4-1.9 as per last nephrology note 09/2023 - Creatinine 1.71 on admission #Anemia -Endoscopy and colonosopy last Friday, diagnosed with esophagitis. -RBC 4.04, Hgb 11.9 on admission Total Time Total Time Spent Total Time Spent (In Minutes): >30 Discharge Plan Discharge Items Patient Disposition: Home - Self-Care Reason For Visit: COPD EXACERBATION Discharge Diagnosis: COPD exacerbation due to covid Activity: Resume your previous activity Non-emergency contact: Primary Care Provider and Therapist Physical Call non-emergency contact if: you have any medication questions and your symptoms worsen Follow-up/Referrals: Prem Byrd DO [Primary Care Provider] - Diet: Regular and Low Sodium (2gm) Addtl Attending Provider Instructions: COPD exacerbation - your symptoms were due to a COPD exacerbationit is most common that viruses will cause essentially what amounts to a bronchitis type of an illness. When someone has COPD essentially what a COPD exacerbation is, is a "bad bronchitis"fortunately while you felt fairly sick this morning, overall you look like you are turning the corner quickly enough that is safe to get you home - in your particular case, given that you for started with fevers this morning, and tested positive for COVID, the virus causing your COPD exacerbation appears to be COVID. As we discussed, most people anymore largely do not get "COVID sick" like we saw in 2020, 2021really more it tends to be a nasty flulike illness, but not the wildly severe pulmonary infections we used to see. Given how good you look right now, expect that to be the case. Obviously if your breathing worsens/if you feel sicker, if anything "does not feel right" I would want you seeing Dr. Byrd or coming back to see mewe would rather have you checked out 100 times for reassurance then have you sit at home and suffer once. - While you are early enough in the course of the illness that Paxlovid could reduce length of illness some (by reducing viral replication), once I cross checked Paxlovid it interacted with essentially every single one of your medicationssome and very severe ways. Given that you are fortunately not extremely ill, given that the "good studies" on Paxlovid were really done when people had no immunity to the virus, and given that the risk to your wellbeing seems far higher having you hold off on heart medications while you are on the Paxlovid, it makes more sense to not treat with Paxlovid in your case. - Most people do get better faster with steroids when they have a COPD exacerbation. I totally understand/empathize with your hatred of prednisone! At the same time, given that you have had 1 exacerbation after another over the last few months and seem to have never really bounced back from anyoneI suspect he would do much better if we do at least a moderate steroid taper. For most people "steroids are steroids" but as we discussed, sometimes people do not feel quite as much edginess/moodiness/restlessness with steroids such as dexamethasone compared to prednisone. In that respect, we will utilize dexamethasone for your taper. - Given that you had a very big dose of steroids today, and have been feeling really good as the day has progressed, we do not need to start the oral steroids until tomorrow morning. Will have you on 8 mg of dexamethasone for 2 days, 6 mg for 2 days, 4 mg for 2 days, and then 2 mg for 2 days. I expect you to continue to feel better while you are on the steroidsit is more in the 48-72 hours after you are off the steroids that we will need to have you pay close attention. If you worsen then, give Dr. Byrd a call right away. - Take the doxycycline for 7 days - 100 mg twice a day - use your albuterol (nebulizer and inhaler are basically interchangeablebut sometimes people do feel that the nebulizer gets into their lungs betterif this is the case obviously use the nebulizer for now) as often as you needif you are needing it more than every 4 hoursthat would be a reasonable "line in the sand" to come back to the hospital (it would not necessarily indicate anything "catastrophic" but it would be concerning that you might be sicker than you realizeand would do better with extra help from us. Viral illnesses in generalas we discussed, it is really almost impossible to avoid all respiratory viruses unless you more or less cut yourself off from jane ryone else. Generally good measures for self-care will keep your immune system as robust as it can beand what I find to be the most important of these are: Getting good sleep (8 hours a night), good nutrition (something on long the lines of a Mediterranean dietheavy in fruits and vegetables and lean sources of protein), regular exercise (ideally 20-30 minutes of light cardiovascular exercise as best as your heart and lung disease allow), and good stress management. Outside of that, frequent handwashing and avoiding things like hand shakes can be helpful. At the same time, as we discussed there is a lot more to both quality of life and quantity of life than simply avoiding viral illnessesand it makes me worry that it seems like your world has gotten much smaller in an effort to avoid viral illnesses. I would take commonsense precautions, but I would definitely weigh the "risk-benefit" balance of the risk of picking up a viral infection versus the benefit of going to ep[facility], going to a football game, etc. Obviously take it easy for the next few weeks as you are recovering from this, but do not necessarily weigh your choices purely on what might avoid a viral illnessbalance that off of what you might lose by avoiding things you enjoy and life. Pending Studies at Discharge: No Stand-Alone Forms: My [facility], Smoking Cessation Medications and DC Order Prescriptions: New doxycycline hyclate 100 mg Capsule 100 mg PO BID Qty: 14 0RF dexamethasone 2 mg tablet 2 mg PO DAILY Qty: 20 0RF Rx Instructions: 4 po x2 days, then 3 po x2 days, then 2 po x2 days, then 1 po x2 days, then stop Continued (DME) CPAP Machine Misc See Dose Instructions .ROUTE .MEDSUPPLY Qty: 1 0RF Dose Instruction: As directed Rx Instructions: CPAP at 8 cms with resmedswift nasal pillows size small/tubing and supplies (DME) CPAP Supplies Misc See Rx Instructions .ROUTE .MEDSUPPLY Qty: 1 0RF Rx Instructions: CPAP SUPPLIES: FULL FACE MASK/NASAL MASK, REPLACEMENT CUSHION, DISPOSABLE/NON-DISPOSABLE FILTERS, TUBING, HEADGEAR, WATER CHAMBER; DX: G47.33; LENGTH OF NEED: 99YEARS tadalafil 5 mg tablet 5 mg PO QAM Multaq 400 mg tablet 400 mg PO AMHS Rx Instructions: must administer with a meal/food roflumilast [Daliresp] 500 mcg tablet 500 mcg PO QAM Tums 300 mg (750 mg) Tablet,Chewable 300 mg PO BID PRN (Reason: Heartburn) Entresto 24-26 mg tablet 1 tab PO AMHS Rx Instructions: take with food tiotropium bromide [Spiriva with HandiHaler] 18 mcg capsule, w/inhalation device 1 cap inhalation QAM atorvastatin 20 mg tablet 20 mg PO HS Eliquis 5 mg tablet 5 mg PO AMHS Rx Instructions: take with food tamsulosin 0.4 mg capsule 0.4 mg PO HS cetirizine 10 mg Tablet 10 mg PO QAM spironolactone 25 mg Tablet 12.5 mg PO QAM finasteride 5 mg tablet 5 mg PO QAM fluticasone propion-salmeterol [Wixela Inhub] 250-50 mcg/dose blister with device 1 inh INHALATION AMHS omeprazole 40 mg capsule,delayed release(DR/EC) 40 mg PO BID loratadine [Claritin] 10 mg Tablet 10 mg PO PM ipratropium-albuterol 0.5 mg-3 mg(2.5 mg base)/3 mL solution for nebulization 3 ml inhalation QID PRN (Reason: Shortness Of Breath Or Wheezing) Qty: 120 0RF albuterol sulfate 90 mcg/actuation HFA aerosol inhaler 2 puff INHALATION QID PRN (Reason: Wheezing) Qty: 1 0RF Discontinued prednisone 20 mg tablet 20 mg PO DAILY PRN (Reason: copd exacerbation) 5 Days Qty: 10 0RF Discharge Orders: Discharge Order (Routine); Ordered 01/09/24 Ordered By: Kashif Oneill Admission Data Admit Date/Time: 01/09/24 08:14 Attending Provider: Kashif Oneill Admit Provider: Kashif Oneill Primary Care Provider: Prem Byrd Other Providers: Kashif Oneill Other Interventions: Discharge Summary Assessment (RN) Last Done: 01/09/24 15:43 Supervising Physician Co-Signing Physician Notes I personally examined the patient and verified all louise p Otherwise as above.oints of history and exam, discussed case, and agree with decision making with Nadya Anderson and Jim Miguel MS2 Over the course of the day he started feeling considerably better. Far less dyspnea. Ongoing cough but no shortness of breath. Noted that he normally runs about 88-95 on his pulse oxtypically lower in the morning and then higher as the day goes on. He had no dyspnea on exertion getting up and out of bed to the bathroom. He feels like he is probably able to go home. Vitals noted, in general he is awake and alert oriented pleasant no distress. HEENT normocephalic atraumatic mucous membranes moist. Lungs are diminished throughout but no rales rhonchi or wheezes moderate air entry good effort. No conversational dyspnea. I have him walk and he is 91% on room air prior to walking, and 90% on room air after walking. He walks briskly with no dyspnea a steady gait. No accessory muscle use. Chest x-ray/labs/diagnostics noted. COPD exacerbation due to COVIDfortunately improved quite quickly. He would very much like to go home. We had an extensive discussionand given his dyspnea improving throughout the day and staying very steadily improvedit appears safe to get him home today. We discussed red flags for returning to the hospitalbut doubt these will happen. Discussed utilization of Paxlovid given that he is essentially on day 1 of symptomatic illness, but we discussed given that he has had COVID multiple times before, has had multiple vaccinations, and also given that Paxlovid has multiple interactions with many of his cardiac medicationswe both agreed that it made more sense to not treat given the benefit would be questionable at best and the risk of drug interactions would be high/the risk of stopping some of his regular medications to avoid the interactions would be quite high. Discussed corticosteroidshe hates how he feels on steroids, but we also discussed that not being on steroids very much is likely part of why he seems to be having ongoing exacerbations that are not quite getting back to baseline this year. We discussed that while generally really corticosteroids are corticosteroids, sometimes people feel better and less side effects on a different corticosteroid than what they are used to being onopenly discussing this may simply be a placebo benefit, but given that the anti-inflammatory effect of the corticosteroids would be comparable regardless, it would be certainly reasonable to try dexamethasone instead of prednisone. In that respecthome on dexamethasone taper, albuterol as needed, doxycycline (Zithromax not utilized due to his cardiac rhythm issues). Continue regular inhalers, return to the hospital with any worsening.
--- NOTE | 2024-01-09 19:05 | Billing Data ---
Date of Service January 09, 2024 Coding Level of Care Code INP/OBS EV SAME DAY LV 3,85MIN
[2024-01-09] MEDS ORDERED: TAMSULOSIN HCL 0.4 MG CAP PO SCH (21:00)
[2024-01-09] MEDS ORDERED: ATORVASTATIN 20 MG TAB PO SCH (21:00)
[2024-01-10] MEDS ORDERED: UMECLIDINIUM BROMIDE 62.5MCG/BLISTER 7 PUFFS/INHALER INH SCH (09:00)
[2024-01-10] MEDS ORDERED: FLUTICASONE/VILANTEROL 100/25MCG 14 PUFFS/INHALER INH SCH (09:00)
[2024-01-10 20:54] LABS: A calco-baum cmplx NotReported Not Detected (NotDetected); Bact fragilis Not Reported Not Detected (NotDetected); Blood Culture Id Panel PCR Panel Negative (NotDetected); C auris Not Reported Not Detected (NotDetected); Calbicans Not Reported Not Detected (NotDetected); Candida glabrata Not Reported Not Detected (NotDetected); Candida krusei Not Reported Not Detected (NotDetected); Cneoformans/gatti Not Reported Not Detected (NotDetected); Cparapsilosis Not Reported Not Detected (NotDetected); E cloacae compx Not Reported Not Detected (NotDetected); Efaecalis Not Reported Not Detected (NotDetected); Efaecium Not Reported Not Detected (NotDetected); Enterobacterales Not Reported Not Detected (NotDetected); Escherichia coli Not Reported Not Detected (NotDetected); H influenzae Not Reported Not Detected (NotDetected); K aerogenes Not Reported Not Detected (NotDetected); Koxytoca Not Reported Not Detected (NotDetected); Kpneumoniae grp Not Reported Not Detected (NotDetected); Lmonocyt Not Reported Not Detected (NotDetected); N meningitidis Not Reported Not Detected (NotDetected); P aeruginosa Not Reported Not Detected (NotDetected); Proteus spp Not Reported Not Detected (NotDetected); Salmonella spp Not Reported Not Detected (NotDetected); Staph lugdunensis Not Reported Not Detected (NotDetected); Staph spp. Not Reported Not Detected (NotDetected); Staphaureus Not Reported Not Detected (NotDetected); Staphepi Not Reported Not Detected (NotDetected); Stenmaltophilia Not Reported Not Detected (NotDetected); Strep agal(GrpB) Not Reported Not Detected (NotDetected); Strep pneum Not Reported Not Detected (NotDetected); Strep pyog (GrpA) Not Reported Not Detected (NotDetected); Strep spp Not Reported Not Detected (NotDetected)
== END 2024-01-09 15:43 | disposition home or self-care (01) | DRG 178 ==
LOC: ED 05:49 → INTOOBSV 08:14 → EDINP 08:14

== ENCOUNTER 2024-04-22 22:56 | Inpatient (IN) ==
--- OUTSIDE RECORDS SUMMARY | 2024-04-22 23:02 | External Medical Summary | Continuity of Care Document ---
Author Name Unknown Organization [facility] [address] [place], [place] [id number] Care Team Providers Care Leather Scrubber Name Role Phone Prem Byrd Primary Care Physician [phone] [id number] Date[facility] 04/19/24 - 04/19/24 [facility] [address] [facility] [address] [facility] [address] [place], [place] [phone] Encounter Diagnosis Unspecified asthma, uncomplicated(Final) - Emphysema, unspecified(Final) - Discharge Disposition: Home or Self Care Attending Physician: MD Rios Richard C Referring Physician: MD Rios Richard C Allergies, Adverse Reactions, Alerts Substance Criticality Severity Reaction Reaction Severity Status sulfa drugs Itching SOB Hives Active Avelox SOB Itching Hives Active mixed grass pollens allergen extract cough sob Active Augmentin SOB Itching Hives Active Dust Active Medications Albuterol (Eqv-Proventil HFA) 90 mcg/inh inhalation aerosol Start: 12/11/23 4:03:00 PM EDT, 2 puff, inhaled, qid, Disp# 6.7 each, Refills: 6, PRN: NEEDED FORWHEEZING, Pharmacy: [facility] [id number] Start Date: 12/11/23 Status: Ordered albuterol-ipratropium 2.5 mg-0.5 mg/3 mL inhalation solution Start: 02/24/24 3:31:00 PM EDT, 180 mL, 0 Refill(s), INHALE 1 VIAL VIA NEBULIZER FOUR TIMES A DAY NEEDED FOR SHORTNESS OF BREATH OR WHEEZING Start Date: 02/24/24 Status: Ordered atorvastatin 20 mg oral tablet Start: 07/14/15 9:33:00 AM EDT, 1 tab, PO, qhs Start Date: 07/14/15 Status: Ordered Claritin 10 mg oral tablet Start: 12/18/22 1:47:00 PM EDT, 1 tab, PO, Daily, PRN: as needed for allergy symptoms Start Date: 12/18/22 Status: Ordered doxycycline hyclate 100 mg oral capsule Start: 03/23/24 6:07:00 PM EST, 1 cap, PO, Daily, Disp# 90 cap, Refills: 3, Pharmacy: [facility]/pharmacy #[id number] Start Date: 03/23/24 Status: Ordered DuoNeb 0.5 mg-2.5 mg/3 mL inhalation solution Start: 12/15/23 3:14:00 PM EDT, 3 mL, inhaled, qid, Disp# 1,080 mL, Refills: 3, PRN: as needed for shortness of breath or wheezing, [id number] Start Date: 12/15/23 Status: Ordered Entresto 24 mg-26 mg oral tablet Start: 01/19/24 10:36:00 AM EDT, 1 tab, PO, bid, Disp# 180 tab, Refills: 3, [id number] Start Date: 01/19/24 Status: Ordered ferrous fumarate 325 mg (106 mg elemental iron) oral tablet Start: 03/11/24 9:25:00 AM EST, 1 tab, PO, Daily Start Date: 03/11/24 Status: Ordered finasteride 5 mg oral tablet Start: 02/03/20 11:15:00 AM EDT, 1 tab, PO, Daily Start Date: 02/03/20 Status: Ordered fluticasone-salmeterol Diskus 250 mcg-50 mcg Start: 02/24/24 3:31:00 PM EDT, bid, 1 Unknown, Inhalation, 0 Refill(s), Inhale 1 Puff by mouth in the morning and 1 Puff before bedtime. Start Date: 02/24/24 Status: Ordered furosemide 20 mg oral tablet See Instructions, Disp# 36 tab, Refills: 4, TAKE 1 TABLET BY MOUTH NEEDED FOR SWELLING/WT GAIN, Pharmacy: [id number] Start Date: 11/20/20 Status: Ordered inhaler spacer Start: 03/15/22 2:42:00 PM EST, See Instructions, Disp# 1 each, use with inhaler, [id number] Start Date: 03/15/22 Status: Ordered Multaq 400 mg oral tablet Start: 08/12/23 3:34:00 PM EDT, 1 tab, PO, bid, Disp# 180 tab, Refills: 3, [id number] Start Date: 08/12/23 Status: Ordered omeprazole 40 mg oral delayed release capsule Start: 02/24/24 3:30:00 PM EDT, 180 each, 0 Refill(s), TAKE 1 CAPSULE BY MOUTH 2 TIMES A DAY 30 MINUTES BEFORE MORNING AND EVENING MEALS. Start Date: 02/24/24 Status: Ordered Roflumilast 500 mcg oral tablet Start: 05/02/23 1:55:00 PM EST, 1 tab, PO, Daily, Disp# 90 tab, Refills: 3, Pharmacy: [facility] [id number] Start Date: 05/02/23 Status: Ordered sodium chloride 3% for nebulization Start: 07/28/22 2:51:00 PM EDT, 3 mL, NEB, bid, Disp# 180 mL, Refills: 3, Pharmacy: [id number] Start Date: 07/28/22 Status: Ordered Spiriva 18 mcg inhalation capsule Start: 05/19/18 10:03:51 AM EST, See Instructions, Disp# 90, INHALE CONTENTS OF 1 CAPSULE BY MOUTH DAILY, Brand Medically Necessary, [id number] Start Date: 05/19/18 Status: Ordered spironolactone 25 mg oral tablet Start: 07/21/23 9:19:00 AM EDT, See Instructions, Disp# 90 tab, Refills: 3, TAKE 1/2 TABLET BY MOUTHEVERY DAY, [id number] Start Date: 07/21/23 Status: Ordered tadalafil 5 mg oral tablet TAKE 1 TABLET BY MOUTH EVERY DAY Start Date: 12/18/22 Status: Ordered tamsulosin 0.4 mg oral capsule Start: 07/14/15 9:33:00 AM EDT, 1 cap, PO, qPM Start Date: 07/14/15 Status: Ordered Wixela Inhub 250 mcg-50 mcg inhalation powder Start: 02/24/24 3:30:00 PM EDT, 180 each, 0 Refill(s), INHALE ONE PUFF BY MOUTH EVERY MORNING AND AT BEDTIME Start Date: 02/24/24 Status: Ordered ZyrTEC Start: 12/04/15 11:24:00 AM EDT, 10 mg =, PO, Daily Start Date: 12/04/15 Status: Ordered Problem List Condition Confirmation Course Effective Dates Status H ealth Status Informant Anemia Confirmed Active Asthma Confirmed Active Changing skin lesion Confirmed Active CKD (chronic kidney disease) stage IIIb Confirmed Active Diastolic CHF Confirmed Active Dyspnea Confirmed Active Onychodystrophy Confirmed Active Rash Confirmed Active Heartburn Confirmed Active Hypertension Confirmed Active Inflamed seborrheic keratosis Confirmed Active Lentigo Confirmed Active Notalgia paresthetica Confirmed Active Onychomycosis Confirmed Active PAF (paroxysmal atrial fibrillation) Confirmed Active COPD type A Confirmed Active Seborrheic keratoses Confirmed Active Sleep apnea Confirmed Active Tinea manuum Confirmed Active Weight disorder Confirmed Active Wheezing Confirmed Active Procedures Procedure Date Related Diagnosis Body Site Status Shave biopsy of skin 1 12/18/22 Co mpleted Shave biopsy and cauterization of skin 11/14/21 Completed Shave biopsy and cauterization of skin 01/04/20 Completed Defibrillator 09/17/19 Completed CXR - Chest X-ray 07/14/15 Complet ed PFT - Pulmonary function tests 07/14/15 Completed Resection 2 10/21/04 Completed 1with ED&C 2Colon Results Laboratory List Name Date Complete Blood Count w Differential (CBC ,DIFFH) 04/19/24 Most recent to oldest [Reference Range]: 1 MPV [9.0-12.2 fL] 10.1 fL (04/19/24 8:03 AM) Immature Gran% 0.8 % (04/19/24 8:03 AM) Neut% 67.1 % (04/19/24 8:03 AM) Lymph% 18.9 % (04/19/24 8:03 AM) Frio% 7.9 % (04/19/24 8:03 AM) Baso% 0.7 % (04/19/24 8:03 AM) Eos% 4.6 % (04/19/24 8:03 AM) Immat Gran, Abs [0-0.4 K/uL] 0.08 K/uL (04/19/24 8:03 AM) Neut, Abs [2.0-7.7 K/uL] 6.89 K/uL (04/19/24 8:03 AM) Lymph, Abs [1.0-3.4 K/uL] 1.94 K/uL (04/19/24 8:03 AM) Frio, Abs [0-1.0 K/uL] 0.81 K/uL (04/19/24 8:03 AM) Baso, Abs [0-0.1 K/uL] 0.07 K/uL (04/19/24 8:03 AM) Eos, Abs [0-0.5 K/uL] 0.47 K/uL (04/19/24 8:03 AM) Type of Diff: AUTO *Unknown* (04/19/24 8:03 AM) RDW [11.5-14.2 %] 13.2 % (04/19/24 8:03 AM) Hct [39-48 %] 32.3 % *LOW* (04/19/24 8:03 AM) Hgb [13.0-17.0 g/dL] 10.2 g/dL *LOW* (04/19/24 8:03 AM) MCH [28-33 pg] 28.7 pg (04/19/24 8:03 AM) MCHC [32-36 g/dL] 31.6 g/dL *LOW* (04/19/24 8:03 AM) MCV [81-96 fL] 91.0 fL (04/19/24 8:03 AM) Plts [150-350 K/uL] 282 K/uL (04/19/24 8:03 AM) RBC [4.40-5.60 M/uL] 3.55 M/uL *LOW* (04/19/24 8:03 AM) WBC [4.0-10.4 K/uL] 10.26 K/uL (04/19/24 8:03 AM) Social History Social History Type Response Smoking Status Former Smoker, quit > 1 yr Sex Male Sex Representation Male (finding) Patient Care team information Care Team Personnel Name: MD Gabriel, Quincy Sepulveda Position: Physician - Pulmonary Med Member Role: Lifetime Relationship [address]: [address] [place] [address] [address] [place] [address] [place] Name: DO Byrd Thomas Position: Referring Member Role: Primary Care Provider Address: [facility] [address] [facility] [address] [place] [address] [place] Care Team Related Persons Name: TIANA ASENCIO
--- OUTSIDE RECORDS SUMMARY | 2024-04-22 23:03 | External Medical Summary ---
Author Name Unknown Address Unknown Organization [id number]:[facility] [place] [address] [place] [id number] Laboratory Report Ordering Provider Test Date Status ALLAN HAYWOODNOAM 04/09/2024 12:10:45 Final Observation Date Value Abnormality Reference (Units ) Status Ferritin 04/09/2024 12:10:45 186 30-400 (ng /mL) Final Performing Location [facility] - [address] [place] [id number]
--- OUTSIDE RECORDS SUMMARY | 2024-04-22 23:03 | External Medical Summary | Summary of Care ---
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 Active METAMUCIL CLEAR & NATURAL PO POWD daily Acti ve ADVAIR DISKUS 250-50 MCG/DOSE IN AEPB twice a daily Active atorvaSTATin (LIPITOR) 20 MG Tablet Take 1 Tablet by mouth in the morning. Active roflumilast (DALIRESP) 500 MCG Tablet Take 0.5 Tablets by mouth in the morning. Active albuterol-ipratropi um (DUONEB) 2.5-0.5 MG/3ML nebulizer solution Inhale 3 mL via nebulizer 2 times a day as needed for Wheezing. Active Cetirizine HCl (ZYRTEC ALLERGY) 10 MG Capsule Take 1 Capsule by mouth in the morning. Active finasteride (PROSCAR) 5 MG Tablet 9 Active Sildenafil Citrate 100 MG Tablet TAKE 1 TABLET (100 MG PER DOSE) BY MOUTH DAILY NEEDED FOR ERECTILE DYSFUNCTION. 10 9 Active tiotropium bromide (SPIRIVA HANDIHALER) 18 MCG inhalation Capsule INHALE CONTENTS OF 1 CAPSULE BY MOUTH DAILY 8 Active Apixaban 5 MG Oral Tablet (Eliquis) Take 1 Tablet by mouth in the morning and 1 Tablet before bedtime. Active Valsartan 160 MG Oral Tablet (Diovan) Take 0.5 Tablets by mouth in the morning. Active Levocetirizine Dihydrochloride 5 MG Oral Tablet Take by mouth 5 mg every evening . Active Fluticasone-Salmete rol 250-50 MCG/DOSE Inhalation Aerosol Powder Breath Activated (Wixela Inhub) Inhale 1 Puff by mouth in the morning and 1 Puff before bedtime. Active Spironolactone 25 MG Oral Tablet (Aldactone) Take 1 Tablet by mouth in the morning. Active Multivitamin Adult Oral Tablet Take by mouth daily. Active Furosemide 20 MG Oral Tablet (Lasix) Take 1 Tablet by mouth in the morning and 1 Tablet before bedtime. Active Feosol 200 (65 Fe) MG Oral Tablet (Ferrous Sulfate Dried)Indications:i n am Take by mouth. Indications: in am Active Vitamin D3 10 MCG (400 UNIT) Oral Tablet (Cholecalciferol)In dications:in am Take 1 Tablet by mouth in the morning. Active CPAP every night at bedtime. Active Loratadine 10 MG Oral Tablet (Claritin) Take 1 Tablet by mouth in the morning. Active Entresto 24-26 MG Oral Tablet (sacubitril-valsart an 24-26 mg per tab) Take 1 Tablet by mouth in the morning and 1 Tablet before bedtime. Active Dronedarone HCl 400 MG Oral Tablet (Multaq) Take 1 Tablet by mouth 2 times a day with morning and evening meals. Active Omeprazole 40 MG Oral Capsule Delayed Release (PriLOSEC) Take 1 Capsule by mouth 2 times a day 30 minutes before morning and evening meals. 180 Capsule 3 4 Active Ferrous Sulfate 325 (65 Fe) MG Oral Tablet (Feosol) Take 1 Tablet by mouth in the morning and 1 Tablet at noon and 1 Tablet in the evening. Take with meals. 90 Tablet 2 4 Active documented as of this encounter (statuses as of 04/09/2024) Active Problems Problem Noted Date Diagnosed Date Anemia in stage 3a chronic kidney disease 2023 Chronic kidney disease, stage 3b 09/08/2023 Overview: Per CKD protocol Other iron deficiency anemias 08/21/2023 documented as of this encounter (statuses as of 04/09/2024) Immunizations Name Administration Dates Next Due COVID-19 [...] Recorded Sex Assigned at Not on file Legal Sex Male 7:05 AM EST Gender Identity Not on file Sexual Orientation Not on file documented as of this encounter Plan of Treatment Upcoming Encounters Date Type Department Care Team (Late st Contact Info) Description 04/12/2024 8:30 AM EST Office Visit Hematology/Oncology, [facility] [address] [id number] Cristian Lund MD [address] [place] [phone] Pending Results Name Type Priority Associated Diagnoses Date /Time FERRITIN Lab STAT Other iron deficiency anemias 04/09/2024 12:10 PM EST IRON SCREEN, INCLUDING TIBC Lab STAT Other iron deficiency anemias 04/09/2024 12:10 PM EST COMPREHENSIVE METABOLIC PANEL Lab STAT Anemia in stage 3a chronic kidney disease (HCC) 04/09/2024 12:10 PM EST LD Lab STAT Anemia in stage 3a chronic kidney disease (HCC) 04/09/2024 12:10 PM EST ERYTHROPOIETIN (EPO) Lab STAT Anemia in stage 3a chronic kidney disease (HCC) 04/09/2024 12:10 PM EST Scheduled Procedures Name Priority Associated Diagnoses Date/Ti me COLONOSCOPY FLEXIBLE PROXIMA L DIAGNOSTIC Recall History of colonic polyps Family history of colon cancer Health Maintenance Due Date Last Done Comments Depression Screening 1957 Hepatitis C Screening 08/11/1963 DTap/Tdap Vaccines (1 - Tdap) 1964 Zoster Vaccines (2 of 3) 10/16/2015 08/21/2015 Albumin/Creatinine Ratio 11/02/2022 11/02/2021 CKD PHOS USE SMARTSET 93731 11/02/2022 11/02/2021 Influenza Vaccine (FLU shot) (#1) 2023 02/11/2023, 01/17/2020, 02/19/2005 COVID-19 Vaccine ( season) 2024 01/08/2024, 04/11/2023, 03/01/2022, Additional history exists GFR 08/06/2024 02/06/2024, 08/09/2023, 08/21/2023, Additional history exists CKD HGB USE SMARTSET 84383 03/12/202504/09, 04/09/2024, 03/12/2024, Additional history exists Colonoscopy 01/01/2026 01/02/2024, 0909/2023, 07/25/2020, Additional history exists Pneumococcal Vaccine: 65+ Years Completed 04/11/2023, 01/14/2015 RETIRED - COLONOSCOPY-ANNUAL AGES 18-100 Discontinued 01/02/2024, 01/02/2024, 07/25/2020, Additional history exists RETIRED - COLONOSCOPY-EVERY 2 YRS AGES 18-100 Discontinued 01/02/2024, 01/02/2024, 07/25/2020, Additional history exists HPV (Gardasil) Vaccine Aged Out No lo nger eligible based on patient's age to complete this topic Hepatitis B Vaccine Aged Out No longe r eligible based on patient's age to complete this topic MENINGOCOCCAL (MENACTRA/MENVEO) Aged Out No longer eligible based on patient's age to complete this topic documented as of this encounter Medical Devices Implanted Type Area Mechanical Integrity Specialist Device Identifier Shelf Expiration Date Model / Serial / Lot Clip Quick 2.8mm 230cm - [id number] Implanted:Qty: 1 on 07/25/2020 by Kalpesh Mcdaniels MD at [facility] [employer] [facility] 06/25/2022 [id number] / / [id number] Catheter Hemostatic 235cm 2.8mm [address] Latexfree - [id number] Implanted:Qty: 1 on 01/02/2024 by Kalpesh Mcdaniels MD at [facility] [employer] ENDOS[employer] [id number] 02/21/2026 [id number] / / [id number] Clip Ultra 360 235cm - [id number] Implanted:Qty: 1 on 01/02/2024 by Kalpesh Mcdaniels MD at [facility] [employer] ENDOS[employer] [id number] 05/23/2026 [id number] / / [id number] Catheter Hemostatic 235cm 2.8mm [address] Late[employer] - [id number] Implanted:Qty: 1 on 02/18/2024 by Kalpesh Mcdaniels MD at [facility] [employer] ENDOS[employer] [id number] 07/29/2026 [id number] / / [id number] Catheter Hemostatic 235cm 2.8mm [address] Latex[employer] - [id number] Implanted:Qty: 1 on 02/18/2024 by Kalpesh Mcdaniels MD at [facility] [employer] [id number] 07/29/2026 [id number] / / [id number] documented as of this encounter Procedures Procedure Name Priority Date/Time Associated Diagnosis Comments DIFFERENTIAL, AUTOMATED STAT 04/09/2024 12:10 PM EST Anemia in stage 3a chronic kidney disease (HCC) CBC STAT 04/09/2024 12:10 PM EST Anemia in stage 3a chronic kidney disease (HCC) CBC STAT 04/09/2024 12:10 PM EST Anemia in stage 3a chronic kidney disease (HCC) documented in this encounter Results * (ABNORMAL) DIFFERENTIAL, AUTOMATED (04/09/2024 12:10 PM EST) WBC 11.55(H) 4.00 - 10.80 K/uL 04/09/2024 12:21 PM EST [facility] Neutrophils % 73.3 40.0 - 75.0 % 04/09/2024 12:21 PM EST [facility] Lymphocytes % 15.3(L) 18.0 - 42.0 % 04/09/2024 12:21 PM EST [facility] Monocytes % 8.5 1.0 - 11.0 % 04/09/2024 12:21 PM EST [facility] Eosinophils % 1.9 0.0 - 6.0 % 04/09/2024 12:21 PM EST [facility] Basophils % 0.6 0.0 - 2.0 % 04/09/2024 12:21 PM EST [facility] Immature Granulocytes % 0.4 0.0 - 2.0 % 04/09/2024 12:21 PM EST [facility] Absolute Neutrophils 8.46(H) 1.80 - 7.70 K/uL 04/09/2024 12:21 PM EST [facility] Absolute Lymphocytes 1.77 1.00 - 4.80 K/ul 04/09/2024 12:21 PM EST [facility] Absolute Monocytes 0.98 0.00 - 1.10 K/uL 04/09/2024 12:21 PM EST [facility] Absolute Eosinophils 0.22 0.00 - 0.70 K/uL 04/09/2024 12:21 PM EST [facility] Absolute Basophils 0.07 0.00 - 0.20 K/uL 04/09/2024 12:21 PM EST [facility] Absolute Immature Granulocytes 0.05 0.00 - 0.20 K/uL 04/09/2024 12:21 PM EST LABORATORY GL Blood Venous blood specimen / Unknown Venipuncture / Unknown 04/09/2024 12:10 PM EST 04/09/2024 12:11 PM EST Cristian Lund MD LAB BLOOD ORDERABLES Final Result LABORATORY [address] [address] * (ABNORMAL) CBC (04/09/2024 12:10 PM EST) WBC 11.55(H) 4.00 - 10.80 K/uL 04/09/2024 12:21 PM EST LABORATORY [facility] RBC 3.74 4.50 - 5.25 M/uL 04/09/2024 12:21 PM EST LABORATORY [facility] HGB 10.9(L) 14.0 - 16.8 g/dL 04/09/2024 12:21 PM EST LABORATORY [facility] HCT 33.7(L) 40.0 - 48.4 % 04/09/2024 12:21 PM EST LABORATORY [facility] MCV 90.1 82.0 - 99.5 fL 04/09/2024 12:21 PM EST LABORATORY [facility] MCH 29.1 27.0 - 34.0 pg 04/09/2024 12:21 PM EST LABORATORY [facility] MCHC 32.3 32.0 - 36.0 g/dL 04/09/2024 12:21 PM EST LABORATORY [facility] RDW 13.1 11.5 - 15.5 % 04/09/2024 12:21 PM EST LABORATORY GL PLT 284 140 - 400 K/uL 04/09/2024 12:21 PM EST LABORATORY [facility] MPV 9.4 6.6 - 11.1 fL 04/09/2024 12:21 PM EST LABORATORY [facility] nRBCs 0 <=0 /100 WBCs 04/09/2024 12:21 PM EST LAB[facility]ORY [facility] Blood Venous blood specimen / Unknown Venipuncture / Unknown 04/09/2024 12:10 PM EST 04/09/2024 12:11 PM EST us Cristian Lund MD LAB BLOOD ORDERABLES Final Result LABORATORY [facility] [address] [place] [address] documented in this encounter Visit Diagnoses Diagnosis Other iron deficiency anemias Anemia in stage 3a chronic kidney disease (HCC) documented in this encounter Care Teams National Account Executive Relationship Specialty Start Date End Date Prem Byrd DO [address] [place] [address] PCP - General Family Medicine 08/20/23 documented as of this encounter
--- OUTSIDE RECORDS SUMMARY | 2024-04-22 23:03 | External Medical Summary | Continuity of Care Document ---
Author Name Unknown Organization [address] Address [address] [facility] [place] [phone] Care Team Providers Care Hand Fretted Instrument Maker Name Role Phone Prem Byrd Primary Care Physician [phone] [id number] Date(s[facility] 04/02/24 - 04/02/[address] [facility] Specialties [address] [facility] [address] [place] [address] [phone] Encounter Diagnosis CKD (chronic kidney disease) stage IIIb(Discharge Diagnosis) - 04/01/24 Hypertension(Discharge Diagnosis) - 04/01/24 Anemia(Discharge Diagnosis) - 04/01/24 Body mass index [BMI] 28.0-28.9, adult(Discharge Diagnosis) - 04/02/24 Discharge Disposition: Home or Self Care Attending Physician: MD Briseno Ronald P Allergies, Adverse Reactions, Alerts Substance Criticality Severity Reaction Reaction Severity Status sulfa drugs Itching SOB Hives Active Augmentin SOB Itching Hives Active Avelox SOB Itching Hives Active mixed grass pollens allergen extract cough sob Active Dust Active Medications Albuterol (Eqv-Proventil HFA) 90 mcg/inh inhalation aerosol Start: 12/11/23 4:03:00 PM EDT, 2 puff, inhaled, qid, Disp# 6.7 each, Refills: 6, PRN: NEEDED FORWHEEZING, Pharmacy: [email or web address] Start Date: 12/11/23 Status: Ordered albuterol-ipratropium 2.5 [...] Daily, Disp# 90 cap, Refills: 3, Pharmacy: [facility]/pharmacy #[id number] Start Date: 03/23/24 Status: Ordered DuoNeb 0.5 mg-2.5 mg/3 mL inhalation solution Start: 12/15/23 3:14:00 PM EDT, 3 mL, inhaled, qid, Disp# 1,080 mL, Refills: 3, PRN: as needed for shortness of breath or wheezing, Pharmacy: [facility]/pharmacy #[id number] Start Date: 12/15/23 Status: Ordered Entresto 24 mg-26 mg oral tablet Start: 01/19/24 10:36:00 AM EDT, 1 tab, PO, bid, Disp# 180 tab, Refills: 3, [id number] Start Date: 01/19/24 Status: Ordered ferrous [...] BY MOUTH NEEDED FOR SWELLING/WT GAIN, Pharmacy: [facility] [id number] Start Date: 11/20/20 Status: Ordered inhaler spacer Start: 03/15/22 2:42:00 PM EST, See Instructions, Disp# 1 each, use with inhaler, [id number] Start Date: 03/15/22 Status: Ordered Multaq 400 mg oral tablet Start: 08/12/23 3:34:00 PM EDT, 1 tab, PO, bid, Disp# 180 tab, Refills: 3, [id number] Start Date: 08/12/23 Status: Ordered omeprazole 40 mg oral delayed release capsule Start: 02/24/24 3:30:00 PM EDT, 180 each, 0 Refill(s), TAKE 1 CAPSULE BY MOUTH 2 TIMES A DAY 30 MINUTES BEFORE MORNING AND EVENING MEALS. Start Date: 02/24/24 Status: Ordered Roflumilast 500 mcg oral tablet Start: 05/02/23 1:55:00 PM EST, 1 tab, PO, Daily, Disp# 90 tab, Refills: 3, Pharmacy: [facility] [id number] Start Date: 05/02/23 Status: Ordered sodium chloride 3% for nebulization Start: 07/28/22 2:51:00 PM EDT, 3 mL, NEB, bid, Disp# 180 mL, Refills: 3, Pharmacy: [id number] Start Date: 07/28/22 Status: Ordered Spiriva 18 mcg inhalation capsule Start: 05/19/18 10:03:51 AM EST, See Instructions, Disp# 90, INHALE CONTENTS OF 1 CAPSULE BY MOUTH DAILY, Brand Medically Necessary, [id number] Start Date: 05/19/18 Status: Ordered spironolactone 25 mg oral tablet Start: 07/21/23 9:19:00 AM EDT, See Instructions, Disp# 90 tab, Refills: 3, TAKE 1/2 TABLET BY MOUTHEVERY DAY, [id number] Start Date: 07/21/23 Status: Ordered tadalafil [...] Start Date: 12/04/15 Status: Ordered Mental Status 04/02/24 Barriers to Learning one year Vision imp airment, Other: Eye glasses Mandatory Health Literacy Documentation Yes Health Literacy Communication Barriers N ever Primary Language Dutch Problem List Condition Confirmation Course Effective Dates [...] Effective Dates Health Status Clinical Service Informant Anemia Discharge Diagnosis 04/01/24 Hypertension Discharge Diagnosis 04/01/24 CKD (chronic kidney disease) stage IIIb Discharge Diagnosis 04/01/24 Body mass index [BMI] 28.0-28.9, adult Discharge Diagnosis 04/02/24 Non-Specified Procedures Procedure Date Related Diagnosis Body Site Status Shave biopsy of skin 1 12/18/22 Co mpleted Shave biopsy and cauterization of skin 11/14/21 Completed Shave biopsy and cauterization of skin 01/04/20 Completed Defibrillator 09/17/19 Completed CXR - Chest X-ray 07/14/15 Complet ed PFT - Pulmonary function tests 07/14/15 Completed Resection 2 10/21/04 Completed 1with ED&C 2Colon Vital Signs Most recent to oldest [Reference Range]: 1 Height 174.9 cm (04/02/24 10:25 AM) Patient Weight 86.5 kg (04/02/24 10:25 AM) Body Mass Index 28.28 kg/m2 (04/02/24 10:25 AM) Heart Rate 65 bpm (04/02/24 10:25 AM) Respiratory Rate 16 br/min (04/02/24 10:25 AM) Blood Pressure 136/72mmHg (04/02/24 10:25 AM) Cuff Pulse Pressure 64 mmHg (04/02/24 10:25 AM) BP Location # 1 Left Arm (04/02/24 10:25 AM) Social History Social History Type Response Smoking Status Former Smoker, quit > 1 yr Sex Male Sex Representation Male (finding) Patient Care team information Care Team Personnel Name: MD Gabriel, Quincy Sepulveda Position: Physician - Pulmonary Med Member Role: Lifetime Relationship Address: [address] [place] [address] [address] [place] [address] [place] Name: DO Byrd Thomas Position: Referring Member Role: Primary Care Provider Address: [facility] [address] [facility] [address] [place] [address] [place] Care Team Related Persons Name: TIANA ASENCIO
--- OUTSIDE RECORDS SUMMARY | 2024-04-22 23:03 | External Medical Summary | Summary of Care ---
Author Name Unknown Organization [facility] Address [address] [place] [address] Phone [phone] Care Team Providers Care Licensed Esthetician Name Role Phone RochellePrem Primary Care Provider [phone] Reason for Visit * Reason Onset Date Comments Medication Question 02/25/2024 Encounter Details Date Type Department Care Team (Late st Contact Info) Description 02/25/2024 Telephone Gastroenterology, [facility] [place] [address] [place] [address] Kaplesh Mcdaniels MD [address] [place] [address] Medication Question Allergies Active Allergy Reactions Criticality Noted Date Comments Amoxicillin-Pot Clavulanate 08/24/19 Other reaction(s): Hives, Itching, SOB Dust 08/23/2021 Moxifloxacin 08/23/2021 Other reaction(s): Hives, Itching, SOB Sulfa Antibiotics 02/20/2012 "unknown" documented as of this encounter (statuses as of 02/25/2024) Medications Medication Sig Dispensed Refills Start Date End Date Status FLOMAX 0.4 MG PO CAPS Take by mouth . Active METAMUCIL CLEAR & NATURAL PO POWD daily Active ADVAIR DISKUS 250-50 MCG/DOSE IN AEPB twice a daily Activ e atorvaSTATin (LIPITOR) 20 MG Tablet Take 1 Tablet by mouth in the morning. Active roflumilast (DALIRESP) 500 MCG Tablet Take 0.5 Tablets by mouth in the morning. Active albuterol-ipratropium (DUONEB) 2.5-0.5 MG/3ML nebulizer solution Inhale 3 mL via nebulizer 2 times a day as needed for Wheezing. Active Cetirizine HCl (ZYRTEC ALLERGY) 10 MG Capsule Take 1 Capsule by mouth in the morning. Active finasteride (PROSCAR) 5 MG Tablet 07/12/2018 Active Sildenafil Citrate 100 MG Tablet TAKE 1 TABLET (100 MG PER DOSE) BY MOUTH DAILY NEEDED FOR ERECTILE DYSFUNCTION. 10 07/12/2018 Active tiotropium bromide (SPIRIVA HANDIHALER) 18 MCG inhalation Capsule INHALE CONTENTS OF 1 CAPSULE BY MOUTH DAILY 12/09/2017 Active Apixaban 5 MG Oral Tablet (Eliquis) Take 1 Tablet by mouth in the morning and 1 Tablet before bedtime. Active Valsartan 160 MG Oral Tablet (Diovan) Take 0.5 Tablets by mouth in the morning. Active Levocetirizine Dihydrochloride 5 MG Oral Tablet Take by mouth 5 mg every evening . Active Fluticasone-Salmetero l 250-50 MCG/DOSE Inhalation Aerosol Powder Breath Activated [...] D3 10 MCG (400 UNIT) Oral Tablet (Cholecalciferol)Hellen cations:in am Take 1 Tablet by mouth in the morning. Active CPAP every night at bedtime. Active Loratadine 10 MG Oral Tablet (Claritin) Take 1 Tablet by mouth in the morning. Active Entresto 24-26 MG Oral Tablet (sacubitril-valsartan [...] morning and evening meals. 180 Capsule 3 01/02/2024 Active Ferrous Sulfate 325 (65 Fe) MG Oral Tablet (Feosol) Take 1 Tablet by mouth in the morning and 1 Tablet at noon and 1 Tablet in the evening. Take with meals. 90 Tablet 2 02/25/2024 Active documented as of this encounter (statuses as of 02/25/2024) Active Problems Problem Noted Date Diagnosed Date Chronic kidney disease, stage 3b 09/08/2023 Overview: Per CKD protocol Other iron deficiency anemias 08/21/2023 documented as of this encounter (statuses as of 02/25/2024) Immunizations Name Administration Dates Next Due COVID-19 mRNA, LNP-s, No Pre serve, 2-Dose Series (Moderna) 12/27/2020,07/04/2020,05/31/2020 documented as of this encounter Social History Tobacco Use Types Packs/Day Years Used Date Smoking Tobacco: Former Cigarettes Q uit: 07/22/1986 Smokeless Tobacco: Never Alcohol Use Standard Drinks/Week Comments Not Currently 0 (1 standard drink = 0.6 oz pur e alcohol) occassional Utilities Answer Date Recorded Do you have trouble paying y our heating, water, or electric bill? (Adult - for ages 18 years and over) Not on file 10/14/2023 Is your family able to pay t he heat, water, or electric bill? (Household - for ages 0-17 years) Not on file 10/14/2023 Does your family have access to good internet? (Household - for ages 0-17 years) Not on file 10/14/2023 Social Connections Answer Date Recorded How often do you feel lonely or isolated from those around you? (Adult - for ages 18 years and over) Not on file 10/14/2023 Sex and Gender Information Value Date Recorded Sex Assigned at Not on file Gender Identity Not on file Sexual Orientation Not on file Job Start Date Occupation Industry Not on file Not on file Not on file documented as of this encounter Miscellaneous Notes * Telephone Encounter - Teetee Brown RN - 02/25/2024 3:12 PM EDT Gave this information to spouse. She states they are concerned of how they will be able to fit it in with his other medications. They will try to take it TID. * Telephone Encounter - Kalpesh Mcdaniels MD - 02/25/2024 3:02 PM EDT Yes, if can tolerate otherwise can go to bid Thx, BC * Telephone Encounter - Teetee Brown RN - 02/25/2024 2:[address] Mcdaniels, just to clarify, you want him to take this TID? That is how it is ordered. I wanted to double check with you. Thanks * Telephone Encounter - Kalpesh Mcdaniels MD - 02/25/2024 2:19 PM EDT Rx Sent, can you call and let know that I resent it. Kalpesh Capellan * Telephone Encounter - Ellie Mendoza CPhT - 02/25/2024 11:31 AM EDT Pt calling in and said he was recommended to take iron pills. He is wondering if the dr is going tohave a rx sent in, or what kind he should buy OTC. Please advise. Please call Pt: [phone] or : [phone] Thank you, Ellie Mendoza CPhT [employer] [facility] 02/25/2024, 11:31 AM documented in this encounter Plan of Treatment Upcoming Encounters Date Type Department Care Team (Late st Contact Info) Description 03/12/2024 8:40 AM EST Laboratory Laboratory, [address] [place] [id number] Gl, Lab [address] [place] [address] 03/17/2024 8:30 AM EST Office Visit Hematology/Oncology, [address] [place] [id number] Cristian Lund MD [address] [place], [place] [id number] Health Maintenance Due Date Last Done Comments Depression Screening 1957 Hepatitis C Screening 08/11[birth year]1963 DTap/Tdap Vaccines (1 - Tdap) 1964 Zoster Vaccines (2 of 3) 10/16/2015 08/21/2015 Albumin/Creatinine Ratio 11/02/2022 11/02/2021 CKD PHOS USE SMARTSET 59294 11/02/2022 11/02/2021 Influenza Vaccine (FLU shot) (#1) 2023 02/11/2023, 01/17/2020, 02/19/2005 GFR 08/06/2024 02/06/2024, 0809/2023, 08/21/2023, Additional history exists CKD HGB USE SMARTSET 12432 02/05/202502/05, 02/06/2024, 12/02/2023, Additional history exists Colonoscopy 01/01/2026 01/02/2024, 09/2023, 07/25/2020, Additional history exists Pneumococcal Vaccine: 65+ Years Completed 04/11/2023, 01/14/2015 RETIRED - COLONOSCOPY-ANNUAL AGES 18-100 Discontinued 01/02/2024, 01/02/2024, 07/25/2020, Additional history exists RETIRED - COLONOSCOPY-EVERY 2 YRS AGES 18-100 Discontinued 01/02/2024, 01/02/2024, 07/25/2020, Additional history exists COVID-19 Vaccine Completed 01/08/2024, , 03/01/2022, Additional history exists HPV (Gardasil) Vaccine Aged Out No lo nger eligible based on patient's age to complete this topic Hepatitis B Vaccine Aged Out No longe r eligible based on patient's age to complete this topic MENINGOCOCCAL (MENACTRA/MENVEO) Aged Out No longer eligible based on patient's age to complete this topic documented as of this encounter Medical Devices Implanted Type Area Shield Runner Device Identifier Shelf Expiration Date Model / Serial / Lot Clip Quick 2.8mm 230cm - [id number] Implanted:Qty: 1 on 07/25/2020 by Kalpesh Mcdaniels MD at ENDOSCOPY [facility] [employer] [facility] 06/25/2022 [id number] / / [id number] Catheter Hemostatic 235cm 2.8mm [address] Latexfree - [id number] Implanted:Qty: 1 on 01/02/2024 by Kalpesh Mcdaniels MD at ENDOSCOPY [facility] [employer] : ENDOSCOPY [id number] 02/21/2026 [id number] / / [id number] Clip Ultra 360 235cm - [id number] Implanted:Qty: 1 on 01/02/2024 by Kalpesh Mcdaniels MD at ENDOSCOPY [facility] [employer] : ENDOSCOPY [id number] 05/23/2026 [id number] / / [id number] Catheter Hemostatic 235cm 2.8mm [address] Latexfree - [id number] Implanted:Qty: 1 on 02/18/2024 by Kalpesh Mcdaniels MD at ENDOSCOPY [facility] [employer] : ENDOSCOPY [id number] 07/29/2026 [id number] / / [id number] Catheter Hemostatic 235cm 2.8mm [address] Latexfree - [id number] Implanted:Qty: 1 on 02/18/2024 by Kalpesh Mcdaniels MD at ENDOSCOPY [facility] [employer] : ENDOSCOPY [id number] 07/29/2026 [id number] / / [id number] documented as of this encounter Care Teams Licensed Esthetician Relationship Specialty Start Date End Date Prem Byrd DO [address] [place] [address] PCP - General Family Medicine 08/20/23 documented as of this encounter
--- OUTSIDE RECORDS SUMMARY | 2024-04-22 23:03 | External Medical Summary | Summary of Care ---
Author Name Unknown Organization [facility] Address [address] [place] [address] Phone [phone] Care Team Providers Care Sample Collector Name Role Phone Prem Byrd DO Primary Care Provider [phone] Reason for Visit * Reason Onset Date Comments Follow Up Medication Administration 03/17/2024 Flu an d/or Pneumo Inj Immunizations 03/17/2024 Shingrix * Evaluate & Treat - Unlimited Visits (Within 3 days (urgent)) - Authorized Specialty Diagnoses / Procedures Referred By Michael aguilar Referred To Contact Hematology/Oncology / Hematology Oncology Diagnoses Iron deficiency anemia, unspecified Prem Byrd DO [address] [place] [address] Phone: tel: fax: Referral ID Status Reason Start Date Expiration Date Visits Requested Visits Authorized [id number] Authorized Specialty Services Required 08/05/2023 04/27/[phone] Encounter Details Date Type Department Care Team (Late st Contact Info) Description 03/17/2024 4:00 PM EST Office Visit Hematology/Oncology, 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 (HCC) Allergies Active Allergy Reactions Criticality Noted Date Comments Amoxicillin-Pot Clavulanate 08/24/19 Other reaction(s): Hives, Itching, SOB Dust 08/23/2021 Moxifloxacin 08/23/2021 Other reaction(s): Hives, Itching, SOB Sulfa Antibiotics 02/20/2012 "unknown" documented as of this encounter (statuses as of 03/19/2024) Medications FLOMAX 0.4 MG PO CAPS Take [...] as of this encounter (statuses as of 03/19/2024) Active Problems Problem Noted Date Diagnosed Date Anemia in stage 3a chronic kidney disease 2023 Chronic kidney disease, stage 3b 09/08/2023 Overview: Per CKD protocol Other iron deficiency anemias 08/21/2023 documented as of this encounter (statuses as of 03/19/2024) Immunizations Name Administration Dates Next Due COVID-19 [...] Sign Reading Time Taken Comments Blood Pressure 123/49 03/17/2024 4:04 PM EST Pulse 71 03/17/2024 4:04 PM EST Temperature - - Respiratory Rate - - Oxygen Saturation 92% 03/17/2024 4:04 PM EST Inhaled Oxygen Concentration - - Weight 84.4 kg (186 lb) 03/17/2024 4:04 PM EST Height - - Body Mass Index 26.69 02/16/2024 9:34 AM EDT documented in this encounter Patient Instructions * Patient Instructions* Aarti Whitfield CMA - 03/17/2024 4:08 PM EST ~~PATIENT INSTRUCTIONS FOR SHINGRIX VACCINE~~ Possible side effects of Shingrix vaccine, (shingles), are usually mild and can include: 1. Soreness or redness at injection site 2. Low grade fever 3. Body aches You may use a fever / pain reducing medication as needed for these symptoms. LET YOUR DOCTOR KNOW IMMEDIATELY IF YOU HAVE DIFFICULTY BREATHING OR SWALLOWING, EXPERIENCE ITCHINGOF FEET OR HANDS, HAVE SWELLING OF EYES, FACE OR INSIDE OF NOSE. documented in this encounter Progress Notes * Cristian Lund MD - 03/17/2024 4:00 PM EST Images from the original note were not included. Exam room 6 03/17/2024 For p.m. HPI: 78-year-old white male called for followup of microcytic anemia, now with normal hemoglobin but lowiron stores,. Wright ferric 1000 mg infusion was administered on 09/01/2023 and again on 12/05/2023.. Patient complains of being cold all the [...] a somewhat regular basis. 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 Patient was hospitalized for 3 days in August 2023 with pneumonia treated successfully with antibiotics. Currently feels well with no specific complaints. Following infusions of monoferric, patient developed increasing cough and shortness of breath with fever requiring antibiotics. He feels that the monoferric cause the side effects. He denies melena, hematochezia, hematuria, epistaxis, or hemoptysis. He does bruise easily without PND, orthopnea, palp itations. Patient does experience chronic cough without expectoration or hemoptysis. 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 METAMUCIL CLEAR & NATURAL PO POWD daily (Patient not taking: Reported on 01/02/2024) ADVAIR DISKUS 250-50 MCG/DOSE IN AEPB twice a daily atorvaSTATin (LIPITOR) 20 MG Tablet Take 1 Tablet by mouth in the morning. roflumilast (DALIRESP) 500 MCG Tablet Take 0.5 Tablets by mouth in the morning. albuterol-ipratropium (DUONEB) 2.5-0.5 MG/3ML nebulizer solution Inhale 3 mL via nebulizer 2 times a day as needed for Wheezing. Cetirizine HCl (ZYRTEC ALLERGY) 10 MG Capsule Take 1 Capsule by mouth in the morning. finasteride (PROSCAR) 5 MG Tablet Sildenafil Citrate 100 MG Tablet TAKE 1 TABLET (100 MG PER DOSE) BY MOUTH DAILY NEEDED FOR ERECTILE DYSFUNCTION. 10 tiotropium bromide (SPIRIVA HANDIHALER) 18 MCG inhalation Capsule INHALE CONTENTS OF 1 CAPSULE BY MOUTH DAILY Apixaban 5 MG Oral Tablet (Eliquis) Take 1 Tablet by mouth in the morning and 1 Tablet before bedtime. Valsartan 160 MG Oral Tablet (Diovan) Take 0.5 Tablets by mouth in the morning. Levocetirizine Dihydrochloride 5 MG Oral Tablet Take by mouth 5 mg every evening . (Patient not taking: Reported on 10/24/2021 ) Fluticasone-Salmeterol 250-50 MCG/DOSE Inhalation Aerosol Powder Breath Activated (Wixela Inhub) Inhale 1 Puff by mouth in the morning and 1 Puff before bedtime. Spironolactone 25 MG Oral Tablet (Aldactone) Take 1 Tablet by mouth in the morning. Multivitamin Adult Oral Tablet Take by mouth daily. Furosemide 20 MG Oral Tablet (Lasix) Take 1 Tablet by mouth in the morning and 1 Tablet before bedtime. Feosol 200 (65 Fe) MG Oral Tablet (Ferrous Sulfate Dried) Take by mouth. Indications: in am (Patient not taking: Reported on 01/02/2024) Vitamin D3 10 MCG (400 UNIT) Oral Tablet (Cholecalciferol) Take 1 Tablet by mouth in the morning. CPAP every night at bedtime. Loratadine 10 MG Oral Tablet (Claritin) Take 1 Tablet by mouth in the morning. Entresto 24-26 MG Oral Tablet (sacubitril-valsartan 24-26 mg per tab) Take 1 Tablet by mouth in themorning and 1 Tablet before bedtime. Dronedarone HCl 400 MG Oral Tablet (Multaq) Take 1 Tablet by mouth 2 times a day with morning and evening meals. Omeprazole 40 MG Oral Capsule Delayed Release (PriLOSEC) Take 1 Capsule by mouth 2 times a day 30 minutes before morning and evening meals. 180 Capsule 3 Ferrous Sulfate 325 (65 Fe) MG Oral Tablet (Feosol) Take 1 Tablet by mouth in the morning and 1 Tablet at noon and 1 Tablet in the evening. Take with meals. 90 Tablet 2 No current facility-administered medications for this visit. Social History Socioeconomic History Marital status: Spouse name: Not on file Number of children: Not on file Years of education: Not on file Highest education level: Not on file Occupational History Not on file Tobacco Use Smoking status: Former Current packs/day: 0.00 Types: Cigarettes Quit date: 07/22/1986 Years since quittin.6 Smokeless tobacco: Never Vaping Use Vaping status: Never Used Substance and Sexual Activity Alcohol use: Not Currently Comment: occassional Drug use: No Sexual activity: Not on file Other Topics Concern Not on file Social History Narrative Not on file Social Needs Financial Resource Strain: Not on file Food Insecurity: Not on file Transportation Needs: Not on file Social Connections: Not on file Housing Stability: Low Risk (08/26/2023) [facility], [facility] Housing Stability Unstable Housing in the Last Year: Not on file Family History Problem Relation Name Age of Onset Colon cancer Father Colon polyps Sister Colon cancer Aunt (Unspecified) Colon cancer Grandfather (Paternal) REVIEW OF SYSTEMS: Review of systems other than that discussed above is non contributory. Review of patient's allergies indicates: Allergen Reactions Amoxicillin-Pot Clavulanate Other reaction(s): Hives, Itching, SOB Dust Moxifloxacin Other reaction(s): Hives, Itching, SOB Sulfa Antibiotics "unknown" PHYSICAL EXAMINATION: General Appearance: Healthy appearing patient in no acute distress, alert and oriented x3. No pallor There were no vitals taken for this visit. Vitals were reviewed. HEENT: No oral or [...] deficits. LABS: Latest Reference Range & Units 03/12/24 16:04 CBC Rpt ! WBC 4.00 - 10.80 K/uL 10.21 RBC 4.50 - 5.25 M/uL 3.50 HGB 14.0 - 16.8 g/dL 10.4 (L) HCT 40.0 - 48.4 % 32.5 (L) MCV 82.0 - 99.5 fL 92.9 MCH 27.0 - 34.0 pg 29.7 MCHC 32.0 - 36.0 g/dL 32.0 RDW 11.5 - 15.5 % 13.6 PLT 140 - 400 K/uL 282 MPV 6.6 - 11.1 fL 10.0 CBC WITH WBC DIFFERENTIAL Rpt ! Absolute Neutrophils 1.80 - 7.70 K/uL 6.56 Absolute Lymphocytes 1.00 - 4.80 K/ul 2.10 Absolute Monocytes 0.00 - 1.10 K/uL 0.85 Absolute Eosinophils 0.00 - 0.70 K/uL 0.57 Absolute Basophils 0.00 - 0.20 K/uL 0.09 Latest Reference Range & Units 12/02/23 11:24 12/05/2023 monoferric 1000 mg IV 02/06/24 08:32 03/12/24 16:04 HGB 14.0 - 16.8 g/dL 12.2 (L) 11.2 (L) 10.4 (L) Latest Reference Range & Units 08/21/23 09:10 12/02/23 11:24 02/06/24 08:32 Ferritin 30 - 400 ng/mL 41 100 391 Latest Reference Range & Units 02/06/24 08:32 SODIUM 135 - 146 mmol/L 142 POTASSIUM 3.5 - 5.1 mmol/L 4.6 CHLORIDE 98 - 107 mmol/L 105 CO2 22 - 32 mmol/L 25 BUN 6 - 20 mg/dL 23 (H) CREATININE 0.6 - 1.2 mg/dL 1.9 (H) EGFR >=60 mL/min 37 (L) ANION GAP 7 - 15 mmol/L 12 GLUCOSE 70 - 120 mg/dL 100 CALCIUM 8.4 - 10.2 mg/dL 9.2 Protein 6.0 - 8.3 g/dL 6.3 Estimated Average Glucose <126 mg/dL 131 (H) Latest Reference Range & Units 02/06/24 08:32 Albumin 3.8 - 5.0 g/dL 4.1 AST 10 - 50 U/L 24 ALT 10 - 50 U/L 33 Alkaline Phosphatase 35 - 130 U/L 57 Bilirubin, Total <=1.2 mg/dL 0.3 SERUM PROTEIN ELECTROPHORESIS REFLEX PROFILE: [id number] Component Ref Range & Units Normal/Abnormal Normal Normal Protein 6.0 - 8.3 g/dL 6.8 Albumin 3.30 - 4.40 g/dL 3.62 Alpha-1 Globulin 0.10 - 0.30 g/dL 0.27 Alpha-2 Globulin 0.60 - 1.00 g/dL 0.99 Beta-Globulin 0.80 - 1.30 g/dL 1.04 Gamma-Globulin 0.70 - 1.70 g/dL 0.88 Electrophoresis Interpretation Normal serum protein electrophoretic pattern. Latest Reference Range & Units 08/21/23 09:10 SHAHEED Screen Negative Negative CAITLYN Antibodies Screen Value <0.7 Ratio 0.1 CAITLYN Antibodies Screen Interpretation Negative Negative dsDNA Antibody Value <20 IU/mL 1.8 dsDNA Antibody Interpretation Negative Negative Albumin 3.30 - 4.40 g/dL 3.62 Alpha-1 Globulin 0.10 - 0.30 g/dL 0.27 Alpha-2 Globulin 0.60 - 1.00 g/dL 0.99 Beta-Globulin 0.80 - 1.30 g/dL 1.04 Gamma-Globulin 0.70 - 1.70 g/dL 0.88 ERYTHROPOIETIN (EPO) Component Ref Range & Units 08/21/2023 Erythropoietin (EPO) 2.6 - 18.5 mIU/mL 10.0 . Latest Reference Range & Units 08/21/23 09:10 TSH 0.27 - 4.20 uIU/mL 1.83 HEMOGLOBINOPATHY EVALUATION Component Ref Range & Units 08/21/2023 RBC 4.20 - 5.80 Mill/uL 4.68 HGB 13.2 - 17.1 g/dL 13.5 HCT 38.5 - 50.0 % 42.6 MCV 80.0 - 100.0 fL 91.0 MCH 27.0 - 33.0 pg 28.8 RDW 11.0 - 15.0 % 12.8 Hemoglobin A >96.0 % 97.6 Hemoglobin F <2.0 % 0.0 Hemoglobin A2 (Quant) 2.2 - 3.2 % 2.4 Hemoglobin S DNR Hemoglobin C DNR Hemoglobin E DNR Other Hemoglobin 1 DNR Other Hemoglobin 2 DNR Interpretation SEE BELOW Comment: NORMAL PATTERN SOLUBLE TRANSFERRIN RECEPTOR Component Ref Range & Units 08/21/2023 Soluble Tranferrin Receptor 0.76 - 1.76 mg/L 1.34 Last hemoglobin at [facility] on 07/31/2023 was 12.8. IMAGING: No pertinent recent imaging. = EGD 02/18/2024 Impression: - Small hiatal hernia. - Z-line irregular. Biopsied. - Normal stomach. - A single bleeding angioectasia in the duodenum. Clips (MR conditional) were placed. EGD 01/02/2024 Impression: - Hiatal hernia. - LA Grade B reflux esophagitis with no bleeding. - A single gastric polyp. Resected and retrieved. - A single duodenal polyp. Resected and retrieved. Clips (MR conditional) were placed. - Biopsies were taken with a cold forceps for evaluation of celiac disease. ====== PATHOLOGY: SURGICAL PATHOLOGY: [id number] 1 Follow-up Encounter Component Final Diagnosis A. Esophagus, GE junction, biopsy: Gastroesophageal junction type mucosa with squamous epithelial mild basal hyperplasia and mild chronic focally acute inflammation. No definitive intestinal metaplasia identified. Negative for dysplasia SURGICAL PATHOLOGY: [id number] 01/02/2024 1 Result Note Component Final Diagnosis A. Small bowel, duodenum, biopsies: Long intact villi with no significant pathologic change B. Small bowel, duodenum, biopsy: Fragments of adenomatous (low-grade dysplasia) polyp No high-grade dysplasia or carcinoma seen C. Stomach, biopsies: Hyperplastic polyp Background mild to moderate chronic inactive gastritis No specialized intestinal metaplasia or dysplasia is seen (AGE): 1945 (75) Billing #: [id number] MRN (Client MRN): [id number] Order #: [id number] Client Information Specimen Information Location: OP Collected Date: 04/17/2021 04/17/2021 Electronically Signed Out: Dread Thomas MD - [facility] A: Duodenal biopsy: Duodenal mucosa with no pathologic diagnosis B: Stomach, biopsy: Mild chronic gastritis and reactive gastropathy. C: Esophagus, biopsy: Squamous-columnar mucosa with slight chronic inflammation. Negative for intestinal metaplasia or dysplasia Name: MICHAEL MAURICIO (AGE): 1945 (74) Billing #: [id number] MRN (Client MRN): [id number] Order #: [id number] Client Information Specimen Information Location: [facility] Collected Date: 07/25/2020 07/25/2020 A. Colon, ascending, polypectomy: Tubular adenoma ASSESSMENT: 1. 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 2. Chronic kidney disease stage IIIA, 3. Paroxysmal atrial fibrillation on chronic anticoagulation. 4. Chronic obstructive pulmonary disease, currently experiencing an acute exacerbation.. 5. Obstructive sleep apnea syndrome, on CPAP. 6. Hypertension. 7. Benign prostatic hypertrophy. 8. Diabetes mellitus, type 2, non-insulin requiring. 9. History of colon polyps 10. Bilateral renal cysts. 11. Diverticulosis with internal hemorrhoids 12. 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 PLAN: 1. Optimal anagement entails meticulous scrutiny of CBC and iron stores in an effort to avoid anemia and depletion of iron stores. Patient experiences chronic blood loss from ectasia in the GI tract and is on long-term anticoagulation. 2. Erythropoietin level was very low at the time of initial evaluation and will be repeated in approximately 2 weeks along with CBC, diff, ferritin, CMP and iron screen. If iron saturation and ferritin are appropriate, erythrocyte stimulating agent therapy will be instituted to increase bone marrowoutput of red cells with hopes to obtain the aforementioned goal of therapy. 3. Office visit 2 weeks with CBC, diff, CMP, ferritin, iron screen, EPO level possible Aranesp. Continuity of care required: Patient with a single high risk disease requiring clinic followup <12 months to address medical issues, complications, and healthcare needs which are related to acuteon chronic blood loss anemia with iron deficiency requiring periodic iron infusions. I appreciate the opportunity of sharing in his care. The above was dictated using voice recognition software. Errors may have inadvertently been overlooked after review. I spent a total of 30-39 minutes (exact time 32 mins) on the date of service in preparation, delivery, and documentation of the care provided to Michael Mauricio excluding any time spent in the performance of separately billed services or time spent by another provider/QHP. Cristian Lund MD documented in this encounter Nursing Notes * Aarti Whitfield, [facility] - 03/17/2024 4:07 PM EST Chief Complaint Patient presents with Follow Up Provider aware of VS. BP 123/49 (BP Site: Right Arm, BP Position: Sitting, BP Cuff Size: Regular) | Pulse 71 | Wt 84.4 kg(186 lb) | SpO2 92% | BMI 26.69 kg/m | BSA 2.04 m Patient was instructed to not get up on the exam table/exam chair until directed and assisted by their provider; patient is to remain seated in the chair/ wheelchair/ exam table/ exam chair for fall prevention and safety reasons. Patient is aware to have assistance to step down off exam table/exam chair with personnel. Patient voiced full comprehension of instructions. documented in this encounter Plan of Treatment Upcoming Encounters Date Type Department Care Team (Late st Contact Info) Description 04/09/2024 12:10 PM EST Laboratory Laboratory, [address] [place] [address] [facility], Lab [address] [place] [address] [place] [address] 04/12/2024 8:30 AM EST Office Visit Hematology/Oncology, [address] [place] [address] Cristian Lund MD [address] [place] [address] Scheduled Orders Name Type Priority Associated Diagnoses Orde r Schedule FERRITIN Lab STAT Other iron deficiency anemias Expected: 03/17/2024, Expires: 03/17/2025 IRON SCREEN, INCLUDING TIBC Lab STAT Other iron deficiency anemias Expected: 03/17/2024, Expires: 03/17/2025 CBC WITH WBC DIFFERENTIAL Lab STAT Anemia in stage 3a chronic kidney disease (HCC) Expected: 03/29/2024, Expires: 03/17/2025 COMPREHENSIVE METABOLIC PANEL Lab STAT Anemia in stage 3a chronic kidney disease (HCC) Expected: 03/29/2024, Expires: 03/17/2025 LD Lab STAT Anemia in stage 3a chronic kidney disease (HCC) Expected: 03/29/2024, Expires: 03/17/2025 IRON SCREEN, INCLUDING TIBC Lab STAT Anemia in stage 3a chronic kidney disease (HCC) Expected: 03/29/2024, Expires: 03/17/2025 FERRITIN Lab STAT Anemia in stage 3a chronic kidney disease (HCC) Expected: 03/29/2024, Expires: 03/17/2025 ERYTHROPOIETIN (EPO) Lab STAT Anemia in stage 3a chronic kidney disease (HCC) Expected: 03/29/2024, Expires: 03/17/2025 Scheduled Procedures Name Priority Associated Diagnoses Date/Ti me COLONOSCOPY FLEXIBLE PROXIMA L DIAGNOSTIC Recall History of colonic polyps Family history of colon cancer Health Maintenance Due Date Last Done Comments Depression Screening 1957 Hepatitis C Screening 08/11/1963 DTap/Tdap Vaccines (1 - Tdap) 1964 Zoster Vaccines (2 of 3) 10/16/2015 08/21/2015 Albumin/Creatinine Ratio 11/02/2022 11/02/2021 CKD PHOS USE SMARTSET 40240 11/02/2022 11/02/2021 Influenza Vaccine (FLU shot) (#1) 2023 02/11/2023, 01/17/2020, 02/19/2005 COVID-19 Vaccine ( season) 2024 01/08/2024, 04/11/2023, 03/01/2022, Additional history exists GFR 08/06/2024 02/06/2024, 09/2023, 08/21/2023, Additional history exists CKD HGB USE SMARTSET 81167 03/12/202503/12, 03/12/2024, 02/06/2024, Additional history exists Colonoscopy 01/01/2026 01/02/2024, 09/2023, [...] this encounter Medical Devices Implanted Type Area Chief Clerk Device Identifier Shelf Expiration Date Model / Serial / Lot Clip Quick 2.8mm 230cm - [id number] Implanted:Qty: 1 on 07/25/2020 by Kalpesh Mcdaniels MD at [facility] [employer] 06/25/2022 [id number] / / [id number] Catheter Hemostatic 235cm 2.8mm [address] Latexfree - [id number] Implanted:Qty: 1 on 01/02/2024 by Kalpesh Mcdaniels MD at [facility] [employer] ENDOSCOPY [id number] 02/21/2026 [id number] / / [id number] Clip Ultra 360 235cm - [id number] Implanted:Qty: 1 on 01/02/2024 by Kalpesh Mcdaniels MD at [facility] [employer] ENDOSCOPY [id number] 05/23/2026 [id number] / / [id number] Catheter Hemostatic 235cm 2.8mm [address]mm [address] Late[employer] - [id number] Implanted:Qty: 1 on 02/18/2024 by Kalpesh Mcdaniels MD at [facility] [employer] ENDOSCOPY [id number] 07/29/2026 [id number] / / [id number] Catheter Hemostatic 235cm 2.8mm [address]mm [address] Latexfree - [id number] Implanted:Qty: 1 on 02/18/2024 by Kalpesh Mcdaniels MD at [facility] [employer] : ENDOSCOPY [id number] 07/29/2026 [id number] / / [id number] documented as of this encounter Visit Diagnoses Diagnosis Other iron deficiency anemias- Primary Need for vaccination for zoster Need for prophylactic vaccination and inoculation against other viral diseases Anemia in stage 3a chronic kidney disease (HCC) documented in this encounter Care Teams Sample Collector Relationship Specialty Start Date End Date Prem Byrd DO [address] [place] [address] PCP - General Family Medicine 08/20/23 documented as of this encounter
--- OUTSIDE RECORDS SUMMARY | 2024-04-22 23:03 | External Medical Summary | Continuity of Care Document ---
Author Name Unknown Organization [facility] [address] [place] [id number] Care Team Providers Care Music Publicist Name Role Phone Prem Byrd Primary Care Physician [phone] [id number] Date(s): 02/24/24 - 02/24/24 [facility] 1300 [facility] [address], [address]tr[address], [address] [place] [address] Encounter Diagnosis COPD type A(Discharge Diagnosis) - 02/24/24 Discharge Disposition: Home or Self Care Attending Physician: MD Rios Richard C Allergies, Adverse Reactions, Alerts Substance Criticality Severity Reaction Reaction Severity Status sulfa drugs Itching SOB Hives Active mixed grass pollens allergen extract cough sob Active Augmentin SOB Itching Hives Active Avelox SOB Itching Hives Active Dust Active Medications Albuterol (Eqv-Proventil HFA) 90 mcg/inh inhalation aerosol Start: 12/11/23 4:03:00 PM EDT, 2 puff, inhaled, qid, Disp# 6.7 each, Refills: 6, PRN: NEEDED FORWHEEZING, Pharmacy: [id number] Start Date: 12/11/23 Status: Ordered albuterol-ipratropium 2.5 [...] doxycycline hyclate 100 mg oral capsule Start: 01/22/24 2:41:00 PM EDT, 1 cap, PO, bid, Disp# 14 cap, Refills: 1, [id number] Start Date: 01/22/24 Status: Ordered doxycycline hyclate 100 mg oral capsule Start: 02/24/24 4:40:00 PM EDT, 1 cap, PO, Daily, Disp# 30 cap, Refills: 6, [id number] Start Date: 02/24/24 Status: Ordered DuoNeb 0.5 mg-2.5 mg/3 mL inhalation solution Start: 12/15/23 3:14:00 PM EDT, 3 mL, inhaled, qid, Disp# 1,080 mL, Refills: 3, PRN: as needed for shortness of breath or wheezing, [id number] Start Date: 12/15/23 Status: Ordered Eliquis 5 mg oral tablet Start: 08/13/23 10:27:00 AM EDT, 1 tab, PO, bid, Disp# 180 tab, Refills: 3, Pharmacy: [id number] Start Date: 08/13/23 Status: Ordered Entresto 24 mg-26 mg oral tablet Start: 01/19/24 10:36:00 AM EDT, 1 tab, PO, bid, Disp# 180 tab, Refills: 3, [id number] Start Date: 01/19/24 Status: Ordered finasteride 5 mg oral tablet [...] BY MOUTH NEEDED FOR SWELLING/WT GAIN, Pharmacy: [id number] Start Date: 11/20/20 Status: Ordered inhaler spacer Start: 03/15/22 2:42:00 PM EST, See Instructions, Disp# 1 each, use with inhaler, [id number] Start Date: 03/15/22 Status: Ordered Multaq 400 mg oral tablet Start: 08/12/23 3:34:00 PM EDT, 1 tab, PO, bid, Disp# 180 tab, Refills: 3, [id number] Start Date: 08/12/23 Status: Ordered omeprazole 40 mg oral delayed release capsule Start: 02/24/24 3:30:00 PM EDT, 180 each, 0 Refill(s), TAKE 1 CAPSULE BY MOUTH 2 TIMES A DAY 30 MINUTES BEFORE MORNING AND EVENING MEALS. Start Date: 02/24/24 Status: Ordered predniSONE 20 mg oral tablet Start: 01/22/24 2:41:00 PM EDT, 2 tab, PO, Daily, Disp# 10 tab, Refills: 1, , [id number] Start Date: 01/22/24 Status: Ordered Roflumilast 500 mcg oral tablet Start: 05/02/23 1:55:00 PM EST, 1 tab, PO, Daily, Disp# 90 tab, Refills: 3, Pharmacy: [id number] Start Date: 05/02/23 Status: Ordered sodium chloride 3% for nebulization Start: 07/28/22 2:51:00 PM EDT, 3 mL, NEB, bid, Disp# 180 mL, Refills: 3, Pharmacy: [id number] Start Date: 07/28/22 Status: Ordered Spiriva 18 mcg inhalation capsule Start: 05/19/18 10:03:51 AM EST, See Instructions, Disp# 90, INHALE CONTENTS OF 1 CAPSULE BY MOUTH DAILY, Brand Medically Necessary, [id number] Start Date: 05/19/18 Status: Ordered spironolactone 25 mg oral tablet Start: 07/21/23 9:19:00 AM EDT, See Instructions, Disp# 90 tab, Refills: 3, TAKE 1/2 TABLET BY MOUTHEVERY DAY, Pharmacy: [facility] #[id number] Start Date: 07/21/23 Status: Ordered tadalafil [...] Start Date: 12/04/15 Status: Ordered Mental Status 02/24/24 Barriers to Learning one year Vision imp airment, Other: Eye glasses Mandatory Health Literacy Documentation Yes Health Literacy Communication Barriers N ever Primary Language [place] Problem List Condition Confirmation Course Effective Dates [...] Diagnosis Diagnosis Type Effective Dates Health Status Clini beba Service Informant COPD type A Discharge Diagnosis 02/24/24 Procedures Procedure Date Related Diagnosis Body Site [...] oldest [Reference Range]: 1 Height 174.9 cm (02/24/24 3:42 PM) Patient Weight 88.6 kg (02/24/24 3:42 PM) Body Mass Index 28.96 kg/m2 (02/24/24 3:42 PM) Temperature [36.5-37.9 DegC] 36.5 DegC (02/24/24 3:42 PM) Heart Rate 66 bpm (02/24/24 3:42 PM) Respiratory Rate 16 br/min (02/24/24 3:42 PM) Blood Pressure 105/56mmHg (02/24/24 3:42 PM) Cuff Pulse Pressure 49 mmHg (02/24/24 3:42 PM) BP Location # 1 Left Arm (02/24/24 3:42 PM) Social History Social History Type Response Smoking Status Former Smoker, quit > 1 yr Sex Male Sex Representation Male (finding) Patient Care team information Care Team Personnel Name: MD Gabriel, Quincy Sepulveda Position: Physician - Pulmonary Med Member Role: Lifetime Relationship Address: [address] [place] [address] [address] [place] [address] [place] Name: DO Byrd Thomas Position: Referring Member Role: Primary Care Provider Address: [facility] [address] [place] [address] [place] Care Team Related Persons Name: TIANA ASENCIO
--- OUTSIDE RECORDS SUMMARY | 2024-04-22 23:03 | External Medical Summary ---
Author Name Unknown Address Unknown Organization [id number]:[facility] [address] [facility] [place] [address] Laboratory Report Ordering Provider Test Date Status MOI HAYWOOD 04/09/2024 12:10:45 Final Observation Date Value Abnormality Reference (Units ) Status SYNC LEUKOCYTES IN BLOOD BY AUTOMATED COUNT 04/09/2024 12:10:45 11.55 Above high normal 4.00-10.80 (K/uL) Final Segs 04/09/2024 12:10:45 73.3 40.0-75.0 (%) Final Lymphs % 04/09/2024 12:10:45 15.3 Below low normal 18.0-42.0 (%) Final Monos 04/09/2024 12:10:45 8.5 1.0-11.0 (%) Final Eosinophils 04/09/2024 12:10:45 1.9 0.0-6.0 (%) Final Basos 04/09/2024 12:10:45 0.6 0.0-2.0 (%) Final Immature Granulocyte, Percent 04/09/2024 12:10:45 0.4 0.0-2.0 (%) Final Absolute Segs 04/09/2024 12:10:45 8.46 Above high normal 1.80-7.70 (K/uL) Final Lymphs, absolute 04/09/2024 12:10:45 1.77 1.00-4.80 (K/ul) Final Monos, Abs 04/09/2024 12:10:45 0.98 0.00-1.10 (K/uL) Final Eos, Abs 04/09/2024 12:10:45 0.22 0.00-0.70 (K/uL) Final Basos, Abs 04/09/2024 12:10:45 0.07 0.00-0.20 (K/uL) Final Immature Granulocytes, Number 04/09/2024 12:10:45 0.05 0.00-0.20 (K/uL) Final Performing Location [facility] - [facility] [place] [address]
--- OUTSIDE RECORDS SUMMARY | 2024-04-22 23:03 | External Medical Summary | Summary of Care ---
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 (HCC)* Allergies Active Allergy Reactions Criticality Noted Date Comments Amoxicillin-Pot Clavulanate 08/24/19 Other reaction(s): Hives, Itching, SOB Dust 08/23/2021 Moxifloxacin 08/23/2021 Other reaction(s): Hives, Itching, SOB Sulfa Antibiotics 02/20/2012 "unknown" documented as of this encounter (statuses as of 04/12/2024) Medications FLOMAX 0.4 MG PO CAPS Take [...] as of this encounter (statuses as of 04/12/2024) Active Problems Problem Noted Date Diagnosed Date Anemia in stage 3a chronic kidney disease 2023 Chronic kidney disease, stage 3b 09/08/2023 Overview: Per CKD protocol Other iron deficiency anemias 08/21/2023 documented as of this encounter (statuses as of 04/12/2024) Immunizations Name Administration Dates Next Due COVID-19 [...] Sign Reading Time Taken Comments Blood Pressure 149/58 04/12/2024 8:21 AM EST Pulse 86 04/12/2024 8:21 AM EST Temperature - - Respiratory Rate - - Oxygen Saturation 92% 04/12/2024 8:21 AM EST Inhaled Oxygen Concentration - - Weight 84.4 kg (186 lb 1.6 oz) 04/12/2024 8:21 A M EST Height - - Body Mass Index 26.7 02/16/2024 9:34 AM EDT documented in this encounter Progress Notes * Cristian Lund MD - 04/12/2024 8:30 AM EST Images from the original note were not included. Exam room 6 04/12/2024 4:00 p.m. HPI: 78-year-old white male called for followup of microcytic anemia, now with normal hemoglobin but lowiron stores,. [place] ferric 1000 mg infusion was administered on [...] PND, orthopnea, or palpitations. Patient has occasional urinary hesitancy without hematuria or nocturia. He denies fever, [...] a somewhat regular basis. 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 Patient was hospitalized for 3 days in [...] experience chronic cough without expectoration or hemoptysis. Patient feels cold all the time but denies any melena, hematochezia, or hematuria. He did undergo upper and lower endoscopy and was told to hold Eliquis in case up biopsy needed to be done. He never resumed taking the anticoagulant. He denies PND, orthopnea, palpitations, headache, focal weakness, lower extremity swelling or redness, epistaxis, or hemoptysis. Past Medical History: Diagnosis Date [...] Types: Cigarettes Quit date: 07/22/1986 Years since quittin.7 Smokeless tobacco: Never Vaping Use Vaping status: [...] Housing Stability: Low Risk (08/26/2023) [facility] Housing Stability Unstable Housing in [...] distress, alert and oriented x3. No pallor BP 149/58 (BP Site: Left Arm, BP Position: Sitting, BP Cuff Size: Large) | Pulse 86 | Wt 84.4 kg (186 lb 1.6 oz) | SpO2 92% | BMI 26.70 kg/m | BSA 2.04 m Vitals were reviewed. HEENT: No oral [...] Latest Reference Range & Units 03/12/24 16:04 04/09/24 12:10 SODIUM 135 - 146 mmol/L 140 POTASSIUM 3.5 - 5.1 mmol/L 4.7 CHLORIDE 98 - 107 mmol/L 105 CO2 22 - 32 mmol/L 24 BUN 6 - 20 mg/dL 25 (H) CREATININE 0.6 - 1.2 mg/dL 1.7 (H) EGFR >=60 mL/min 42 (L) ANION GAP 7 - 15 mmol/L 11 GLUCOSE 70 - 120 mg/dL 108 CALCIUM 8.4 - 10.2 mg/dL 9.2 Protein 6.0 - 8.3 g/dL 6.6 LD <=250 U/L 138 CBC Rpt ! Rpt ! WBC 4.00 - 10.80 K/uL 10.21 11.55 (H) RBC 4.50 - 5.25 M/uL 3.50 3.74 HGB 14.0 - 16.8 g/dL 10.4 (L) 10.9 (L) HCT 40.0 - 48.4 % 32.5 (L) 33.7 (L) MCV 82.0 - 99.5 fL 92.9 90.1 MCH 27.0 - 34.0 pg 29.7 29.1 MCHC 32.0 - 36.0 g/dL 32.0 32.3 RDW 11.5 - 15.5 % 13.6 13.1 PLT 140 - 400 K/uL 282 284 MPV 6.6 - 11.1 fL 10.0 9.4 CBC WITH WBC DIFFERENTIAL Rpt ! Rpt ! Absolute Neutrophils 1.80 - 7.70 K/uL 6.56 8.46 (H) Absolute Lymphocytes 1.00 - 4.80 K/ul 2.10 1.77 Absolute Monocytes 0.00 - 1.10 K/uL 0.85 0.98 Absolute Eosinophils 0.00 - 0.70 K/uL 0.57 0.22 Absolute Basophils 0.00 - 0.20 K/uL 0.09 0.07 IRON SCREEN, INCLUDING TIBC Rpt ! Iron 45 - 176 ug/dL 29 (L) Iron Binding Capacity 250 - 425 ug/dL 221 (L) Transferrin Saturation Percent 15 - 55 % 13 (L) Ferritin 30 - 400 ng/mL 186 Albumin 3.8 - 5.0 g/dL 4.1 AST 10 - 50 U/L 14 ALT 10 - 50 U/L 13 Alkaline Phosphatase 35 - 130 U/L 66 Bilirubin, Total <=1.2 mg/dL 0.3 Latest Reference Range & Units 12/02/23 11:24 [...] mg/dL 0.3 SERUM PROTEIN ELECTROPHORESIS REFLEX PROFILE: [id number] Component Ref Range & Units Normal/Abnormal Normal [...] - 1.76 mg/L 1.34 Last hemoglobin at [facility] on 07/31/2023 was 12.8. IMAGING: No [...] of celiac disease. ====== PATHOLOGY: SURGICAL PATHOLOGY: [id number] 1 Follow-up Encounter Component Final Diagnosis A. Esophagus, GE junction, biopsy: Gastroesophageal junction type mucosa with squamous epithelial mild basal hyperplasia and mild chronic focally acute inflammation. No definitive intestinal metaplasia identified. Negative for dysplasia SURGICAL PATHOLOGY: [id number] 01/02/2024 1 Result Note Component Final Diagnosis A. Small bowel, duodenum, biopsies: Long intact villi with no significant pathologic change B. Small bowel, duodenum, biopsy: Fragments of adenomatous (low-grade dysplasia) polyp No high-grade dysplasia or carcinoma seen C. Stomach, biopsies: Hyperplastic polyp Background mild to moderate chronic inactive gastritis No specialized intestinal metaplasia or dysplasia is seen (AGE): 1945 (75) Billing #: [id number] MRN (Client MRN): [id number] Order #: [id number] Client Information Specimen Information Location: OP Collected Date: 04/17/2021 04/17/2021 Electronically Signed Out: Dread [place] [facility] [place]: Duodenal biopsy: Duodenal mucosa with no pathologic diagnosis B: Stomach, biopsy: Mild chronic gastritis and reactive gastropathy. C: Esophagus, biopsy: Squamous-columnar mucosa with slight chronic inflammation. Negative for intestinal metaplasia or dysplasia Name: MICHAEL MAURICIO (AGE): 1945 (74) Billing #: [id number] MRN (Client MRN): [id number] Order #: [id number] Client Information Specimen Information Location: [facility] Collected Date: 07/25/2020 07/25/2020 A. Colon, ascending, polypectomy: Tubular adenoma ASSESSMENT: 1. 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 2. Chronic kidney disease stage IIIA, 3. [...] tract and is on long-term anticoagulation. 2. Office visit 05/05/2024 with CBC diff and possible Aranesp Continuity of care required: Patient with a [...] may have inadvertently been overlooked after review. Cristian Lund MD documented in this encounter Nursing Notes * Aarti Whitfield CMA - 04/12/2024 8:24 AM EST Chief Complaint Patient presents with Follow Up Provider aware of VS. BP 149/58 (BP Site: Left Arm, BP Position: Sitting, BP Cuff Size: Large) | Pulse 86 | Wt 84.4 kg (186 lb 1.6 oz) | SpO2 92% | BMI 26.70 kg/m | BSA 2.04 m Patient was [...] Care Team (Late st Contact Info) Description 05/05/2024 1:30 PM EST Office Visit Hematology/Oncology, [facility] [address] [address] Cristian Lund MD [address] [place] [address] Scheduled Procedures Name Priority Associated Diagnoses Date/Ti me COLONOSCOPY FLEXIBLE PROXIMA L DIAGNOSTIC Recall History of colonic polyps Family history of colon cancer Health Maintenance Due Date Last Done Comments Depression Screening 1957 Hepatitis C Screening 08/11/1963 DTap/Tdap Vaccines (1 - Tdap) 1964 Zoster Vaccines (2 of 3) 10/16/2015 08/21/2015 Albumin/Creatinine Ratio 11/02/2022 11/02/2021 CKD PHOS USE SMARTSET 99162 11/02/2022 11/02/2021 Influenza Vaccine (FLU shot) (#1) 2023 02/11/2023, 01/17/2020, 02/19/2005 COVID-19 Vaccine ( season) 2024 01/08/2024, 04/11/2023, 03/01/2022, Additional history exists GFR 10/08/2024 04/09/2024, 01/26, 12/02/2023, Additional history exists CKD HGB USE SMARTSET 70411 04/09/202504/09, 04/09/2024, 03/12/2024, Additional history exists Colonoscopy 01/01/2026 01/02/2024, 09/2023, [...] this encounter Medical Devices Implanted Type Area Corn Grower Device Identifier Shelf Expiration Date Model / Serial / Lot Clip Quick 2.8mm 230cm - [id number] Implanted:Qty: 1 on 07/25/2020 by Kalpesh Mcdaniels MD at [facility] [address] [employer] 06/25/2022 [id number] / / [id number] Catheter Hemostatic 235cm 2.8mm [address] Latexfree - [id number] Implanted:Qty: 1 on 01/02/2024 by Kalpesh Mcdaniels MD at [facility] [employer] [facility] ENDOSCOPY [id number] 02/21/2026 [id number] / / [id number] Clip Ultra 360 235cm - [id number] Implanted:Qty: 1 on 01/02/2024 by Kalpesh Mcdaniels MD at [facility] ENDOSCOPY [id number] 05/23/2026 [id number] / / [id number] Catheter Hemostatic 235cm 2.8mm 11mm [address] Latexfree - [id number] Implanted:Qty: 1 on 02/18/2024 by Kalpesh Mcdaniels MD at [facility] [employer] : ENDOSCOPY [id number] 07/29/2026 [id number] / / [id number] Catheter Hemostatic 235cm 2.8mm 11mm [address] Latexfree - [id number] Implanted:Qty: 1 on 02/18/2024 by Kalpesh Mcdaniels MD at [facility] ENDOSCOPY [id number] 07/29/2026 [id number] / / [id number] documented as of this encounter Visit Diagnoses Diagnosis 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
--- OUTSIDE RECORDS SUMMARY | 2024-04-22 23:03 | External Medical Summary ---
Author Name Unknown Address Unknown Organization [id number]:[facility] [place] [facility] [address] [place] [address] Laboratory Report Ordering Provider Test Date Status MOI HAYWOOD 04/09/2024 12:10:45 Final Observation Date Value Abnormality Reference (Units ) Status Iron 04/09/2024 12:10:45 29 Below low normal 45-176 (ug/dL) Final Iron-binding capacity 04/09/2024 12:10:45 221 Below low normal 250-425 (ug/dL) Final Transferrin Sat % 04/09/2024 12:10:45 13 Below low normal 15-55 (%) Final Performing Location [facility] [place] - [address] [place] [address]
--- OUTSIDE RECORDS SUMMARY | 2024-04-22 23:03 | External Medical Summary ---
Author Name Unknown Address Unknown Organization K01:[facility] [place] - [address] [place] [address] Laboratory Report Ordering Provider Test Date Status CHRISTIAN CARRANZA 03/12/2024 16:04:35 Final Discharge Order Observation Date Value Abnormality Reference (Units ) Status WBC, Total 03/12/2024 16:04:35 10.21 4.00-10.80 (K/uL) Final RBC 03/12/2024 16:04:35 3.50 4.50-5.25 (M/uL) Final Hemoglobin 03/12/2024 16:04:35 10.4 Below low normal 14.0-16.8 (g/dL) Final HCT 03/12/2024 16:04:35 32.5 Below low normal 40.0-48.4 (%) Final MCV 03/12/2024 16:04:35 92.9 82.0-99.5 (fL) Final MCH 03/12/2024 16:04:35 29.7 27.0-34.0 (pg) Final MCHC 03/12/2024 16:04:35 32.0 32.0-36.0 (g/dL) Final RDW 03/12/2024 16:04:35 13.6 11.5-15.5 (%) Final Platelets 03/12/2024 16:04:35 282 140-400 (K/uL) Final MPV 03/12/2024 16:04:35 10.0 6.6-11.1 (fL) Final Nucleated erythrocytes/100 leukocytes [Ratio] in Blood by Automated count 03/12/2024 16:04:35 0 <=0 (/100 WBCs) Final Performing Location [facility] [place] - [address] [place] [address]
--- OUTSIDE RECORDS SUMMARY | 2024-04-22 23:03 | External Medical Summary ---
Author Name Unknown Address Unknown Organization K01:[facility] - [address] [facility] [place] [address] Laboratory Report Ordering Provider Test Date Status CHRISTIAN CARRANZA 03/12/2024 16:04:35 Final Discharge Order Observation Date Value Abnormality Reference (Units ) Status SYNC LEUKOCYTES IN BLOOD BY AUTOMATED COUNT 03/12/2024 16:04:35 10.21 4.00-10.80 (K/uL) Final Segs 03/12/2024 16:04:35 64.2 40.0-75.0 (%) Final Lymphs % 03/12/2024 16:04:35 20.6 18.0-42.0 (%) Final Monos 03/12/2024 16:04:35 8.3 1.0-11.0 (%) Final Eosinophils 03/12/2024 16:04:35 5.6 0.0-6.0 (%) Final Basos 03/12/2024 16:04:35 0.9 0.0-2.0 (%) Final Immature Granulocyte, Percent 03/12/2024 16:04:35 0.4 0.0-2.0 (%) Final Absolute Segs 03/12/2024 16:04:35 6.56 1.80-7.70 (K/uL) Final Lymphs, absolute 03/12/2024 16:04:35 2.10 1.00-4.80 (K/ul) Final Monos, Abs 03/12/2024 16:04:35 0.85 0.00-1.10 (K/uL) Final Eos, Abs 03/12/2024 16:04:35 0.57 0.00-0.70 (K/uL) Final Basos, Abs 03/12/2024 16:04:35 0.09 0.00-0.20 (K/uL) Final Immature Granulocytes, Number 03/12/2024 16:04:35 0.04 0.00-0.20 (K/uL) Final Performing Location [facility] [place] - [facility] [place] [address]
--- OUTSIDE RECORDS SUMMARY | 2024-04-22 23:03 | External Medical Summary ---
Author Name Unknown Address Unknown Organization : Laboratory Report Ordering Provider Test Date Status MOI HAYWOOD 04/09/2024 12:10:45 Final Observation Date Value Abnormality Reference (Units ) Status ERYTHROPOIETIN (EPO) 04/09/2024 12:10:45 19.4 Above high normal 2.6-18.5 (mIU/mL) Final Test Performed at:
[facility]
[address] [facility]
[place] [address]
Yg Arnett M.D., Ph.D.,Director of Laboratories Performing Location
--- OUTSIDE RECORDS SUMMARY | 2024-04-22 23:03 | External Medical Summary | Summary of Care ---
Author Name Unknown Organization [facility] Address [address] [place] [address] Phone [phone] Care Team Providers Care Correctional Substance Abuse Counselor Name Role Phone RochellePrem natarajan Primary Care Provider [phone] Reason for Visit * Reason Onset Date Comments Scheduling 04/12/2024 Aranes Encounter Details Date Type Department Care Team (Late st Contact Info) Description 04/12/2024 Telephone Hematology/Oncology, [facility] [address] [place] [address] Cristian Lund MD [address] [place] [address] Scheduling ([facility]) Allergies Active Allergy Reactions Criticality Noted Date Comments Amoxicillin-Pot Clavulanate 08/24/19 Other reaction(s): Hives, Itching, SOB Dust 08/23/2021 Moxifloxacin 08/23/2021 Other reaction(s): Hives, Itching, SOB Sulfa Antibiotics 02/20/2012 "unknown" documented as of this encounter (statuses as of 04/20/2024) Medications FLOMAX 0.4 MG PO CAPS Take [...] as of this encounter (statuses as of 04/20/2024) Active Problems Problem Noted Date Diagnosed Date 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 Patient states that he is not getting this, he was advised not to by his pcp. Did provide him with the estimate in the event he does schedule this. He states he will talk to Dr. Lund about this at his apt on 05/05/2024 " * Telephone Encounter - Griselda Crow LPN - 04/12/2024 8:40 AM EST When auth is back, please schedule Aranesp injection Once every 4 weeks Stuartbrendon Will need CBCD within 24 hrs of injection documented in this encounter Plan of Treatment Upcoming Encounters Date Type Department Care Team (Late st Contact Info) Description 05/05/2024 12:30 PM EST Laboratory Laboratory, [address] [address] Gl, Lab [address] [place] [address] 05/05/2024 1:30 PM EST Office Visit Hematology/Oncology, [address] [place] [address] Cristian Lund MD [address] [place] [address] Scheduled Orders Name Type Priority Associated Diagnoses Orde r Schedule CBC WITH WBC DIFFERENTIAL Lab STAT Anemia in stage 3a chronic kidney disease (HCC) Every Month for 12 Occurrences starting 04/12/2024 until 04/12/2025 Scheduled Procedures Name Priority Associated Diagnoses Date/Ti me COLONOSCOPY FLEXIBLE PROXIMA L DIAGNOSTIC Recall History of colonic polyps Family history of colon cancer Health Maintenance Due Date Last Done Comments Depression Screening 1957 Hepatitis C Screening 08/11/1963 DTap/Tdap Vaccines (1 - Tdap) 1964 Zoster Vaccines (2 of 3) 10/16/2015 08/21/2015 Albumin/Creatinine Ratio 11/02/2022 11/02/2021 CKD PHOS USE SMARTSET 33984 11/02/2022 11/02/2021 Influenza Vaccine (FLU shot) (#1) 2023 02/11/2023, 01/17/2020, 02/19/2005 COVID-19 Vaccine ( season) 2024 01/08/2024, 04/11/2023, 03/01/2022, Additional history exists GFR 10/08/2024 04/09/2024, 01/26, 12/02/2023, Additional history exists CKD HGB USE SMARTSET 51643 04/09/202504/09, 04/09/2024, 03/12/2024, Additional history exists Colonoscopy [...] this encounter Medical Devices Implanted Type Area Staff [employer] Information [employer] Officer Device Identifier Shelf Expiration Date Model / Serial / Lot Clip Quick 2.8mm 230cm - [id number] Implanted:Qty: 1 on 07/25/2020 by Kalpesh Mcdaniels MD at [facility] [employer] 06/25/2022 HX-202UR.A / / [id number] Catheter Hemostatic 235cm 2.8mm 11mm Clip [address] Latexfree - [id number] Implanted:Qty: 1 on 01/02/2024 by Kalpesh Mcdaniels MD at [facility] [employer]OS[employer] [id number] 02/21/2026 [id number] / / [id number] Clip Ultra 360 235cm - [id number] Implanted:Qty: 1 on 01/02/2024 by Kalpesh Mcdaniels MD at [facility] ENDO [facility] [employer] ENDOS[employer] [id number] 05/23/2026 [id number] / / [id number] Catheter Hemostatic 235cm 2.8mm 11mm Clip [address] Latexfree - [id number] Implanted:Qty: 1 on 02/18/2024 by Kalpesh Mcdaniels MD at [facility] [employer] ENDOS[employer] [id number] 07/29/2026 [id number] / / [id number] Catheter Hemostatic 235cm 2.8mm 11mm Cl[address] [employer] - [id number] Implanted:Qty: 1 on 02/18/2024 by Kalpesh Mcdaniels MD at [facility] [employer] ENDOS[employer] [id number] 07/29/2026 [id number] / / [id number] documented as of this encounter Visit Diagnoses Diagnosis Anemia in stage 3a chronic kidney disease (HCC)- Primary documented in this encounter Care Teams Correctional Substance Abuse Counselor Relationship Specialty Start Date End Date Prem Byrd DO [address] [facility] [place] [address] PCP - General Family Medicine 08/20/23 documented as of this encounter
--- OUTSIDE RECORDS SUMMARY | 2024-04-22 23:03 | External Medical Summary | Summary of Care ---
Author Name Unknown Organization [facility] Address [address] [place] [address] Phone [phone] Care Team Providers Care Decorating Kiln Operator Name Role Phone Rochelle, Prem LUIS Primary Care Provider [phone] Encounter Details Date Type Department Care Team (Late st Contact Info) Description 04/12/2024 Orders Only Hematology/Oncology, [facility] [address] [place] [address] Cristian Lund MD [address] [place] [address] Allergies Active Allergy Reactions Criticality Noted Date [...] Ratio 11/02/2022 11/02/2021 CKD PHOS USE SMARTSET 62201 11/02/2022 11/02/2021 Influenza Vaccine (FLU shot) (#1) 2023 02/11/2023, 01/17/2020, 02/19/2005 COVID-19 Vaccine ( season) 2024 01/08/2024, 04/11/2023, 03/01/2022, Additional history exists GFR 10/08/2024 04/09/2024, 01/26, 12/02/2023, Additional history exists CKD HGB USE SMARTSET 99473 04/09/202504/09, 04/09/2024, 03/12/2024, Additional history exists Colonoscopy [...] this encounter Medical Devices Implanted Type Area Patternmaker Sample Device Identifier Shelf Expiration Date Model / Serial / Lot Clip Quick 2.8mm 230cm - [id number] Implanted:Qty: 1 on 07/25/2020 by Kalpesh Mcdaniels MD at [facility] [employer] 06/25/2022 HX-202UR.A / / [id number] Catheter Hemostatic 235cm 2.8mm 11mm Clip [address] Latexfree - [id number] Implanted:Qty: 1 on 01/02/2024 by Kalpesh Mcdaniels MD at [facility] [employer] ENDOS[employer] [id number] 02/21/2026 [id number] / / [id number] Clip Ultra 360 235cm - [id number] Implanted:Qty: 1 on 01/02/2024 by Kalpesh Mcdaniels MD at [facility] [employer] ENDOS[employer] [id number] 05/23/2026 [id number] / / [id number] Catheter Hemostatic 235cm 2.8mm 11mm Cl[address] Latexfree - [id number] Implanted:Qty: 1 on 02/18/2024 by Kalpesh Mcdaniels MD at [facility] [employer] ENDOS[employer] [id number] 07/29/2026 [id number] / / [id number] Catheter Hemostatic 235cm 2.8mm 11mm Cl[address] Latexfree - [id number] Implanted:Qty: 1 on 02/18/2024 by Kalpesh Mcdaniels MD at [facility] [employer] ENDOSCOPY [id number] 07/29/2026 [id number] / / [id number] documented as of this encounter Care Teams Decorating Kiln Operator Relationship Specialty Start Date End Date Prem Byrd DO [address] [facility], [place] [address] PCP - General Family Medicine 08/20/23 documented as of this encounter
--- OUTSIDE RECORDS SUMMARY | 2024-04-22 23:03 | External Medical Summary | Summary of Care ---
Author Name Unknown Organization [facility] Address [address] [place] [address] Phone [phone] Care Team Providers Care Digital Media Analyst Name Role Phone RochellePrem natarajan Primary Care Provider [phone] Reason for Visit * Reason Comments Outpatient Testing Encounter Details Date Type Department Care Team (Late st Contact Info) Description 03/12/2024 4:00 PM EST Laboratory Laboratory, [facility] [address] [place] [address] [facility], Lab [address] [place] [address] Other iron deficiency anemias Allergies Active Allergy Reactions Criticality Noted Date Comments Amoxicillin-Pot Clavulanate 08/24/19 Other reaction(s): Hives, Itching, SOB Dust 08/23/2021 Moxifloxacin 08/23/2021 Other reaction(s): Hives, Itching, SOB Sulfa Antibiotics 02/20/2012 "unknown" documented as of this encounter (statuses as of 03/12/2024) Medications FLOMAX 0.4 MG PO CAPS Take [...] as of this encounter (statuses as of 03/12/2024) Active Problems Problem Noted Date Diagnosed Date Chronic kidney disease, stage 3b 09/08/2023 Overview: Per CKD protocol Other iron deficiency anemias 08/21/2023 documented as of this encounter (statuses as of 03/12/2024) Immunizations Name Administration Dates Next Due COVID-19 mRNA, LNP-s, No Pre serve, 2-Dose Series (Moderna) 12/27/2020,07/04/2020,05/31/2020 Seasonal Influenza Vac., MDV , IM, 0.5 mL (Fluzone) 02/19/2005 documented as of this encounter Social [...] encounter Miscellaneous Notes * Addendum Note - Carrol Romero TECH - 03/12/2024 4:18 PM ESTAddended by: CARROL ROMERO on: 03/12/2024 04:18 PM Modules accepted: Orders documented in this encounter Plan of Treatment Upcoming Encounters Date Type Department Care Team (Late st Contact Info) Description 03/17/2024 4:00 PM EST Office Visit Hematology/Oncology, [facility] [address] [place] [address] Cristian Lnud MD [address] [place] [phone] Pending Results Name Type Priority Associated Diagnoses Date /Time CBC WITH WBC DIFFERENTIAL Lab Routine Other iron deficiency anemias 03/12/2024 4:04 PM EST CBC Lab Routine Other iron deficiency anemias 03/12/2024 4:04 PM EST DIFFERENTIAL, AUTOMATED Lab Routine Other iron deficiency anemias 03/12/2024 4:04 PM EST EXTRA TUBES Lab Routine 03/12/2024 4: 03 PM EST EXTRA GOLD TOP Lab Routine 03/12/2024 4:03 PM EST Scheduled Procedures Name Priority Associated Diagnoses Date/Ti me COLONOSCOPY FLEXIBLE PROXIMA L DIAGNOSTIC Recall History of colonic polyps Family history of colon cancer Health Maintenance Due Date Last Done Comments Depression Screening 1957 Hepatitis C Screening 08/11/1963 DTap/Tdap Vaccines (1 - Tdap) 1964 Zoster Vaccines (2 of 3) 10/16/2015 08/21/2015 Albumin/Creatinine Ratio 11/02/2022 11/02/2021 CKD PHOS USE SMARTSET 24275 11/02/2022 11/02/2021 Influenza Vaccine (FLU shot) (#1) 2023 02/11/2023, 01/17/2020, 02/19/2005 COVID-19 Vaccine ( season) 2024 01/08/2024, 04/11/2023, 03/01/2022, Additional history exists GFR 08/06/2024 02/06/2024, 09/2023, 08/21/2023, Additional history exists CKD HGB USE SMARTSET 47129 02/05/202502/05, 02/06/2024, 12/02/2023, Additional history exists Colonoscopy [...] this encounter Medical Devices Implanted Type Area Polisher Hand Device Identifier Shelf Expiration Date Model / Serial / Lot Clip Quick 2.8mm 230cm - [id number] Implanted:Qty: 1 on 07/25/2020 by Kalpesh Mcdaniels MD at [facility] [employer] [facility] 06/25/2022 HX-202UR.A / / [id number] Catheter Hemostatic 235cm 2.8mm 11mm Cl[address] Latexfree - [id number] Implanted:Qty: 1 on 01/02/2024 by Kalpesh Mcdaniels MD at [facility] [employer] [id number] 02/21/2026 [id number] / / [id number] Clip Ultra 360 235cm - [id number] Implanted:Qty: 1 on 01/02/2024 by Kalpesh Mcdaniels MD at [facility] [employer] ENDOS[employer] [id number] 05/23/2026 [id number] / / [id number] Catheter Hemostatic 235cm 2.8mm 11mm [address] Latexfree - [id number] Implanted:Qty: 1 on 02/18/2024 by Kalpesh Mcdaniels MD at [facility] [employer]OS[employer] [id number] 07/29/2026 [id number] / / [id number] Catheter Hemostatic 235cm 2.8mm 11mm Cl[address] Latexfree - [id number] Implanted:Qty: 1 on 02/18/2024 by Kalpesh Mcdaniels MD at [facility] [employer] ENDOSCOPY [id number] 07/29/2026 [id number] / / [id number] documented as of this encounter Visit Diagnoses Diagnosis Other iron deficiency anemias documented in this encounter Care Teams Digital Media Analyst Relationship Specialty Start Date End Date Prem Byrd DO [address] [place] [address] PCP - General Family Medicine 08/20/23 documented as of this encounter
--- OUTSIDE RECORDS SUMMARY | 2024-04-22 23:03 | External Medical Summary | Summary of Care ---
Author Name Unknown Organization [facility] Address [address] [place] [address] Phone [phone] Care Team Providers Care Advanced Practice Provider Name Role Phone RochellePrem natarajan Primary Care Provider [phone] Reason for Visit * Reason Comments Outpatient Testing Encounter Details Date Type Department Care Team (Late st Contact Info) Description 03/12/2024 4:00 PM EST Laboratory Laboratory, [facility] [address] [place] [address] [facility], Lab [address] [place] [address] Other iron deficiency anemias Allergies [...] 03/17/2024 4:00 PM EST Office Visit Hematology/Oncology, [facility] [address] [place] [address] Cristian Lund MD [address] [place] [phone] Pending Results Name Type Priority Associated Diagnoses [...] Ratio 11/02/2022 11/02/2021 CKD PHOS USE SMARTSET 86730 11/02/2022 11/02/2021 Influenza Vaccine (FLU shot) (#1) 2023 02/11/2023, 01/17/2020, 02/19/2005 COVID-19 Vaccine ( season) 2024 01/08/2024, 04/11/2023, 03/01/2022, Additional history exists GFR 08/06/2024 02/06/2024, 09/2023, 08/21/2023, Additional history exists CKD HGB USE SMARTSET 16285 02/05/202502/05, 02/06/2024, 12/02/2023, Additional history exists Colonoscopy [...] this encounter Medical Devices Implanted Type Area Marketing Manager Device Identifier Shelf Expiration Date Model / Serial / Lot Clip Quick 2.8mm 230cm - [id number] Implanted:Qty: 1 on 07/25/2020 by Kalpesh Mcdaniels MD at [facility] [employer] [facility] 06/25/2022 HX-202UR.A / / [id number] Catheter Hemostatic 235cm 2.8mm [address]mm [address] Latexfree - [id number] Implanted:Qty: 1 on 01/02/2024 by Kalpesh Mcdaniels MD at [facility] [employer] [id number] 02/21/2026 [id number] / / [id number] Clip Ultra 360 235cm - [id number] Implanted:Qty: 1 on 01/02/2024 by Kalpesh Mcdaniels MD at [facility] [employer] ENDOS[employer] [id number] 05/23/2026 [id number] / / [id number] Catheter Hemostatic 235cm 2.8mm [address]mm [address] Latexfree - [id number] Implanted:Qty: 1 on 02/18/2024 by Kalpesh Mcdaniels MD at [facility] [employer]OS[employer] [id number] 07/29/2026 [id number] / / [id number] Catheter Hemostatic 235cm 2.8mm [address]mm [address] Latexfree - [id number] Implanted:Qty: 1 on 02/18/2024 by Kalpesh Mcdaniels MD at [facility] [employer] ENDOS[employer] [id number] 07/29/2026 [id number] / / [id number] documented as of this encounter Visit Diagnoses Diagnosis Other iron deficiency anemias documented in this encounter Care Teams Advanced Practice Provider Relationship Specialty Start Date End Date Prem Byrd DO [address] [place] [address] PCP - General Family Medicine 08/20/23 documented as of this encounter
--- OUTSIDE RECORDS SUMMARY | 2024-04-22 23:03 | External Medical Summary ---
Author Name Unknown Address Unknown Organization K1F:LABORATORY [facility] - [address] [place] [address] Laboratory Report Ordering Provider Test Date Status MOI HAYWOOD 04/09/2024 12:10:45 Final Observation Date Value Abnormality Reference (Units ) Status WBC, Total 04/09/2024 12:10:45 11.55 Above high normal 4.00-10.80 (K/uL) Final RBC 04/09/2024 12:10:45 3.74 4.50-5.25 (M/uL) Final Hemoglobin 04/09/2024 12:10:45 10.9 Below low normal 14.0-16.8 (g/dL) Final HCT 04/09/2024 12:10:45 33.7 Below low normal 40.0-48.4 (%) Final MCV 04/09/2024 12:10:45 90.1 82.0-99.5 (fL) Final MCH 04/09/2024 12:10:45 29.1 27.0-34.0 (pg) Final MCHC 04/09/2024 12:10:45 32.3 32.0-36.0 (g/dL) Final RDW 04/09/2024 12:10:45 13.1 11.5-15.5 (%) Final Platelets 04/09/2024 12:10:45 284 140-400 (K/uL) Final MPV 04/09/2024 12:10:45 9.4 6.6-11.1 (fL) Final Nucleated erythrocytes/100 leukocytes [Ratio] in Blood by Automated count 04/09/2024 12:10:45 0 <=0 (/100 WBCs) Final Performing Location LABORATORY [facility] - [address] [place] [address]
--- OUTSIDE RECORDS SUMMARY | 2024-04-22 23:03 | External Medical Summary ---
Author Name Unknown Address Unknown Organization K1F:LABORATORY [facility] - [address] [place] [address] Laboratory Report Ordering Provider Test Date Status MOI HAYWOOD 04/09/2024 12:10:45 Final Observation Date Value Abnormality Reference (Units ) Status LDH 04/09/2024 12:10:45 138 <=250 (U/L ) Final Performing Location LABORATORY [facility] - [address] [place] [address]
--- OUTSIDE RECORDS SUMMARY | 2024-04-22 23:03 | External Medical Summary | Continuity of Care Document ---
Author Name Unknown Organization [facility] [address] Address [address] [place] [address] Care Team Providers Care Public Relations Officer Name Role Phone Prem Byrd Primary Care Physician [phone] [id number] Date(s): 02/26/24 - 02/26/24 [facility] [address] [facility] [address] [facility] [address] [place], [place] [phone] Encounter Diagnosis Anemia, unspecified(Final) - Chronic kidney disease, stage 3b(Final) - Unspecified diastolic (congestive) heart failure(Final) - Paroxysmal atrial fibrillation(Final) - Shortness of breath(Final) - Discharge Disposition: Home or Self Care Attending Physician: DO Medellin Jason D Referring Physician: DO [place] Jason D Allergies, Adverse Reactions, Alerts Substance Criticality Severity Reaction Reaction Severity Status sulfa drugs Itching SOB Hives Active Augmentin SOB Itching Hives Active Avelox SOB Itching Hives Active Dust Active mixed grass pollens allergen extract cough sob Active Medications Albuterol (Eqv-Proventil HFA) 90 mcg/inh inhalation aerosol Start: 12/11/23 4:03:00 PM EDT, 2 puff, inhaled, qid, Disp# 6.7 each, Refills: 6, PRN: NEEDED FORWHEEZING, Pharmacy: [id number] Start Date: 12/11/23 Status: Ordered albuterol-ipratropium 2.5 [...] bid, Disp# 14 cap, Refills: 1, [id number] Start Date: 01/22/24 Status: Ordered doxycycline hyclate 100 mg oral capsule Start: 02/24/24 4:40:00 PM EDT, 1 cap, PO, Daily, Disp# 30 cap, Refills: 6, [id number] Start Date: 02/24/24 Status: Ordered DuoNeb 0.5 mg-2.5 mg/3 mL inhalation solution Start: 12/15/23 3:14:00 PM EDT, 3 mL, inhaled, qid, Disp# 1,080 mL, Refills: 3, PRN: as needed for shortness of breath or wheezing, [id number] Start Date: 12/15/23 Status: Ordered Eliquis 5 mg oral tablet Start: 08/13/23 10:27:00 AM EDT, 1 tab, PO, bid, Disp# 180 tab, Refills: 3, Pharmacy: [id number] Start Date: 08/13/23 Status: Ordered Entresto 24 mg-26 mg oral tablet Start: 01/19/24 10:36:00 AM EDT, 1 tab, PO, bid, Disp# 180 tab, Refills: 3, Pharmacy: [id number] Start Date: 01/19/24 Status: Ordered finasteride [...] BY MOUTH NEEDED FOR SWELLING/WT GAIN, Pharmacy: [facility] [id number] Start Date: 11/20/20 Status: Ordered inhaler spacer Start: 03/15/22 2:42:00 PM EST, See Instructions, Disp# 1 each, use with inhaler, [id number] Start Date: 03/15/22 Status: Ordered Multaq 400 mg oral tablet Start: 08/12/23 3:34:00 PM EDT, 1 tab, PO, bid, Disp# 180 tab, Refills: 3, [id number] Start Date: 08/12/23 Status: Ordered omeprazole [...] Disp# 10 tab, Refills: 1, , [id number] Start Date: 01/22/24 Status: Ordered Roflumilast 500 mcg oral tablet Start: 05/02/23 1:55:00 PM EST, 1 tab, PO, Daily, Disp# 90 tab, Refills: 3, Pharmacy: [id number] Start Date: 05/02/23 Status: Ordered sodium chloride 3% for nebulization Start: 07/28/22 2:51:00 PM EDT, 3 mL, NEB, bid, Disp# 180 mL, Refills: 3, Pharmacy: [id number] Start Date: 07/28/22 Status: Ordered Spiriva 18 mcg inhalation capsule Start: 05/19/18 10:03:51 AM EST, See Instructions, Disp# 90, INHALE CONTENTS OF 1 CAPSULE BY MOUTH DAILY, Brand Medically Necessary, [id number] Start Date: 05/19/18 Status: Ordered spironolactone 25 mg oral tablet Start: 07/21/23 9:19:00 AM EDT, See Instructions, Disp# 90 tab, Refills: 3, TAKE 1/2 TABLET BY MOUTHEVER, Pharmacy: [facility] #[id number] Start Date: 07/21/23 Status: Ordered tadalafil 5 [...] ED&C 2Colon Results Laboratory List Name Date Basic Metabolic Panel (BASIC METAB PANEL ) 02/26/24 NT-Pro BNP 02/26/24 Most recent to oldest [Reference Range]: 1 eGFR CKD-EPI [>60 mL/min/1.73 m2] 37 mL/ min/1.73 m2 1 *LOW* (02/26/24 8:11 AM) BNP, NT-Pro [<450 pg/mL] 162 pg/mL (02/26/24 8:11 AM) Estimated CrCl 36.15 mL/min (02/26/24 8:48 AM) Anion Gap [5-14 mmol/L] 8 mmol/L (02/26/24 8:11 AM) BUN [7-20 mg/dL] 35 mg/dL *HI* (02/26/24 8:11 AM) Ca [8.4-10.2 mg/dL] 9.2 mg/dL (02/26/24 8:11 AM) Cl- [96-107 mmol/L] 107 mmol/L (02/26/24 8:11 AM) HCO3 [22-30 mmol/L] 25 mmol/L (02/26/24 8:11 AM) Cret [0.70-1.30 mg/dL] 1.85 mg/dL *HI* (02/26/24 8:11 AM) Glu [74-106 mg/dL] 109 mg/dL *HI* (02/26/24 8:11 AM) K [3.5-5.1 mmol/L] 4.5 mmol/L (02/26/24 8:11 AM) Na [137-145 mmol/L] 140 mmol/L (02/26/24 8:11 AM) 1Result Comment: Testing Performed By: Dept of Pathology [facility], [address] [place] [place] [address] Social History Social History Type Response Smoking Status Former Smoker, quit > 1 yr Sex Male Sex Representation Male (finding) Patient Care team information Care Team Personnel Name: MD Rios Richard C Position: Physician - Pulmonary Med Member Role: Lifetime Relationship Address: [address] [place] [address] [address] [place] [address] Name: DO Byrd Thomas Position: Referring Member Role: Primary Care Provider Address: [facility] [address] [place] [address] [place] Care Team Related Persons Name: TIANA ASENCIO
--- OUTSIDE RECORDS SUMMARY | 2024-04-22 23:03 | External Medical Summary ---
Author Name Unknown Address Unknown Organization K1F:LABORATORY [facility] [address] [facility] [place] [address] Laboratory Report Ordering Provider Test Date Status MOI HAYWOOD 04/09/2024 12:10:45 Final Observation Date Value Abnormality Reference (Units ) Status BUN 04/09/2024 12:10:45 25 Above high normal 6-20 (mg/dL) Final Creatinine 04/09/2024 12:10:45 1.7 Above high normal 0.6-1.2 (mg/dL) Final Glomerular filtration rate/1.73 sq M.predicted [Volume Rate/Area] in Serum, Plasma or Blood by Creatinine-based formula (CKD-EPI) 04/09/2024 12:10:45 42 Below low normal >=60 (mL/min) Final eGFR is calculated based on the CKD-EPI 2020 equation. Sodium 04/09/2024 12:10:45 140 135-146 (m mol/L) Final Potassium 04/09/2024 12:10:45 4.7 3.5-5.1 (m mol/L) Final Cl 04/09/2024 12:10:45 105 98-107 (mm ol/L) Final CO2 04/09/2024 12:10:45 24 22-32 (mmo l/L) Final Anion gap 04/09/2024 12:10:45 11 7-15 (mmol /L) Final Glucose 04/09/2024 12:10:45 108 70-120 (mg /dL) Final Albumin 04/09/2024 12:10:45 4.1 3.8-5.0 (g /dL) Final AST (Aspartate aminotransferase) 04/09/2024 12:10:45 14 10-50 (U/L) Final Alk Phos 04/09/2024 12:10:45 66 35-130 (U/ L) Final Bilirubin, Total 04/09/2024 12:10:45 0.3 <=1 .2 (mg/dL) Final Calcium 04/09/2024 12:10:45 9.2 8.4-10.2 ( mg/dL) Final Protein 04/09/2024 12:10:45 6.6 6.0-8.3 (g /dL) Final ALT (Alanine aminotransferase) 04/09/2024 12:10:45 13 10-50 (U/L) Final Performing Location LABORATORY [facility] - [facility] [place] [address]
[2024-04-22] MEDS: ALBUT/IPRATROP 3MG/0.5MG NEB 3 ML VIAL NEB ONE (23:05)
[2024-04-22] MEDS: SODIUM CHLORIDE 0.9% 500 ML IV ONE ×2 (23:06→23:43)
[2024-04-22] MEDS: ACETAMINOPHEN 1,000 MG/100 ML VIAL IV STA (23:06)
[2024-04-22 23:15] LABS: Base Excess VBG -1.8 mEq/L; HCO3 VBG 25 mmol/L; Oxygen Saturation VBG < 60.0 %; PCO2 VBG 51 mmHg (38-50); PO2 VBG 28 mmHg
[2024-04-22 23:19] LABS: Basophils # (auto) 0.07 K/uL (0.00-0.20); Basophils % (auto) 0.3 %; Eosinophils # (auto) 0.49 K/uL (0.00-0.50); Eosinophils % (auto) 2.3 %; Hematocrit (blood only) 35.6 % (42.0-52.0); Hemoglobin 11.5 g/dl (14.0-18.0); Immature Granulocytes # (auto) 0.12 K/uL (0.01-0.20); Immature Granulocytes % (auto) 0.6 %; Lymphocytes % (auto) 14.8 %; Mean Corpuscular Hemoglobin 28.4 pg (25.0-34.0); Mean Corpuscular Hgb Conc 32.3 g/dL (32.0-36.0); Mean Corpuscular Volume 87.9 fL (80.0-100.0); Mean Platelet Volume 9.5 fL (9.4-12.4); Monocytes # (auto) 1.69 K/uL (0.11-0.59); Neutrophils # (auto) 15.53 K/uL (1.40-6.50); Platelet Count 271 K/uL (130-400); RDW Coefficient of Variation 13.3 % (11.5-14.5); RDW Standard Deviation 42.6 fL (36.4-46.3); Red Blood Count 4.05 M/uL (4.70-6.10)
--- NOTE | 2024-04-22 23:26 | Emergency Department Note ---
Impression & Plan Pneumonia, Acute exacerbation of chronic obstructive pulmonary disease (COPD), Cellulitis of left leg, CKD (chronic kidney disease), Acute hypoxemic respiratory failure ED Provider Note ED Provider Note NAME: OSKAR ASENCIO AGE:78 SEX: Male : 1945 ARRIVES VIA: EMS INFORMANT: Patient ED PROVIDER(s): Sandra Huff DO CHIEF COMPLAINT: Shortness of breath HPI: This is a 78-year-old male brought in by EMS due to worsening shortness of breath. EMS reports on arrival patient with increased work of breathing and initial room air saturation of 77%. Patient given a DuoNeb and placed on oxygen via nonrebreather which did help. Patient states he began getting sick yesterday with a runny nose and sore throat. Yesterday and today he noticed increased difficulty breathing. He states he does have an increased cough although it is mostly nonproductive. He did not notice any fevers or chills and states his did take his temperature earlier in the evening. He denies any known sick contacts over the holiday. He does have a history of atrial fibrillation although states a month ago he was told to discontinue his Eliquis as the risk concern for a GI bleed. He states he underwent EGD and colonoscopy. 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 Medellin. He states he also missed a step and fell 2 weeks ago and has residual swelling and pain yet to the left lower extremity. Patient was given DuoNeb and Solu-Medrol by EMS en route. PAST MEDICAL HISTORY:See Below PAST SURGICAL HISTORY:See Below FAMILY HISTORY:See Below SOCIAL HISTORY:See Below HOME MEDICATIONS:See Below ALLERGIES:See Below VITALS:See Below PHYSICAL EXAMINATION: GENERAL: alert, well appearing, well nourished, no distress, non-toxic EYE EXAM: normal conjunctiva, PERRL and EOM's grossly intact OROPHARYNX: no exudate, no erythema, lips, buccal mucosa, and tongue normal and mucous membranes are moist NECK: supple, no nuchal rigidity, no adenopathy, non-tender LUNGS: Decreased bilaterally to auscultation. Normal chest wall mechanics, tachypnea and increased work of breathing with use of abdominal muscles, no overt wheezes/rhonchi/rales, can only speak a few words at a time not full sentences HEART: no murmurs, S1 normal and S2 normal ABDOMEN: abdomen soft, non-tender, normo-active bowel sounds, no masses, no rebound or guarding. BACK: Back is symmetrical on inspection and there is no deformity, no midline tenderness, no CVA tenderness. SKIN: no rashes, petechiae, orbruising UPPER EXTREMITIES: upper extremities are grossly normal. FROM, nml pulses b/l. LOWER EXTREMITIES: 1+ LLE pitting edema. FROM, nml pulses b/l. Distal left lower extremity with increased warmth, mild discomfort with palpation, compartments soft, no joint effusions, no obvious deformity NEURO EXAM: Normal sensorium, cranial nerves II-XII grossly intact, normal speech, no facial droop,nogross weakness of arms, no gross weakness of legs. Gross sensation intact. No ataxia. Vital Signs: reviewed and remarkable Differential Diagnosis: pneumonia, bronchitis, COPD/Asthma exacerbation, pneumothorax, pulmonary embolism, congestive heart failure, acute coronary syndrome, as well as others were considered MEDICAL DECISION MAKING: This is a 78-year-old male presents via EMS due to increased shortness of breath. Patient hypoxic with increased work of breathing and obvious distress for EMS, was beginning to improve by arrival here following DuoNeb and IV Solu- Medrol and supplemental oxygen however still with increased work of breathing and decreased breath sounds. Labs drawn and sent, IV established, EKG and chest ray performed at bedside interpreted me and patient monitored on telemetry. He was put on BiPAP upon arrival here with improvement in his work of breathing. Nasal swab obtained and sent additionally. Patient noted to have significant leukocytosis. Blood cultures, procalcitonin, lactic acid were added and patient started on IV antibiotics. Patient does take doxycycline daily per his accredited legal secretary due to his underlying COPD. IV Rocephin was added. Nasal swab ultimately negative. Patient's creatinine elevated although he has a history of CKD and does follow with nephrology. Patient's troponin was negative and despite increased work of breathing and hypoxia he had no complaints of chest pain or palpitations. With improvement in the patient's breathing his heart rate slowed and blood pressure stabilized. He was initially given 1 L of IV fluids and then slowed down to maintenance rate due to cardiac history and renal history and wanting to avoid pulmonary edema, he had not yet completed 30 mL/KG based on IBW due to the slowed rate to avoid CHF at the time of admission. Patient's left lower extremity further evaluated also with x-ray that was reassuring, and ultrasound negative for DVT. Will defer further management of possible cellulitis to hospitalist team although patient is receiving antibiotics. Patient and family updated several times at bedside and he was reexamined several times. Repeat lung exams were markedly improved, patient able to speak in longer and full sentences and reported feeling better. Case discussed with the hospitalist team for additional evaluation and management. Consultation(s): 0045: Discussed with Dr. Rosa, not in any hospitalist team, for additional evaluation and management. ER Treatment Provided: See below [id number]: Patient now reporting is feeling improved, able to speak in a full sentence. Repeat lung exam now with increased air movement on auscultation. Family now at bedside. Med list reviewed and includes doxycycline although patient doesn't know why he is on this. He states his accredited legal secretary is at [place]. Diagnostics Interpreted By Me: -ECG: Sinus tachycardia at 122, rightward axis, normal QRS, prolonged QTc, ST depression noted in V5 and V6, worse compared to prior, no other acute changes overall morphology compared to an EKG from January 09, 2024 -Cardiac Monitoring: An order was placed for continuous cardiac monitoring. The monitor shows a rate of 108 with sinus tachycardia rhythm. -Laboratory studies: As stated above and show below. -Imaging studies: X-ray Chest: A single view study of the chest was reviewed and was negative for cardiomegaly, pulmonary edema, or wide mediastinum. Bilateral lower lobe increased interstitial markings possible evolving infiltrate Triage Nursing Note Reviewed Prior/Outside Records Reviewed -outpatient pulmonology visit from January 2024, recent cardiology office visit which showed last echo was in 2020 Critical Care: Critical care of 52 min performed to assess and manage high likelihood of life-threatening acute hypoxic respiratory failure, involving labs and imaging performed with assessment to evaluate dyspnea and hypoxia diagnosis with frequent reassessment. This time includes bedside time, treatment discussions with patient/family/consultants, documentation time and excludes procedure time. Past Med/Surg History Problem List (Updated 04/23/24 @ 04:32 by Sandra Huff DO) CKD (chronic kidney disease) (Acute) Cellulitis of left leg (Acute) Left leg swelling Acute exacerbation of chronic obstructive pulmonary disease (COPD) (Acute) Pneumonia (Acute) CKD (chronic kidney disease) (Acute) COPD exacerbation (Acute) COVID-19 (Acute) Acute hypoxemic respiratory failure (Acute) COPD exacerbation (Acute) Pneumonia (Acute) Leukocytosis (Acute) Fever (Acute) Hypoxia (Acute) Bronchitis (Chronic) Bronchopneumonia (Chronic) Abnormal TSH (Chronic) Coronary artery calcification (Chronic) Chronic anticoagulation (Chronic) Atrial fibrillation (Chronic) Tubular adenoma Renal insufficiency Anemia Pruritus Lower urinary tract symptoms (LUTS) Urinary retention Epistaxis Cystic kidney disease Coronary artery calcification seen on CAT scan Encounter for pre-operative examination BPH (benign prostatic hyperplasia) (Chronic) GERD (gastroesophageal reflux disease) (Chronic) tums prn CKD (chronic kidney disease), stage III Iron deficiency anemia Chronic anticoagulation Paroxysmal atrial fibrillation no current issues Emphysema/COPD (Chronic) DYLAN on CPAP (Chronic) Asthma (Chronic) well controlled with inhalers. Hyperlipidemia (Chronic) Hypertension (Chronic) Medical History History of diverticulitis History of cardioversion successful in 2019. Colon polyps Atrial fibrillation with RVR Diabetes mellitus pt denies. Pneumonia x2. no recent issues Surgical History History of cataract surgery History of esophagogastroduodenoscopy (EGD) History of colonoscopy History of colon resection Family History Father Emphysema of lung Colon cancer Colorectal cancer Grandfather (Paternal) Colon cancer Colorectal cancer Mother Myocardial infarction Grandmother (Maternal) Myocardial infarction Other Cancer Family history non-contributory Heart disease Hypertension Denies family history of Ovarian cancer Prostate cancer Breast cancer Social History (Updated 02/10/24 @ 14:39 by Kaylie Dawkins LPN) Smoking Status: Former smoker Tobacco Type: Cigarettes Age Started Using Tobacco: 20; Age Quit Using Tobacco: 42; packs per day: 1; Second Hand Exposure: No; Do You Dip or Chew Tobacco: No; Hx Alcohol Use: Yes Alcohol type: beer Alcohol Intake Frequency: 2-4 x/Month Hx Substance Use: No Preferred Language: German Communication Ability: Effective Visual Impairment: Diminished Hearing Ability: Normal Diesel Lube Tech Required: No Beliefs That Will Affect Care: None marital status: Current Living Situation: Spouse current occupational status: employed How many Children do You have: 2 Feels Safe at Home: Yes Childhood Exposure to Second-Hand Smoke: Yes Diet: regular caffeine: Yes during the past year weight has: decreased > 10 lbs Dental Care, Regularly: Yes Physical Activity Frequency: Daily Seatbelt Use: always Sunscreen Use: No Do you think of yourself as: straight/heterosexual Assistive Devices: CPAP Allergies Allergies Allergy/AdvReac Type Severity Reaction Status Date / Time amoxicillin Allergy Intermediate RASH Verified 02/20/24 11:22 clavulanic acid Allergy Intermediate RASH Verified 02/20/24 11:22 moxifloxacin Allergy Unknown hives, Verified 02/20/24 11:22 TOLERATES LEVAQUIN Sulfa (Sulfonamide Allergy Unknown . Verified 02/20/24 11:22 Antibiotics) Home Meds Home Medications Medication Instructions Recorded Confirmed calcium carbonate (Tums) 300 mg PO BID PRN Heartburn 03/19/22 04/23/24 cetirizine 10 mg tablet 10 mg PO QAM 08/30/23 04/23/24 omeprazole 40 mg capsule,delayed 40 mg PO BID 01/09/24 04/23/24 release ferrous sulfate 325 mg (65 mg 325 mg PO TID 04/23/24 04/23/24 iron) tablet fluticasone 250 mcg-salmeterol 50 1 inh inhalation AMHS 04/23/24 04/23/24 mcg/dose blistr powdr for inhalation (Wixela Inhub) Previous Rx's Medication Instructions Recorded atorvastatin 20 mg tablet 20 mg PO HS #90 tabs 01/26/24 dronedarone 400 mg tablet (Multaq) 400 mg PO BID #180 tabs 01/26/24 finasteride 5 mg tablet 5 mg PO QAM #90 tabs 01/26/24 loratadine 10 mg tablet (Claritin) 10 mg PO PM #90 tabs 01/26/24 roflumilast 500 mcg tablet 500 mcg PO QAM #90 tabs 01/26/24 (Daliresp) sacubitril 24 mg-valsartan 26 mg 1 tab PO BID #180 tabs 01/26/24 tablet (Entresto) spironolactone 25 mg tablet 12.5 mg (1/2 x 25 mg) PO QAM #90 01/26/24 tabs tadalafil 5 mg tablet 5 mg PO QAM #90 tabs 01/26/24 tamsulosin 0.4 mg capsule 0.4 mg PO HS #90 caps 01/26/24 Spiriva with HandiHaler 18 mcg and 1 cap inhalation QAM 90 days #90 02/02/24 inhalation capsules (tiotropium inhalations bromide) albuterol sulfate 90 mcg/actuation 2 puff inhalation QID PRN Wheezing 02/02/24 aerosol inhaler 90 days #25.5 grams ipratropium 0.5 mg-albuterol 3 mg 3 ml inhalation QID PRN Shortness 02/03/24 (2.5 mg base)/3 mL nebulization Of Breath Or Wheezing #120 amps soln furosemide 20 mg tablet 20 mg PO DAILY PRN ud #90 tabs 02/10/24 doxycycline hyclate 100 mg tablet 100 mg PO BID 5 days #10 tabs 02/20/24 CPAP Machine #1 ea 04/16/24 CPAP Supplies #1 ea 04/16/24 Results & Data (ED) Vital Signs Vital Signs - 24 hr 04/22/24 22:48 04/22/24 22:48 04/22/24 22:48 Temperature 39.4 C H Temperature Source Oral Pulse Rate 132 H Pulse Rate [Apical] Respiratory Rate 26 H Respiratory Effort / Characteristics Labored Short of Breath Labored Short of Breath Respiratory Depth Respiratory Pattern Tachypnea Tachypnea Blood Pressure 173/86 H Blood Pressure [Left Arm] Blood Pressure Mean 115 Blood Pressure Mean [Left Arm] Blood Pressure Position Semi-fowlers Blood Pressure Position [Left Arm] Pulse Oximetry 90 90 Oxygen Delivery Method Nasal Cannula Nasal Cannula BiPAP Oxygen Flow Rate 6 6 Fraction of Inspired Oxygen SaO2/FiO2 Ratio Sepsis Recent Fever Within 48 Hours Yes Sepsis New/Unexplained Change in Mental Status N/A Sepsis Action Taken by Nursing Physician Notified Fraction of Inspired Oxygen - Titration 30 Pulse Oximetry Post Tiitration 100 04/22/24 22:58 04/22/24 23:20 04/22/24 23:23 Temperature Temperature Source Pulse Rate 131 H 96 H Pulse Rate [Apical] 93 H Respiratory Rate 16 Respiratory Effort / Characteristics Respiratory Depth Respiratory Pattern Blood Pressure Blood Pressure [Left Arm] 138/65 Blood Pressure Mean Blood Pressure Mean [Left Arm] 89 Blood Pressure Position Blood Pressure Position [Left Arm] Semi-fowlers Pulse Oximetry 99 Oxygen Delivery Method BiPAP Oxygen Flow Rate Fraction of Inspired Oxygen 30 SaO2/FiO2 Ratio 330 Sepsis Recent Fever Within 48 Hours Sepsis New/Unexplained Change in Mental Status Sepsis Action Taken by Nursing Fraction of Inspired Oxygen - Titration Pulse Oximetry Post Tiitration 04/22/24 23:30 04/22/24 23:39 04/22/24 23:41 Temperature Temperature Source Pulse Rate 105 H Pulse Rate [Apical] 93 H 105 H Respiratory Rate 18 22 22 Respiratory Effort / Characteristics Spontaneous Short of Breath Spontaneous Short of Breath Respiratory Depth Normal Respiratory Pattern Tachypnea Blood Pressure Blood Pressure [Left Arm] 107/55 L Blood Pressure Mean Blood Pressure Mean [Left Arm] 72 Blood Pressure Position Blood Pressure Position [Left Arm] Semi-fowlers Pulse Oximetry 98 99 99 Oxygen Delivery Method BiPAP BiPAP Oxygen Flow Rate Fraction of Inspired Oxygen 30 30 30 SaO2/FiO2 Ratio 326 Sepsis Recent Fever Within 48 Hours Sepsis New/Unexplained Change in Mental Status Sepsis Action Taken by Nursing Fraction of Inspired Oxygen - Titration Pulse Oximetry Post Tiitration 04/23/24 00:07 04/23/24 00:30 04/23/24 00:57 Temperature 37.5 C Temperature Source Oral Pulse Rate 93 H 88 Pulse Rate [Apical] 98 H Respiratory Rate 18 17 18 Respiratory Effort / Characteristics Non-Labored Spontaneous Respiratory Depth Normal Respiratory Pattern Regular Blood Pressure 118/58 L 112/60 Blood Pressure [Left Arm] 108/57 L Blood Pressure Mean 78 77 Blood Pressure Mean [Left Arm] 74 Blood Pressure Position Blood Pressure Position [Left Arm] Semi-fowlers Pulse Oximetry 97 94 95 Oxygen Delivery Method BiPAP BiPAP BiPAP Oxygen Flow Rate Fraction of Inspired Oxygen 30 30 30 SaO2/FiO2 Ratio 323 Sepsis Recent Fever Within 48 Hours Sepsis New/Unexplained Change in Mental Status Sepsis Action Taken by Nursing Fraction of Inspired Oxygen - Titration Pulse Oximetry Post Tiitration 04/23/24 01:30 04/23/24 03:15 04/23/24 03:30 Temperature Temperature Source Pulse Rate 82 65 66 Pulse Rate [Apical] Respiratory Rate 16 16 Respiratory Effort / Characteristics Respiratory Depth Respiratory Pattern Blood Pressure 118/54 L 110/45 L Blood Pressure [Left Arm] Blood Pressure Mean 75 66 Blood Pressure Mean [Left Arm] Blood Pressure Position Blood Pressure Position [Left Arm] Pulse Oximetry 93 98 Oxygen Delivery Method BiPAP BiPAP Oxygen Flow Rate Fraction of Inspired Oxygen 30 30 SaO2/FiO2 Ratio Sepsis Recent Fever Within 48 Hours Sepsis New/Unexplained Change in Mental Status Sepsis Action Taken by Nursing Fraction of Inspired Oxygen - Titration Pulse Oximetry Post Tiitration Laboratory Data 04/22/24 23:00 04/22/24 23:00 Lab Results 04/22/24 04/22/24 04/22/24 Range/Units 23:00 23:05 23:06 WBC 21.00 H (4.8-10.8) K/ul RBC 4.05 L (4.70-6.10) M/uL Hgb 11.5 L (14.0-18.0) g/dl Hct 35.6 L (42.0-52.0) % MCV 87.9 (80.0-100.0) fL MCH 28.4 (25.0-34.0) pg MCHC 32.3 (32.0-36.0) g/dL RDW Std Deviation 42.6 (36.4-46.3) fL RDW Coeff of Jim 13.3 (11.5-14.5) % Plt Count 271 (130-400) K/uL MPV 9.5 (9.4-12.4) fL Immature Gran % (Auto) 0.6 % Neut % (Auto) 74.0 % Lymph % (Auto) 14.8 % [place] % (Auto) 8.0 % Eos % (Auto) 2.3 % Baso % (Auto) 0.3 % Neut # (Auto) 15.53 H (1.40-6.50) K/uL Lymph # (Auto) 3.10 (1.20-3.40) K/uL [place] # (Auto) 1.69 H (0.11-0.59) K/uL Eos # (Auto) 0.49 (0.00-0.50) K/uL Baso # (Auto) 0.07 (0.00-0.20) K/uL Immature Gran # (Auto) 0.12 (0.01-0.20) K/uL PT 10.9 (9.0-12.0) Seconds INR 1.0 (0.9-1.1) APTT 28 (21-31) Seconds PTT Ratio 1.0 VBG pH 7.30 L (7.36-7.41) VBG pCO2 51 H (38-50) mmHg VBG pO2 28 mmHg VBG HCO3 25 mmol/L VBG O2 Saturation < 60.0 % VBG Base Excess -1.8 mEq/L Sodium 140 (136-145) mmol/L Potassium 4.3 (3.5-5.1) mmol/L Chloride 106 (98-107) mmol/L Carbon Dioxide 23 (21-32) mmol/L Anion Gap 11 (3-11) BUN 26 H (6-23) mg/dl Creatinine 1.76 H (0.6-1.4) mg/dl Est Cr Clr Drug Dosing 38.9 ml/min eGFR 39.09 BUN/Creatinine Ratio 14.8 (10-20) Glucose 112 H (70-99(Fasting)) mg/dl Lactate 1.8 (0.4-2.0) mmol/L Calcium 9.2 (8.6-10.3) mg/dl Magnesium 1.7 (1.7-2.4) mg/dl Total Bilirubin 0.4 (0.2-1.0) mg/dl Direct Bilirubin 0.0 (0-0.2) mg/dl AST 20 (13-39) U/L ALT 28 (7-52) U/L Alkaline Phosphatase 61 (34-104) U/L Troponin I High Sens 19.6 (0-20) pg/ml C-Reactive Protein 2.97 H (0-0.5) mg/dl B-Natriuretic Peptide 186 H (0-100) pg/ml Total Protein 7.9 (6.0-8.3) gm/dl Albumin 4.2 (3.4-5.0) gm/dl Procalcitonin 0.09 (0-0.5) ng/ml Nasal Screen MRSA (PCR) (Negative) Adenovirus (PCR) Not Detected (NotDetected) B. pertussis DNA (PCR) Not Detected (NotDetected) B.parapertussis DNA PCR Not Detected (NotDetected) C. pneumoniae DNA (PCR) Not Detected (NotDetected) Coronavirus OC43 (PCR) Not Detected (NotDetected) Coronavirus HKU1 (PCR) Not Detected (NotDetected) Coronavirus 229E (PCR) Not Detected (NotDetected) SARS-CoV-2 (PCR) Not Detected (NotDetected) Coronavirus NL63 (PCR) Not Detected (NotDetected) Human Metapneumovir PCR Not Detected (NotDetected) Influenza Type A (PCR) Not Detected (NotDetected) Influenza Type B (PCR) Not Detected (NotDetected) M. pneumoniae (PCR) Not Detected (NotDetected) Parainfluenza 1 (PCR) Not Detected (NotDetected) Parainfluenza 2 (PCR) Not Detected (NotDetected) Parainfluenza 3 (PCR) Not Detected (NotDetected) Parainfluenza 4 (PCR) Not Detected (NotDetected) RSV (PCR) Not Detected (NotDetected) Entero/Rhino (PCR) Not Detected (NotDetected) 04/23/24 Range/Units 02:49 WBC (4.8-10.8) K/ul RBC (4.70-6.10) M/uL Hgb (14.0-18.0) g/dl Hct (42.0-52.0) % MCV (80.0-100.0) fL MCH (25.0-34.0) pg MCHC (32.0-36.0) g/dL RDW Std Deviation (36.4-46.3) fL RDW Coeff of Jim (11.5-14.5) % Plt Count (130-400) K/uL MPV (9.4-12.4) fL Immature Gran % (Auto) % Neut % (Auto) % Lymph % (Auto) % [place] % (Auto) % Eos % (Auto) % Baso % (Auto) % Neut # (Auto) (1.40-6.50) K/uL Lymph # (Auto) (1.20-3.40) K/uL [place] # (Auto) (0.11-0.59) K/uL Eos # (Auto) (0.00-0.50) K/uL Baso # (Auto) (0.00-0.20) K/uL Immature Gran # (Auto) (0.01-0.20) K/uL PT (9.0-12.0) Seconds INR (0.9-1.1) APTT (21-31) Seconds PTT Ratio VBG pH (7.36-7.41) VBG pCO2 (38-50) mmHg VBG pO2 mmHg VBG HCO3 mmol/L VBG O2 Saturation % VBG Base Excess mEq/L Sodium (136-145) mmol/L Potassium (3.5-5.1) mmol/L Chloride (98-107) mmol/L Carbon Dioxide (21-32) mmol/L Anion Gap (3-11) BUN (6-23) mg/dl Creatinine (0.6-1.4) mg/dl Est Cr Clr Drug Dosing ml/min eGFR BUN/Creatinine Ratio (10-20) Glucose (70-99(Fasting)) mg/dl Lactate (0.4-2.0) mmol/L Calcium (8.6-10.3) mg/dl Magnesium (1.7-2.4) mg/dl Total Bilirubin (0.2-1.0) mg/dl Direct Bilirubin (0-0.2) mg/dl AST (13-39) U/L ALT (7-52) U/L Alkaline Phosphatase (34-104) U/L Troponin I High Sens (0-20) pg/ml C-Reactive Protein (0-0.5) mg/dl B-Natriuretic Peptide (0-100) pg/ml Total Protein (6.0-8.3) gm/dl Albumin (3.4-5.0) gm/dl Procalcitonin (0-0.5) ng/ml Nasal Screen MRSA (PCR) Negative (Negative) Adenovirus (PCR) (NotDetected) B. pertussis DNA (PCR) (NotDetected) B.parapertussis DNA PCR (NotDetected) C. pneumoniae DNA (PCR) (NotDetected) Coronavirus OC43 (PCR) (NotDetected) Coronavirus HKU1 (PCR) (NotDetected) Coronavirus 229E (PCR) (NotDetected) SARS-CoV-2 (PCR) (NotDetected) Coronavirus NL63 (PCR) (NotDetected) Human Metapneumovir PCR (NotDetected) Influenza Type A (PCR) (NotDetected) Influenza Type B (PCR) (NotDetected) M. pneumoniae (PCR) (NotDetected) Parainfluenza 1 (PCR) (NotDetected) Parainfluenza 2 (PCR) (NotDetected) Parainfluenza 3 (PCR) (NotDetected) Parainfluenza 4 (PCR) (NotDetected) RSV (PCR) (NotDetected) Entero/Rhino (PCR) (NotDetected) Administered Medications Sodium Chloride (Nss) 1,000 mls @ 125 mls/hr IV .Q8H TEE Stop: 04/23/24 23:44 Last Admin: 04/23/24 00:09 Dose: 125 mls/hr Documented By: EVA Discontinued Medications Albuterol (Albut/Ipratrop 3mg/0.5mg Neb 3 Ml Vial) 12 ml NEB ONE ONE; Protocol Stop: 04/22/24 22:58 Last Admin: 04/22/24 23:05 Dose: 12 ml Documented By: EVA Acetaminophen (Ofirmev) 1,000 mg in 100 mls @ 400 mls/hr IV NOW STA Stop: 04/22/24 23:11 Last Infusion: 04/22/24 23:21 Dose: Infused Documented By: Admin: 04/22/24 23:06 Dose: 400 mls/hr Documented By: EVA Sodium Chloride (Nss) 500 mls @ 999 mls/hr IV .Q31M ONE Stop: 04/22/24 23:31 Last Infusion: 04/22/24 23:41 Dose: Infused Documented By: Admin: 04/22/24 23:06 Dose: 999 mls/hr Documented By: EVA Cefepime HCl (Maxipime 2000mg) 2,000 mg in 20 mls @ 5 mls/min IV NOW STA; Protocol Stop: 04/22/24 23:29 Last Admin: 04/22/24 23:35 Dose: 5 mls/min Documented By: EVA Sodium Chloride (Nss) 500 mls @ 999 mls/hr IV .Q31M ONE Stop: 04/23/24 00:06 Last Infusion: 04/23/24 00:14 Dose: Infused Documented By: Admin: 04/22/24 23:43 Dose: 999 mls/hr Documented By: EVA Imaging Data Radiologist's Impression: Chest X-Ray 04/22/24 22:57 Exam(s): XR CXR 1 VIEW EXAM: XR Chest, 1 View CLINICAL HISTORY: Reason for exam: Sepsis. TECHNIQUE: Frontal view of the chest. COMPARISON: 01/09/24 FINDINGS: Lungs: Compared to prior, increased opacity at the right lung base. Lungs appear otherwise clear. Pleural space: Unremarkable. No pleural effusion or pneumothorax. Heart: Stable cardiomegaly. Bones/joints: No acute fracture. No dislocation. IMPRESSION: Compared to prior, increased opacity at the right lung base. Finding may represent atelectasis or infiltrate. Electronically signed by: Constance Sotomayor M.D. 04/22/24 23:41 PM Tibia/Fibula X-Ray 04/22/24 23:29 Exam(s): XR LEFT TIB/FIB, 2 views EXAM: XR Left Tibia and Fibula, 2 Views CLINICAL HISTORY: Reason for exam: trauma. TECHNIQUE: Frontal and lateral views of the left tibia and fibula. COMPARISON: No relevant prior studies available. FINDINGS: Bones/joints: No acute fracture. No dislocation. Soft tissues: Soft tissue swelling. No radiopaque foreign body. IMPRESSION: Soft tissue swelling. No acute osseous findings. Electronically signed by: Constance Sotomayor M.D. 04/23/24 00:29 AM Venous Doppler Study 04/23/24 00:32 EXAM: US venous doppler LE LT CLINICAL HISTORY: Pain in LLE knee, recent fall. TECHNIQUE: An ultrasound examination of left lower extremity veins was performed in real-time and duplex. One or more of the following were performed- spectral analysis, resistive index, waveform analysis, and pulsed Doppler. COMPARISON: None. FINDINGS: Normal phasic, non-pulsatile, and spontaneous flow is noted in the left common femoral, superficial femoral, popliteal, and posterior tibial and peroneal veins. Visualized veins of the left lower extremity demonstrate normal compressibility. No sonographic evidence of acute deep vein thrombosis (DVT) is detected in the visualized veins of the lower extremity. Compression and Augmentation: All evaluated veins compress fully with applied transducer pressure. Augmentation of venous flow is noted with distal compression. Additional Findings: Mild subcutaneous soft tissue edema and swelling appreciated below the knee. IMPRESSION: 1. No sonographic evidence of acute DVT was detected at the time of examination. 2. Mild subcutaneous soft tissue edema and swelling appreciated below the knee. Disclaimer: DVT could be missed early in the disease when the clot burden is minimal. For patients with moderate and high pretest probability of DVT and negative ultrasound, the [employer] clinical guidelines recommend testing with a D-dimer assay or repeat ultrasound in 5-7 days. If symptoms worsen, the Society of Radiologists in ultrasound recommends repeating the ultrasound even earlier. Electronically signed by Zeus Neely 04-23-2024 01:56 AM Discharge Plan Visit Data Chief Complaint: Shortness of Breath/Dyspnea Stated Complaint: SOB ED Provider: Sandra Huff Discharge Problem: Pneumonia, Acute exacerbation of chronic obstructive pulmonary disease (COPD), Cellulitis of left leg, CKD (chronic kidney disease), Acute hypoxemic respiratory failure Patient Disposition: Admitted As Inpatient Discharge Instructions Interventions: ED Discharge Assessment Last Done: 04/23/24 03:42
[2024-04-22] MEDS: CEFEPIME 2000MG 2,000 MG/20 ML SYR IV STA (23:35)
[2024-04-22 23:36] LABS: Albumin Level 4.2 gm/dl (3.4-5.0); BUN Creatinine Ratio 14.8 (10-20); Bilirubin,Total 0.4 mg/dl (0.2-1.0); C Reactive Protein 2.97 mg/dl (0-0.5); Calcium 9.2 mg/dl (8.6-10.3); Creatinine Clr Calc Pharmacy 38.9 ml/min; Magnesium 1.7 mg/dl (1.7-2.4); Potassium 4.3 mmol/L (3.5-5.1); Total Protein 7.9 gm/dl (6.0-8.3)
[2024-04-22 23:42] LABS: Troponin I High Sensitivity 19.6 pg/ml (0-20)
--- NOTE | 2024-04-22 23:42 | XRay Report ---
Exam(s): XR CXR 1 VIEW EXAM: XR Chest, 1 View CLINICAL HISTORY: Reason for exam: Sepsis. TECHNIQUE: Frontal view of the chest. COMPARISON: 01/09/24 FINDINGS: Lungs: Compared to prior, increased opacity at the right lung base. Lungs appear otherwise clear. Pleural space: Unremarkable. No pleural effusion or pneumothorax. Heart: Stable cardiomegaly. Bones/joints: No acute fracture. No dislocation. IMPRESSION: Compared to prior, increased opacity at the right lung base. Finding may represent atelectasis or infiltrate. Electronically signed by: Constance Sotomayor M.D. 04/22/24 23:41 PM
[2024-04-22 23:48] LABS: Partial Thromboplastin Time 28 Seconds (21-31); Prothrombin Time 10.9 Seconds (9.0-12.0)
[2024-04-23] MEDS: SODIUM CHLORIDE 0.9% 1,000 ML IV SCH (00:09)
[2024-04-23 00:10] LABS: Adenovirus PCR Not Detected (NotDetected); Bordetella parapertussis PCR Not Detected (NotDetected); Bordetella pertussis PCR Not Detected (NotDetected); Chlamydia pneumoniae PCR Not Detected (NotDetected); Coronavirus 229E PCR Not Detected (NotDetected); Coronavirus CoV-2 (COVID19)PCR Not Detected (NotDetected); Coronavirus HKU1 PCR Not Detected (NotDetected); Coronavirus NL63 PCR Not Detected (NotDetected); Coronavirus OC43PCR Not Detected (NotDetected); Human Metapneumovirus PCR Not Detected (NotDetected); Influenza A PCR Not Detected (NotDetected); Influenza B PCR Not Detected (NotDetected); Mycoplasma pneumoniae PCR Not Detected (NotDetected); Parainfluenza Virus 1 PCR Not Detected (NotDetected); Parainfluenza Virus 2 PCR Not Detected (NotDetected); Parainfluenza Virus 3 PCR Not Detected (NotDetected); Parainfluenza Virus 4 PCR Not Detected (NotDetected); Respiratory Syncytial VirusPCR Not Detected (NotDetected); Rhinovirus/Enterovirus PCR Not Detected (NotDetected)
--- NOTE | 2024-04-23 00:30 | XRay Report ---
Exam(s): XR LEFT TIB/FIB, 2 views EXAM: XR Left Tibia and Fibula, 2 Views CLINICAL HISTORY: Reason for exam: trauma. TECHNIQUE: Frontal and lateral views of the left tibia and fibula. COMPARISON: No relevant prior studies available. FINDINGS: Bones/joints: No acute fracture. No dislocation. Soft tissues: Soft tissue swelling. No radiopaque foreign body. IMPRESSION: Soft tissue swelling. No acute osseous findings. Electronically signed by: Constance Sotomayor M.D. 04/23/24 00:29 AM
--- NOTE | 2024-04-23 01:56 | Ultrasound Report ---
EXAM: US venous doppler LE LT CLINICAL HISTORY: Pain in LLE knee, recent fall. TECHNIQUE: An ultrasound examination of left lower extremity veins was performed in real-time and duplex. One or more of the following were performed- spectral analysis, resistive index, waveform analysis, and pulsed Doppler. COMPARISON: None. FINDINGS: Normal phasic, non-pulsatile, and spontaneous flow is noted in the left common femoral, superficial femoral, popliteal, and posterior tibial and peroneal veins. Visualized veins of the left lower extremity demonstrate normal compressibility. No sonographic evidence of acute deep vein thrombosis (DVT) is detected in the visualized veins of the lower extremity. Compression and Augmentation: All evaluated veins compress fully with applied transducer pressure. Augmentation of venous flow is noted with distal compression. Additional Findings: Mild subcutaneous soft tissue edema and swelling appreciated below the knee. IMPRESSION: 1. No sonographic evidence of acute DVT was detected at the time of examination. 2. Mild subcutaneous soft tissue edema and swelling appreciated below the knee. Disclaimer: DVT could be missed early in the disease when the clot burden is minimal. For patients with moderate and high pretest probability of DVT and negative ultrasound, the [employer] clinical guidelines recommend testing with a D-dimer assay or repeat ultrasound in 5-7 days. If symptoms worsen, the Society of Radiologists in ultrasound recommends repeating the ultrasound even earlier. Electronically signed by Zeus Neely 04-23-2024 01:56 AM
--- NOTE | 2024-04-23 02:00 | History & Physical Report ---
Date of Service April 23, 2024 Assessment & Plan (1) Acute exacerbation of chronic obstructive pulmonary disease (COPD): (2) Pneumonia: (3) Acute and chronic respiratory failure with hypoxia: (4) CKD (chronic kidney disease): (5) COPD exacerbation: (6) Left leg swelling: Plan Acute on Chronic Hypoxemic Respiratory Failure | COPD -Increased SOB for the past day, SPO2 77% for EMS -Currently 98% on BiPAP, wean as able. Continue CPAP at night for DYLAN -Respiratory biofire negative -CXR shows "increased opacity at the right lung base. Finding may represent atelectasis or infiltrate." -Initial VBG with pH 7.30. WBC 21 with neutrophil predominance -Received Cefepime in ED, will continue along with home doxycycline (prescribed by pulmonology, cannot take azithromycin due to interaction with med) -Repeat CBC in a.m., MRSA nares pending -Continue home inhalers, Roflumilast, duonebs PRN. Will add steroid burst with prednisone 40mg daily Left Lower Extremity Swelling -Swelling of left lower leg after fall/injury the week priro -X-ray without evidence of acute fracture, shows soft tissue swelling -Venous duplex without evidence of DVT -Monitor swelling Atrial Fibrillation, Paroxysmal -No recent episodes of a fib -Follows with Dr. Medellin -Continue Multaq -CHADS-VASC of 3, unfortunately Eliquis was stopped >1 month ago after recurrent bleeds identified on EGD Diastolic Heart Failure -Last echo (03/27/21) with normal LV size and function with an EF in the range of 60-65% with type 2 diastolic dysfunction; dilated right ventricle with normal RV function -Continue Entresto, spironolactone -BNP mildly elevated (186), only takes Lasix on as needed basis. Will hold for now Iron Deficiency Anemia -Continue iron supplement Admit to: PCU VTE Prophylaxis: Heparin Diet: NPO while on BiPAP, 1L NSS at maintenance rate Code Status: Full Code History of Present Illness Primary Care Provider: Prem Byrd DO Michael Mays is a 78 year-old male with medical history significant for COPD, CKD stage III, GERD, BPH, HLD, HTN, DYLAN, paroxysmal atrial fibrillation, iron deficiency anemia. Patient presented to the ED vis EMS after expereicning progressive shorntess of breath over the past day which acutely worsened this evening. Patient was found to have SPO2 of 77% by EMS, was placed on BiPAP on arrival to ED. Patient reports some minor symptoms (runny nose/congestion) in the day prior, per chart review family reported he had one elevated temp. No known sick contacts. Patient also notes that last week he fell down a step and banged his left leg, it has been a bit swollen since then- he did not have this injury examined after it occurred. Since patient has been in the ED on BiPAP, patient states he feels "much better". Denies chest pain, abdominal pain, nausea/vomiting, urinary symptoms. ED Course: -CXR -Left LE venous duplex, left LE x-ray -CBC, CMP, VBG, BNP, troponin, blood cultures -1x Cefepime -500mL NSS bolus x2 Allergies Allergy/AdvReac Type Severity Reaction Status Date / Time amoxicillin Allergy Intermediate RASH Verified 02/20/24 11:22 clavulanic acid Allergy Intermediate RASH Verified 02/20/24 11:22 moxifloxacin Allergy Unknown hives, Verified 02/20/24 11:22 TOLERATES LEVAQUIN Sulfa (Sulfonamide Allergy Unknown . Verified 02/20/24 11:22 Antibiotics) Home Medications Medication Instructions Recorded Confirmed Type calcium carbonate (Tums) 300 mg PO BID PRN Heartburn 03/19/22 04/23/24 History cetirizine 10 mg tablet 10 mg PO QAM 08/30/23 04/23/24 History omeprazole 40 mg capsule,delayed 40 mg PO BID 01/09/24 04/23/24 History release atorvastatin 20 mg tablet 20 mg PO HS #90 tabs 01/26/24 04/23/24 Rx dronedarone 400 mg tablet (Multaq) 400 mg PO BID #180 tabs 01/26/24 04/23/24 Rx finasteride 5 mg tablet 5 mg PO QAM #90 tabs 01/26/24 04/23/24 Rx loratadine 10 mg tablet (Claritin) 10 mg PO PM #90 tabs 01/26/24 04/23/24 Rx roflumilast 500 mcg tablet 500 mcg PO QAM #90 tabs 01/26/24 04/23/24 Rx (Daliresp) sacubitril 24 mg-valsartan 26 mg 1 tab PO BID #180 tabs 01/26/24 04/23/24 Rx tablet (Entresto) spironolactone 25 mg tablet 12.5 mg (1/2 x 25 mg) PO QAM #90 01/26/24 04/23/24 Rx tabs tadalafil 5 mg tablet 5 mg PO QAM #90 tabs 01/26/24 04/23/24 Rx tamsulosin 0.4 mg capsule 0.4 mg PO HS #90 caps 01/26/24 04/23/24 Rx Spiriva with HandiHaler 18 mcg and 1 cap inhalation QAM 90 days #90 02/02/24 04/23/24 Rx inhalation capsules (tiotropium inhalations bromide) albuterol sulfate 90 mcg/actuation 2 puff inhalation QID PRN Wheezing 02/02/24 04/23/24 Rx aerosol inhaler 90 days #25.5 grams ipratropium 0.5 mg-albuterol 3 mg 3 ml inhalation QID PRN Shortness 02/03/24 04/23/24 Rx (2.5 mg base)/3 mL nebulization Of Breath Or Wheezing #120 amps soln furosemide 20 mg tablet 20 mg PO DAILY PRN ud #90 tabs 02/10/24 04/23/24 Rx doxycycline hyclate 100 mg tablet 100 mg PO BID 5 days #10 tabs 02/20/24 04/23/24 Rx CPAP Machine #1 ea 04/16/24 Rx CPAP Supplies #1 ea 04/16/24 Rx ferrous sulfate 325 mg (65 mg 325 mg PO TID 04/23/24 04/23/24 History iron) tablet fluticasone 250 mcg-salmeterol 50 1 inh inhalation AMHS 04/23/24 04/23/24 History mcg/dose blistr powdr for inhalation (Wixela Inhub) Past Med/Surg History Problem List CKD (chronic kidney disease) (Acute) Cellulitis of left leg (Acute) Left leg swelling Acute exacerbation of chronic obstructive pulmonary disease (COPD) (Acute) Pneumonia (Acute) CKD (chronic kidney disease) (Acute) COPD exacerbation (Acute) COVID-19 (Acute) Acute hypoxemic respiratory failure (Acute) COPD exacerbation (Acute) Pneumonia (Acute) Leukocytosis (Acute) Fever (Acute) Hypoxia (Acute) Bronchitis (Chronic) Bronchopneumonia (Chronic) Abnormal TSH (Chronic) Coronary artery calcification (Chronic) Chronic anticoagulation (Chronic) Atrial fibrillation (Chronic) Tubular adenoma Renal insufficiency Anemia Pruritus Lower urinary tract symptoms (LUTS) Urinary retention Epistaxis Cystic kidney disease Coronary artery calcification seen on CAT scan Encounter for pre-operative examination BPH (benign prostatic hyperplasia) (Chronic) GERD (gastroesophageal reflux disease) (Chronic) tums prn CKD (chronic kidney disease), stage III Iron deficiency anemia Chronic anticoagulation Paroxysmal atrial fibrillation no current issues Emphysema/COPD (Chronic) DYLAN on CPAP (Chronic) Asthma (Chronic) well controlled with inhalers. Hyperlipidemia (Chronic) Hypertension (Chronic) Medical History History of diverticulitis History of cardioversion successful in 2019. Colon polyps Atrial fibrillation with RVR Diabetes mellitus pt denies. Pneumonia x2. no recent issues Surgical History History of cataract surgery bilateral History of esophagogastroduodenoscopy (EGD) History of colonoscopy 07/25/20 - repeat 3 years in 2023 History of colon resection Family History Father Emphysema of lung Colon cancer Colorectal cancer Grandfather (Paternal) Colon cancer Colorectal cancer Mother Myocardial infarction Grandmother (Maternal) Myocardial infarction Other Cancer Family history non-contributory Heart disease Hypertension Denies family history of Ovarian cancer Prostate cancer Breast cancer Social History Smoking Status: Former smoker Tobacco Type: Cigarettes Age Started Using Tobacco: 20; Age Quit Using Tobacco: 42; packs per day: 1; Smoking End Date: "45 yrs ago"; Second Hand Exposure: No; Do You Dip or Chew Tobacco: No; Hx Alcohol Use: Yes Alcohol type: wine and other Alcohol Intake Frequency: 2-4 x/Month Hx Substance Use: No Preferred Language: Green[place]ic Communication Ability: Effective Visual Impairment: Diminished Hearing Ability: Normal Crosstie Inspector Required: No Beliefs That Will Affect Care: None marital status: Current Living Situation: Spouse current occupational status: employed How many Children do You have: 2 Feels Safe at Home: Yes Safety Concerns: Feels Safe At This Time Childhood Exposure to Second-Hand Smoke: Yes Diet: regular caffeine: Yes during the past year weight has: decreased > 10 lbs Dental Care, Regularly: Yes Physical Activity Frequency: Daily Seatbelt Use: always Sunscreen Use: No Do you think of yourself as: straight/heterosexual Assistive Devices: Glasses and Oxygen - Continuous Review of Systems Review of Systems: As per above Physical Exam Constitutional: WD/WN, vitals as above Eyes: + anicteric sclerae; no conjunctival abn ormality ENMT: Ears: no external ear abnormality Nose: no external nose abnormality BiPAP in place Respiratory: BiPAP in place. Decreased breath sounds on auscultation. Some accessory muscle use Cardiovascular: Rate/Rhythm: regular rate and regular rhythm Gastrointestinal (Abdomen): Inspection/Auscultation: abdomen normal to inspection; abdomen not distended Percussion/Palpation: abdomen soft; abdomen nontender Skin: +1 edema of left lower leg, no ecchymosi s, erythema or drainage Neurologic: No focal deficits appreciated Psychiatric: A+Ox3, euthymic affect Results & Data Results & Data Vital Signs (Past 12 Hours) Vital Signs Temp Pulse Pulse Resp BP BP Pulse Ox 04/23/24 01:30 82 16 118/54 L 93 04/23/24 00:57 88 18 112/60 95 04/23/24 00:30 93 H 17 118/58 L 94 04/23/24 00:07 37.5 C 98 H 18 108/57 L 97 04/22/24 23:41 105 H 22 99 04/22/24 23:39 105 H 22 99 04/22/24 23:30 93 H 18 107/55 L 98 04/22/24 23:23 93 H 16 138/65 99 04/22/24 23:20 96 H 04/22/24 22:58 131 H 04/22/24 22:48 90 04/22/24 22:48 39.4 C H 132 H 26 H 173/86 H 90 O2 Del Method O2 Flow Rate FiO2 04/23/24 01:30 BiPAP 30 04/23/24 00:57 BiPAP 30 04/23/24 00:30 BiPAP 30 04/23/24 00:07 BiPAP 30 04/22/24 23:41 BiPAP 30 04/22/24 23:39 30 04/22/24 23:30 BiPAP 30 04/22/24 23:23 BiPAP 30 04/22/24 23:20 04/22/24 22:58 04/22/24 22:48 Nasal Cannula, BiPAP 6 04/22/24 22:48 Nasal Cannula 6 Laboratory Results Laboratory Results WBC 21.00 K/ul (4.8-10.8) H 04/22/24 23:00 RBC 4.05 M/uL (4.70-6.10) L 04/22/24 23:00 Hgb 11.5 g/dl (14.0-18.0) L 04/22/24 23:00 Hct 35.6 % (42.0-52.0) L 04/22/24 23:00 MCV 87.9 fL (80.0-100.0) 04/22/24 23:00 MCH 28.4 pg (25.0-34.0) 04/22/24 23:00 MCHC 32.3 g/dL (32.0-36.0) 04/22/24 23:00 RDW Std Deviation 42.6 fL (36.4-46.3) 04/22/24 23:00 RDW Coeff of Jim 13.3 % (11.5-14.5) 04/22/24 23:00 Plt Count 271 K/uL (130-400) 04/22/24 23:00 MPV 9.5 fL (9.4-12.4) 04/22/24 23:00 Immature Gran % (Auto) 0.6 % 04/22/24 23:00 Neut % (Auto) 74.0 % 04/22/24 23:00 Lymph % (Auto) 14.8 % 04/22/24 23:00 Burnet % (Auto) 8.0 % 04/22/24 23:00 Eos % (Auto) 2.3 % 04/22/24 23:00 Baso % (Auto) 0.3 % 04/22/24 23:00 Neut # (Auto) 15.53 K/uL (1.40-6.50) H 04/22/24 23:00 Lymph # (Auto) 3.10 K/uL (1.20-3.40) 04/22/24 23:00 Burnet # (Auto) 1.69 K/uL (0.11-0.59) H 04/22/24 23:00 Eos # (Auto) 0.49 K/uL (0.00-0.50) 04/22/24 23:00 Baso # (Auto) 0.07 K/uL (0.00-0.20) 04/22/24 23:00 Immature Gran # (Auto) 0.12 K/uL (0.01-0.20) 04/22/24 23:00 PT 10.9 Seconds (9.0-12.0) 04/22/24 23:00 INR 1.0 (0.9-1.1) 04/22/24 23:00 APTT 28 Seconds (21-31) 04/22/24 23:00 PTT Ratio 1.0 04/22/24 23:00 VBG pH 7.30 (7.36-7.41) L 04/22/24 23:05 VBG pCO2 51 mmHg (38-50) H 04/22/24 23:05 VBG pO2 28 mmHg 04/22/24 23:05 VBG HCO3 25 mmol/L 04/22/24 23:05 VBG O2 Saturation < 60.0 % 04/22/24 23:05 VBG Base Excess -1.8 mEq/L 04/22/24 23:05 Sodium 140 mmol/L (136-145) 04/22/24 23:00 Potassium 4.3 mmol/L (3.5-5.1) 04/22/24 23:00 Chloride 106 mmol/L (98-107) 04/22/24 23:00 Carbon Dioxide 23 mmol/L (21-32) 04/22/24 23:00 Anion Gap 11 (3-11) 04/22/24 23:00 BUN 26 mg/dl (6-23) H 04/22/24 23:00 Creatinine 1.76 mg/dl (0.6-1.4) H 04/22/24 23:00 Est Cr Clr Drug Dosing 38.9 ml/min 04/22/24 23:00 eGFR 39.09 04/22/24 23:00 BUN/Creatinine Ratio 14.8 (10-20) 04/22/24 23:00 Glucose 112 mg/dl (70-99(Fasting)) H 04/22/24 23:00 Lactate 1.8 mmol/L (0.4-2.0) 04/22/24 23:00 Calcium 9.2 mg/dl (8.6-10.3) 04/22/24 23:00 Magnesium 1.7 mg/dl (1.7-2.4) 04/22/24 23:00 Total Bilirubin 0.4 mg/dl (0.2-1.0) 04/22/24 23:00 Direct Bilirubin 0.0 mg/dl (0-0.2) 04/22/24 23:00 AST 20 U/L (13-39) 04/22/24 23:00 ALT 28 U/L (7-52) 04/22/24 23:00 Alkaline Phosphatase 61 U/L (34-104) 04/22/24 23:00 Troponin I High Sens 19.6 pg/ml (0-20) 04/22/24 23:00 C-Reactive Protein 2.97 mg/dl (0-0.5) H 04/22/24 23:00 B-Natriuretic Peptide 186 pg/ml (0-100) H 04/22/24 23:06 Total Protein 7.9 gm/dl (6.0-8.3) 04/22/24 23:00 Albumin 4.2 gm/dl (3.4-5.0) 04/22/24 23:00 Procalcitonin 0.09 ng/ml (0-0.5) 04/22/24 23:00 Nasal Screen MRSA (PCR) Negative (Negative) 04/23/24 02:49 Adenovirus (PCR) Not Detected (NotDetected) 04/22/24 23:00 B. pertussis DNA (PCR) Not Detected (NotDetected) 04/22/24 23:00 B.parapertussis DNA PCR Not Detected (NotDetected) 04/22/24 23:00 C. pneumoniae DNA (PCR) Not Detected (NotDetected) 04/22/24 23:00 Coronavirus OC43 (PCR) Not Detected (NotDetected) 04/22/24 23:00 Coronavirus HKU1 (PCR) Not Detected (NotDetected) 04/22/24 23:00 Coronavirus 229E (PCR) Not Detected (NotDetected) 04/22/24 23:00 SARS-CoV-2 (PCR) Not Detected (NotDetected) 04/22/24 23:00 Coronavirus NL63 (PCR) Not Detected (NotDetected) 04/22/24 23:00 Human Metapneumovir PCR Not Detected (NotDetected) 04/22/24 23:00 Influenza Type A (PCR) Not Detected (NotDetected) 04/22/24 23:00 Influenza Type B (PCR) Not Detected (NotDetected) 04/22/24 23:00 M. pneumoniae (PCR) Not Detected (NotDetected) 04/22/24 23:00 Parainfluenza 1 (PCR) Not Detected (NotDetected) 04/22/24 23:00 Parainfluenza 2 (PCR) Not Detected (NotDetected) 04/22/24 23:00 Parainfluenza 3 (PCR) Not Detected (NotDetected) 04/22/24 23:00 Parainfluenza 4 (PCR) Not Detected (NotDetected) 04/22/24 23:00 RSV (PCR) Not Detected (NotDetected) 04/22/24 23:00 Entero/Rhino (PCR) Not Detected (NotDetected) 04/22/24 23:00 Diagnostic Findings Chest X-Ray 04/22/24 22:57 Exam(s): XR CXR 1 VIEW EXAM: XR Chest, 1 View CLINICAL HISTORY: Reason for exam: Sepsis. TECHNIQUE: Frontal view of the chest. COMPARISON: 01/09/24 FINDINGS: Lungs: Compared to prior, increased opacity at the right lung base. Lungs appear otherwise clear. Pleural space: Unremarkable. No pleural effusion or pneumothorax. Heart: Stable cardiomegaly. Bones/joints: No acute fracture. No dislocation. IMPRESSION: Compared to prior, increased opacity at the right lung base. Finding may represent atelectasis or infiltrate. Electronically signed by: Constance Sotomayor M.D. 04/22/24 23:41 PM Tibia/Fibula X-Ray 04/22/24 23:29 Exam(s): XR LEFT TIB/FIB, 2 views EXAM: XR Left Tibia and Fibula, 2 Views CLINICAL HISTORY: Reason for exam: trauma. TECHNIQUE: Frontal and lateral views of the left tibia and fibula. COMPARISON: No relevant prior studies available. FINDINGS: Bones/joints: No acute fracture. No dislocation. Soft tissues: Soft tissue swelling. No radiopaque foreign body. IMPRESSION: Soft tissue swelling. No acute osseous findings. Electronically signed by: Constance Sotomayor M.D. 04/23/24 00:29 AM Venous Doppler Study 04/23/24 00:32 EXAM: US venous doppler LE LT CLINICAL HISTORY: Pain in LLE knee, recent fall. TECHNIQUE: An ultrasound examination of left lower extremity veins was performed in real-time and duplex. One or more of the following were performed- spectral analysis, resistive index, waveform analysis, and pulsed Doppler. COMPARISON: None. FINDINGS: Normal phasic, non-pulsatile, and spontaneous flow is noted in the left common femoral, superficial femoral, popliteal, and posterior tibial and peroneal veins. Visualized veins of the left lower extremity demonstrate normal compressibility. No sonographic evidence of acute deep vein thrombosis (DVT) is detected in the visualized veins of the lower extremity. Compression and Augmentation: All evaluated veins compress fully with applied transducer pressure. Augmentation of venous flow is noted with distal compression. Additional Findings: Mild subcutaneous soft tissue edema and swelling appreciated below the knee. IMPRESSION: 1. No sonographic evidence of acute DVT was detected at the time of examination. 2. Mild subcutaneous soft tissue edema and swelling appreciated below the knee. Disclaimer: DVT could be missed early in the disease when the clot burden is minimal. For patients with moderate and high pretest probability of DVT and negative ultrasound, the [place] [employer] clinical guidelines recommend testing with a D-dimer assay or repeat ultrasound in 5-7 days. If symptoms worsen, the Society of Radiologists in ultrasound recommends repeating the ultrasound even earlier. Electronically signed by Zeus Neely 04-23-2024 01:56 AM Supervising Physician Co-Signing Physician Notes Patient seen and examined, chart reviewed, case discussed with Dr. Dwyer and I agree with the assessment and plan as above. In brief, patient is a 78yo male presenting with acute on chronic respiratory failure with hypoxia likely secondary to COPD exacerbation, possible PNA with increased opacity in the right base. Patient placed on BiPAP in the ER, improved. No DVT noted on US On exam patient is resting comfortably, BiPAP in place with minimal setting 10/5, 30%, TV adequate Skin - no rash HEENT - No JVD, MMM Heart - +S1/S2, regular Lungs- diminished breath sounds, no rales/rhonchi, + diffuse end expiratory wheezing Abd - +BS, soft, NT/ND Ext - LLE edema Labs and images reviewed Assessment/Plan Continue management for presumed COPD exacerbation with short burst of steroids, nebs Cefepime +Doxy for suspected PNA Remainder as above Resident Activity Tracking Resident Involvement: Resident Care Provided Care Provided: Adult Hospital Medicine
--- NOTE | 2024-04-23 06:22 | Billing Data ---
Date of Service April 23, 2024 Coding Level of Care Code 56391 INT INP/OBS CARE
[2024-04-23 07:30] LABS: Hemoglobin 9.7 g/dl (14.0-18.0); Mean Corpuscular Hemoglobin 28.5 pg (25.0-34.0); Mean Corpuscular Hgb Conc 32.3 g/dL (32.0-36.0); Mean Corpuscular Volume 88.2 fL (80.0-100.0); Mean Platelet Volume 9.8 fL (9.4-12.4); Platelet Count 228 K/uL (130-400); RDW Coefficient of Variation 13.3 % (11.5-14.5); RDW Standard Deviation 42.7 fL (36.4-46.3); White Blood Count 23.59 K/ul (4.8-10.8)
[2024-04-23 07:37] LABS: Base Excess VBG -4.4 mEq/L; HCO3 VBG 21 mmol/L; Oxygen Saturation VBG 95.7 %; PCO2 VBG 39 mmHg (38-50); PO2 VBG 81 mmHg; pH VBG 7.34 (7.36-7.41)
[2024-04-23 07:49] LABS: Acanthocytes 1+; Albumin Globulin Ratio 1.1 (0.9-2); Albumin Level 3.4 gm/dl (3.4-5.0); BUN Creatinine Ratio 16.2 (10-20); Basophils # (auto) 0.02 K/uL (0.00-0.20); Basophils % (auto) 0.1 %; Bilirubin,Total 0.3 mg/dl (0.2-1.0); Calcium 8.6 mg/dl (8.6-10.3); Creatinine Clr Calc Pharmacy 44.1 ml/min; Globulin 3.1 gm/dl (2.5-4.0); Immature Granulocytes % (auto) 0.8 %; Lymphocytes # (auto) 0.59 K/uL (1.20-3.40); Lymphocytes % (auto) 2.5 %; Monocytes # (auto) 0.44 K/uL (0.11-0.59); Monocytes % (auto) 1.9 %; Neutrophils # (auto) 22.34 K/uL (1.40-6.50); Neutrophils % (auto) 94.7 %; Polychromasia 1+; Potassium 4.8 mmol/L (3.5-5.1); Total Protein 6.5 gm/dl (6.0-8.3)
[2024-04-23 08:14] LABS: Appearance Urine Clear (Clear); Bacteria Urine Automated None Seen (None Seen); Bilirubin Urine Negative (Negative); Blood Urine Negative (Negative); Cast Urine Automated 0-2 /lpf (0-2); Color Urine Yellow; Epithelial Cell Urine Auto 0-2 /hpf (0-2); Glucose Urine UA Negative (Negative); Ketones Urine Negative (Negative); Leukocyte Esterase Urine Negative (Negative); Nitrite Urine Negative (Negative); Protein Urine Trace (Negative); RBC Urine Automated 0-2 /hpf (0-2); Specific Gravity Urine 1.014 (1.000-1.030); Urobilinogen Urine Negative (Negative); WBC Urine Automated 0-5 /hpf (0-5)
[2024-04-23] MEDS: DOXYCYCLINE HYCLATE 100 MG CAP PO SCH (11:07)
[2024-04-23] MEDS: predniSONE 20 MG TAB PO SCH (11:08)
[2024-04-23] MEDS: VALSARTAN/SACUBITRIL 26/24MG TAB PO SCH (11:08)
[2024-04-23] MEDS: ROFLUMILAST 500 MCG TAB PO SCH (11:08)
[2024-04-23] MEDS: FERROUS SULFATE 325 MG TAB PO SCH (11:08)
[2024-04-23] MEDS: DRONEDARONE HCL 400 MG TAB PO SCH (11:09)
[2024-04-23] MEDS: PANTOprazole 40 MG TAB PO SCH (11:09)
[2024-04-23] MEDS: FINASTERIDE 5 MG TAB PO SCH (11:09)
[2024-04-23] MEDS: SPIRONOLACTONE 12.5 MG TAB PO SCH (11:09)
[2024-04-23] MEDS: UMECLIDINIUM BROMIDE 62.5MCG/BLISTER 7 PUFFS/INHALER INH SCH (11:10)
[2024-04-23] MEDS: FLUTICASONE/VILANTEROL 100/25MCG 14 PUFFS/INHALER INH SCH (11:11)
[2024-04-23] MEDS: CEFEPIME 2000MG 2,000 MG/20 ML SYR IV SCH (12:45)
[2024-04-23] MEDS: ALBUT/IPRATROP 3MG/0.5MG NEB 3 ML VIAL NEB PRN (13:45)
--- NOTE | 2024-04-23 18:07 | Electrocardiogram Report ---
Test Reason : Blood Pressure : */* mmHG Vent. Rate : 122 BPM Atrial Rate : 122 BPM P-R Int : 128 ms QRS Dur : 108 ms QT Int : 372 ms P-R-T Axes : * 268 54 degrees QTcB Int : 530 ms Likely sinus tachycardia Right bundle branch block Abnormal ECG Confirmed by Isiah Wooten ([id number]) on 04/23/2024 6:06:55 PM Referred By: REFERRED SELF Confirmed By: Isiah Wooten
[2024-04-23] MEDS: HEPARIN SOD 5,000 UNIT/0.5 ML VIAL SQ SCH (19:19)
[2024-04-23] MEDS: SODIUM CHLOR 7% 4 ML NEB NEB SCH (19:22)
[2024-04-23] MEDS: TAMSULOSIN HCL 0.4 MG CAP PO SCH (20:54)
[2024-04-23] MEDS: ATORVASTATIN 20 MG TAB PO SCH (20:54)
[2024-04-24] MEDS: MELATONIN 3 MG TAB PO PRN (00:08)
[2024-04-24 07:05] LABS: Basophils # (auto) 0.02 K/uL (0.00-0.20); Basophils % (auto) 0.1 %; Hematocrit (blood only) 28.7 % (42.0-52.0); Hemoglobin 9.2 g/dl (14.0-18.0); Immature Granulocytes # (auto) 0.16 K/uL (0.01-0.20); Immature Granulocytes % (auto) 0.8 %; Lymphocytes # (auto) 1.34 K/uL (1.20-3.40); Mean Corpuscular Hgb Conc 32.1 g/dL (32.0-36.0); Mean Corpuscular Volume 87.5 fL (80.0-100.0); Mean Platelet Volume 9.8 fL (9.4-12.4); Monocytes # (auto) 1.34 K/uL (0.11-0.59); Neutrophils # (auto) 16.29 K/uL (1.40-6.50); Neutrophils % (auto) 85.1 %; Platelet Count 216 K/uL (130-400); RDW Coefficient of Variation 13.4 % (11.5-14.5); RDW Standard Deviation 42.6 fL (36.4-46.3); Red Blood Count 3.28 M/uL (4.70-6.10); White Blood Count 19.15 K/ul (4.8-10.8)
[2024-04-24 07:34] LABS: Albumin Globulin Ratio 1.1 (0.9-2); Albumin Level 3.2 gm/dl (3.4-5.0); BUN Creatinine Ratio 18.8 (10-20); Bilirubin,Total 0.3 mg/dl (0.2-1.0); Calcium 8.7 mg/dl (8.6-10.3); Creatinine Clr Calc Pharmacy 49.3 ml/min; Globulin 2.9 gm/dl (2.5-4.0); Potassium 4.5 mmol/L (3.5-5.1); Total Protein 6.1 gm/dl (6.0-8.3)
--- NOTE | 2024-04-24 07:40 | Communication Note ---
Date of Service: April 23, 2024 Patient seen and examined at [facility]. Patient with pneumonia. Given recurrent infections and location of pneumonia being in the right lower lobe will obtain a speech consult. Given recurrent hospitalizations and history of COPD, will continue antipseudomonal coverage with cefepime.
--- NOTE | 2024-04-24 22:29 | Hospitalist Progress Note ---
Date of Service April 24, 2024 Assessment & Plan (1) Acute exacerbation of chronic obstructive pulmonary disease (COPD): (2) Pneumonia: (3) Acute and chronic respiratory failure with hypoxia: (4) CKD (chronic kidney disease): (5) Left leg swelling: Plan Acute on Chronic Hypoxemic Respiratory Failure | COPD -Increased SOB for the past day, SPO2 77% for EMS -Currently 98% on BiPAP, wean as able. Continue CPAP at night for DYLAN -Respiratory biofire negative -CXR shows "increased opacity at the right lung base. Finding may represent atelectasis or infiltrate." -Patient with pneumonia. Given recurrent infections and location of pneumonia being in the right lower lobe, obtained a speech consult, this was negative. -Given recurrent hospitalizations and history of COPD, will continue antipseudomonal coverage with cefepime for now. -WBC are downtrending. -Continue home inhalers, Roflumilast, duonebs PRN. Will add steroid burst with prednisone 40mg daily Left Lower Extremity Swelling -Swelling of left lower leg after fall/injury the week priro -X-ray without evidence of acute fracture, shows soft tissue swelling -Venous duplex without evidence of DVT -Monitor swelling Atrial Fibrillation, Paroxysmal -No recent episodes of a fib -Follows with Dr. Medellin -Continue Multaq -CHADS-VASC of 3, unfortunately Eliquis was stopped >1 month ago after recurrent bleeds identified on EGD Diastolic Heart Failure -Last echo (03/27/21) with normal LV size and function with an EF in the range of 60-65% with type 2 diastolic dysfunction; dilated right ventricle with normal RV function -Continue Entresto, spironolactone -BNP mildly elevated (186), only takes Lasix on as needed basis. Will hold for now Iron Deficiency Anemia -Continue iron supplement Admit to: PCU VTE Prophylaxis: Heparin Code Status: Full Code Admission and Anticipated Discharge Date Admission Date: April 23, 2024 Subjective 78 yo male reports feeling much better. He no longer feels SOB.He denies a cough. Review of Systems Review of Systems: All systems reviewed & are unremarkable except as noted in HPI & below Physical Exam Constitutional: WD/WN, vitals as above Eyes: + anicteric sclerae; no conjunctival abn ormality Respiratory: Not using accessory muscles to breath. lungs are clear. Cardiovascular: Rate/Rhythm: regular rate and regular rhythm Gastrointestinal (Abdomen): Inspection/Auscultation: abdomen normal to inspection; abdomen not distended Percussion/Palpation: abdomen soft; abdomen nontender Skin: +1 edema of left lower leg, no ecchymosi s, erythema or drainage Neurologic: No focal deficits appreciated Psychiatric: A+Ox3, euthymic affect Results & Data Results & Data Vital Signs (Past 12 Hours) Vital Signs Temp Pulse Pulse Resp BP Pulse Ox O2 Del Method 04/24/24 20:15 63 18 94 Room Air 04/24/24 19:27 36.7 C 61 18 147/58 H 92 Room Air 04/24/24 17:00 63 04/24/24 15:52 36.6 C 62 18 133/58 L 92 Room Air 04/24/24 12:00 Room Air 04/24/24 11:33 36.6 C 62 18 126/63 93 Room Air PG Care Time/CCT Total # of Minutes Spent Total Time Spent with Patient: Total time spent is greater than 50% in coordination of care (as documented) at patient's floor/unit and/or counseling patient: Coding Level of Care Code 85181 SUB INP/OBS CARE 2/35MIN Diagnoses Acute exacerbation of chronic obstructive pulmonary disease (COPD) J44.1 Pneumonia J18.9 Acute and chronic respiratory failure with hypoxia J96.21 CKD (chronic kidney disease) N18.9 Left leg swelling M79.89
[2024-04-25] MEDS: diphenhydrAMINE Capsule 25 MG CAP PO ONE (00:02)
[2024-04-25 07:31] LABS: Basophils # (auto) 0.04 K/uL (0.00-0.20); Basophils % (auto) 0.2 %; Eosinophils # (auto) 0.04 K/uL (0.00-0.50); Eosinophils % (auto) 0.2 %; Hematocrit (blood only) 30.1 % (42.0-52.0); Hemoglobin 9.7 g/dl (14.0-18.0); Immature Granulocytes # (auto) 0.13 K/uL (0.01-0.20); Immature Granulocytes % (auto) 0.8 %; Lymphocytes # (auto) 2.27 K/uL (1.20-3.40); Lymphocytes % (auto) 13.3 %; Mean Corpuscular Hgb Conc 32.2 g/dL (32.0-36.0); Mean Corpuscular Volume 86.7 fL (80.0-100.0); Monocytes % (auto) 7.6 %; Neutrophils # (auto) 13.24 K/uL (1.40-6.50); Neutrophils % (auto) 77.9 %; Platelet Count 249 K/uL (130-400); RDW Coefficient of Variation 13.6 % (11.5-14.5); RDW Standard Deviation 42.6 fL (36.4-46.3); Red Blood Count 3.47 M/uL (4.70-6.10); White Blood Count 17.02 K/ul (4.8-10.8)
[2024-04-25 07:40] LABS: BUN Creatinine Ratio 20.9 (10-20); C Reactive Protein 2.68 mg/dl (0-0.5); Calcium 8.8 mg/dl (8.6-10.3); Potassium 3.8 mmol/L (3.5-5.1)
--- NOTE | 2024-04-25 10:01 | XRay Report ---
XR chest 2V PA/lateral CLINICAL HISTORY: Pneumonia TECHNIQUE: 2 views of the chest were obtained. Comparison: Comparison is made to chest radiograph 04/22/2024 FINDINGS: No lines and tubes are seen. Calcified aortic knob is seen. The lungs are clear. There is blunting of the costophrenic angle bilaterally which represent scarring or trace effusion. IMPRESSION: No acute abnormalities and in particular no radiographic evidence of pneumonia. ACT 112: Negative or not required by law. Electronically signed by: Hector Tracy M.D. 04/25/2024 10:00 AM
[2024-04-25] MEDS ORDERED: SODIUM CHLOR 7% 4 ML NEB NEB PRN (10:14)
[2024-04-25] MEDS: ZOLPIDEM TARTRATE 5 MG TAB PO SCH (21:07)
[2024-04-25] MEDS: MELATONIN 3 MG TAB PO SCH (21:09)
--- NOTE | 2024-04-25 22:20 | Hospitalist Progress Note ---
Date of Service April 25, 2024 Assessment & Plan (1) Acute exacerbation of chronic obstructive pulmonary disease (COPD): (2) Pneumonia: (3) Acute and chronic respiratory failure with hypoxia: (4) CKD (chronic kidney disease): (5) Left leg swelling: Plan Acute on Chronic Hypoxemic Respiratory Failure | COPD -Increased SOB day prior to admission, SPO2 77% for EMS -Initially on BiPAP, weaned off. -Now back to room air. -Respiratory biofire negative -CXR shows "increased opacity at the right lung base. Finding may represent atelectasis or infiltrate." -Patient with pneumonia. Given recurrent infections and location of pneumonia being in the right lower lobe, obtained a speech consult, this was negative. -Given recurrent hospitalizations, antibiotic courses throughout the year and history of COPD, will continue antipseudomonal coverage with cefepime. Discussed options for discharge: 1) complete 5 days on cefepime/doxy last dose would be Friday around noon. 2) discharge on slightly narrower antibiotics without pseudomonas coverage 3) discharge on FQ; though psatient has allergy and prior use could lead to resistance. Patient choose option 1. -WBC are downtrending. -Continue home inhalers, Roflumilast, duonebs PRN. Will add steroid burst with prednisone 40mg daily -Continue CPAP at night for DYLAN Left Lower Extremity Swelling -Swelling of left lower leg after fall/injury the week priro -X-ray without evidence of acute fracture, shows soft tissue swelling -Venous duplex without evidence of DVT -Monitor swelling Atrial Fibrillation, Paroxysmal -No recent episodes of a fib -Follows with Dr. Medellin -Continue Multaq -CHADS-VASC of 3, unfortunately Eliquis was stopped >1 month ago after recurrent bleeds identified on EGD Diastolic Heart Failure -Last echo (03/27/21) with normal LV size and function with an EF in the range of 60-65% with type 2 diastolic dysfunction; dilated right ventricle with normal RV function -Continue Entresto, spironolactone -BNP mildly elevated (186), only takes Lasix on as needed basis. Will hold for now Iron Deficiency Anemia -Continue iron supplement Ordered ambien and melatonin for insomia while he is here. Admit to: PCU VTE Prophylaxis: Heparin Code Status: Full Code Admission and Anticipated Discharge Date Admission Date: April 23, 2024 Subjective Patient reports he is feeling much better. His breathing has improved. Main complaint is that he cannot sleep well. Physical Exam Constitutional: WD/WN, vitals as above Eyes: + anicteric sclerae; no conjunctival abn ormality Respiratory: normal respiratory effort, lungs clear to auscultation Cardiovascular: Rate/Rhythm: regular rate and regular rhythm Gastrointestinal (Abdomen): Inspection/Auscultation: abdomen normal to inspection; abdomen not distended Percussion/Palpation: abdomen soft; abdomen nontender Psychiatric: A+Ox3, euthymic affect Results & Data Results & Data Vital Signs (Past 12 Hours) Vital Signs Temp Pulse Pulse Resp BP Pulse Ox O2 Del Method 04/25/24 19:52 37.0 C 57 L 18 154/74 H 93 Room Air 04/25/24 15:35 58 L 04/25/24 15:29 36.5 C 58 L 18 156/69 H 92 Room Air 04/25/24 11:28 36.6 C 77 18 147/63 H 90 Room Air 04/25/24 10:32 Room Air PG Care Time/CCT Total # of Minutes Spent Total Time Spent with Patient: Total time spent is greater than 50% in coordination of care (as documented) at patient's floor/unit and/or counseling patient: Coding Level of Care Code 14927 SUB INP/OBS CARE 3/50MIN Diagnoses Acute exacerbation of chronic obstructive pulmonary disease (COPD) J44.1 Pneumonia J18.9 Acute and chronic respiratory failure with hypoxia J96.21 CKD (chronic kidney disease) N18.9 Left leg swelling M79.89 Time Spent (min) 50
[2024-04-26 03:01] VITALS: RESP 18
[2024-04-26 07:20] LABS: Basophils # (auto) 0.02 K/uL (0.00-0.20); Basophils % (auto) 0.2 %; Eosinophils # (auto) 0.03 K/uL (0.00-0.50); Eosinophils % (auto) 0.2 %; Hematocrit (blood only) 30.1 % (42.0-52.0); Hemoglobin 9.9 g/dl (14.0-18.0); Immature Granulocytes # (auto) 0.15 K/uL (0.01-0.20); Immature Granulocytes % (auto) 1.2 %; Lymphocytes # (auto) 1.97 K/uL (1.20-3.40); Lymphocytes % (auto) 15.2 %; Mean Corpuscular Hemoglobin 28.6 pg (25.0-34.0); Mean Corpuscular Hgb Conc 32.9 g/dL (32.0-36.0); Mean Platelet Volume 10.4 fL (9.4-12.4); Monocytes # (auto) 1.16 K/uL (0.11-0.59); Neutrophils # (auto) 9.61 K/uL (1.40-6.50); Neutrophils % (auto) 74.2 %; Platelet Count 263 K/uL (130-400); RDW Coefficient of Variation 13.2 % (11.5-14.5); RDW Standard Deviation 41.8 fL (36.4-46.3); Red Blood Count 3.46 M/uL (4.70-6.10); White Blood Count 12.94 K/ul (4.8-10.8)
[2024-04-26 07:35] LABS: BUN Creatinine Ratio 21.5 (10-20); C Reactive Protein 1.64 mg/dl (0-0.5); Calcium 8.8 mg/dl (8.6-10.3); Creatinine Clr Calc Pharmacy 50.5 ml/min
--- NOTE | 2024-04-26 07:37 | Hospitalist Progress Note ---
"Date of Service April 26, 2024 Assessment & Plan (1) Acute exacerbation of chronic obstructive pulmonary disease (COPD): (2) Pneumonia: (3) CKD (chronic kidney disease): (4) Left leg swelling: Plan Acute on Chronic Hypoxemic Respiratory Failure | COPD -Increased SOB day prior to admission, SPO2 77% for EMS -Initially on BiPAP, weaned off. -Now back to room air. -Respiratory biofire negative RLL pneumonia, speech consult, this was negative. -Given recurrent hospitalizations, antibiotic courses throughout the year and history of COPD, will continue antipseudomonal coverage with cefepime. Discussed options for discharge: 1) complete 5 days on cefepime/doxy last dose would be Friday around noon. -Continue home inhalers, Roflumilast, duonebs PRN. Will add steroid burst with prednisone 40mg daily -Continue CPAP at night for DYLAN Left Lower Extremity Swelling -Swelling of left lower leg after fall/injury the week prior -X-ray without evidence of acute fracture, shows soft tissue swelling -Venous duplex without evidence of DVT Swelling is subsequently resolved Atrial Fibrillation, Paroxysmal -No recent episodes of a fib -Follows with Dr. Medellin -Continue Multaq -CHADS-VASC of 3, unfortunately Eliquis was stopped >1 month ago after recurrent bleeds identified on EGD Diastolic Heart Failure -Last echo (03/27/21) with normal LV size and function with an EF in the range of 60-65% with type 2 diastolic dysfunction; dilated right ventricle with normal RV function -Continue Entresto, spironolactone Iron Deficiency Anemia -Continue iron supplement iron and recheck was replete will continue supplementation Ordered Ambien and melatonin for insomnia while he is here. VTE Prophylaxis: Heparin Code Status: Full Code Admission and Anticipated Discharge Date Admission Date: April 23, 2024 Subjective Patient seen in the company of his he was doing much better anticipating completion of antibiotics on 04/27 with anticipated discharge Physical Exam Physical Exam: Will continue to show poor air movement throughout all lung scott consistent with fairly severe COPD Extremities are with chronic venous stasis changes Results & Data Results & Data Vital Signs (Past 12 Hours) Vital Signs Temp Pulse Pulse Resp BP Pulse Ox O2 Del Method 04/26/24 03:26 144/54 H 04/26/24 02:58 97.5 F L 69 18 171/75 H 93 Nasal Cannula 04/25/24 23:24 97.3 F L 59 L 16 159/64 H 94 Nasal Cannula 04/25/24 22:07 59 L 04/25/24 21:00 Nasal Cannula 04/25/24 19:52 98.6 F 57 L 18 154/74 H 93 Room Air O2 Flow Rate 04/26/24 03:26 04/26/24 02:58 1.0 04/25/24 23:24 1 04/25/24 22:07 04/25/24 21:00 1 04/25/24 19:52 Laboratory Results Reviewed CBC reviewed chemistry PG Care Time/CCT Total # of Minutes Spent Total Time Spent with Patient: Total time spent is greater than 50% in coordination of care (as documented) at patient's floor/unit and/or counseling patient: Coding Level of Care Code 02090 SUB INP/OBS CARE 3/50MIN Diagnoses Acute exacerbation of chronic obstructive pulmonary disease (COPD) J44.1 Pneumonia J18.9 CKD (chronic kidney disease) N18.9 Left leg swelling M79.89"
[2024-04-27 07:51] VITALS: BP 155/60; PULSE 53; TEMP 98.6; O2SAT 93
--- NOTE | 2024-04-27 16:12 | Discharge Summary ---
Discharge Summary Date of Service April 27, 2024 Principal Dx & Hospital Course #1 = Principal Diagnosis (1) Acute exacerbation of chronic obstructive pulmonary disease (COPD): (2) Pneumonia: (3) CKD (chronic kidney disease): (4) Left leg swelling: Plan Acute on Chronic Hypoxemic Respiratory Failure | COPD -Increased SOB day prior to admission, SPO2 77% for EMS -Initially on BiPAP, weaned off. -Now back to room air. -Respiratory biofire negative RLL pneumonia, speech consult, this was negative. -Given recurrent hospitalizations, antibiotic courses throughout the year and history of COPD, will continue antipseudomonal coverage with cefepime. -Continue home inhalers, Roflumilast, duonebs PRN. prednisone while in hospital only -Continue CPAP at night for DYLAN Left Lower Extremity Swelling -Swelling of left lower leg after fall/injury the week prior -X-ray without evidence of acute fracture, shows soft tissue swelling -Venous duplex without evidence of DVT Swelling is subsequently resolved Atrial Fibrillation, Paroxysmal -No recent episodes of a fib -Follows with Dr. Medellin -Continue Multaq -CHADS-VASC of 3, unfortunately Eliquis was stopped >1 month ago after recurrent bleeds identified on EGD Diastolic Heart Failure -Last echo (03/27/21) with normal LV size and function with an EF in the range of 60-65% with type 2 diastolic dysfunction; dilated right ventricle with normal RV function -Continue Entresto, spironolactone Iron Deficiency Anemia -Continue iron supplement iron and recheck was replete will continue supplementation Ordered Ambien and melatonin for insomnia while he is here. Code Status: Full Code Notes For Next Care Provider Patient is wishes for possible pulmonary rehab upon return from [place] Admission HPI Per Admitting Provider Michael Mays is a 78 year-old male with medical history significant for COPD, CKD stage III, GERD, BPH, HLD, HTN, DYLAN, paroxysmal atrial fibrillation, iron deficiency anemia. Patient presented to the ED vis EMS after expereicning progressive shorntess of breath over the past day which acutely worsened this evening. Patient was found to have SPO2 of 77% by EMS, was placed on BiPAP on arrival to ED. Patient reports some minor symptoms (runny nose/congestion) in the day prior, per chart review family reported he had one elevated temp. No known sick contacts. Patient also notes that last week he fell down a step and banged his left leg, it has been a bit swollen since then- he did not have this injury examined after it occurred. Since patient has been in the ED on BiPAP, patient states he feels "much better". Denies chest pain, abdominal pain, nausea/vomiting, urinary symptoms. ED Course: -CXR -Left LE venous duplex, left LE x-ray -CBC, CMP, VBG, BNP, troponin, blood cultures -1x Cefepime -500mL NSS bolus x2 Discharge Exam Awake alert appropriate no respiratory distress no cough Patient anticipating discharge Discharge Plan Discharge Items Patient Disposition: Home - Self-Care Reason For Visit: HYPOXIA Discharge Diagnosis: RLL pneumonia copd history of afib iron deficiency anemia Activity: Resume your previous activity Non-emergency contact: Primary Care Provider Call non-emergency contact if: your symptoms worsen Follow-up/Referrals: Prem Byrd DO [Primary Care Provider] - 05/03/24 2:00 pm (Hospital follow up on May 03 at 2 pm.) Diet: Low Sodium (2gm) Addtl Attending Provider Instructions: Rest and Recover start to prioritize some down time in your schedule and slowly begin to increase your physical activity consider looking into ways to optimize your breathing follow up with Dr Byrd before travel to [place] Pending Studies at Discharge: No Stand-Alone Forms: My [facility], Smoking Cessation Medications and DC Order Prescriptions: Continued atorvastatin 20 mg tablet 20 mg PO HS Qty: 90 3RF Multaq 400 mg tablet 400 mg PO BID Qty: 180 3RF Rx Instructions: must administer with a meal/food finasteride 5 mg tablet 5 mg PO QAM Qty: 90 3RF loratadine [Claritin] 10 mg tablet 10 mg PO PM Qty: 90 3RF roflumilast [Daliresp] 500 mcg tablet 500 mcg PO QAM Qty: 90 3RF Entresto 24-26 mg tablet 1 tab PO BID Qty: 180 3RF Rx Instructions: take with food spironolactone 25 mg tablet 12.5 mg PO QAM Qty: 90 3RF tadalafil 5 mg tablet 5 mg PO QAM Qty: 90 3RF tamsulosin 0.4 mg capsule 0.4 mg PO HS Qty: 90 3RF albuterol sulfate 90 mcg/actuation HFA aerosol inhaler 2 puff INHALATION QID PRN (Reason: Wheezing) 90 Days Qty: 25.5 3RF tiotropium bromide [Spiriva with HandiHaler] 18 mcg capsule, w/inhalation device 1 cap inhalation QAM 90 Days Qty: 90 3RF ipratropium-albuterol 0.5 mg-3 mg(2.5 mg base)/3 mL solution for nebulization 3 ml inhalation QID PRN (Reason: Shortness Of Breath Or Wheezing) Qty: 120 2RF (DME) CPAP Machine Mis See Dose Instructions .ROUTE .MEDSUPPLY Qty: 1 0RF Dose Instruction: As directed Rx Instructions: CPAP at 8 cms with resmedswift nasal pillows size small/tubing and supplies (DME) CPAP Supplies Misc See Rx Instructions .ROUTE .MEDSUPPLY Qty: 1 0RF Rx Instructions: CPAP SUPPLIES: FULL FACE MASK/NASAL MASK, REPLACEMENT CUSHION, DISPOSABLE/NON-DISPOSABLE FILTERS, TUBING, HEADGEAR, WATER CHAMBER; DX: G47.33; LENGTH OF NEED: 99YEARS furosemide 20 mg tablet 20 mg PO DAILY PRN (Reason: ud) Qty: 90 3RF Rx Instructions: PRN for weight gain of 2-3 pounds doxycycline hyclate 100 mg tablet 100 mg PO BID 5 Days Qty: 10 0RF Tums 300 mg (750 mg) Tablet,Chewable 300 mg PO BID PRN (Reason: Heartburn) ferrous sulfate 325 mg (65 mg iron) tablet 325 mg PO TID fluticasone propion-salmeterol [Wixela Inhub] 250-50 mcg/dose blister with device 1 inh INHALATION [facility] cetirizine 10 mg Tablet 10 mg PO QAM omeprazole 40 mg capsule,delayed release(DR/EC) 40 mg PO BID Discharge Orders: Discharge Order (Routine); Ordered 04/27/24 Ordered By: Prem Carrillo Admission Data Admit Date/Time: 04/23/24 04:09 Attending Provider: Prem Carrillo Admit Provider: Julia Dwyer Primary Care Provider: Prem Byrd Other Providers: Lisa Rosa Other Interventions: Discharge Summary Assessment (RN) Last Done: 04/27/24 09:42 Hospital Stay Data Consultations 04/23/24 00:41 ED Decision to Admit Stat Diagnostic Imagining Performed 04/23/24 00:32 US venous doppler LE LT Stat Pending Results Patient Have Any Pending Studies at Discharge: No Discharge Instructions Given to Patient (Per Discharging Provider) Rest and Recover start to prioritize some down time in your schedule and slowly begin to increase your physical activity consider looking into ways to optimize your breathing follow up with Dr Byrd before travel to [place] Total Time Total Time Spent Total Time Spent (In Minutes): It required greater than 30 minutes to prepare this patient for discharge. Coding Level of Care Code 53149 INP/OBS DISCH >30 MIN Diagnoses Acute exacerbation of chronic obstructive pulmonary disease (COPD) J44.1 Pneumonia J18.9 CKD (chronic kidney disease) N18.9 Left leg swelling M79.89
== END 2024-04-27 12:03 | disposition home or self-care (01) | DRG 189 ==
LOC: ED 22:56 → 2S 04-23 03:42 → SUATTDRO 04-23 04:09 → 2S 04-23 04:09

== ENCOUNTER 2025-01-27 05:23 | Inpatient (IN) ==
[2025-01-27 05:58] LABS: Hematocrit (blood only) 41.2 % (42.0-52.0); Hemoglobin 13.5 g/dl (14.0-18.0); Immature Granulocytes # (auto) 0.10 K/uL (0.01-0.20); Immature Granulocytes % (auto) 0.5 %; Mean Corpuscular Hemoglobin 29.0 pg (25.0-34.0); Mean Corpuscular Volume 88.6 fL (80.0-100.0); Platelet Count 234 K/uL (130-400); RDW Standard Deviation 42.3 fL (36.4-46.3); Red Blood Count 4.65 M/uL (4.70-6.10); White Blood Count 21.40 K/ul (4.8-10.8)
[2025-01-27 06:17] LABS: Alanine Aminotransferase 18.0 U/L (7-52); Albumin Globulin Ratio 1.2 (0.9-2); Albumin Level 4.2 gm/dl (3.4-5.0); Alkaline Phosphatase 48.0 U/L (34-104); Anion Gap 9.0 (3-11); Bilirubin,Total 0.6 mg/dl (0.2-1.0); Blood Urea Nitrogen 29.0 mg/dl (6-23); Calcium 9.4 mg/dl (8.6-10.3); Carbon Dioxide 25.0 mmol/L (21-32); Chloride 103.0 mmol/L (98-107); Creatinine Clr Calc Pharmacy 39.9 ml/min; Globulin 3.4 gm/dl (2.5-4.0); Glucose 125.0 mg/dl (70-99(Fasting)); Potassium 4.5 mmol/L (3.5-5.1); Sodium 137.0 mmol/L (136-145); Total Protein 7.6 gm/dl (6.0-8.3)
--- NOTE | 2025-01-27 06:20 | Emergency Department Note ---
Impression & Plan Acute exacerbation of chronic obstructive pulmonary disease, Bronchopneumonia, Hypoxia, Acute bronchitis ED Provider Note NAME: OSKAR ASENCIO AGE: 79 SEX: M : 1945 ARRIVES VIA: Ambulance INFORMANT: Patient, EMS report ED PROVIDER(S): Dale Nunez DO CHIEF COMPLAINT: Shortness of breath HPI: The patient is a 79-year-old male who presented to the emergency department for evaluation of shortness of breath. The patient started having symptoms over the last 24 to 48 hours. He became much worse overnight last night. He does have a long cardiac history. He did notice slight weight gain earlier in the week. He did take an extra dose of his diuretic. He states he has no worsening swelling of his legs. He did have some trouble laying flat last evening. He has a history of COPD. He arrived via ambulance. The patient was treated with a DuoNeb prior to arrival. The patient states this did improve his symptoms somewhat. He was noted to have hypoxia. The patient denies having any specific chest pain has had no hemoptysis. The patient did have a fever. He has had a nonproductive cough. ROS: See above HPI for pertinent positives & negatives. A total of 10 systems reviewed and were otherwise negative. PAST MEDICAL HISTORY: See Below PAST SURGICAL HISTORY: See Below FAMILY HISTORY: See Below SOCIAL HISTORY: See Below HOME MEDICATIONS: See Below ALLERGIES: See Below VITALS: See Below PHYSICAL EXAMINATION: GENERAL: The patient is awake and alert. He is resting comfortably. His significant other is in the room. EYES: The conjunctivae are clear. The pupils are round and reactive. EARS, NOSE, MOUTH AND THROAT: The nose is without any evidence of any deformity. NECK: The neck is nontender and supple. RESPIRATORY: Diminished breath sounds are noted at the right base. There were scattered rhonchi throughout. CARDIOVASCULAR: Irregular heartbeat was noted to auscultation. There is no definite murmur. GASTROINTESTINAL: The abdomen is soft. Abdomen is nontender. MUSCULOSKELETAL/EXTREMITIES: There is no evidence of gross deformity full range of motion is noted in the hips and shoulders. SKIN: Skin is warm and dry. Trace pedal edema was noted bilaterally. NEUROLOGIC: Patient is awake alert and oriented x3 MEDICAL DECISION MAKING: The patient is a 79-year-old male who presented to the emergency department for an evaluation of shortness of breath. The patient's had a nonproductive cough as well as shortness of breath. He has a history of COPD. He was hypoxic prior to arrival. He did take an extra dose of his Lasix this week because of weight gain. The patient did have a low-grade fever. He was hypoxic prior to arrival. I discussed the patient's laboratory and radiographic studies with him. Given his presentation I do feel this is most likely consistent with an infectious process. He was started on an IV antibiotic. The patient was placed on supplemental oxygen and responded to this well. I discussed the patient's laboratory and radiographic studies with him. I discussed his condition with the on-call [facility] hospitalist. They have agreed to evaluate the patient in the emergency department for further management and disposition. Triage Nursing notes reviewed. Prior medical records reviewed Vital Signs: reviewed and remarkable for hypoxia. Differential diagnosis: Reactive airway disease, pneumonia, pneumothorax, COPD, CHF, infections, cardiac ischemia, pulmonary embolism, musculoskeletal, gastrointestinal, as well as other pathologies. ER treatment provided: See below Diagnostics interpreted by me: ECG: EKG was obtained in the emergency department. My interpretation is sinus tachycardia at 103 bpm. Frequent PVCs were noted. A right bundle branch block pattern was noted with nonspecific ST abnormalities. This was compared to a tracing from April 22, 2024. The right bundle was not new. The ectopy was new. Cardiac Monitoring: An order was placed for continuous cardiac monitoring. The monitor shows a rate of 80 bpm with sinus rhythm. Laboratory studies: As stated above and show below. Imaging studies: See below. Radiographic imaging was reviewed by myself Consultation(s): I discussed this case with Dr. Xiong who is on-call for the [facility] hospitalist group. Past Med/Surg History Problem List (Updated 01/27/25 @ 07:57 by Dale Nunez DO) Acute bronchitis (Acute) Hypoxia (Acute) Bronchopneumonia (Acute) Acute exacerbation of chronic obstructive pulmonary disease (Acute) CKD (chronic kidney disease) (Acute) Cellulitis of left leg (Acute) Left leg swelling Acute exacerbation of chronic obstructive pulmonary disease (COPD) (Acute) Pneumonia (Acute) CKD (chronic kidney disease) (Acute) COPD exacerbation (Acute) COVID-19 (Acute) Acute hypoxemic respiratory failure (Acute) COPD exacerbation (Acute) Pneumonia (Acute) Leukocytosis (Acute) Fever (Acute) Hypoxia (Acute) Bronchitis (Chronic) Bronchopneumonia (Chronic) Abnormal TSH (Chronic) Coronary artery calcification (Chronic) Chronic anticoagulation (Chronic) Atrial fibrillation (Chronic) Tubular adenoma Renal insufficiency Anemia Pruritus Lower urinary tract symptoms (LUTS) Urinary retention Epistaxis Cystic kidney disease Coronary artery calcification seen on CAT scan Encounter for pre-operative examination BPH (benign prostatic hyperplasia) (Chronic) GERD (gastroesophageal reflux disease) (Chronic) tums prn CKD (chronic kidney disease), stage III Iron deficiency anemia Chronic anticoagulation Paroxysmal atrial fibrillation no current issues Emphysema/COPD (Chronic) DYLAN on CPAP (Chronic) Asthma (Chronic) well controlled with inhalers. Hyperlipidemia (Chronic) Hypertension (Chronic) Medical History History of diverticulitis History of cardioversion successful in 2019. Colon polyps Atrial fibrillation with RVR Diabetes mellitus pt denies. Pneumonia x2. no recent issues Surgical History History of cataract surgery bilateral History of esophagogastroduodenoscopy (EGD) History of colonoscopy 07/25/20 - repeat 3 years in 2023 History of colon resection Family History Father Emphysema of lung Colon cancer Colorectal cancer Grandfather (Paternal) Colon cancer Colorectal cancer Mother Myocardial infarction Grandmother (Maternal) Myocardial infarction Other Cancer Family history non-contributory Heart disease Hypertension Denies family history of Ovarian cancer Prostate cancer Breast cancer Social History Smoking Status: Former smoker Tobacco Type: Cigarettes Age Started Using Tobacco: 20; Age Quit Using Tobacco: 42; packs per day: 1; Second Hand Exposure: No; Do You Dip or Chew Tobacco: No; Hx Alcohol Use: Yes Alcohol type: wine and other Alcohol Intake Frequency: 2-4 x/Month Hx Substance Use: No Preferred Language: Japanese Communication Ability: Effective Visual Impairment: Diminished Hearing Ability: Normal General Merchandise Manager Required: No Beliefs That Will Affect Care: None marital status: Current Living Situation: Spouse current occupational status: employed How many Children do You have: 2 Feels Safe at Home: Yes Childhood Exposure to Second-Hand Smoke: Yes Diet: regular caffeine: Yes during the past year weight has: decreased > 10 lbs Dental Care, Regularly: Yes Physical Activity Frequency: Daily Seatbelt Use: always Sunscreen Use: No Do you think of yourself as: straight/heterosexual Assistive Devices: None Allergies Allergies Allergy/AdvReac Type Severity Reaction Status Date / Time amoxicillin Allergy Intermediate RASH Verified 08/06/24 14:26 clavulanic acid Allergy Intermediate RASH Verified 08/06/24 14:26 moxifloxacin Allergy Unknown hives, Verified 08/06/24 14:26 TOLERATES LEVAQUIN Sulfa (Sulfonamide Allergy Unknown . Verified 08/06/24 14:26 Antibiotics) Home Meds Home Medications Medication Instructions Recorded Confirmed calcium carbonate (Tums) 300 mg PO BID PRN Heartburn 03/19/22 08/06/24 cetirizine 10 mg tablet 10 mg PO QAM 08/30/23 08/06/24 ferrous sulfate 325 mg (65 mg 325 mg PO TID 04/23/24 08/06/24 iron) tablet fluticasone 250 mcg-salmeterol 50 1 inh inhalation AMHS 04/23/24 08/06/24 mcg/dose blistr powdr for inhalation (Wixela Inhub) omeprazole 40 mg capsule,delayed 40 mg PO BID 05/03/24 08/06/24 release doxycycline hyclate 100 mg tablet 100 mg PO DAILY 08/06/24 Previous Rx's Medication Instructions Recorded dronedarone 400 mg tablet (Multaq) 400 mg PO BID #180 tabs 01/26/24 loratadine 10 mg tablet (Claritin) 10 mg PO PM #90 tabs 01/26/24 sacubitril 24 mg-valsartan 26 mg 1 tab PO BID #180 tabs 01/26/24 tablet (Entresto) spironolactone 25 mg tablet 12.5 mg (1/2 x 25 mg) PO QAM #90 01/26/24 tabs tadalafil 5 mg tablet 5 mg PO QAM #90 tabs 01/26/24 Spiriva with HandiHaler 18 mcg and 1 cap inhalation QAM 90 days #90 02/02/24 inhalation capsules (tiotropium inhalations bromide) albuterol sulfate 90 mcg/actuation 2 puff inhalation QID PRN Wheezing 02/02/24 aerosol inhaler 90 days #25.5 grams ipratropium 0.5 mg-albuterol 3 mg 3 ml inhalation QID PRN Shortness 02/03/24 (2.5 mg base)/3 mL nebulization Of Breath Or Wheezing #120 amps soln furosemide 20 mg tablet 20 mg PO DAILY PRN ud #90 tabs 02/10/24 CPAP Supplies #1 ea 04/16/24 CPAP Machine #1 ea 11/12/24 atorvastatin 20 mg tablet See Rx Instructions .Route 01/11/25 .COMPLEX #90 tabs finasteride 5 mg tablet See Rx Instructions .Route 01/11/25 .COMPLEX #90 tabs roflumilast 500 mcg tablet See Rx Instructions .Route 01/11/25 .COMPLEX #90 tabs tamsulosin 0.4 mg capsule See Rx Instructions .Route 01/11/25 .COMPLEX #90 caps Results & Data (ED) Vital Signs Vital Signs - 24 hr 01/27/25 05:27 01/27/25 05:34 01/27/25 05:34 Temperature 37.4 C Temperature Source Oral Pulse Rate 122 H Pulse Rate [Right] Respiratory Rate 20 Respiratory Effort / Characteristics Non-Labored Spontaneous Non-Labored Respiratory Depth Normal Normal Respiratory Pattern Regular Blood Pressure 166/71 H Blood Pressure [Right Arm] Blood Pressure Mean 102 Blood Pressure Mean [Right Arm] Blood Pressure Position Sitting Blood Pressure Position [Right Arm] Pulse Oximetry 75 L 94 Oxygen Delivery Method Room Air Nasal Cannula Oxygen Flow Rate 5 Sepsis Recent Fever Within 48 Hours Yes Sepsis New/Unexplained Change in Mental Status N/A Sepsis Action Taken by Nursing No Action Required 01/27/25 05:36 01/27/25 05:37 01/27/25 06:11 Temperature Temperature Source Pulse Rate 94 H Pulse Rate [Right] 81 Respiratory Rate 16 Respiratory Effort / Characteristics Non-Labored Spontaneous Respiratory Depth Normal Respiratory Pattern Blood Pressure Blood Pressure [Right Arm] 136/74 Blood Pressure Mean Blood Pressure Mean [Right Arm] 94 Blood Pressure Position Blood Pressure Position [Right Arm] Lying Pulse Oximetry 94 94 Oxygen Delivery Method Nasal Cannula Room Air Oxygen Flow Rate 5 Sepsis Recent Fever Within 48 Hours Sepsis New/Unexplained Change in Mental Status Sepsis Action Taken by Nursing 01/27/25 06:35 01/27/25 07:44 Temperature Temperature Source Pulse Rate Pulse Rate [Right] 80 Respiratory Rate 16 Respiratory Effort / Characteristics Non-Labored Spontaneous Respiratory Depth Normal Respiratory Pattern Blood Pressure Blood Pressure [Right Arm] 152/70 H Blood Pressure Mean Blood Pressure Mean [Right Arm] 97 Blood Pressure Position Blood Pressure Position [Right Arm] Lying Pulse Oximetry 94 95 Oxygen Delivery Method Nasal Cannula Nasal Cannula Oxygen Flow Rate 5 5 Sepsis Recent Fever Within 48 Hours Sepsis New/Unexplained Change in Mental Status Sepsis Action Taken by Alf Medications Current Medication List: was personally reviewed by me Laboratory Data Attestation: I reviewed the patient's lab results. 01/27/25 05:31 01/27/25 05:31 Lab Results 01/27/25 01/27/25 01/27/25 Range/Units 05:31 05:42 06:31 WBC 21.40 H (4.8-10.8) K/ul RBC 4.65 L (4.70-6.10) M/uL Hgb 13.5 L (14.0-18.0) g/dl Hct 41.2 L (42.0-52.0) % MCV 88.6 (80.0-100.0) fL MCH 29.0 (25.0-34.0) pg MCHC 32.8 (32.0-36.0) g/dL RDW Std Deviation 42.3 (36.4-46.3) fL RDW Coeff of Jim 13.2 (11.5-14.5) % Plt Count 234 (130-400) K/uL MPV 10.0 (9.4-12.4) fL Immature Gran % (Auto) 0.5 % Neut % (Auto) 85.9 % Lymph % (Auto) 7.0 % Greene % (Auto) 5.8 % Eos % (Auto) 0.5 % Baso % (Auto) 0.3 % Neut # (Auto) 18.40 H (1.40-6.50) K/uL Lymph # (Auto) 1.49 (1.20-3.40) K/uL Greene # (Auto) 1.25 H (0.11-0.59) K/uL Eos # (Auto) 0.10 (0.00-0.50) K/uL Baso # (Auto) 0.06 (0.00-0.20) K/uL Immature Gran # (Auto) 0.10 (0.01-0.20) K/uL PT 11.0 (9.0-12.0) Seconds INR 1.0 (0.9-1.1) VBG pH 7.37 (7.36-7.41) VBG pCO2 42 (38-50) mmHg VBG pO2 45 mmHg VBG HCO3 24 mmol/L VBG O2 Saturation 78.2 % VBG Base Excess -1.1 mEq/L Sodium 137 (136-145) mmol/L Potassium 4.5 (3.5-5.1) mmol/L Chloride 103 (98-107) mmol/L Carbon Dioxide 25 (21-32) mmol/L Anion Gap 9 (3-11) BUN 29 H (6-23) mg/dl Creatinine 1.72 H (0.6-1.4) mg/dl Est Cr Clr Drug Dosing 39.9 ml/min eGFR 39.94 BUN/Creatinine Ratio 16.9 (10-20) Glucose 125 H (70-99(Fasting)) mg/dl Lactate (0.4-2.0) mmol/L Calcium 9.4 (8.6-10.3) mg/dl Total Bilirubin 0.6 (0.2-1.0) mg/dl AST 13 (13-39) U/L ALT 18 (7-52) U/L Alkaline Phosphatase 48 (34-104) U/L Troponin I High Sens 9.9 (0-20) pg/ml C-Reactive Protein 1.29 H (0-0.5) mg/dl B-Natriuretic Peptide 79 (0-100) pg/ml Total Protein 7.6 (6.0-8.3) gm/dl Albumin 4.2 (3.4-5.0) gm/dl Globulin 3.4 (2.5-4.0) gm/dl Albumin/Globulin Ratio 1.2 (0.9-2) Adenovirus (PCR) Not Detected (NotDetected) B. pertussis DNA (PCR) Not Detected (NotDetected) B.parapertussis DNA PCR Not Detected (NotDetected) C. pneumoniae DNA (PCR) Not Detected (NotDetected) Coronavirus OC43 (PCR) Not Detected (NotDetected) Coronavirus HKU1 (PCR) Not Detected (NotDetected) Coronavirus 229E (PCR) Not Detected (NotDetected) SARS-CoV-2 (PCR) Not Detected (NotDetected) Coronavirus NL63 (PCR) Not Detected (NotDetected) Human Metapneumovir PCR Not Detected (NotDetected) Influenza Type A (PCR) Not Detected (NotDetected) Influenza Type B (PCR) Not Detected (NotDetected) M. pneumoniae (PCR) Not Detected (NotDetected) Parainfluenza 1 (PCR) Not Detected (NotDetected) Parainfluenza 2 (PCR) Not Detected (NotDetected) Parainfluenza 3 (PCR) Not Detected (NotDetected) Parainfluenza 4 (PCR) Not Detected (NotDetected) RSV (PCR) Not Detected (NotDetected) Entero/Rhino (PCR) Not Detected (NotDetected) 01/27/25 Range/Units 06:37 WBC (4.8-10.8) K/ul RBC (4.70-6.10) M/uL Hgb (14.0-18.0) g/dl Hct (42.0-52.0) % MCV (80.0-100.0) fL MCH (25.0-34.0) pg MCHC (32.0-36.0) g/dL RDW Std Deviation (36.4-46.3) fL RDW Coeff of Jim (11.5-14.5) % Plt Count (130-400) K/uL MPV (9.4-12.4) fL Immature Gran % (Auto) % Neut % (Auto) % Lymph % (Auto) % Greene % (Auto) % Eos % (Auto) % Baso % (Auto) % Neut # (Auto) (1.40-6.50) K/uL Lymph # (Auto) (1.20-3.40) K/uL Greene # (Auto) (0.11-0.59) K/uL Eos # (Auto) (0.00-0.50) K/uL Baso # (Auto) (0.00-0.20) K/uL Immature Gran # (Auto) (0.01-0.20) K/uL PT (9.0-12.0) Seconds INR (0.9-1.1) VBG pH (7.36-7.41) VBG pCO2 (38-50) mmHg VBG pO2 mmHg VBG HCO3 mmol/L VBG O2 Saturation % VBG Base Excess mEq/L Sodium (136-145) mmol/L Potassium (3.5-5.1) mmol/L Chloride (98-107) mmol/L Carbon Dioxide (21-32) mmol/L Anion Gap (3-11) BUN (6-23) mg/dl Creatinine (0.6-1.4) mg/dl Est Cr Clr Drug Dosing ml/min eGFR BUN/Creatinine Ratio (10-20) Glucose (70-99(Fasting)) mg/dl Lactate 1.1 (0.4-2.0) mmol/L Calcium (8.6-10.3) mg/dl Total Bilirubin (0.2-1.0) mg/dl AST (13-39) U/L ALT (7-52) U/L Alkaline Phosphatase (34-104) U/L Troponin I High Sens (0-20) pg/ml C-Reactive Protein (0-0.5) mg/dl B-Natriuretic Peptide (0-100) pg/ml Total Protein (6.0-8.3) gm/dl Albumin (3.4-5.0) gm/dl Globulin (2.5-4.0) gm/dl Albumin/Globulin Ratio (0.9-2) Adenovirus (PCR) (NotDetected) B. pertussis DNA (PCR) (NotDetected) B.parapertussis DNA PCR (NotDetected) C. pneumoniae DNA (PCR) (NotDetected) Coronavirus OC43 (PCR) (NotDetected) Coronavirus HKU1 (PCR) (NotDetected) Coronavirus 229E (PCR) (NotDetected) SARS-CoV-2 (PCR) (NotDetected) Coronavirus NL63 (PCR) (NotDetected) Human Metapneumovir PCR (NotDetected) Influenza Type A (PCR) (NotDetected) Influenza Type B (PCR) (NotDetected) M. pneumoniae (PCR) (NotDetected) Parainfluenza 1 (PCR) (NotDetected) Parainfluenza 2 (PCR) (NotDetected) Parainfluenza 3 (PCR) (NotDetected) Parainfluenza 4 (PCR) (NotDetected) RSV (PCR) (NotDetected) Entero/Rhino (PCR) (NotDetected) Administered Medications Discontinued Medications Ceftriaxone Sodium (Rocephin) 2,000 mg in 50 mls @ 100 mls/hr IV NOW STA Stop: 01/27/25 06:35 Last Infusion: 01/27/25 07:35 Dose: Infused Documented By: Admin: 01/27/25 06:44 Dose: 100 mls/hr Documented By: KALIE Imaging Data Attestation: I personally reviewed and interpreted this imaging study as follows: My Impression: 1 view chest x-ray was obtained in the emergency department. My interpretation is possible right sided pneumonia, increased markings at the right base, final report below. Radiologist's Impression: Chest X-Ray 01/27/25 05:31 EXAM: XR chest 1V portable CLINICAL HISTORY: Dyspnea TECHNIQUE: An X-ray image of the chest was obtained in the AP projection. COMPARISON: 04/25/2024 FINDINGS: Pulmonary Parenchyma: Right basal atelectasis is noted. There is no evidence of consolidation, collapse, or focal opacities. No pulmonary nodules are identified. There is no evidence of pleural effusion or pleural thickening. Heart and Mediastinum: Cardiomegaly is present, with prominent hilar markings. There is no mediastinal widening or masses. Bony Thorax: The bony thorax appears intact, without fractures or deformities. Soft Tissues: The soft tissues overlying the chest wall are unremarkable. IMPRESSION: Cardiomegaly with prominent hilar markings and right basal atelectasis. No apparent interval changes or any acute cardiopulmonary abnormality. Electronically signed by Conor Murphy 01-27-2025 06:46 AM Discharge Plan Visit Data Chief Complaint: Shortness of Breath/Dyspnea Stated Complaint: SOB ED Provider: Dale Nunez Discharge Problem: Acute exacerbation of chronic obstructive pulmonary disease, Bronchopneumonia, Hypoxia, Acute bronchitis Patient Disposition: Being Evaluated by Hospitalist Condition: Fair Forms Stand Alone Forms: My [facility] Prescriptions Prescriptions: No Action Multaq 400 mg tablet 400 mg PO BID Qty: 180 3RF Rx Instructions: must administer with a meal/food loratadine [Claritin] 10 mg tablet 10 mg PO PM Qty: 90 3RF Entresto 24-26 mg tablet 1 tab PO BID Qty: 180 3RF Rx Instructions: take with food spironolactone 25 mg tablet 12.5 mg PO QAM Qty: 90 3RF tadalafil 5 mg tablet 5 mg PO QAM Qty: 90 3RF albuterol sulfate 90 mcg/actuation HFA aerosol inhaler 2 puff INHALATION QID PRN (Reason: Wheezing) 90 Days Qty: 25.5 3RF tiotropium bromide [Spiriva with HandiHaler] 18 mcg capsule, w/inhalation device 1 cap inhalation QAM 90 Days Qty: 90 3RF ipratropium-albuterol 0.5 mg-3 mg(2.5 mg base)/3 mL solution for nebulization 3 ml inhalation QID PRN (Reason: Shortness Of Breath Or Wheezing) Qty: 120 2RF (DME) CPAP Supplies Misc See Rx Instructions .ROUTE .MEDSUPPLY Qty: 1 0RF Rx Instructions: CPAP SUPPLIES: FULL FACE MASK/NASAL MASK, REPLACEMENT CUSHION, DISPOSABLE/NON-DISPOSABLE FILTERS, TUBING, HEADGEAR, WATER CHAMBER; DX: G47.33; LENGTH OF NEED: 99YEARS (DME) CPAP Machine Misc See Dose Instructions .ROUTE .MEDSUPPLY Qty: 1 0RF Dose Instruction: As directed Rx Instructions: CPAP at 8 cms with resmedswift nasal pillows size small/tubing and supplies roflumilast 500 mcg tablet See Rx Instructions .ROUTE .COMPLEX Qty: 90 3RF Dose Instruction: TAKE 1 TABLET BY MOUTH IN THE MORNING Rx Instructions: TAKE 1 TABLET BY MOUTH IN THE MORNING tamsulosin 0.4 mg capsule See Rx Instructions .ROUTE .COMPLEX Qty: 90 3RF Dose Instruction: TAKE 1 CAPSULE BY MOUTH EVERYDAY AT BEDTIME Rx Instructions: TAKE 1 CAPSULE BY MOUTH EVERYDAY AT BEDTIME atorvastatin 20 mg tablet See Rx Instructions .ROUTE .COMPLEX Qty: 90 3RF Dose Instruction: TAKE 1 TABLET BY MOUTH AT BEDTIME Rx Instructions: TAKE 1 TABLET BY MOUTH AT BEDTIME finasteride 5 mg tablet See Rx Instructions .ROUTE .COMPLEX Qty: 90 0RF Dose Instruction: TAKE 1 TABLET BY MOUTH EVERY DAY IN THE MORNING Rx Instructions: TAKE 1 TABLET BY MOUTH EVERY DAY IN THE MORNING furosemide 20 mg tablet 20 mg PO DAILY PRN (Reason: ud) Qty: 90 3RF Rx Instructions: PRN for weight gain of 2-3 pounds doxycycline hyclate 100 mg tablet 100 mg PO DAILY Tums 300 mg (750 mg) Tablet,Chewable 300 mg PO BID PRN (Reason: Heartburn) ferrous sulfate 325 mg (65 mg iron) tablet 325 mg PO TID fluticasone propion-salmeterol [Wixela Inhub] 250-50 mcg/dose blister with device 1 inh INHALATION AMHS cetirizine 10 mg Tablet 10 mg PO QAM omeprazole 40 mg capsule,delayed release(DR/EC) 40 mg PO BID Referrals Referrals: Prem Byrd DO [Primary Care Provider] -
[2025-01-27 06:25] LABS: INR 1.0 (0.9-1.1); Prothrombin Time 11.0 Seconds (9.0-12.0)
[2025-01-27] MEDS: cefTRIAXone SODIUM 2,000 MG/50 ML BAG IV STA (06:44)
--- NOTE | 2025-01-27 06:46 | XRay Report ---
EXAM: XR chest 1V portable CLINICAL HISTORY: Dyspnea TECHNIQUE: An X-ray image of the chest was obtained in the AP projection. COMPARISON: 04/25/2024 FINDINGS: Pulmonary Parenchyma: Right basal atelectasis is noted. There is no evidence of consolidation, collapse, or focal opacities. No pulmonary nodules are identified. There is no evidence of pleural effusion or pleural thickening. Heart and Mediastinum: Cardiomegaly is present, with prominent hilar markings. There is no mediastinal widening or masses. Bony Thorax: The bony thorax appears intact, without fractures or deformities. Soft Tissues: The soft tissues overlying the chest wall are unremarkable. IMPRESSION: Cardiomegaly with prominent hilar markings and right basal atelectasis. No apparent interval changes or any acute cardiopulmonary abnormality. Electronically signed by Conor Murphy 01-27-2025 06:46 AM
[2025-01-27 06:49] LABS: Base Excess VBG -1.1 mEq/L; HCO3 VBG 24 mmol/L; Oxygen Saturation VBG 78.2 %; PCO2 VBG 42 mmHg (38-50); PO2 VBG 45 mmHg; pH VBG 7.37 (7.36-7.41)
[2025-01-27 07:07] LABS: Chlamydia pneumoniae PCR Not Detected (NotDetected); Coronavirus 229E PCR Not Detected (NotDetected); Coronavirus CoV-2 (COVID19)PCR Not Detected (NotDetected); Coronavirus HKU1 PCR Not Detected (NotDetected); Coronavirus NL63 PCR Not Detected (NotDetected); Coronavirus OC43PCR Not Detected (NotDetected); Human Metapneumovirus PCR Not Detected (NotDetected); Parainfluenza Virus 1 PCR Not Detected (NotDetected); Parainfluenza Virus 2 PCR Not Detected (NotDetected); Parainfluenza Virus 3 PCR Not Detected (NotDetected); Parainfluenza Virus 4 PCR Not Detected (NotDetected); Respiratory Syncytial VirusPCR Not Detected (NotDetected); Rhinovirus/Enterovirus PCR Not Detected (NotDetected)
[2025-01-27] MEDS ORDERED: ACETAMINOPHEN 325 MG TAB PO PRN (07:17)
[2025-01-27] MEDS ORDERED: ONDANSETRON INJ 2 MG/ML 2 ML VIAL IV PRN (07:17)
[2025-01-27] MEDS ORDERED: POLYETHYLENE (MIRALAX) 17 GM PACK PO PRN (07:17)
[2025-01-27] MEDS ORDERED: ALBUTEROL HFA 8 GM INHALER INH PRN (07:29)
--- NOTE | 2025-01-27 07:33 | History & Physical Report ---
Date of Service January 27, 2025 Assessment & Plan (1) Community acquired bacterial pneumonia: Plan Acute on Chronic Hypoxemic Respiratory Failure | COPD // community acquired pneumonia -Increased SOB for the past day, now on 5 liters chest xray showing sings of bacterial pneumonia will consult speech to rule out aspiration -Continue CPAP at night for DYLAN -Respiratory biofire negative -CXR shows "increased opacity at the right lung base. Finding may represent atelectasis or infiltrate." Atrial Fibrillation, Paroxysmal -No recent episodes of a fib -Follows with Dr. Medellin -Continue Multaq -CHADS-VASC of 3, unfortunately Eliquis was stopped >1 month ago after recurrent bleeds identified on EGD Diastolic Heart Failure -Last echo (03/27/21) with normal LV size and function with an EF in the range of 60-65% with type 2 diastolic dysfunction; dilated right ventricle with normal RV function -hold Entresto, spironolactone -BNP at goal. Iron Deficiency Anemia -Continue iron supplement Acute Kidney Failure creatinine is 1.72 ordered some IVF. will monitor Admit to: PCU Code Status: Full Code History of Present Illness Chief Complaint: hypoxia Primary Care Provider: Prem Byrd DO 79 yo male with PMH of COPD, CKD stage III, GERD, BPH, HLD, HTN, DYLAN, paroxysmal atrial fibrillation, iron deficiency anemia presents with SOB, generalzied malaise, fatigue, weakness. Patient reports this has been worsening for the past 24 hours. Patient reports he has weakness in his legs and difficulty ambulating which is not his norm. When patient arived to the ED he was found to have low oxygen and required 5 liters. Allergies Allergy/AdvReac Type Severity Reaction Status Date / Time amoxicillin Allergy Intermediate RASH Verified 08/06/24 14:26 clavulanic acid Allergy Intermediate RASH Verified 08/06/24 14:26 moxifloxacin Allergy Unknown hives, Verified 08/06/24 14: TOLERATES LEVAQUIN Sulfa (Sulfonamide Allergy Unknown . Verified 08/06/24 14: Antibiotics) Home Medications Medication Instructions Recorded Confirmed Type calcium carbonate (Tums) 300 mg PO BID PRN Heartburn 03/19/22 08/06/24 History cetirizine 10 mg tablet 10 mg PO QAM 08/30/23 01/27/25 History dronedarone 400 mg tablet (Multaq) 400 mg PO BID #180 tabs 01/26/24 01/27/25 Rx loratadine 10 mg tablet (Claritin) 10 mg PO PM #90 tabs 01/26/24 08/06/24 Rx sacubitril 24 mg-valsartan 26 mg 1 tab PO BID #180 tabs 01/26/24 08/06/24 Rx tablet (Entresto) spironolactone 25 mg tablet 12.5 mg (1/2 x 25 mg) PO QAM #90 01/26/24 08/06/24 Rx tabs tadalafil 5 mg tablet 5 mg PO QAM #90 tabs 01/26/24 08/06/24 Rx Spiriva with HandiHaler 18 mcg and 1 cap inhalation QAM 90 days #90 02/02/24 08/06/24 Rx inhalation capsules (tiotropium inhalations bromide) albuterol sulfate 90 mcg/actuation 2 puff inhalation QID PRN Wheezing 02/02/24 08/06/24 Rx aerosol inhaler 90 days #25.5 grams ipratropium 0.5 mg-albuterol 3 mg 3 ml inhalation QID PRN Shortness 02/03/24 08/06/24 Rx (2.5 mg base)/3 mL nebulization Of Breath Or Wheezing #120 amps soln furosemide 20 mg tablet 20 mg PO DAILY PRN ud #90 tabs 02/10/24 08/06/24 Rx CPAP Supplies #1 ea 04/16/24 08/06/24 Rx ferrous sulfate 325 mg (65 mg 325 mg PO TID 04/23/24 01/27/25 History iron) tablet fluticasone 250 mcg-salmeterol 50 1 inh inhalation [facility]HS 04/23/24 08/06/24 History mcg/dose blistr powdr for inhalation (Wixela Inhub) omeprazole 40 mg capsule,delayed 40 mg PO BID 05/03/24 08/06/24 History release doxycycline hyclate 100 mg tablet 100 mg PO DAILY 08/06/24 History CPAP Machine #1 ea 11/12/24 Rx atorvastatin 20 mg tablet See Rx Instructions .Route 01/11/25 01/27/25 Rx .COMPLEX #90 tabs finasteride 5 mg tablet See Rx Instructions .Route 01/11/25 01/27/25 Rx .COMPLEX #90 tabs roflumilast 500 mcg tablet See Rx Instructions .Route 01/11/25 Rx .COMPLEX #90 tabs tamsulosin 0.4 mg capsule See Rx Instructions .Route 01/11/25 Rx .COMPLEX #90 caps Past Med/Surg History Problem List Community acquired bacterial pneumonia Acute bronchitis (Acute) Hypoxia (Acute) Bronchopneumonia (Acute) Acute exacerbation of chronic obstructive pulmonary disease (Acute) CKD (chronic kidney disease) (Acute) Cellulitis of left leg (Acute) Left leg swelling Acute exacerbation of chronic obstructive pulmonary disease (COPD) (Acute) Pneumonia (Acute) CKD (chronic kidney disease) (Acute) COPD exacerbation (Acute) COVID-19 (Acute) Acute hypoxemic respiratory failure (Acute) COPD exacerbation (Acute) Pneumonia (Acute) Leukocytosis (Acute) Fever (Acute) Hypoxia (Acute) Bronchitis (Chronic) Bronchopneumonia (Chronic) Abnormal TSH (Chronic) Coronary artery calcification (Chronic) Chronic anticoagulation (Chronic) Atrial fibrillation (Chronic) Tubular adenoma Renal insufficiency Anemia Pruritus Lower urinary tract symptoms (LUTS) Urinary retention Epistaxis Cystic kidney disease Coronary artery calcification seen on CAT scan Encounter for pre-operative examination BPH (benign prostatic hyperplasia) (Chronic) GERD (gastroesophageal reflux disease) (Chronic) tums prn CKD (chronic kidney disease), stage III Iron deficiency anemia Chronic anticoagulation Paroxysmal atrial fibrillation no current issues Emphysema/COPD (Chronic) DYLAN on CPAP (Chronic) Asthma (Chronic) well controlled with inhalers. Hyperlipidemia (Chronic) Hypertension (Chronic) Medical History History of diverticulitis History of cardioversion successful in 2019. Colon polyps Atrial fibrillation with RVR Diabetes mellitus pt denies. Pneumonia x2. no recent issues Surgical History History of cataract surgery bilateral History of esophagogastroduodenoscopy (EGD) History of colonoscopy 07/25/20 - repeat 3 years in 2023 History of colon resection Family History Father Emphysema of lung Colon cancer Colorectal cancer Grandfather (Paternal) Colon cancer Colorectal cancer Mother Myocardial infarction Grandmother (Maternal) Myocardial infarction Other Cancer Family history non-contributory Heart disease Hypertension Denies family history of Ovarian cancer Prostate cancer Breast cancer Social History Smoking Status: Former smoker Tobacco Type: Cigarettes Age Started Using Tobacco: 20; Age Quit Using Tobacco: 42; packs per day: 1; Second Hand Exposure: No; Do You Dip or Chew Tobacco: No; Hx Alcohol Use: Yes Alcohol type: beer and wine Alcohol Intake Frequency: 2-4 x/Month Hx Substance Use: No Preferred Language: Italian Communication Ability: Effective Visual Impairment: Diminished Hearing Ability: Normal Family Counselor Required: No Beliefs That Will Affect Care: None marital status: Current Living Situation: Spouse current occupational status: employed How many Children do You have: 2 Other Information That Helps Us Care for You: No Feels Safe at Home: Yes Safety Concerns: Feels Safe At This Time Childhood Exposure to Second-Hand Smoke: Yes Diet: regular caffeine: Yes during the past year weight has: decreased > 10 lbs Dental Care, Regularly: Yes Physical Activity Frequency: Daily Seatbelt Use: always Sunscreen Use: No Do you think of yourself as: straight/heterosexual Assistive Devices: None Review of Systems Constitutional: + chills, + fatigue and + weakness; no b surinder aches Eyes: no blind spots Ear, Nose, Mouth, Throat: no ear pain and no tinnitus Respiratory: + cough and + chest congestion Cardiovascular: no chest pain Gastrointestinal: no abdominal pain and no early satiety Genitourinary: no dysuria Musculoskeletal: no loss of height Integumentary: no acne Neurologic: + generalized weakness Psychiatric: no behavioral changes Endocrine: + fatigue Hematologic / Lymphatic: no easy bleeding Allergy / Immunological: no GI upset with certain foods Physical Exam Constitutional: WD/WN, vitals as above Eyes: PERRL, conjunctivae normal, anicteric sclerae ENMT: external ear and nose normal, oropharynx normal Neck: trachea midline, no thyromegaly Respiratory: Auscultation: + rhonchi (righ lower lung field) Cardiovascular: RRR, no murmur, no edema Gastrointestinal (Abdomen): normal bowel sounds, soft, nontender, no hepatosplenomegaly Musculoskeletal: no cyanosis or clubbing, extremities motor strength 5/5 Neurologic: PERRL, EOMI, accommodation nl, no face palsy, no dysarthria Psychiatric: A+Ox3, euthymic affect Lymphatic: no cervical or axillary lymphadenopathy Results & Data Results & Data Vital Signs (Past 12 Hours) Vital Signs Temp Pulse Pulse Resp BP BP Pulse Ox 01/27/25 06:35 80 16 152/70 H 94 01/27/25 06:11 81 16 136/74 94 01/27/25 05:37 94 01/27/25 05:36 94 H 01/27/25 05:34 94 01/27/25 05:27 37.4 C 122 H 20 166/71 H 75 L O2 Del Method O2 Flow Rate 01/27/25 06:35 Nasal Cannula 5 01/27/25 06:11 Room Air 01/27/25 05:37 Nasal Cannula 5 01/27/25 05:36 01/27/25 05:34 Nasal Cannula 5 01/27/25 05:27 Room Air PG Care Time/CCT Total # of Minutes Spent Total Time Spent with Patient: Total time spent is greater than 50% in coordination of care (as documented) at patient's floor/unit and/or counseling patient: Coding Level of Care Code 55378 INT INP/OBS CARE 3/75MIN Diagnoses Community acquired bacterial pneumonia J15.9
[2025-01-27] MEDS: SODIUM CHLORIDE 0.9% 1,000 ML IV SCH (08:10)
[2025-01-27] MEDS: DRONEDARONE HCL 400 MG TAB PO SCH (08:49)
[2025-01-27] MEDS: ROFLUMILAST 500 MCG TAB PO SCH (08:49)
[2025-01-27] MEDS: AZITHROMYCIN 500 MG/255 ML BAG IV SCH (08:49)
[2025-01-27] MEDS: FINASTERIDE 5 MG TAB PO SCH (08:50)
[2025-01-27] MEDS: FLUTICASONE/VILANTEROL 100/25MCG 14 PUFFS/INHALER INH SCH (11:45)
[2025-01-27 16:24] LABS: Appearance Urine Clear (Clear); Bacteria Urine Automated None Seen (None Seen); Cast Urine Automated 0-2 /lpf (0-2); Epithelial Cell Urine Auto 0-2 /hpf (0-2); Glucose Urine UA Negative (Negative); RBC Urine Automated 0-2 /hpf (0-2); WBC Urine Automated 0-5 /hpf (0-5)
--- NOTE | 2025-01-27 18:12 | Electrocardiogram Report ---
Test Reason : Blood Pressure : */* mmHG Vent. Rate : 103 BPM Atrial Rate : 103 BPM P-R Int : 222 ms QRS Dur : 118 ms QT Int : 356 ms P-R-T Axes : 100 -6 24 degrees QTcB Int : 466 ms Sinus tachycardia with 1st degree A-V block with frequent Premature ventricular complexes Right bundle branch block Abnormal ECG When compared with ECG of 22-Apr-2024 23:00, Right bundle branch block is now Present Minimal criteria for Anterior infarct are no longer Present Confirmed by Isiah Wooten ([id number]) on 01/27/2025 6:12:01 PM Referred By: Confirmed By: Isiah Wooten
[2025-01-27] MEDS: LORATADINE 10 MG TAB PO SCH (20:26)
[2025-01-27] MEDS: TAMSULOSIN HCL 0.4 MG CAP PO SCH (20:26)
[2025-01-27] MEDS: ATORVASTATIN 20 MG TAB PO SCH (20:26)
[2025-01-27] MEDS: MELATONIN 3 MG TAB PO PRN (22:58)
[2025-01-28 10:10] LABS: Hematocrit (blood only) 35.3 % (42.0-52.0); Hemoglobin 11.5 g/dl (14.0-18.0); Immature Granulocytes # (auto) 0.07 K/uL (0.01-0.20); Immature Granulocytes % (auto) 0.5 %; Mean Corpuscular Hemoglobin 28.8 pg (25.0-34.0); Mean Corpuscular Volume 88.5 fL (80.0-100.0); Platelet Count 187 K/uL (130-400); RDW Standard Deviation 42.5 fL (36.4-46.3); Red Blood Count 3.99 M/uL (4.70-6.10); White Blood Count 14.59 K/ul (4.8-10.8)
[2025-01-28 10:27] LABS: Anion Gap 6.0 (3-11); Blood Urea Nitrogen 24.0 mg/dl (6-23); Calcium 8.8 mg/dl (8.6-10.3); Carbon Dioxide 23.0 mmol/L (21-32); Chloride 107.0 mmol/L (98-107); Creatinine Clr Calc Pharmacy 46.1 ml/min; Glucose 174.0 mg/dl (70-99(Fasting)); Potassium 4.1 mmol/L (3.5-5.1); Sodium 136.0 mmol/L (136-145)
[2025-01-28] MEDS: cefTRIAXone SODIUM 2,000 MG/50 ML BAG IV SCH (14:09)
--- NOTE | 2025-01-28 14:46 | XRay Report ---
XR chest 2V PA/lateral CLINICAL HISTORY: CAP COMPARISON STUDY: 01/27/2025 FINDINGS: Heart size and pulmonary vasculature are normal. There is mild blunting of the costophrenic angles. No other consolidation or pleural effusion. No pneumothorax. IMPRESSION: Possible trace pleural effusions. No pneumonia seen. ACT 112: Negative or not required by law. Electronically signed by: Natalio Cope M.D. 01/28/2025 2:44 PM
[2025-01-28] MEDS: LEVALBUTEROL 1.25 MG/3 ML NEB NEB PRN (16:14)
--- NOTE | 2025-01-28 19:08 | Hospitalist Progress Note ---
Date of Service January 28, 2025 Assessment & Plan (1) Community acquired bacterial pneumonia: Plan Acute on Chronic Hypoxemic Respiratory Failure | COPD // community acquired pneumonia -improved to 1 liter -WBC improved from 21k to 14k chest xray showing sings of bacterial pneumonia will consult speech to rule out aspiration -Continue CPAP at night for DYLAN -Respiratory biofire negative -CXR shows "increased opacity at the right lung base. continue rocephin, switched azithromycin to doxy due to intersaction with multaq. d/w pulm doc. Left Lower Extremity Swelling -Swelling of left lower leg after fall/injury the week priro -X-ray without evidence of acute fracture, shows soft tissue swelling -Venous duplex without evidence of DVT -Monitor swelling Atrial Fibrillation, Paroxysmal -No recent episodes of a fib -Follows with Dr. Medellin -Continue Multaq -CHADS-VASC of 3, unfortunately Eliquis was stopped >1 month ago after recurrent bleeds identified on EGD Diastolic Heart Failure -Last echo (03/27/21) with normal LV size and function with an EF in the range of 60-65% with type 2 diastolic dysfunction; dilated right ventricle with normal RV function -hold Entresto, spironolactone -BNP mildly elevated (186), only takes Lasix on as needed basis. Will hold for now Iron Deficiency Anemia -Continue iron supplement Acute Kidney Failure creatinine is 1.72, improved to 1.47 with IVF will monitor Admit to: PCU Code Status: Full Code Admission and Anticipated Discharge Date Admission Date: January 27, 2025 Subjective Patient reports feeling better but not ready for discharge. Physical Exam Constitutional: WD/WN, vitals as above Eyes: PERRL, conjunctivae normal, anicteric sclerae Neck: trachea midline, no thyromegaly Respiratory: Auscultation: + rhonchi (righ lower lung field) Cardiovascular: RRR, no murmur, no edema Gastrointestinal (Abdomen): normal bowel sounds, soft, nontender, no hepatosplenomegaly Musculoskeletal: no cyanosis or clubbing, extremities motor strength 5/5 Neurologic: PERRL, EOMI, accommodation nl, no face palsy, no dysarthria Psychiatric: A+Ox3, euthymic affect Results & Data Results & Data Vital Signs (Past 12 Hours) Vital Signs Temp Pulse Pulse Resp BP Pulse Ox O2 Del Method 01/28/25 16:16 57 L 18 94 Nasal Cannula 01/28/25 15:50 37.1 C 56 L 18 130/63 95 Nasal Cannula 01/28/25 14:53 53 L 01/28/25 12:00 37.0 C 56 L 18 130/60 95 Nasal Cannula 01/28/25 09:26 57 L 01/28/25 08:00 37.0 C 65 19 129/64 92 Nasal Cannula 01/28/25 07:30 Nasal Cannula O2 Flow Rate 01/28/25 16:16 1 01/28/25 15:50 1.0 01/28/25 14:53 01/28/25 12:00 1.0 01/28/25 09:26 01/28/25 08:00 1.0 01/28/25 07:30 1 PG Care Time/CCT Total # of Minutes Spent Total Time Spent with Patient: Total time spent is greater than 50% in coordination of care (as documented) at patient's floor/unit and/or counseling patient: Coding Level of Care Code 25302 SUB INP/OBS CARE 3/50MIN Diagnoses Community acquired bacterial pneumonia J15.9
[2025-01-28] MEDS: SODIUM CHLOR 7% 4 ML NEB NEB SCH (20:03)
[2025-01-29] MEDS: ENOXAPARIN INJ 40 MG/0.4 ML SYR SQ SCH (08:29)
[2025-01-29] MEDS: DOXYCYCLINE HYCLATE 100 MG in DEXTROSE 5% MINI-B 100 ML IV SCH (08:29)
[2025-01-29 10:13] LABS: Hematocrit (blood only) 38.5 % (42.0-52.0); Hemoglobin 12.6 g/dl (14.0-18.0); Immature Granulocytes # (auto) 0.08 K/uL (0.01-0.20); Immature Granulocytes % (auto) 0.6 %; Mean Corpuscular Hemoglobin 28.8 pg (25.0-34.0); Mean Corpuscular Volume 87.9 fL (80.0-100.0); Platelet Count 215 K/uL (130-400); RDW Standard Deviation 40.7 fL (36.4-46.3); Red Blood Count 4.38 M/uL (4.70-6.10); White Blood Count 13.85 K/ul (4.8-10.8)
[2025-01-29 10:29] LABS: Anion Gap 8.0 (3-11); Blood Urea Nitrogen 28.0 mg/dl (6-23); Calcium 9.2 mg/dl (8.6-10.3); Carbon Dioxide 22.0 mmol/L (21-32); Chloride 106.0 mmol/L (98-107); Creatinine Clr Calc Pharmacy 44.8 ml/min; Glucose 168.0 mg/dl (70-99(Fasting)); Potassium 4.5 mmol/L (3.5-5.1); Sodium 136.0 mmol/L (136-145)
--- NOTE | 2025-01-29 18:44 | Hospitalist Progress Note ---
Date of Service January 29, 2025 Assessment & Plan (1) Community acquired bacterial pneumonia: Plan Acute on Chronic Hypoxemic Respiratory Failure | COPD // community acquired pneumonia -improved -WBC improved from 21k to 13k chest xray showing sings of bacterial pneumonia will consult speech to rule out aspiration -Continue CPAP at night for DYLAN -Respiratory biofire negative -CXR shows "increased opacity at the right lung base. continue rocephin, switched azithromycin to doxy due to intersaction with multaq. d/w pulm doc. Added corticosteroids Left Lower Extremity Swelling -Swelling of left lower leg after fall/injury the week priro -X-ray without evidence of acute fracture, shows soft tissue swelling -Venous duplex without evidence of DVT -Monitor swelling Atrial Fibrillation, Paroxysmal -No recent episodes of a fib -Follows with Dr. Medellin -Continue Multaq -CHADS-VASC of 3, unfortunately Eliquis was stopped >1 month ago after recurrent bleeds identified on EGD Diastolic Heart Failure -Last echo (03/27/21) with normal LV size and function with an EF in the range of 60-65% with type 2 diastolic dysfunction; dilated right ventricle with normal RV function -hold Entresto, spironolactone -BNP mildly elevated (186), only takes Lasix on as needed basis. Will hold for now Iron Deficiency Anemia -Continue iron supplement Acute Kidney Failure creatinine is 1.72, improved to 1.5 will monitor Admit to: PCU Code Status: Full Code Admission and Anticipated Discharge Date Admission Date: January 27, 2025 Subjective 79 yo male reports feeling much better. He has no new complaints. Physical Exam Constitutional: WD/WN, vitals as above Eyes: PERRL, conjunctivae normal, anicteric sclerae ENMT: external ear and nose normal, oropharynx normal Neck: trachea midline, no thyromegaly Respiratory: Auscultation: + rhonchi (righ lower lung field) Cardiovascular: RRR, no murmur, no edema Gastrointestinal (Abdomen): normal bowel sounds, soft, nontender, no hepatosplenomegaly Musculoskeletal: no cyanosis or clubbing, extremities motor strength 5/5 Neurologic: PERRL, EOMI, accommodation nl, no face palsy, no dysarthria Psychiatric: A+Ox3, euthymic affect Lymphatic: no cervical or axillary lymphadenopathy Results & Data Results & Data Vital Signs (Past 12 Hours) Vital Signs Temp Pulse Pulse Pulse Pulse Pulse Resp 01/29/25 15:42 36.7 C 59 L 18 01/29/25 13:53 60 01/29/25 13:26 56 L 16 01/29/25 12:19 36.6 C 51 L 18 01/29/25 09:23 66 70 58 L 01/29/25 08:30 01/29/25 08:04 37.0 C 64 18 01/29/25 07:08 60 16 01/29/25 07:00 52 L Resp Resp Resp BP Pulse Ox Pulse Ox Pulse Ox 01/29/25 15:42 137/66 90 01/29/25 13:53 01/29/25 13:26 92 01/29/25 12:19 136/62 92 01/29/25 09:23 22 24 18 91 84 L 01/29/25 08:30 01/29/25 08:04 144/66 H 91 01/29/25 07:08 96 01/29/25 07:00 Pulse Ox O2 Del Method O2 Flow Rate O2 Flow Rate O2 Flow Rate O2 Flow Rate 01/29/25 15:42 Nasal Cannula 01/29/25 13:53 01/29/25 13:26 Room Air 01/29/25 12:19 Room Air 01/29/25 09:23 93 1 0 0 01/29/25 08:30 Room Air 01/29/25 08:04 Room Air 01/29/25 07:08 Nasal Cannula 1 01/29/25 07:00 PG Care Time/CCT Total # of Minutes Spent Total Time Spent with Patient: Total time spent is greater than 50% in coordination of care (as documented) at patient's floor/unit and/or counseling patient: Coding Level of Care Code 04411 SUB INP/OBS CARE 3/50MIN Diagnoses Community acquired bacterial pneumonia J15.9
[2025-01-30 07:29] VITALS: TEMP 98.2
[2025-01-30 08:27] LABS: Hematocrit (blood only) 37.3 % (42.0-52.0); Hemoglobin 12.5 g/dl (14.0-18.0); Mean Corpuscular Hemoglobin 29.3 pg (25.0-34.0); Mean Corpuscular Volume 87.4 fL (80.0-100.0); Platelet Count 235 K/uL (130-400); RDW Standard Deviation 41.3 fL (36.4-46.3); Red Blood Count 4.27 M/uL (4.70-6.10); White Blood Count 15.75 K/ul (4.8-10.8)
[2025-01-30 08:46] LABS: Anion Gap 7.0 (3-11); Blood Urea Nitrogen 30.0 mg/dl (6-23); Calcium 9.3 mg/dl (8.6-10.3); Carbon Dioxide 24.0 mmol/L (21-32); Chloride 108.0 mmol/L (98-107); Creatinine Clr Calc Pharmacy 47.7 ml/min; Glucose 138.0 mg/dl (70-99(Fasting)); Potassium 4.6 mmol/L (3.5-5.1); Sodium 139.0 mmol/L (136-145)
[2025-01-30 12:05] VITALS: PULSE 48; RESP 18; O2SAT 54
[2025-01-30 13:55] VITALS: BP 173/74
--- NOTE | 2025-01-30 14:37 | Discharge Summary ---
Discharge Summary Date of Service January 30, 2025 Principal Dx & Hospital Course #1 = Principal Diagnosis (1) Community acquired bacterial pneumonia: Plan Acute on Chronic Hypoxemic Respiratory Failure | COPD // community acquired pneumonia -improved -WBC improved from 21k to 13k chest xray showing sings of bacterial pneumonia will consult speech to rule out aspiration -Continue CPAP at night for DYLAN -Respiratory biofire negative -CXR shows "increased opacity at the right lung base. continue rocephin, switched azithromycin to doxy due to intersaction with multaq. d/w pulm doc. Added corticosteroids Left Lower Extremity Swelling -Swelling of left lower leg after fall/injury the week priro -X-ray without evidence of acute fracture, shows soft tissue swelling -Venous duplex without evidence of DVT -Monitor swelling Atrial Fibrillation, Paroxysmal -No recent episodes of a fib -Follows with Dr. Medellin -Continue Multaq -CHADS-VASC of 3, unfortunately Eliquis was stopped >1 month ago after recurrent bleeds identified on EGD Diastolic Heart Failure -Last echo (03/27/21) with normal LV size and function with an EF in the range of 60-65% with type 2 diastolic dysfunction; dilated right ventricle with normal RV function -hold Entresto, spironolactone -BNP mildly elevated (186), only takes Lasix on as needed basis. Will hold for now Iron Deficiency Anemia -Continue iron supplement Acute Kidney Failure creatinine is 1.72, improved to 1.5 will monitor Admit to: PCU Code Status: Full Code Admission HPI Per Admitting Provider 79 yo male with PMH of COPD, CKD stage III, GERD, BPH, HLD, HTN, DYLAN, paroxysmal atrial fibrillation, iron deficiency anemia presents with SOB, generalzied malaise, fatigue, weakness. Patient reports this has been worsening for the past 24 hours. Patient reports he has weakness in his legs and difficulty ambulating which is not his norm. When patient arived to the ED he was found to have low oxygen and required 5 liters. Discharge Plan Discharge Items Patient Disposition: Home - Self-Care Reason For Visit: SOB Discharge Diagnosis: SOB Condition on Discharge: Fair Activity: Resume your previous activity Activity Comment: NO working until next week Non-emergency contact: Primary Care Provider Call non-emergency contact if: you have any medication questions Follow-up/Referrals: Prem Byrd DO [Primary Care Provider] - 10/10/25 9:30 am Diet: Heart Healthy Addtl Attending Provider Instructions: Good afternoon Mr. Mauricio, You were treated for a bacterial pneumonia. Recommend followup with PCP in 1-2 weeks. Please continue doxycyline tonight for 6 more doses every 12 hours. Start cefuroxime tomorrow morning and also take this for 6 more doses every 12 hours. You completed 3 doses of IV steroids, will not continue. Recommend to take it easy and hold off working this week. It was a pleasure seeing you again Mr. Mauricio. Pending Studies at Discharge: No Stand-Alone Forms: My [facility] [employer], Smoking Cessation Medications and DC Order Prescriptions: New cefuroxime axetil 500 mg tablet 500 mg PO BID Qty: 6 0RF Continued Multaq 400 mg tablet 400 mg PO BID Qty: 180 3RF Rx Instructions: must administer with a meal/food loratadine [Claritin] 10 mg tablet 10 mg PO PM Qty: 90 3RF Entresto 24-26 mg tablet 1 tab PO BID Qty: 180 3RF Rx Instructions: take with food spironolactone 25 mg tablet 12.5 mg PO QAM Qty: 90 3RF tadalafil 5 mg tablet 5 mg PO QAM Qty: 90 3RF albuterol sulfate 90 mcg/actuation HFA aerosol inhaler 2 puff INHALATION QID PRN (Reason: Wheezing) 90 Days Qty: 25.5 3RF tiotropium bromide [Spiriva with HandiHaler] 18 mcg capsule, w/inhalation device 1 cap inhalation QAM 90 Days Qty: 90 3RF ipratropium-albuterol 0.5 mg-3 mg(2.5 mg base)/3 mL solution for nebulization 3 ml inhalation QID PRN (Reason: Shortness Of Breath Or Wheezing) Qty: 120 2RF (DME) CPAP Supplies Misc See Rx Instructions .ROUTE .MEDSUPPLY Qty: 1 0RF Rx Instructions: CPAP SUPPLIES: FULL FACE MASK/NASAL MASK, REPLACEMENT CUSHION, DISPOSABLE/NON-DISPOSABLE FILTERS, TUBING, HEADGEAR, WATER CHAMBER; DX: G47.33; LENGTH OF NEED: 99YEARS (DME) CPAP Machine Misc See Dose Instructions .ROUTE .MEDSUPPLY Qty: 1 0RF Dose Instruction: As directed Rx Instructions: CPAP at 8 cms with resmedswift nasal pillows size small/tubing and supplies roflumilast 500 mcg tablet See Rx Instructions .ROUTE .COMPLEX Qty: 90 3RF Dose Instruction: TAKE 1 TABLET BY MOUTH IN THE MORNING Rx Instructions: TAKE 1 TABLET BY MOUTH IN THE MORNING tamsulosin 0.4 mg capsule See Rx Instructions .ROUTE .COMPLEX Qty: 90 3RF Dose Instruction: TAKE 1 CAPSULE BY MOUTH EVERYDAY AT BEDTIME Rx Instructions: TAKE 1 CAPSULE BY MOUTH EVERYDAY AT BEDTIME atorvastatin 20 mg tablet See Rx Instructions .ROUTE .COMPLEX Qty: 90 3RF Dose Instruction: TAKE 1 TABLET BY MOUTH AT BEDTIME Rx Instructions: TAKE 1 TABLET BY MOUTH AT BEDTIME finasteride 5 mg tablet See Rx Instructions .ROUTE .COMPLEX Qty: 90 0RF Dose Instruction: TAKE 1 TABLET BY MOUTH EVERY DAY IN THE MORNING Rx Instructions: TAKE 1 TABLET BY MOUTH EVERY DAY IN THE MORNING furosemide 20 mg tablet 20 mg PO DAILY PRN (Reason: ud) Qty: 90 3RF Rx Instructions: PRN for weight gain of 2-3 pounds Tums 300 mg (750 mg) Tablet,Chewable 300 mg PO BID PRN (Reason: Heartburn) ferrous sulfate 325 mg (65 mg iron) tablet 325 mg PO TID fluticasone propion-salmeterol [Wixela Inhub] 250-50 mcg/dose blister with device 1 inh INHALATION AMHS cetirizine 10 mg Tablet 10 mg PO QAM omeprazole 40 mg capsule,delayed release(DR/EC) 40 mg PO BID Changed doxycycline hyclate 100 mg tablet 100 mg PO BID Qty: 6 0RF Discharge Orders: Discharge Order (Routine); Ordered 01/30/25 Ordered By: Shane Barcenas/Other Patient Handouts: What Is Pneumonia?, Preventing Pneumonia, Treating Pneumonia Admission Data Admit Date/Time: 01/27/25 07:18 Attending Provider: Shane Xiong Admit Provider: Shane Xiong Primary Care Provider: Prem Byrd Other Providers: Shane Xiong Other Interventions: Discharge Summary Assessment (RN) Last Done: 01/30/25 13:54 Hospital Stay Data Consultations 01/27/25 07:22 ED Decision to Admit Stat Pending Results Patient Have Any Pending Studies at Discharge: No Discharge Instructions Given to Patient (Per Discharging Provider) Good afternoon Mr. Mauricio, You were treated for a bacterial pneumonia. Recommend followup with PCP in 1-2 weeks. Please continue doxycyline tonight for 6 more doses every 12 hours. Start cefuroxime tomorrow morning and also take this for 6 more doses every 12 hours. You completed 3 doses of IV steroids, will not continue. Recommend to take it easy and hold off working this week. It was a pleasure seeing you again Mr. Mauricio. Coding Diagnoses Community acquired bacterial pneumonia J15.9
== END 2025-01-30 15:27 | disposition home or self-care (01) | DRG 193 ==
LOC: SUATTDRO → ED 05:23 → 2E 07:18